=== PATIENT | male | born 1935 | race Caucasian/White ===

== ENCOUNTER 2019-06-07 06:01 | Day surgery (SDC) | payer MEDICARE, SELFPAY ==
[2019-06-06 07:40] VITALS: BMI 32.2
[2019-06-07 06:44] VITALS: BP 113/59; PULSE 83; RESP 18; TEMP 36.1; O2SAT 100
--- NOTE | 2019-06-07 06:50 | ANES.PREANE2 ---
Pre-Anesthetic Assessment Pre-Anesthetic Assessment: Height/Weight: Height 1.7 m Weight 93.44 kg Temp Pulse Resp BP Pulse Ox 97 F L 83 18 113/59 100 06/07/19 06:44 06/07/19 06:44 06/07/19 06:44 06/07/19 06:44 06/07/19 06:44 Preop Diagnosis: Diarrhea Proposed Procedure: Operation Date: 06/07/19 07:15 Proposed Procedures p EGD/Colon 30925 48222 R19.7(Not Applicable) - Santos Hurley MD s Colonoscopy(Not Applicable) - Santos Hurley MD Was Beta Yuly taken within 24 hours: Yes Last intake: Intake Last Liquid Date 06/06/19 Last Liquid Time 20:00 Last Solid Date 06/05/19 Last Solid Time 20:00 Last Intake: 20:00 Social: Social History: No alcohol and No tobacco Exam: Pre-Anes Outpt Exam: alert, oriented x 3, clear to auscultation bilaterally and regular rate & rhythm Airway: Submandibular: WNL Cervical ROM: WNL MP: 2 Pulmonary: Pulmonary: None reported CV/HEM: CV/HEM: Afib and HTN Comments: pacemaker 2013 : : None reported Hepatic: Hepatic: None reported GI: GI: GERD Metabolic: Metabolic: DM Musc/skel: Musc/skel: Scoliosis Neuropsych: Neuropsych: None reported Anesthetic Plan: ASA status: III Anesthesia: Anesthesia Evaluation and MAC Risk of > 500 ml blood loss (7ml/kg in children): No PFSH Anesthesia PFSH: Social History Smoking and tobacco status: former smoker Quit status (tobacco): has quit using tobacco Year quit tobacco: 1975 Second hand smoke exposure: No Alcohol intake: never Adopted: No Caregiver/support person: Yes Lives independently: Yes Household members: spouse Housing: House Marital status: Highest education level completed: High School Graduate service: No Current occupational status: retired Current occupational exposures/hazards: No Pets and animals: No History of recent travel: No Sexually active: No Current gender identity: Male Kiara/Yarsani: None Special kiara needs: No Agree to transfusion: No Financial difficulty paying for basics: Decline to Answer Data Anesthesia Cardiac Studies: No Data to Display
[2019-06-07 06:57] LABS: Glucose Point of Care 113 mg/dL (70-110)
[2019-06-07] MEDS: sodium chloride 0.9% 1,000 ML 30 ML (06:57)
--- NOTE | 2019-06-07 07:10 | PM.HPUD ---
H&P update H&P Update: DATE OF SURGERY/PROCEDURE: 06/07/19 DATE H&P PERFORMED: 05/25/19 H&P UPDATE INFORMATION: H&P completed within last 30 days and Changes to prior documentation as noted here (Patient complains only of diarrhea and there would be no indication at this point for diagnostic EGD will proceed only with colonoscopy) CHANGES TO PREVIOUS DOCUMENTATION: Diagnosis diarrhea and will proceed only with colonoscopy as there is no indication for EGD. PREOP DIAGNOSIS: Diarrhea PLANNED PROCEDURE: Operation Date: 06/07/19 07:15 Proposed Procedures p EGD/Colon 95903 11289 R19.7(Not Applicable) - Santos Hurley MD s Colonoscopy(Not Applicable) - Santos Hurley MD Full H&P Perinent History: Medical/Surgical History: Medical History (Updated 05/26/19 @ 09:48 by Santos Hurley MD) A-fib (Acute) AAA (abdominal aortic aneurysm) (Acute) Diabetes (Acute) Diarrhea (Acute) Dyslipidemia (Acute) History of cardiac pacemaker (Acute) Hypertension (Acute) Prostatic hypertrophy (Acute) Family History: Family History (Updated 05/23/19 @ 14:22 by Adelia Brown RN) Denies family history of Anesthesia complication Bleeding disorder Social History: Social History Smoking and tobacco status: former smoker Quit status (tobacco): has quit using tobacco Year quit tobacco: 1975 Second hand smoke exposure: No Alcohol intake: never Adopted: No Caregiver/support person: Yes Lives independently: Yes Household members: spouse Housing: House Marital status: Highest education level completed: High School Graduate service: No Current occupational status: retired Current occupational exposures/hazards: No Pets and animals: No History of recent travel: No Sexually active: No Current gender identity: Male Kiara/Jainism: None Special kiara needs: No Agree to transfusion: No Financial difficulty paying for basics: Decline to Answer
[2019-06-07 07:58] VITALS: BP 94/59
[2019-06-07 08:10] VITALS: BP 111/61; PULSE 60; RESP 18; O2SAT 100
[2019-06-07 08:16] VITALS: BP 81/54; PULSE 62; TEMP 36.2; O2SAT 99
[2019-06-07 08:27] VITALS: BP 131/79; PULSE 60; RESP 18; O2SAT 98
--- NOTE | 2019-06-07 08:28 | ANE.PACU2 ---
 Inpatient post-anesthesia follow up: Airway intact: Yes Vital signs: Temperature 97.2 F Pulse Rate 60 Respiratory Rate 18 Blood Pressure 131/79 Pulse Oximetry 98 Oxygen Delivery Me thod Nasal Cannula Oxygen Flow Rate Fraction of Inspir ed Oxygen 2 Hydration adequate: Yes Nausea and vomiting: No Pain level: 1 Mental status: Baseline
== END 2019-06-07 08:35 | disposition home or self-care (01) ==
PROVIDERS: Family Provider Nurse Practitioner Family; PCP Nurse Practitioner Family; Visit Provider Surgery
PROC: 0DJ08ZZ Inspection of Upper Intestinal Tract, Via Natural or Artificial Opening Endoscopic (ICD-10-PCS; CPT 43235; principal; 2019-06-07 07:15)
DX: K52.9 Noninfective gastroenteritis and colitis, unspecified (principal); K57.30 Diverticulosis of large intestine without perforation or abscess without bleeding; I48.91 Unspecified atrial fibrillation; E11.9 Type 2 diabetes mellitus without complications; E78.5 Hyperlipidemia, unspecified; Z95.0 Presence of cardiac pacemaker; Z87.891 Personal history of nicotine dependence; I10 Essential (primary) hypertension; K21.9 Gastro-esophageal reflux disease without esophagitis; Z79.84 Long term (current) use of oral hypoglycemic drugs; Z79.82 Long term (current) use of aspirin
CPT/HCPCS: 12345; 36416; 45378; 82962; J2704; J7030

== ENCOUNTER 2019-06-08 08:59 | Outpatient (CLI) | payer MEDICARE, SELFPAY ==
--- NOTE | 2019-06-08 09:10 | XR_ITS ---
WS: [id number] Chest 2 views, 06/08/2019 Clinical Data: OTHER ABNORMALITIES IN BREATHING Comparison: Portable chest, 10/12/2017. Findings: No nodules, masses or effusions are seen. The heart is normal. The pulmonary vascularity is not increased. No pneumonia or pneumothorax is seen. The permanent pacemaker remains in the same pos ition with the generator overlying the left mid chest. There is chronic interstitial change in the li ngula and left lower lobe with a small left pleural reaction. Osteoporosis, kyphosis and degenerative changes of the thoracic spine is present. There are clips in the right upper quadrant from a cholecy stectomy. Aortic arch and descending aorta show minimal calcification and tortuosity. XR/XR chest 2V* [id number] Impression: 1. Atherosclerosis of permanent pacemaker. 2. Chronic interstitial change of the lingula and left lower lobe.
== END 2019-06-08 09:00 | disposition home or self-care (01) ==
LOC: RADWPI 09:06
PROVIDERS: Family Provider Nurse Practitioner Family; PCP Nurse Practitioner Family; Visit Provider Nurse Practitioner Family
DX: R06.89 Other abnormalities of breathing (principal); Z95.0 Presence of cardiac pacemaker
CPT/HCPCS: 71046

== ENCOUNTER 2019-07-13 09:54 | Outpatient (CLI) | payer MEDICARE, SELFPAY ==
--- NOTE | 2019-07-13 10:03 | USCV_ITS ---
Andreas Rosario Age: 84 Gender: M : 1935 Exam Date: 07/13/2019 10:46 Ordering Phys: Ryan Montano MD ([email or web address] Technologist: Taylor Lam [place] [facility] [place]ication: Carotid stenosis Risk Factors: Unknown Previous Vascular Surgery: L CEA Right Brachial BP: / Left Brachial BP: / Right Left Velocity (cm/s) Spectral Plaque Velocity (cm/s) Spectral Plaque Syst/Diast Broadening Syst/Diast Broadening 103.60/12.10 Prox CCA 137.80/ 13.20 102.50/14.30 Mid CCA 119.10/ 8.80 Hetro 99.20/ 16.50 Hetro Distal CCA 100.30/ 13.20 Hetro 90.40/ 11.55 Hetro Prox ICA 107.80/ 13.10 73.50/ 15.40 Mid ICA 88.20 / 19.80 72.60/ 15.40 Distal ICA 70.60 / 15.40 113.60 ECA 147.20 0.78 ICA/CCA 1.07 Antegrade Vertebral Antegrade 50.00/ 9.90 cm/s 63.90/ 12.10 cm/s Tri Subclavian Bi 55.90 104.7 0 FINDINGS Comparison:12-29-2018. See measurements listed above. CONCLUSIONS Right ICA stenosis <50%. Moderate atheromatous plaque right carotid bulb/ICA. Left ICA stenosis <50%. Prior left CEA. No recurrent stenosis. Moderate atheromatous plaque left carotid bulb/ICA. Normal antegrade Doppler flow noted in the right vertebral artery. Increased resistance wavefrom likely due to distal stenosis. Normal antegrade Doppler flow noted in the left vertebral artery. Damian Martinez MD (Electronically Signed) Final Date: 13 July 2019 17:04 S
== END 2019-07-13 09:55 | disposition home or self-care (01) ==
LOC: US 09:56
PROVIDERS: Family Provider Nurse Practitioner Family; PCP Nurse Practitioner Family; Visit Provider Thoracic Surgery (Cardiothoracic Vascular Surgery)
DX: I65.23 Occlusion and stenosis of bilateral carotid arteries (principal)
CPT/HCPCS: 93880

== ENCOUNTER 2020-01-22 12:03 | Outpatient (CLI) | payer MEDICARE, SELFPAY ==
--- NOTE | 2020-01-22 12:45 | USCV_ITS ---
Abraham Andreas Age: 84 Gender: M : 1935 Exam Date: 01/22/2020 12:29 Ordering Phys: Ryan Montano MD (Andy) ([email or web address] [place] Technologist: Geovany Mosley Exam Location: [facility] [place] Indication: CAROTID STENOSIS Risk Factors: Previous Vascular Surgery: L CEA Right Brachial BP: / Left Brachial BP: / Right Left Velocity (cm/s) Spectral Plaque Velocity (cm/s) Spectral Plaque Syst/Diast Broadening Syst/Diast Broadening 104.60/12.90 Prox CCA 120.20/ 9.00 106.30/12.00 Mid CCA 133.30/ 14.00 102.50/14.30 Distal CCA 173.50/ 21.00 105.80/18.70 Prox ICA 131.50/ 17.10 105.80/20.90 Mid ICA 123.60/ 17.10 76.30/ 13.30 Distal ICA 106.50/ 18.40 120.20 ECA 221.30 1.00 ICA/CCA 0.93 Vertebral Antegrade 26.50/ 9.40 cm/s 89.40/ 14.50 cm/s Bi Subclavian Tri 89.40 92.40 FINDINGS RT VERTEBRAL HAS ABNORMAL WAVEFORM CONCLUSIONS Right ICA stenosis <50%. Mild atheromatous plaque right carotid bulb/ICA. Left ICA stenosis 50-69%. Mild atheromatous plaque left carotid bulb/ICA. Left CEA. Biphasic flow right vertebral artery liley due to stenosis Normal antegrade Doppler flow noted in the left vertebral artery. Damian Martinez MD (Electronically Signed) Final Date: 22 January 2020 14:07 S
== END 2020-01-22 12:04 | disposition home or self-care (01) ==
LOC: US 12:05
PROVIDERS: PCP Nurse Practitioner Family; Visit Provider Thoracic Surgery (Cardiothoracic Vascular Surgery)
DX: I65.23 Occlusion and stenosis of bilateral carotid arteries (principal)
CPT/HCPCS: 93880

== ENCOUNTER 2020-04-04 14:29 | Outpatient (CLI) | payer MEDICARE, SELFPAY ==
--- NOTE | 2020-04-04 15:13 | XR_ITS ---
WS: [id number] Chest 2 views, 04/04/2020 Clinical Data: COUGH Comparison: PA and lateral chest, 06/08/2019. Findings: No nodules, masses or effusions are seen. The heart is normal. The pulmonary vascularity is not increased. No pneumonia or pneumothorax is seen. The permanent pacemaker remains in same positio n. The diaphragms are flattened. The left costophrenic angle shows minimal scarring. There is a left cardiophrenic fat pad or cyst. The aortic arch and descending aorta show calcification and tortuosity . The thoracic spine shows kyphosis, osteoporosis and osteoarthritis. There are clips in the upper ab domen from a cholecystectomy. XR/XR chest 2V* [id number] Impression: No change from previous chest x-ray.
== END 2020-04-04 14:30 | disposition home or self-care (01) ==
LOC: RADWPI 14:36
PROVIDERS: PCP Nurse Practitioner Family; Visit Provider Nurse Practitioner Family
DX: R05 Cough (principal)
CPT/HCPCS: 71046

== ENCOUNTER 2020-05-30 09:58 | Outpatient (CLI) | payer MEDICARE, SELFPAY ==
[2020-05-30 12:48] LABS: Basophils % 0.4 %; Eosinophils # 0.6 10^3/uL (0.0-0.8); Eosinophils % 5.8 %; Hematocrit 41.2 % (42.0-52.0); Hemoglobin 12.9 g/dL (11.7-16.6); Lymphocytes # 1.5 10^3/uL (0.8-4.8); Lymphocytes % 16.1 %; Mean Corpuscular HGB Conc 31.3 g/dL (30.0-36.0); Mean Corpuscular Hemoglobin 31.9 pg (28.0-34.0); Mean Corpuscular Volume 101.7 fL (80-94); Mean Platelet Volume 10.3 fL (7.4-10.4); Monocytes # 0.8 10^3/uL (0.2-0.9); Monocytes % 8.8 %; Neutrophils # 6.51 10^3/uL (1.8-7.7); Neutrophils % 68.7 %; Nucleated Red Blood Cells % 0 %; Platelet Count 289 10^3/cmm (130-400); Red Blood Count 4.05 10^6/uL (4.1-5.3); Red Cell Distribution Width 13.6 % (12.1-15.1); White Blood Count 9.5 10^3/uL (4.0-10.0)
[2020-05-30 13:53] LABS: Erythrocyte Sedimentation Rate 69 mm/hr (0-10)
[2020-05-30 14:51] LABS: Alanine Aminotransferase 36 U/L (0-41); Albumin Level 3.4 g/dL (3.5-5.2); Alkaline Phosphatase 145 IU/L (40-130); Anion Gap 13.4 (5-19); Aspartate Amino Transferase 43 U/L (0-40); Blood Urea Nitrogen 14 mg/dL (8-23); Carbon Dioxide 26 mmol/L (22-29); Chloride 104 mmol/L (98-107); Globulin 5.4 g/dL (1.3-4.6); Glucose 128 mg/dL (65-115); Lactate Dehydrogenase 223 U/L (135-225); Osmolality Calculated 290 mOsm/kg (285-295); Potassium 4.4 mmol/L (3.5-5.1); Sodium 139 mmol/L (136-145); Total Bilirubin 0.4 mg/dL (0.15-1.2); Total Protein 8.8 g/dL (6.6-8.7)
[2020-05-30 15:07] LABS: Immunoglobulin IGA 744 mg/dL (70-400); Immunoglobulin IGG 2387 mg/dL (700-1600); Immunoglobulin IGM 30 mg/dL (40-230)
[2020-05-31 13:29] LABS: Beta-2-Microglobulin 3.02 mg/L (< OR = 2.51)
--- NOTE | 2020-06-02 09:15 | ONC CON_ITS ---
Dr. Louie New Patient Note Patient: Andreas Rosario Unit #: [id number]: 1935 Dicatated By: Ayush Louie M.D.Date of Visit: May 30, 2020 Onc MED New Patient/Consult Referring Physician: Kellie Esqueda N.P. Chief Complaint: Elevated serum globulin. 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 He has hypertension and hyperlipidemia. He also has type 2 diabetes, though he has not been requiring medication for it. He also has a history of atrial fibrillation, and he underwent placement of permanent pacemaker in 2012. On his follow-up visit with Kellie Esqueda in February 2020 it was noted on his comprehensive metabolic profile that he had an elevated total protein at 9.0 g/dL and elevation of the calculated serum globulin at 6.2 g/dL. His CBC at that time showed borderline low hemoglobin at 12.7 g with white blood cell count 9700 and platelet count 268,000. Renal function was normal with BUN 16 and creatinine 0.97 mg/dL and the calcium was normal at 8.8 mg/dL. He had further evaluation with protein electrophoresis on 04/04/2020. That study showed elevation of the gammaglobulins at 2.21 g/dL with decreased albumin at 2.86 g/dL. The immunoelectrophoresis reported no monoclonal proteins. The serum free light chain assay showed elevated free kappa light chain at 90.71 mg/L, elevated free lambda light chain at 63.30 mg/L and kappa/lambda ratio in normal range at 1.43. He says that during the past year he has felt worn out and sluggish. He has limited activity, but some of that he just attributes to being lazy. His ECOG score is 2. His appetite has been good, but his weight recently has been down a little. He has not had fever. He has very occasional night sweating. He is legally blind in his left eye. He has not had sore throat or difficulty swallowing. Since January he has had a little bit of nonproductive cough. He says it is getting better. He has shortness of breath with activity. He does not complain of chest pain. He has no GI complaints. Bladder function has been pretty good with tamsulosin. He has no significant joint or bone pain. He does not complain of headache. He sometimes has difficulty with balance. He has numbness in his right foot. He has no other focal neurologic symptoms. Past Medical History: His medical history includes atrial fibrillation, benign prostatic hypertrophy, hyperlipidemia, hypertension, nephrolithiasis, peripheral neuropathy, polymyalgia rheumatica, type II diabetes, and unilateral blindness. Past Surgical History: His surgical/procedural history includes carotid endarterectomy, cholecystectomy, colonoscopy, left ankle repair, and pacemaker placement. Medications: Aspirin 1 (81 mg) Tablet, chewable Oral daily, Betapace 1 (120 mg) Tablet Oral every am, Betapace 1 (80 mg) Tablet Oral at bedtime, Co Q10 1 (200 mg) Capsule Oral daily, Crestor 1 (20 mg) Tablet Oral daily, Flomax 1 (0.4 mg) Capsule Oral daily, Valsartan 1 (320 mg) Tablet Oral daily Allergies: Levaquin and Penicillins. Social History: Mr. Rosario is . He has history of smoking 2 to 3 packs of cigarettes daily, but he quit in 1975. He does not drink alcohol. Family History: Father of heart attack at age 66. Mother lived to age 96. A sister lived to age 95. One brother at . Review Of Symptoms: Constitutional - He has felt worn out and sluggish for the past year. He has had limited activity, but some of that he just attributes to being lazy. He has good appetite. His weight is down a little. He has not had fever. He has very occasional sweating at night. ECOG score is 2, Eyes - He is legally blind in his left eye. He has not had any recent change in his vision, ENMT - He has some hearing loss. No tinnitus. No sinus congestion/drainage. No mouth sores. No sore throat or difficulty swallowing, Hematologic/Lymphatic - No abnormal bruising or bleeding, Respiratory - He has shortness of breath with activity. He has had a nonproductive cough since January. It is getting better. No pleuritic pain or hemoptysis, Cardiovascular - No angina pain. He has a history of atrial fibrillation and he has a pacemaker, Gastrointestinal - No nausea or vomiting. No heartburn or acid reflux. No diarrhea or constipation. No blood in the stool or black stools, Genitourinary (M) - His bladder function is pretty good with the tamsulosin. No dysuria or hematuria. No urinary frequency. No urgency or incontinence, Musculoskeletal - He has no significant joint or bone pain, Integumentary - No skin rash or other skin changes, Neurologic - No headache. He sometimes has problems with balance. He has numbness in his right foot. No other focal neurologic symptoms, Psychiatric - No anxiety or depression. No insomnia. Vital Signs: Performed on May 30, 2020 11:04: 0, 31.04 (HIGH), 2.01 sq.m, 67 in, 94 % (LOW), 97 /min, 18 /min, 128/57 mm(hg), 97.4 F (LOW), and 198.2 lbs (HIGH). Physical Examination: Constitutional - He looks pretty good generally, Eyes - Sclerae nonicteric. Conjunctivae clear, ENMT - No lesions noted in the oral cavity, Neck - No mass or thyromegaly, Hematologic/Lymphatic - No cervical, clavicular, or axillary adenopathy, Respiratory - Lungs are clear with good air movement bilaterally, Cardiovascular - Heart rhythm is regular. There is no murmur, gallop, or rub noted, Abdomen - Soft and non-tender. Liver and spleen are not enlarged. There is no abdominal mass or ascites noted and there is no inguinal adenopathy, Back/Spine - No spine or CVA tenderness noted, Extremities - No edema. Dorsalis pedis pulses are palpable bilaterally, Integumentary - No rashes. No suspicious skin lesions noted, Neurologic - No focal neurologic deficits noted. Problem List: 1. Hypergammaglobulinemia. 2. Hypertension. 3. Hyperlipidemia. 4. Type 2 diabetes, currently not requiring treatment. 5. History of atrial fibrillation. He has permanent pacemaker. 6. Carotid stenosis with previous left carotid endarterectomy. 7. Benign prostatic hypertrophy. Problems Addressed with this Encounter and Plan: Hypergammaglobulinemia. In the absence of any evidence of monoclonal protein on the serum immunofixation and with normal kappa/lambda ratio on the serum free light chain assay, the cause and clinical significance of the hypergammaglobulinemia is uncertain. However, myeloma or other plasma cell dyscrasia does need to be excluded. The laboratory findings were reviewed with the patient and his and we discussed the clinical implications. He will have additional laboratory studies today to include CBC, comprehensive metabolic profile, sed rate, LDH level, beta-2 microglobulin level, serum protein electrophoresis, serum free light chain assay, and quantitative immunoglobulin levels. I also will have him bring in a 24-hour urine for protein electrophoresis. He will have further evaluation as indicated. Signed By: Ayush Louie M.D. <<Signature on File>>
== END 2020-05-30 09:59 | disposition home or self-care (01) ==
PROVIDERS: PCP Nurse Practitioner Family; Visit Provider Internal Medicine Medical Oncology
DX: D89.2 Hypergammaglobulinemia, unspecified (principal); I10 Essential (primary) hypertension; E78.5 Hyperlipidemia, unspecified; E11.9 Type 2 diabetes mellitus without complications; N40.0 Benign prostatic hyperplasia without lower urinary tract symptoms; Z95.0 Presence of cardiac pacemaker
CPT/HCPCS: 36415; 80053; 82232; 82784; 83615; 85025; 85651; 99204

== ENCOUNTER 2020-07-09 08:40 | Outpatient (CLI) | payer MEDICARE, SELFPAY ==
[2020-07-09 08:55] VITALS: BMI 28.9
--- NOTE | 2020-07-09 08:56 | ECG_ITS ---
[facility] Test Date: 2020-07-09 Pat Name: Andreas Rosario Department: Room: Gender: Male [employer] Operator: : 1935 Requested By: Jeff Rg Order Number: [id number] Ran MD: Jeff Rg M.D. Interpretive Statements NAME OF STUDY: LEXISCAN SESTAMIBI STRESS TEST INDICATION: [Chest Pain, ] Procedure: At the baseline, the blood pressure was 154/89mmHg, with a heart rate of 72 bpm. The electrocardiogram showed normal sinus rhythm, normal with normal ST and T waves. The Lexiscan was infused over a duration of 20 seconds. A total of 0.4 mg of Lexiscan was infused. The stress phase was continued for a total of 5 minutes. Heart rate at the end of stress phase was 69 bpm with a blood pressure 123/60 mmHg. The EKG at the peak infusion revealed sinus rhythm with no significant ST-T wave changes. Sestamibi was injected 20 seconds after Lexiscan infusion. Blood pressure at the end of the recovery phase was 128/65 mmHg with a heart rate of 68 bpm. Conclusion: 1. Normal EKG response to Lexiscan infusion. 2. No Lexiscan induced chest pain or cardiac arrhythmia. 3. Normal blood pressure and heart rate response. 4. Sestamibi/sestamibi perfusion scan pending; see separate report. Electronically Signed On 07-14-2020 18:05:58 CDT by Jeff Rg M.D. [id number]
--- NOTE | 2020-07-09 08:56 | NMCV_ITS ---
NM mila perf SPECT r/s* [id number] Andreas Rosario Age: 85 Gender: M : 1935 Exam Date: 07/09/2020 09:51 Ordering Phys: Jeff Rg M.D ([email or web address]) Technologist: ERIKA Doll Exam [facility] Indications: CHEST PAIN STRESS TEST Please see separate stress test report in [facility] for full findings IMAGE PROTOCOL Rest/Stress 1 Lexiscan Day Radiopharmaceutical Dose (mCi) Administration Site Administered by Rest: Tc-99m 10.8 IV ERIKA Doll Sestamibi Stress:Tc-99m 32.4 IV ERIKA Doll Sestamibi Rest: 09-Jul-2020 60 Discovery 630 Stress: 09-Jul-2020 30 Discovery 630 0.4mg Lexiscan. Supine position only as patient was unable to lay prone. SPECT RESULTS Technical Quality: Excellent Raw Data Analysis: Normal Image Corrections: No attenuation or motion correction applied Summed Stress Score: 6 Summed Rest Score: 4 Summed Difference Score: 2 PERFUSION FINDINGS There is a moderate sized perfusion defect in the apical and apical inferior wall that shows partial reversibility. 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 FUNCTIONAL RESULTS (calculated via Gated SPECT) Stress Image LV EF (%): 71 Stress EDV (mL):59 TID: 0.97 Stress ESV (mL):17 FUNCTIONAL FINDINGS: There is normal left ventricular systolic function. IMPRESSIONS 1. There is partially reversible perfusion defect in the apical and apical inferior lemos likely secondary to prior infarct with lorenzo-infarct ischemia 2. LV systolic function is normal Jeff gR MD (Electronically Signed) Final Date: 15 July 2020 14:17 S
[2020-07-09] MEDS: regadenoson 0.4 Mg/5 ml Syringe IVP (10:20)
[2020-07-09 10:34] VITALS: BP 128/65; PULSE 68
== END 2020-07-09 08:41 | disposition home or self-care (01) ==
LOC: CDL 08:43
PROVIDERS: PCP Nurse Practitioner Family; Visit Provider Internal Medicine
DX: R07.9 Chest pain, unspecified (principal)
CPT/HCPCS: 78452; 93017; A9500; J2785

== ENCOUNTER 2020-09-05 08:47 | Outpatient (CLI) | payer MEDICARE, SELFPAY ==
[2020-09-05 09:48] LABS: Basophils % 0.3 %; Eosinophils # 0.3 10^3/uL (0.0-0.8); Eosinophils % 2.3 %; Hematocrit 41.9 % (42.0-52.0); Hemoglobin 13.5 g/dL (11.7-16.6); Lymphocytes # 1.6 10^3/uL (0.8-4.8); Lymphocytes % 12.7 %; Mean Corpuscular HGB Conc 32.2 g/dL (30.0-36.0); Mean Corpuscular Hemoglobin 32.2 pg (28.0-34.0); Mean Platelet Volume 10.3 fL (7.4-10.4); Monocytes # 1.1 10^3/uL (0.2-0.9); Monocytes % 8.9 %; Neutrophils % 75.3 %; Nucleated Red Blood Cells % 0 %; Platelet Count 297 10^3/cmm (130-400); Red Blood Count 4.19 10^6/uL (4.1-5.3); Red Cell Distribution Width 13.7 % (12.1-15.1); White Blood Count 12.5 10^3/uL (4.0-10.0)
[2020-09-05 10:01] LABS: Alanine Aminotransferase 19 U/L (0-41); Albumin Level 3.2 g/dL (3.5-5.2); Alkaline Phosphatase 147 IU/L (40-130); Anion Gap 12.1 (5-19); Aspartate Amino Transferase 24 U/L (0-40); Blood Urea Nitrogen 15 mg/dL (8-23); Calcium 8.3 mg/dL (8.5-10.5); Carbon Dioxide 24 mmol/L (22-29); Chloride 101 mmol/L (98-107); Glucose 145 mg/dL (65-115); Osmolality Calculated 279 mOsm/kg (285-295); Potassium 4.1 mmol/L (3.5-5.1); Sodium 133 mmol/L (136-145); Total Bilirubin 0.4 mg/dL (0.15-1.2); Total Protein 8.2 g/dL (6.6-8.7)
[2020-09-05 10:55] LABS: Erythrocyte Sedimentation Rate 84 mm/hr (0-10)
[2020-09-05 11:11] LABS: Immunoglobulin IGA 796 mg/dL (70-400); Immunoglobulin IGG 2509 mg/dL (700-1600); Immunoglobulin IGM 32 mg/dL (40-230)
[2020-09-06 07:54] LABS: PROTEIN, TOTAL 7.8 g/dL (6.1-8.1)
[2020-09-06 15:37] LABS: ALBUMIN 2.8 g/dL (3.8-4.8); ALPHA 1 GLOBULIN 0.3 g/dL (0.2-0.3); ALPHA 2 GLOBULIN 1.2 g/dL (0.5-0.9); BETA 1 GLOBULIN 0.4 g/dL (0.4-0.6); BETA 2 GLOBULIN 0.7 g/dL (0.2-0.5); GAMMA GLOBULIN 2.4 g/dL (0.8-1.7)
[2020-09-25 09:26] LABS: Miscellaneous Test See Scanned Lab Rpt
== END 2020-09-05 08:48 | disposition home or self-care (01) ==
LOC: ONCMED 08:49
PROVIDERS: PCP Nurse Practitioner Family; Visit Provider Internal Medicine Medical Oncology
DX: D89.2 Hypergammaglobulinemia, unspecified (principal)
CPT/HCPCS: 36415; 80053; 82784; 84155; 84165; 85025; 85651; 88184; 88185

== ENCOUNTER 2020-09-12 06:04 | Outpatient (CLI) | payer MEDICARE, SELFPAY ==
--- NOTE | 2020-09-15 09:15 | ONC FU_ITS ---
Dr. Louie Patient Follow-Up Note Patient: Andreas Rosario Unit #: [id number]: 1935 Dicatated By: Ayush Louie M.D.Date of Visit:September 12, 2020 Onc Med Follow-up/Prog Note Chief Complaint: Elevated serum globulin. 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 He has hypertension and hyperlipidemia. He also has type 2 diabetes, though he has not been requiring medication for it. He also has a history of atrial fibrillation, and he underwent placement of permanent pacemaker in 2012. On his follow-up visit with Kellie Esqueda in February 2020 it was noted on his comprehensive metabolic profile that he had an elevated total protein at 9.0 g/dL and elevation of the calculated serum globulin at 6.2 g/dL. His CBC at that time showed borderline low hemoglobin at 12.7 g with white blood cell count 9700 and platelet count 268,000. Renal function was normal with BUN 16 and creatinine 0.97 mg/dL and the calcium was normal at 8.8 mg/dL. He had further evaluation with protein electrophoresis on 04/04/2020. That study showed elevation of the gammaglobulins at 2.21 g/dL with decreased albumin at 2.86 g/dL. The immunoelectrophoresis reported no monoclonal proteins. The serum free light chain assay showed elevated free kappa light chain at 90.71 mg/L, elevated free lambda light chain at 63.30 mg/L and kappa/lambda ratio in normal range at 1.43. I had seen him initially on 05/30/2020. His CBC at that time showed hemoglobin 12.9 g with white blood cell count 9500 and platelet count 289,000. His sed rate was elevated at 69 mm/hour. Comprehensive metabolic profile showed normal renal function with BUN 14 and creatinine 0.9 mg/dL. He had slightly elevated SGOT and alkaline phosphatase. His total protein was elevated at 8.8 g/dL with calculated serum globulin 5.4 g/dL. The quantitative immunoglobulins showed elevated IgG at 2387 mg/dL and elevated IgA at 744 mg/dL. The IgM was slightly low at 30 mg/dL. His 24-hour urine showed no monoclonal protein. With those findings, expectant management was recommended, as there was no evidence to suggest symptomatic myeloma. He is seen now for a follow-up visit. He complains that he is tired and that he does not have much energy. He is still able to do some light work. His ECOG score is 1. His appetite has not been as good. He does not have fever or night sweats. He has a little bit of sinus drainage and he has nonproductive cough. He has shortness of breath, and he says his breathing could be better. He does not complain of chest pain. He has no GI or complaints. He has no significant joint or bone pain, and he does not have muscle aching or soreness, though he says in the past he was treated for polymyalgia rheumatica. He does not complain of headache or dizziness. 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 Medications: Aspirin 1 (81 mg) Tablet, chewable Oral daily, Betapace 1 (120 mg) Tablet Oral every am, Betapace 1 (80 mg) Tablet Oral at bedtime, Co Q10 1 (200 mg) Capsule Oral daily, Crestor 1 (20 mg) Tablet Oral daily, Flomax 1 (0.4 mg) Capsule Oral daily, Valsartan 1 (320 mg) Tablet Oral daily Allergies: Levaquin and Penicillins. Vital Signs: Performed on September 12, 2020 13:03 Height - 67.00 in Weight - 195 lbs (LOW) BSA - 2.00 sq.m BMI - 30.54 (HIGH) Temperature - 98.1 F (LOW) Pulse - 89 /min Respiration - 18 /min BP - 168/87 mm(hg) (HIGH) O2 Sat - 98 % Pain - 0 Fatigue - 6 Physical Examination: Constitutional - He looks pretty good generally, Eyes - Sclerae nonicteric. Conjunctivae clear, ENMT - No lesions noted in the oral cavity, Hematologic/Lymphatic - No cervical, clavicular, or axillary adenopathy, Respiratory - Lungs are clear with good air movement bilaterally, Cardiovascular - Heart rhythm is regular. There is no murmur, gallop, or rub noted, Abdomen - Soft. Liver and spleen are not enlarged. There is no abdominal mass or ascites noted and there is no inguinal adenopathy, Extremities - No edema, Neurologic - No focal neurologic deficits noted. Lab/Imaging: CBC shows hemoglobin 13.5 g, white blood cell count 12,500, and platelet count 297,000. Sed rate is significantly elevated at 84 mm/hour. Comprehensive metabolic profile shows BUN 15 and creatinine 1.1 mg/dL with alkaline phosphatase slightly elevated 147/130 IUs/L. The bilirubin and other liver enzymes are normal. Albumin is low at 2.8 g/dL with calculated serum globulin elevated at 5.0 g/dL. 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 The quantitative immunoglobulin levels show similar findings with IgG 2509 mg/dL, IgA 796 mg/dL, and IgM 32 mg/dL. Problem List: 1. 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 He was previously given steroid therapy for polymyalgia rheumatica, which may be the underlying cause. 2. Hypertension. 3. Hyperlipidemia. 4. Type 2 diabetes, currently not requiring treatment. 5. History of atrial fibrillation. He has permanent pacemaker. 6. Carotid stenosis with previous left carotid endarterectomy. 7. Benign prostatic hypertrophy. Problems Addressed with this Encounter and Plan: Patient with polyclonal hypergammaglobulinemia. He has significantly elevated sed rate, consistent with an underlying inflammatory disorder. In the past he had been on steroid therapy for polymyalgia rheumatica, which may be the source for this. However, he currently he does not have any overt PMR symptoms, and other potential causes for underlying inflammatory disease are not excluded. To that end, he does complain of increasing shortness of breath, and I think it would be advisable to have him see a medical oncologist. He can otherwise be followed expectantly, as there appears to be no evidence for myeloma or other malignancy. I will tentatively plan a followup visit in 3 months. Signed By: Ayush Louie M.D. <<Signature on File>>
== END 2020-09-12 06:05 | disposition home or self-care (01) ==
LOC: ONCMED 06:06
PROVIDERS: PCP Nurse Practitioner Family; Visit Provider Internal Medicine Medical Oncology
DX: D89.0 Polyclonal hypergammaglobulinemia (principal); M35.3 Polymyalgia rheumatica; I10 Essential (primary) hypertension; E78.5 Hyperlipidemia, unspecified; E11.9 Type 2 diabetes mellitus without complications; I48.92 Unspecified atrial flutter; Z95.0 Presence of cardiac pacemaker; I65.22 Occlusion and stenosis of left carotid artery; N40.0 Benign prostatic hyperplasia without lower urinary tract symptoms; Z79.899 Other long term (current) drug therapy
CPT/HCPCS: 99214

== ENCOUNTER 2020-09-23 12:45 | Outpatient (CLI) | payer MEDICARE, SELFPAY ==
--- NOTE | 2020-09-23 12:50 | XR_ITS ---
WS: [id number] Exam: XR chest 2V* [id number] Date/Time of Exam: 09/23/2020 1:21 PM Reason For Exam: PERSISTENT DRY COUGH Comparison 10/12/2017. The lungs are fully expanded. There are chronic interstitial changes noted bilaterally. Scattered angel cified granulomas noted. Cardiomediastinal structures appear normal. No pleural effusion. A permanent cardiac pacer superimposes the left chest. Increased thoracic kyphosis noted with bony changes that may indicate ankylosing spondylitis. XR/XR chest 2V* [id number] IMPRESSION: 1. No acute cardiopulmonary finding. Chronic interstitial changes and healed gr anulomatous disease. 2. Changes in thoracic spine that may indicate ankylosing spondylitis.
== END 2020-09-23 12:46 | disposition home or self-care (01) ==
LOC: RAD 12:47
PROVIDERS: PCP Nurse Practitioner Family; Visit Provider Nurse Practitioner Family
DX: R05 Cough (principal)
CPT/HCPCS: 71046

== ENCOUNTER 2020-10-08 10:11 | Outpatient (CLI) | payer MEDICARE, SELFPAY ==
[2020-10-08 10:42] LABS: Basophils % 0.4 %; Eosinophils # 0.4 10^3/uL (0.0-0.8); Eosinophils % 3.7 %; Hematocrit 40.3 % (42.0-52.0); Lymphocytes # 1.7 10^3/uL (0.8-4.8); Lymphocytes % 15.1 %; Mean Corpuscular HGB Conc 32.3 g/dL (30.0-36.0); Mean Corpuscular Hemoglobin 31.9 pg (28.0-34.0); Mean Platelet Volume 9.9 fL (7.4-10.4); Monocytes # 1.1 10^3/uL (0.2-0.9); Monocytes % 9.6 %; Neutrophils # 7.95 10^3/uL (1.8-7.7); Neutrophils % 70.8 %; Nucleated Red Blood Cells % 0 %; Platelet Count 325 10^3/cmm (130-400); Red Blood Count 4.07 10^6/uL (4.1-5.3); Red Cell Distribution Width 13.6 % (12.1-15.1); White Blood Count 11.2 10^3/uL (4.0-10.0)
[2020-10-09 18:33] LABS: Alternaria Alternata (M6) Ige <0.10 kU/L; Alternaria Class 0; Bermuda Class 0/1; Bermuda Grass (G2) Ige 0.11 kU/L; Cat Dander (E1) Ige <0.10 kU/L; Cat Dander Class 0; Common Ragweed (Short) (W1) Ig <0.10 kU/L; D. Farinae Class 2; Dermatophagoides Class 2; Dermatophagoides Farinae (D2) 0.98 kU/L; Dog Dander (E5) Ige <0.10 kU/L; Dog Dander Class 0; Elm (T8) Ige 0.39 kU/L; Elm Class 1; English Plantain (W9) Ige 0.13 kU/L; English Plantain Class 0/1; House Dust (Greer) (H1) Ige <0.10 kU/L; House Dust (Hollister- Stier) <0.10 kU/L; House Dust Class 0; Immunoglobulin E 656 kU/L (<OR=114); Immunoglobulin E 673 kU/L (<OR=114); Johnson Grass (G10) Ige 0.13 kU/L; Johnson Grass Cl 0/1; June Grass Class 0/1; June Grass(Kentucky Blue) (G8) 0.15 kU/L; Lamb'S Quarters (Goose Foot) 0.34 kU/L; Lamb'S Quarters Class 0/1; Maple (Box Elder) (T1) Ige 0.15 kU/L; Maple Class 0/1; Meadow Fescue (G4) Ige <0.10 kU/L; Meadow Fescue Class 0; Mucor Racemosus Class 0; Oak (T7) Ige 0.11 kU/L; Oak Class 0/1; Orchard Grass (Cocksfoot) (G3) 0.12 kU/L; Penicillium Class 0; Penicillium Notatum (M1) Ige <0.10 kU/L; Perennial Rye Grass (G5) Ige <0.10 kU/L; Perennial Rye Grass Class 0; Ragweeed Class 0; Rough Marsh Elder (W16) Ige 0.25 kU/L; Rough Marsh Elder Class 0/1; Sweet Vernal Class 0/1; Sweet Vernal Grass (G1) Ige 0.14 kU/L; Timothy Grass (G6) Ige 0.12 kU/L; Timothy Grass Class 0/1
[2020-10-11 22:53] LABS: Aspergillus Fumigatus, Igg Ab, 38.5 mg/L (<=102)
== END 2020-10-08 10:12 | disposition home or self-care (01) ==
PROVIDERS: PCP Nurse Practitioner Family; Visit Provider Internal Medicine Pulmonary Disease
DX: J30.89 Other allergic rhinitis (principal)
CPT/HCPCS: 36415; 82785; 85025; 86003

== ENCOUNTER → 2020-10-14 13:59 | Outpatient (BNVA) | payer MEDICARE, SELFPAY | PROVIDERS: PCP Nurse Practitioner Family; Visit Provider Internal Medicine Rheumatology | DX: J84.9 Interstitial pulmonary disease, unspecified (principal); M62.81 Muscle weakness (generalized); Z79.899 Other long term (current) drug therapy; Z11.59 Encounter for screening for other viral diseases; Z11.1 Encounter for screening for respiratory tuberculosis; R76.8 Other specified abnormal immunological findings in serum; M45.9 Ankylosing spondylitis of unspecified sites in spine; Z87.891 Personal history of nicotine dependence | CPT/HCPCS: 99204 ==

== ENCOUNTER 2020-10-14 16:08 | Outpatient (CLI) | payer MEDICARE, SELFPAY ==
--- NOTE | 2020-10-14 16:47 | XRR_ITS ---
PROCEDURE INFORMATION: Exam: XR Pelvis Exam date and time: 10/14/2020 4:47 PM Age: 85 years old Clinical indication: Pelvic pain; Additional info: Z79.899 - other correction (current) drug therapy TECHNIQUE: Imaging protocol: XR pelvis. Views: 1 or 2 view. COMPARISON: CT abdomen pelvis w con* [id number] 05/12/2016 7:05 PM FINDINGS: Bones/joints: No fractures. Unremarkable joint alignments. Diffuse osseous demineralization. No focal bone erosion or lytic lesion. Mild osteoarthritis changes of hip joints. Soft tissues: Unremarkable. Vasculature: Scattered atherosclerosis. XR/XR pelvis 1-2V* [id number] IMPRESSION: No acute findings.
--- NOTE | 2020-10-14 16:47 | XRR_ITS ---
PROCEDURE INFORMATION: Exam: XR Lumbosacral Spine Exam date and time: 10/14/2020 4:47 PM Age: 85 years old Clinical indication: Low back pain; Additional info: Z79.899 - other snf (current) drug therapy TECHNIQUE: Imaging protocol: XR of the lumbosacral spine. Views: 2 or 3 views. COMPARISON: CT abdomen pelvis w con* [id number] 05/12/2016 7:05 PM FINDINGS: Bones/joints: Diffuse osseous demineralization. Mild rightward convex lumbar spine curvature. Lateral bridging osteophytic spurring diffusely. Diffuse spondyloarthropathy changes. No acute compression fracture identified. Soft tissues: Unremarkable. Intraperitoneal space: Right upper quadrant surgical clips. Vasculature: Large volume diffuse atherosclerosis of abdominal aorta with mildly ectatic mid abdominal aortic segment. XR/XR lumbar spine 2-3V* [id number] IMPRESSION: 1. No acute findings. 2. Diffuse spondyloarthropathy changes.
[2020-10-14 18:11] LABS: C Reactive Protein 3.6 mg/L (0.0-4.9); Creatine Phosphokinase 83 U/L (39-308)
[2020-10-14 18:57] LABS: Erythrocyte Sedimentation Rate 98 mm/hr (0-10)
[2020-10-14 21:12] LABS: Hepatitis B Core AB, Total Non-Reactive (Nonreactive); Hepatitis B Surface Antigen Non-Reactive (Nonreactive); Hepatitis C Virus Antibody Non-Reactive (Nonreactive)
[2020-10-16 13:33] LABS: CENTROMERE B ANTIBODY <1.0 NEG AI (<1.0 NEG); Cyclic Citrullinated Peptide <16 UNITS; JO-1 ANTIBODY <1.0 NEG AI (<1.0 NEG); RNP ANTIBODY <1.0 NEG AI (<1.0 NEG); SCL-70 ANTIBODY <1.0 NEG AI (<1.0 NEG); SJOGREN'S ANTIBODY (SS-A) <1.0 NEG AI (<1.0 NEG); SM ANTIBODY <1.0 NEG AI (<1.0 NEG); SS-B <1.0 NEG AI (<1.0 NEG)
[2020-10-16 14:42] LABS: Aldolase 3.9 U/L (< OR = 8.1); COMPLEMENT, TOTAL (CH50) >60 U/mL (31-60)
[2020-10-16 15:48] LABS: COMPLEMENT COMPONENT C3C 164 mg/dL; COMPLEMENT COMPONENT C4C 30 mg/dL; THYROID PEROXIDASE ANTIBODIES 1 IU/mL (<9)
[2020-10-17 11:17] LABS: ANA PATTERN Cytoplasmic; ANA SCREEN, IFA POSITIVE (NEGATIVE); ANA TITER 1:40 titer
[2020-10-17 15:17] LABS: Quantiferon Mitogen 8.04 IU/mL; Quantiferon Nil 0.01 IU/mL; Quantiferon Plus TB1 0.01 IU/mL; Quantiferon Plus TB2 0.01 IU/mL; Quantiferon TB Gold NEGATIVE (NEGATIVE)
[2020-10-18 15:18] LABS: HLA-B27 NEGATIVE (NEGATIVE)
[2020-10-21 00:58] LABS: DNA AB (DS) CRITHIDIA,IFA NEGATIVE (NEGATIVE)
== END 2020-10-14 16:09 | disposition home or self-care (01) ==
LOC: LAB 16:12 → RAD 16:23
PROVIDERS: PCP Nurse Practitioner Family; Visit Provider Internal Medicine Rheumatology
DX: M45.9 Ankylosing spondylitis of unspecified sites in spine (principal); Z79.899 Other long term (current) drug therapy; M60.9 Myositis, unspecified; M62.81 Muscle weakness (generalized); R53.83 Other fatigue; R76.8 Other specified abnormal immunological findings in serum; Z11.59 Encounter for screening for other viral diseases; Z11.1 Encounter for screening for respiratory tuberculosis
CPT/HCPCS: 36415; 72100; 72170; 82085; 82550; 85651; 86140; 86160; 86162; 86235; 86255; 86376; 86431; 86480; 86704; 86803; 86812; 87340

== ENCOUNTER → 2020-10-31 11:30 | Outpatient (BNVA) | payer MEDICARE, SELFPAY | PROVIDERS: PCP Nurse Practitioner Family; Visit Provider Internal Medicine Pulmonary Disease | DX: R06.00 Dyspnea, unspecified (principal) | CPT/HCPCS: 87635 ==

== ENCOUNTER 2020-11-05 08:54 | Outpatient (CLI) | payer MEDICARE, SELFPAY ==
--- NOTE | 2020-11-05 11:08 | PFTS_ITS ---
Date of Study:11/05/20 Date of Dictation: 11/08/2020 MECHANICS: Post bronchodilator Forced vital capacity (FVC) is reduced. Post bronchodilator Forced expiratory volume in one second (FEV1) is moderately reduced 65 % FEV1/FVC is reduced. There is no significant response to bronchodilators. FLOW VOLUME LOOP: Sloping of end expiratory limb suggestive of small air way obstruction LUNG VOLUMES: not measured DIFFUSING CAPACITY FOR CARBON MONOXIDE: moderately reduced 60 % . INTERPRETATION: The pulmonary function tests consistent with moderate obstructive ventilatory defect with no significant bronchodilator response. There is moderate gas transfer defect corrected when adjusted to ventilation. Lung volumes not measured. Overall suggestive of moderate COPD likley emphysema. Clinical correlation recommended. MTDD
== END 2020-11-05 08:55 | disposition home or self-care (01) ==
LOC: RT 08:59
PROVIDERS: PCP Nurse Practitioner Family; Visit Provider Internal Medicine Pulmonary Disease
DX: R06.00 Dyspnea, unspecified (principal)
CPT/HCPCS: 94060; 94618; 94729; J7611

== ENCOUNTER 2020-11-05 09:10 | Outpatient (CLI) | payer MEDICARE, SELFPAY ==
--- NOTE | 2020-11-05 10:30 | CT_ITS ---
WS: [id number] CT CHEST CT-HIGH RESOLUTION, NONCONTRAST. HISTORY: Interstitial lung disease. Technique: High-resolution chest CT is performed in inspiration, expiration, supine and prone positio thomas. All CT scans at [facility] use at least one of these dose optimization techniques: automa juaquin exposure control; mA and/or kV adjustment per patient size (includes targeted exams where dose is matched to clinical indication); or iterative reconstruction. DLP: 278.56 mGy.cm COMPARISON: Chest radiograph 04/04/2020 Findings: Hyperinflated lungs from chronic emphysema and hyperinflation. 5 mm nodule LEFT apex. Addit ional areas of atelectasis with bronchial wall thickening and very mild early changes of atelectasis in the central LEFT upper lobe. There are a few small well-circumscribed cystic areas in the peripher y of the RIGHT upper lobe. With expiration there is a decrease in lung volume. No areas of air trappi ng or mosaic attenuation. There is no evidence for honeycombing. Mild atherosclerosis aorta. Normal s ize pulmonary artery. Dual lead LEFT subclavian pacer. CT/CT chest wo con [id number] Impression: 1. No evidence for honeycombing or interstitial pulmonary fibrosis. 2. Emphysema with bronchial wall thickening. 3. Bronchial wall thickening and nodularity most significant in the LEFT upper lobe. There is an additional 5 mm nodule at the LEFT apex. Recommend follow-up diagnostic chest CT with IV contrast.
== END 2020-11-05 09:11 | disposition home or self-care (01) ==
LOC: RAD 09:10
PROVIDERS: PCP Nurse Practitioner Family; Visit Provider Internal Medicine Pulmonary Disease
DX: R06.00 Dyspnea, unspecified (principal); J43.9 Emphysema, unspecified
CPT/HCPCS: 71250; 94060; 94618; 94729; J7611

== ENCOUNTER → 2020-11-19 14:44 | Outpatient (BNVA) | payer MEDICARE, SELFPAY | PROVIDERS: PCP Nurse Practitioner Family; Visit Provider Internal Medicine Rheumatology | DX: M62.81 Muscle weakness (generalized) (principal); J84.9 Interstitial pulmonary disease, unspecified; Z79.899 Other long term (current) drug therapy; R06.00 Dyspnea, unspecified; R70.0 Elevated erythrocyte sedimentation rate; Z87.891 Personal history of nicotine dependence; M35.3 Polymyalgia rheumatica; M60.9 Myositis, unspecified; R53.83 Other fatigue; M45.9 Ankylosing spondylitis of unspecified sites in spine | CPT/HCPCS: 36415; 84154; 99214 ==

== ENCOUNTER 2020-11-19 16:36 | Outpatient (CLI) | payer MEDICARE, SELFPAY ==
[2020-11-21 16:42] LABS: PSA Free 0.6 ng/mL; PSA Free Percentage 43 % (calc) (>25); PSA Total 1.4 ng/mL (< OR = 4.0)
== END 2020-11-19 16:37 | disposition home or self-care (01) ==
PROVIDERS: PCP Nurse Practitioner Family; Visit Provider Internal Medicine Rheumatology
DX: J84.9 Interstitial pulmonary disease, unspecified (principal); M35.3 Polymyalgia rheumatica; Z79.899 Other long term (current) drug therapy; M60.9 Myositis, unspecified; M62.81 Muscle weakness (generalized); R53.83 Other fatigue; M45.9 Ankylosing spondylitis of unspecified sites in spine
CPT/HCPCS: 36415; 82397; 84154; 84182; 86235

== ENCOUNTER → 2021-02-11 07:51 | Outpatient (BNVA) | payer MEDICARE, SELFPAY | PROVIDERS: PCP Nurse Practitioner Family; Referring Provider Internal Medicine Rheumatology; Visit Provider Specialist | DX: G62.89 Other specified polyneuropathies (principal); M62.81 Muscle weakness (generalized); Z87.891 Personal history of nicotine dependence | CPT/HCPCS: 95909 ==

== ENCOUNTER 2021-02-17 08:29 | Outpatient (CLI) | payer MEDICARE, SELFPAY ==
--- NOTE | 2021-02-17 09:00 | CT_ITS ---
WS: [id number] CT CHEST WITH INTRAVENOUS CONTRAST HISTORY: Lung Nodule TECHNIQUE: Contiguous 5 mm axial imaging performed on the thorax. Coronal and sagittal reformats are submitted. All CT scans at [facility] use at least one of these dose optimization techniques: automated exposure control; mA and/or kV adjustment per patient size (includes targeted exams where dose is matched to clinical indication); or iterative reconstruction. CONTRAST: Omnipaque 300; 95 mL IV. DLP: 889.42 mGy.cm COMPARISON: 11/05/2020 Lungs and central airway: Hyperexpanded lungs from emphysema. Several small nodules with bronchial th ickening noted at the LEFT apex. The largest nodule is 5 mm. Very similar in appearance to the prior examination. There is an additional irregular consolidation with bronchial wall thickening and tree-i n-bud airspace disease towards the lingula and mild atelectasis and chronic pleural thickening at the LEFT lung base. Additional bronchiectasis in the LEFT lower lobe. There is additional bronchiectasis in the RIGHT middle lobe. Pleura: Normal. No pleural effusion. Heart and pericardium: Mildly enlarged heart. Dual lead cardiac pacer. No effusion. Heavy calcificati on in the [place] coronary arteries. Mediastinum and john: No mediastinum or hilar adenopathy. Vessels: Normal size aortic and pulmonary artery. No coronary artery calcifications. Chest wall and lower neck: No soft tissue masses. Upper abdomen: Prior cholecystectomy. Moderate size hiatal hernia. Splenic granulomata. No adrenal ma ss. LEFT renal cyst measures 3.4 cm. Osseous structures: Thoracolumbar scoliosis with anterior bridging along the anterior longitudinal li gament changes suspicious for ankylosing spondylitis. CT/CT chest w con* [id number] IMPRESSION: 1. Continued but stable LEFT upper lobe, lingular and LEFT lower lobe nodules, bronchial thickening and bronchiectasis as described above. No significant dutch nge since 11/05/2020. 2. Additional mild bronchiectasis in the RIGHT middle lobe. 3. Close continued follow-up is recommended. Recommend follow-up chest CT in 3 months. Some of the changes may be chronic but others may be due to endobronch ial pneumonia within the LEFT lung. 4. Mild cardiomegaly and partially calcified aorta and coronary arteries. 5. Prior cholecystectomy.
[2021-02-17 09:16] LABS: Blood Urea Nitrogen 13 mg/dL (8-23)
[2021-02-17] MEDS: iohexol 300 mg/mL 100 mL Btl IV (09:24)
== END 2021-02-17 08:30 | disposition home or self-care (01) ==
PROVIDERS: PCP Nurse Practitioner Family; Visit Provider Internal Medicine Pulmonary Disease
DX: Z01.812 Encounter for preprocedural laboratory examination (principal); R91.1 Solitary pulmonary nodule; Z90.49 Acquired absence of other specified parts of digestive tract; I51.7 Cardiomegaly; J47.9 Bronchiectasis, uncomplicated
CPT/HCPCS: 71260; 82565; 84520; Q9967

== ENCOUNTER → 2021-03-18 10:38 | Outpatient (BNVA) | payer MEDICARE, SELFPAY | PROVIDERS: PCP Nurse Practitioner Family; Visit Provider Internal Medicine Rheumatology | DX: G62.9 Polyneuropathy, unspecified (principal); M62.58 Muscle wasting and atrophy, not elsewhere classified, other site; J84.9 Interstitial pulmonary disease, unspecified; J44.9 Chronic obstructive pulmonary disease, unspecified; I25.10 Atherosclerotic heart disease of native coronary artery without angina pectoris; Z79.02 Long term (current) use of antithrombotics/antiplatelets; Z87.891 Personal history of nicotine dependence | CPT/HCPCS: 99214 ==

== ENCOUNTER 2021-04-03 08:24 | Outpatient (RCR) | payer MEDICARE, SELFPAY | END 2021-05-02 23:59 | disposition home or self-care (01) | LOC: PULRHB 08:24 | PROVIDERS: PCP Nurse Practitioner Family; Visit Provider Internal Medicine Pulmonary Disease | DX: J84.9 Interstitial pulmonary disease, unspecified (principal) | CPT/HCPCS: 94618; G0237; G0238; G0239 ==

== ENCOUNTER → 2021-04-18 09:01 | Outpatient (BNVA) | payer MEDICARE, SELFPAY | PROVIDERS: PCP Nurse Practitioner Family; Visit Provider Internal Medicine Pulmonary Disease | DX: Z20.822 Contact with and (suspected) exposure to COVID-19 (principal) | CPT/HCPCS: 87635 ==

== ENCOUNTER 2021-04-22 05:44 | Day surgery (SDC) | payer MEDICARE, SELFPAY ==
[2021-04-18 15:05] VITALS: BMI 28.1
[2021-04-22] VITALS (12 sets, daily range): BP systolic 79–151; BP diastolic 49–71; PULSE 60–83; RESP 18–25; TEMP 36.1–36.2; O2SAT 93–98
--- NOTE | 2021-04-22 | SCC_ITS ---
Procedure: Flexible bronchoscopy with airway inspection, airway clearance of secretions and obtaining bronchoalveolar lavage sample and transbronchial biopsies from left lingula with control of bleeding 19.9 seconds of fluoroscopic guidance, for a cumulative dose of 2.73 mGy, was provided to Dr. Masters by the radiology department. C-arm images of the chest were saved for the patient's permanent record. MTDD
--- NOTE | 2021-04-22 06:12 | W.PM.OPSUD ---
Surgery/Procedure H&P Update DATE OF PROCEDURE: April 22, 2021 86-year-old male Mr. Andreas Rosario with PMH emphysema, polymyalgia rheumatica, hypogammaglobulinemia, hypertension, hyperlipidemia, type 2 diabetes, history of atrial fibrillation on permanent pacemaker, carotid stenosis with previous left carotid endarterectomy, BPH comes for Bronchoscopy and transbronchial biospy of left lingular tree in bud opacities and PET positive lesion. HRCT on 11/05/2020 showed bronchial wall thickening and nodularity most significant in left upper lobe with additional 5 mm nodule at left apex. 3-month follow-up CT in January 2021 showed a stable left upper lobe lingular and left lower lobe nodules bronchial thickening and bronchiectasis and follow-up PET CT scan on 06/13/2020 showed dominant left upper lobe nodule measuring 2.2 x 1.2 cm with SUV 5 suspicious for malignancy. There are multiple other left lung apex nodules FDG positive but in a pattern more suggestive of alveolar infiltrate than malignancy. Patient is scheduled for bronchoscopy and transbronchial biopsy of lingular infiltrate Today patient seen in preop area reported he still has some dyspnea and is currently attending pulmonary rehabilitation Physical examination: General: alert, NAD HEENT: conj clear, EOMI, PERRL, mmm, Neck: supple, no meningismus Heme: no cervical LAP Pulmonary: CTAB, no wheezing, rhonchi, crackles Cardiovascular: rrr, nl s1s2, no mrg Abdomen: soft, nt, nd, no r/g, bs+ Extremities: pulses +, no edema, no c/c : no CVA tenderness Skin: intact, no rash MSK: no back or neck pain Neurologic: grossly intact Pertinent labs and imaging reviewed in [facility]: PET CT 06/13/2020: 1.FDG positive dominant left upper lobe pulmonary nodule suspicious for malignancy with 2.2 x 1.2 cm with an SUV 5 2.other subcentimeter nodules in left upper lobe and right lower lobe are more suggestive inflammatory infiltrates CT chest 02/17/2021: 1. Continued but stable LEFT upper lobe, lingular and LEFT lower lobe nodules, bronchial thickening and bronchiectasis as described above. No significant change since 11/05/2020. 2. Additional mild bronchiectasis in the RIGHT middle lobe. 3. Close continued follow-up is recommended. Recommend follow-up chest CT in 3 months. Some of the changes may be chronic but others may be due to endobronchial pneumonia within the LEFT lung. 4. Mild cardiomegaly and partially calcified aorta and coronary arteries. 5. Prior cholecystectomy. HRCT 11/05/2020: 1. No evidence for honeycombing or interstitial pulmonary fibrosis. 2. Emphysema with bronchial wall thickening. 3. Bronchial wall thickening and nodularity most significant in the LEFT upper lobe. There is an additional 5 mm nodule at the LEFT apex. Recommend follow-up diagnostic chest CT with IV contrast. PFTs 11/05/2020: Spirometry consistent with moderate obstruction with postbronchodilator FEV1 1.63 L and 65% of predicted and FVC 2.63 L and 78% predicted. There is no significant bronchodilator. Lung volumes are not measured. There is mild gas transfer defect DLCO 60% which corrected to 91% when adjusted for ventilation. 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 LV systolic function is normal Sestamibi stress test 07/09/2020: 1. Normal EKG response to Lexiscan infusion. 2. No Lexiscan induced chest pain or cardiac arrhythmia. 3. Normal blood pressure and heart rate response. Assessment and plan: #Left upper lobe, lingular and left lower lobe nodules, bronchial thickening and bronchiectasis on CT chest #FDG positive dominant left upper lobe pulmonary nodule suspicious for malignancy with 2.2 x 1.2 cm with an SUV 5 -Today schedule for bronchoscopy and transbronchial biopsies and bronchoalveolar lavage and control of bleeding -Everything explained in detail to the patient and his including the complications of bleeding, pneumothorax and recommended him to come to ER if he has any unusual chest pains or overt hemoptysis. Patient and his verbalized understanding and agreed with the plan. Patient to follow-up in clinic in 7 to 10 days DATE H&P PERFORMED: 05/25/19 PLANNED PROCEDURE: Operation Date: 04/22/21 07:10 Proposed Procedures p Bronchoscopy 48933 R91.8(Not Applicable) - Arley Masters MD Related Problem List Diagnoses (1) Left upper lobe pulmonary nodule:
--- NOTE | 2021-04-22 06:54 | P.ANESASSM_ITS ---
Pre-Anesthetic Assessment Pre-Anesthetic Assessment: Height/Weight: Height 1.7 m Weight 81.647 kg Temp Pulse Resp BP Pulse Ox 97.1 F L 83 20 H 151/71 93 04/22/21 06:15 04/22/21 06:15 04/22/21 06:15 04/22/21 06:15 04/22/21 06:15 Preop Diagnosis: Diarrhea Proposed Procedure: Operation Date: 04/22/21 07:10 Proposed Procedures p Bronchoscopy 35761 R91.8(Not Applicable) Marlon Masters MD Was Beta Yuly taken within 24 hours: Yes Was Clonidine taken within 24 hours: N/A Last intake: Intake Last Liquid Date 04/21/21 Last Liquid Time 18:00 Last Solid Date 04/21/21 Last Solid Time 18:00 Social: Social History: No tobacco Packs per day: COPD Former smoker Exam: Pre-Anes Outpt Exam: alert Airway: Submandibular: WNL Cervical ROM: WNL MP: 1 History/ROS: No significant history except as noted Pulmonary: Pulmonary: COPD CV/HEM: CV/HEM: Afib and PVD Comments: Pacemaker AAA PVD s/p CEA : : None reported GI: GI: GERD Metabolic: Metabolic: DM Musc/skel: Musc/skel: OA/DJD Neuropsych: Neuropsych: None reported Anesthetic Plan: ASA status: 3 Anesthesia: Anesthesia Evaluation and General Risk of > 500 ml blood loss (7ml/kg in children): No PFSH Anesthesia PFSH: Medical History (Updated 03/18/21 @ 11:27 by James Duong MD) A-fib AAA (abdominal aortic aneurysm) Diabetes Diarrhea Patient does have extensive diverticulosis of the colon and he will not require further screening colonoscopies unless otherwise specified Diverticulosis Dyslipidemia Elevated erythrocyte sedimentation rate History of cardiac pacemaker Hypertension Lower extremity weakness Prostatic hypertrophy Proximal muscle weakness Surgical History History of arthroplasty of left ankle History of CEA (carotid endarterectomy) History of colonoscopy (~06/2019) History of laparoscopic cholecystectomy Family History Other CAD (coronary artery disease) Diarrhea Family history of premature coronary artery disease Denies family history of Rheumatoid arthritis Diabetes Lupus Anesthesia complication Bleeding disorder Lung disease Cancer Hypertension Stroke Social History Quit status (tobacco): has quit using tobacco Year quit tobacco: 1975 [id number] x27yrs Second hand smoke exposure: No Smoking risk assessment/counseling performed?: Yes Alcohol intake: never Adopted: No Caregiver/support person: Yes Lives independently: Yes Household members: spouse Housing: House Marital status: Highest education level completed: High School Graduate service: No Current occupational status: retired Current occupational exposures/hazards: No Pets and animals: No History of recent travel: No Sexually active: No Current gender identity: Male Kiara/Congregation: None Special kiara needs: No Agree to transfusion: No Financial difficulty paying for basics: Decline to Answer Data Anesthesia Cardiac Studies: No Data to Display
[2021-04-22] MEDS: sodium chloride 0.9% 1,000 ML 30 ML IV (06:55)
--- NOTE | 2021-04-22 07:24 | SC_ITS ---
WS: [id number] INTRAOPERATIVE TECHNIQUE: 6 Spot fluoroscopic images for intraoperative purposes. FLUOROSCOPY TIME: 19.9 seconds CLINICAL INFORMATION: abnormal lung findings COMPARISON: None. FINDINGS: Fluoroscopy used for intraoperative bronchoscopy in the lingula. No visualized pneumothorax on the in traoperative images or postoperative portable chest. SC/C-arm FL for Bronchoscopy IMPRESSION: Images obtained for intraoperative purposes.
[2021-04-22] MEDS: lidocaine 1% INJ 20 mL XX (07:30)
--- NOTE | 2021-04-22 07:43 | PM.OP ---
Operative Report Date of procedure: April 22, 2021 Procedure: Flexible bronchoscopy with airway inspection, airway clearance of secretions and obtaining bronchoalveolar lavage sample and transbronchial biopsies from left lingula with control of bleeding Pre-Operative Diagnosis: Pneumonia Post-Operative Diagnosis: Same Indication: CT evidence of infiltrates in the left upper lobe/left lingula and PET +2.2 x 1.2 cm left upper lobe nodule Anesthesia: General anesthesia Pre-procedure Evaluation: Patient was evaluated clinically and ancillary testing reviewed. The risk of having active MTB infection is very low in my clinical judgement. ASA: 3 Malampati score: unable to evaluate due to presence of endotracheal tube; patient endobronchial bleeding and possible post bronchoscopy pneumothorax Consent: Consents were obtained from patient and placed in the chart Procedure Details: Time out was performed by the procedure team and nursing staff. Vent support maintained on Fio2 100. The bronchoscope was introduced through the ETT. A bronchoscopic airway exam was performed to evaluate the visible tracheobronchial tree to the segmental level. Summary of Significant Findings: -Bronchoscope passed through ET tube, 6 ml 1% lidocaine instilled into the trachea, both right and left main bronchus. Distal trachea and main yumi visualized which were sharp and normal. Then the scope was passed through the right bronchial tree was assessed to include the right mainstem bronchus, RBI, and RUL/RML/RLL bronchi to the segmental and subsegmental levels. No active bleeding noted. Mucosa appeared normal. Mild purulent secretions noted through right lower lobe Then the scope was left bronchial tree was assessed to include the left mainstem bronchus, TANNER, Lingula, and LLL bronchi to the segmental and subsegmental level. No active bleeding noted. Mucosa appeared bumpy on the left upper lobe and lingula. Purulent secretions noted which were suctioned right away. Transbronchial biopsies and BAL obtained from left lingula superior segment the bronchoscope was then removed and the procedure terminated. Estimated Blood Loss: 5 to 10 mL Specimens: 1. Transbronchial biopsies taken from left lingula superior segment and sent for histopathology 2. Bronchoalveolar lavage was taken from left lingula superior segment and sent for microbiology cultures, AFB cultures and fungal cultures and cytology Complications:None; patient tolerated the procedure well. We will obtain a postprocedure chest x-ray to rule out pneumothorax Disposition: Patient hemodynamically stable and is being observed in postop. Arley Masters MD Pulmonary critical Care Medicine [facility] Associated Problem List Diagnoses (1) Left upper lobe pulmonary nodule: (2) Left upper lobe pulmonary infiltrate:
--- NOTE | 2021-04-22 07:50 | XR_ITS ---
WS: [id number] Exam: XR chest 1V portable [id number] Date/Time of Exam: 04/22/2021 7:52 AM Reason For Exam: POST BRONCHOSCOPY Comparison 09/23/2020. There are infiltrates in the mid and lower lung zones bilaterally. I. Heart size is normal. The lungs are fully inflated. No pleural effusions. The mediastinum and osseous thorax are unremarkable. A car diac pacer superimposes the left chest. Increased pulmonary vascularity. XR/XR chest 1V portable [id number] IMPRESSION: 1. Interstitial and airspace infiltrates in the mid and lower lung zones bilate rally. Findings most suggestive of pneumonia however some degree of superimpose d CHF could have this appearance.
[2021-04-22] MEDS: lidocaine 4% PF 5 mL INJ INHALATION (08:50)
--- NOTE | 2021-04-22 08:54 | PC.NURSE ---
DATAR ORDERED LIDO 4 % NEB, 2 ML LIDO AND 2 ML NS. BEEN IN TOUCH WITH STEPHANIE PHARMACIST. RT TO ADMIN MED.
== END 2021-04-22 09:23 | disposition home or self-care (01) ==
LOC: GILAB 05:45 → OR 07:52
PROVIDERS: PCP Nurse Practitioner Family; Visit Provider Internal Medicine Pulmonary Disease
PROC: 0BJ08ZZ Inspection of Tracheobronchial Tree, Via Natural or Artificial Opening Endoscopic (ICD-10-PCS; CPT 31622; principal; 2021-04-22 07:00)
DX: J18.9 Pneumonia, unspecified organism (principal); J43.9 Emphysema, unspecified; Z87.891 Personal history of nicotine dependence; I48.91 Unspecified atrial fibrillation; Z95.0 Presence of cardiac pacemaker; E11.9 Type 2 diabetes mellitus without complications; E78.5 Hyperlipidemia, unspecified; I10 Essential (primary) hypertension
CPT/HCPCS: 31624; 31625; 71045; 76000; 87015; 87070; 87077; 87102; 87116; 87186; 87205; 87206; 87801; 88112; 88305; 94640; J0330; J1100; J2704; J7030

== ENCOUNTER 2021-05-03 06:00 | Outpatient (RCR) | payer MEDICARE, SELFPAY | END 2021-06-02 23:59 | disposition home or self-care (01) | LOC: PULRHB 06:00 | PROVIDERS: PCP Nurse Practitioner Family; Visit Provider Internal Medicine Pulmonary Disease | DX: J84.9 Interstitial pulmonary disease, unspecified (principal) | CPT/HCPCS: G0237; G0238; G0239; G0424 ==

== ENCOUNTER 2021-06-03 06:00 | Outpatient (RCR) | payer MEDICARE, SELFPAY | END 2021-06-30 23:59 | disposition home or self-care (01) | LOC: PULRHB 06:00 | PROVIDERS: PCP Nurse Practitioner Family; Visit Provider Internal Medicine Pulmonary Disease | DX: J84.9 Interstitial pulmonary disease, unspecified (principal) | CPT/HCPCS: G0237; G0238; G0239 ==

== ENCOUNTER 2021-06-09 14:12 | Outpatient (CLI) | payer MEDICARE, SELFPAY ==
--- NOTE | 2021-06-09 14:19 | CT_ITS ---
WS: [id number] CT CHEST WITHOUT INTRAVENOUS CONTRAST HISTORY: follow up pulmonary MAC, nodular disease TECHNIQUE: Contiguous 5 mm axial imaging performed on the thorax. Coronal and sagittal reformats are submitted. All CT scans at [facility] use at least one of these dose optimization techniques: automated exposure control; mA and/or kV adjustment per patient size (includes targeted exams where dose is matched to clinical indication); or iterative reconstruction. CONTRAST: None DLP: 812.39 mGy.cm COMPARISON: 02/17/2021 Lungs and central airway: Lungs are hyperexpanded. Bronchiectasis and bronchial wall thickening with nodularity in the LEFT upper lung. Largest nodule measures 7 mm and is similar to the prior study. Ad ditional peripheral interstitial thickening and nodularity in the RIGHT upper lobe. There is continue d tree-in-bud airspace disease in the LEFT upper lobe but significantly improved. There is a new are a of consolidation and groundglass attenuation in the posterior LEFT lower lobe measuring 3.3 x 2.4 x 4.3 cm with adjacent pleural thickening. Mild tree-in-bud airspace disease RIGHT middle lobe is unch anged. There is also mild bronchiectasis in the RIGHT middle lobe. Pleura: Mild pleural thickening on the LEFT is similar to the prior study. Heart and pericardium: Heart is slightly enlarged. Dual lead pacer wires are noted in the RIGHT heart . Mediastinum and john: No mediastinum or hilar adenopathy. Vessels: Mild atherosclerosis aorta with no aneurysm. Pulmonary artery size is equal to the aorta. Ex tensive coronary artery calcifications. Chest wall and lower neck: LEFT subclavian pacer. Upper abdomen: Prior cholecystectomy. Mild perinephric stranding around the upper poles of each kidne y. Extensive diverticulosis in the visualized transverse colon. Osseous structures: Moderate increase in thoracic kyphosis. Calcification along the anterior longitud inal ligament. 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 CT/CT chest wo con [id number] IMPRESSION: 1. Improved or stable tree-in-bud nodular airspace disease as described above. 2. New LEFT lower lobe groundglass attenuation and consolidation with adjacent pleural thickening. Suspect this may be an area of pneumonia, less likely deve loping neoplasm. Consider 3 month follow-up chest CT. 3. Emphysema and chronic interstitial lung disease with a few areas of bronchi ectasis. 4. Dual lead LEFT subclavian pacer. 5. No adenopathy. 6. Prior cholecystectomy.
--- NOTE | 2021-06-09 14:20 | USCV_ITS ---
Abraham Andreas Age: 86 Gender: M : 1935 Exam Date: 06/09/2021 14:39 Ordering Phys: Ryan Montano MD (Andy) ([email or web address] [place]) Technologist: CHIDI Exam Location: [facility] [place] Indication: OCCLUSION AND STENOSIS OF BILATERAL CAROTID ARTERIES Risk Factors: Previous Vascular Surgery: Right Brachial BP: / Left Brachial BP: / Right Left Velocity (cm/s) Spectral Plaque Velocity (cm/s) Spectral Plaque Syst/Diast Broadening Syst/Diast Broadening 77.90/ 7.10 Prox CCA 116.40/ 6.60 84.00/ 10.10 Mid CCA 127.60/ 9.10 72.90/ 8.10 Distal CCA 126.40/ 8.90 66.00/ 9.40 Prox ICA 118.40/ 11.80 80.50/ 11.00 Mid ICA 57.10 / 10.90 72.50/ 13.40 Distal ICA 82.50 / 14.10 91.10 ECA 147.60 0.96 ICA/CCA 0.93 Antegrade Vertebral Antegrade 64.50/ 7.20 cm/s 63.80/ 10.30 cm/s Bi Subclavian Tri 103.5 140.1 0 0 FINDINGS Comparison:. 01/22/20. Diffuse bilateral scattered calcified plaque and intimal thickening throughout the common carotid arteries and extending through the bifurcation. Less stenosis and elevated velocities today. Antegrade vertebral arteries. CONCLUSIONS Bilateral ICA stenosis less than 50%. Improved velocity as compared to the prior exam. Moderate plaque at the bifurations. Dr. Spring Singh DO (Electronically Signed) Final Date: 09 June 2021 16:32 S
== END 2021-06-09 14:13 | disposition home or self-care (01) ==
LOC: RAD 14:17
PROVIDERS: PCP Nurse Practitioner Family; Visit Provider Thoracic Surgery (Cardiothoracic Vascular Surgery)
DX: I65.23 Occlusion and stenosis of bilateral carotid arteries (principal); A31.0 Pulmonary mycobacterial infection; J43.9 Emphysema, unspecified; J84.9 Interstitial pulmonary disease, unspecified; J47.9 Bronchiectasis, uncomplicated; Z95.0 Presence of cardiac pacemaker; Z90.49 Acquired absence of other specified parts of digestive tract
CPT/HCPCS: 71250; 93880

== ENCOUNTER 2021-06-11 10:47 | Emergency (ER) | payer MEDICARE, SELFPAY ==
[2021-06-11 11:03] VITALS: BP 107/61; PULSE 72; RESP 18; TEMP 36.3; O2SAT 96; BMI 28.5
[2021-06-11 11:12] VITALS: BP 122/69; PULSE 63; RESP 18; O2SAT 96
--- NOTE | 2021-06-11 11:31 | W.ED.EPISTAX ---
HPI - Epistaxis General: Chief complaint: Epistaxis Stated complaint: Keeps having Nose Bleeds Time Seen by Provider: 06/11/21 11:13 History of Present Illness: Patient is an 86-year-old male who comes to the ED with a nosebleed. Patient has had multiple nosebleeds over the past week. Denies any injury or trauma to cause nosebleeds. He went and saw ENT Dr. Cleary on June 09 and he cauterized to stop nosebleed. Patient says yesterday he had 2 nosebleeds and today he had a nosebleed in the morning that resolved by the time he got here to the ED. Denies any other symptoms. He has an appointment with Dr. Cleary on June 16 for follow-up. Associated symptoms: Deny fever(s), headache(s) or vomiting Review of Systems Const: Denies: fever(s), chills or fatigue Eyes: Denies: change in vision or eye discomfort ENMT: Reports: epistaxis; Denies: throat pain, odynophagia, nasal discharge or nasal congestion Card: Denies: chest pain, palpitations, edema, swelling of feet/ankles, dyspnea on exertion or orthopnea Resp: Denies: dyspnea, productive cough or non-productive cough GI: Denies: abdominal pain, nausea, vomiting, diarrhea, constipation or hematochezia : Denies: flank pain, difficulty urinating, dysuria or hematuria Musc: Denies: neck pain, back pain or extremity swelling Skin/Breast: Denies: rash or new lesions Neuro: Denies: headache(s), numbness in extremities or weakness in extremities PFSH ED PFSH: Medical History A-fib AAA (abdominal aortic aneurysm) Diabetes Diarrhea Patient does have extensive diverticulosis of the colon and he will not require further screening colonoscopies unless otherwise specified Diverticulosis Dyslipidemia Elevated erythrocyte sedimentation rate History of cardiac pacemaker Hypertension Lower extremity weakness Prostatic hypertrophy Proximal muscle weakness Surgical History History of arthroplasty of left ankle History of CEA (carotid endarterectomy) History of colonoscopy (~06/2019) History of laparoscopic cholecystectomy Family History Other CAD (coronary artery disease) Diarrhea Family history of premature coronary artery disease Denies family history of Rheumatoid arthritis Diabetes Lupus Anesthesia complication Bleeding disorder Lung disease Cancer Hypertension Stroke Social History Quit status (tobacco): has quit using tobacco Year quit tobacco: 1975 [id number] x27yrs Second hand smoke exposure: No Smoking risk assessment/counseling performed?: Yes Alcohol intake: never Adopted: No Caregiver/support person: Yes Lives independently: Yes Household members: spouse Housing: House Marital status: Highest education level completed: High School Graduate service: No Current occupational status: retired Current occupational exposures/hazards: No Pets and animals: No History of recent travel: No Sexually active: No Current gender identity: Male Kiara/Mandaen: None Special kiara needs: No Agree to transfusion: No Financial difficulty paying for basics: Decline to Answer Physical Exam Const: COMMON NORMALS: no acute distress, patient oriented x3, healthy appearing and alert HENMT: COMMON NORMALS: normocephalic HEAD & SCALP: normocephalic NOSE: Normal septum present and Epistaxis present (No active bleeding seen.) bilaterally dried blood present and source not visualized; no active bleeding MOUTH: Normal oral and palatal mucosa present THROAT: posterior oropharynx normal and uvula midline Neck/C-Spine: COMMON NORMALS: supple GENERAL: Yes normal visual inspection Resp: COMMON NORMALS: normal respiratory effort, No retractions, No use of accessory muscles and clear to auscultation bilaterally AUSCULTATION: clear to auscultation bilaterally Cardio: COMMON NORMALS: regular rate, regular rhythm, S1 normal heart sound present, S2 normal heart sound present, No gallops present (Cardio), No clicks present (Cardio), No murmurs present (Cardio) and Peripheral pulses 2+ throughout RATE: regular rate RHYTHM: regular rhythm HEART SOUNDS: S1 normal heart sound present and S2 normal heart sound present PERIPHERAL PULSES: Peripheral pulses 2+ throughout GI: COMMON NORMALS: Normal to inspection, nondistended, normoactive bowel sounds present, Soft to palpation, non-tender and no masses PALPATION: Yes Soft to palpation : COMMON NORMALS: Yes no CVA tenderness BLADDER/KIDNEY EXAM: Yes no CVA tenderness Back/Pelvis: COMMON NORMALS: no CVA tenderness Extremity: COMMON NORMALS: normal to inspection Neuro: COMMON NORMALS: patient oriented x3 SENSORIUM/ORIENTATION: Yes alert GAIT: Yes Normal gait present Skin: GENERAL SKIN EXAM: dry skin Course Vital Signs: Vital signs: Vital Signs Temperature 97.3 F L 06/11/21 11:03 Pulse Rate 63 06/11/21 11:12 Respiratory Rate 18 06/11/21 11:12 Blood Pressure 122/69 06/11/21 11:12 Pulse Oximetry 96 06/11/21 11:12 MDM - Epistaxis Medical Decision Making Patient is an 86-year-old male comes to the ED with nosebleed. Patient has not having any active bleeding here in the ED. He has no other complaints. He saw Dr. Cleary on June 09 for nosebleed and had bleed cauterized. He has follow-up appointment with Dr. Cleary next week on June 16. Exam shows no active bleeding at this time. Some dried blood present. Patient diagnosed with nosebleed and is stable for discharge home. I sent him home with a nasal clamp and instructed him on how to handle a nosebleed at home if he gets a reoccurring bleed. Return to ED precautions given. Patient understood and agreed with plan. Discharge Plan Discharge Patient Disposition: Home Clinical Impression: Epistaxis Condition: Stable Prescriptions: New Afrin (oxymetazoline) 0.05 % spray,non-aerosol 2 spray intranasal BID PRN (Reason: nasal congestion) 3 Days Qty: 22 0RF No Action cranberry extract 250 mg capsule 25,000 mg PO QDAY 0RF elderberry fruit 200 mg capsule 200 mg PO QDAY 0RF magnesium 250 mg tablet 500 mg PO QDAY 0RF psyllium husk [Metamucil] 0.52 gram capsule 2.04 g PO QDAY 0RF amlodipine 5 mg tablet 5 mg PO QDAY 0RF cholecalciferol (vitamin D3) 1,000 unit capsule 1,000 unit PO QDAY 0RF tamsulosin [Flomax] 0.4 mg capsule 0.4 mg PO QDAY 0RF aspirin 81 mg tablet,delayed release (DR/EC) 81 mg PO QDAY 0RF coenzyme Q16-[id number] E 100-100 mg-unit capsule 2 cap PO DAILY 0RF Adult 50 Plus Probiotic 4 billion cell capsule 4,000 mmu cells PO DAILY 0RF Rx Instructions: administer with a meal melatonin 10 mg capsule 10 mg PO DAILY PRN (Reason: Sleep) 0RF sotalol 120 mg tablet 120 mg PO DAILY Qty: 90 3RF sotalol [Sotalol AF] 80 mg tablet 80 mg PO .qpm Qty: 90 3RF albuterol sulfate 90 mcg/actuation HFA aerosol inhaler 2 puff inhalation Q6H PRN (Reason: shortness of breath or wheezing) Qty: 3 3RF doxycycline hyclate 100 mg tablet 100 mg PO BID Qty: 10 0RF budesonide 0.5 mg/2 mL suspension for nebulization 0.5 mg inhalation BID Qty: 360 1RF budesonide-formoterol [Symbicort] 160-4.5 mcg/actuation HFA aerosol inhaler 2 puff inhalation BID Qty: 10.2 3RF Rx Instructions: 340B pricing, ordering on behalf of Dr Masters Vitamin B-12 1 cap PO DAILY 0RF cyanocobalamin (vitamin B-12) [Vitamin B-12] 500 mcg Tablet 500 mcg PO DAILY 0RF lovastatin 20 mg Tablet 20 mg PO QPM 0RF ascorbic acid (vitamin C) [Vitamin C] 1,000 mg Tablet 500 mg PO DAILY 0RF zinc 50 mg Tablet 50 mg PO DAILY 0RF cinnamon bark [Cinnamon] 500 mg Capsule 500 mg PO DAILY 0RF lutein 40 mg Capsule 40 mg PO DAILY 0RF turmeric 400 mg Capsule 400 mg PO DAILY 0RF Discharge Orders: Discharge ED (Routine); Ordered 06/11/21 Ordered By: Isai Degroot Referrals: Kellie Esqueda, ELECTRONIC FIELD SERVICE ENGINEER [Primary Care Provider] - Discharge Diet: Regular Discharge Activity: Resume usual activity Patient Instructions: Nosebleed (ED) Activity Restrictions/Additional Instructions: Follow-up with Dr. Cleary at your next scheduled appointment. If you have a reoccurring nosebleed use nasal clamp for 15 minutes then use Afrin nasal spray and reclamp for another 15 minutes if bleeding continues. If after doing this you are unable to control nosebleed come to the ED for further evaluation. the ER or your medical provider if condition worsens. Please read and understand discharge instructions. Thank you for choosing [facility] for your healthcare needs today. Please realize this is an emergency room and that we are providing you with a medical screening exam and this may not be complete and all inclusive of all the testing and or work up that you may need to determine your ailment or severity of your illness. It is very important that you follow up as instructed or that you return to the Emergency Department should you have concerns or if your condition changes or worsens in any way. Coding Level of Care Code ED Sales Department Manager for Salena Silva Exam Comprehensive
== END 2021-06-11 11:54 | disposition home or self-care (01) ==
PROVIDERS: Emergency Provider Physician Assistant; PCP Nurse Practitioner Family
DX: R04.0 Epistaxis (principal); Z79.82 Long term (current) use of aspirin; E11.9 Type 2 diabetes mellitus without complications; E78.5 Hyperlipidemia, unspecified; Z95.0 Presence of cardiac pacemaker; I10 Essential (primary) hypertension; Z87.891 Personal history of nicotine dependence
CPT/HCPCS: 99282

== ENCOUNTER → 2021-06-17 14:29 | Outpatient (BNVA) | payer MEDICARE, SELFPAY | PROVIDERS: PCP Nurse Practitioner Family; Referring Provider Internal Medicine Rheumatology; Visit Provider Specialist | DX: E11.42 Type 2 diabetes mellitus with diabetic polyneuropathy (principal); D89.0 Polyclonal hypergammaglobulinemia; Z87.891 Personal history of nicotine dependence | CPT/HCPCS: 99214; 99215 ==

== ENCOUNTER 2021-07-01 06:00 | Outpatient (RCR) | payer MEDICARE, SELFPAY | END 2021-07-31 23:59 | disposition home or self-care (01) | LOC: PULRHB 06:00 | PROVIDERS: PCP Nurse Practitioner Family; Visit Provider Internal Medicine Pulmonary Disease | DX: J84.9 Interstitial pulmonary disease, unspecified (principal) | CPT/HCPCS: G0237; G0238; G0239 ==

== ENCOUNTER → 2021-07-09 11:35 | Outpatient (BNVA) | payer MEDICARE, SELFPAY | PROVIDERS: PCP Nurse Practitioner Family; Visit Provider Internal Medicine Pulmonary Disease | DX: J44.9 Chronic obstructive pulmonary disease, unspecified (principal); J45.40 Moderate persistent asthma, uncomplicated; R05.8 Other specified cough; Z87.891 Personal history of nicotine dependence; I25.118 Atherosclerotic heart disease of native coronary artery with other forms of angina pectoris; I48.20 Chronic atrial fibrillation, unspecified; Z95.0 Presence of cardiac pacemaker; J84.9 Interstitial pulmonary disease, unspecified; M35.3 Polymyalgia rheumatica; A31.0 Pulmonary mycobacterial infection; R91.1 Solitary pulmonary nodule | CPT/HCPCS: 99214 ==

== ENCOUNTER 2021-07-18 06:08 | Outpatient (CLI) | payer MEDICARE, SELFPAY ==
--- NOTE | 2021-07-18 06:15 | USCV_ITS ---
Andreas Rosario Age: 86 Gender: M : 1935 Exam Date: 07/18/2021 06:15 Ordering Phys: Ryan Montano MD (Andy) ([email or web address]) Technologist: [place] [facility] [place]: aaa HISTORY: Diameter (cm) AP x Transverse x Length Velocity (cm/s) Waveform Prox Aorta: 1.61 x 1.61 x 90.10 Biphasic Mid Aorta: 1.73 x 2.02 x 97.90 Biphasic Distal Aorta: 2.52 x 2.57 x 100.20 Biphasic Right Iliac Prox: 1.24 x 1.57 x 164.20 Biphasic Left Iliac Prox: 1.26 x 1.56 x 113.00 Biphasic Stent Prox Landing x x Aneurysmal Sac Max x x Lt Lat Sac Dim Rt Lat Sac Dim Stent Dist Landing x x Right Iliac Stent x x Left Iliac Stent x x Right Renal Art Left Renal Art FINDINGS: Small fusiform aneurysm of the distal abdominal aorta Mild diffuse plaques in the abdominal aorta Minimally ectatic proximal common iliac artery CONCLUSIONS Small aneurysm of the distal abdominal aorta measuring 2.52 x 2.57 cm Slightly ectatic proximal common iliac arteries bilaterally Mild diffuse plaques in the abdominal aorta No similar previous studies are available for comparison Dr Fatimah Goldsmith MD [facility] (Electronically Signed) Final Date: 19 July 2021 11:10 S
== END 2021-07-18 06:09 | disposition home or self-care (01) ==
LOC: RAD 06:08
PROVIDERS: PCP Nurse Practitioner Family; Visit Provider Thoracic Surgery (Cardiothoracic Vascular Surgery)
DX: I71.4 Abdominal aortic aneurysm, without rupture (principal); I70.0 Atherosclerosis of aorta
CPT/HCPCS: 93978

== ENCOUNTER → 2021-08-15 09:30 | Outpatient (BNVA) | payer MEDICARE, SELFPAY | PROVIDERS: PCP Nurse Practitioner Family; Visit Provider Internal Medicine | DX: Z45.010 Encounter for checking and testing of cardiac pacemaker pulse generator [battery] (principal) | CPT/HCPCS: 93280 ==

== ENCOUNTER 2021-09-01 08:47 | Outpatient (CLI) | payer MEDICARE, SELFPAY ==
--- NOTE | 2021-09-01 09:00 | CT_ITS ---
WS: [id number] CT CHEST TECHNIQUE: Noncontrast CT of the chest with coronal and sagittal reformatted images. CLINICAL INFORMATION: reassess MAC infection; pulm nodule COMPARISON: CT chest June 09, 2021 DLP: 768.[address] scans at [facility] use at least one of these dose optimization techniques: automated e xposure control; mA and/or kV adjustment per patient size (includes targeted exams where dose is matc hed to clinical indication); or iterative reconstruction. FINDINGS: Previously described pleural thickening with a small amount pleural fluid in the LEFT lower lobe is s imilar to previous. Hazy groundglass infiltrate has resolved with more focal compressive atelectasis or pleural thickening today measuring 1.9 x 2.0 CM. Small amount of pleural calcification dorsally. Stable bronchiectasis in the RIGHT middle lobe. Tree-in-bud infiltrates have improved with several ne w areas of mucus plugging in the LEFT hilum and LEFT upper lobe. Additional new nodular opacities in the RIGHT lower lobe measuring up to 1.0 cm may be infectious or inflammatory. Stable chronic emphyse matous changes with interstitial thickening. Dual-lead subclavian pacer. No mediastinal or hilar lymp hadenopathy. Mild thoracic kyphosis. Diffuse ankylosis of the thoracic spine. This is unchanged. Adrenal glands ar e normal. Splenic granulomas. Small esophageal hiatal hernia. CT/CT chest wo con [id number] IMPRESSION: 1. Previously described infiltrate in the LEFT lower lobe has improved with st able pleural thickening and trace pleural fluid. 2. Progressed area of focal pleural thickening or compressive atelectasis aline uring 2.0 x 1.9 Cm in the LEFT lower lobe posterior medially. Recommend 3 month interval follow-up. 3. Nodularity in the LEFT hilum and LEFT upper lobe has progressed some of whi ch appears to be due to mucus plugging. Stable nodules in the LEFT lung apex. 4. New nodules in the RIGHT lower lobe laterally measuring up to 9 mm. Recomme nd 3 month follow-up. 5. Chronic emphysematous changes with interstitial thickening. 6. Bronchiectasis worse in the RIGHT middle lobe appears stable. 7. Small esophageal hiatal hernia. 8. Ankylosis thoracic spine.
== END 2021-09-01 08:48 | disposition home or self-care (01) ==
PROVIDERS: PCP Nurse Practitioner Family; Visit Provider Internal Medicine Pulmonary Disease
DX: R91.1 Solitary pulmonary nodule (principal); A31.0 Pulmonary mycobacterial infection
CPT/HCPCS: 71250

== ENCOUNTER → 2021-09-02 12:42 | Outpatient (BNVA) | payer MEDICARE, SELFPAY | PROVIDERS: PCP Nurse Practitioner Family; Visit Provider Internal Medicine | DX: I48.20 Chronic atrial fibrillation, unspecified (principal); I10 Essential (primary) hypertension; E78.5 Hyperlipidemia, unspecified; R06.00 Dyspnea, unspecified; Z95.0 Presence of cardiac pacemaker; Z87.891 Personal history of nicotine dependence | CPT/HCPCS: 99214 ==

== ENCOUNTER 2021-09-16 10:14 | Outpatient (CLI) | payer MEDICARE, SELFPAY | END 2021-09-16 10:15 | disposition home or self-care (01) | LOC: LAB 10:16 | PROVIDERS: PCP Nurse Practitioner Family; Visit Provider Student in an Organized Health Care Education/Training Program | DX: R09.3 Abnormal sputum (principal) | CPT/HCPCS: 87015; 87116; 87206; 87801 ==

== ENCOUNTER → 2021-09-24 10:42 | Outpatient (BNVA) | payer MEDICARE, SELFPAY | PROVIDERS: PCP Nurse Practitioner Family; Visit Provider Internal Medicine Pulmonary Disease | DX: J44.9 Chronic obstructive pulmonary disease, unspecified (principal); J45.40 Moderate persistent asthma, uncomplicated; R06.02 Shortness of breath; R05.8 Other specified cough; Z87.891 Personal history of nicotine dependence; I25.118 Atherosclerotic heart disease of native coronary artery with other forms of angina pectoris; I48.20 Chronic atrial fibrillation, unspecified; Z95.0 Presence of cardiac pacemaker; J84.9 Interstitial pulmonary disease, unspecified; M35.3 Polymyalgia rheumatica; A31.0 Pulmonary mycobacterial infection; I10 Essential (primary) hypertension; E78.5 Hyperlipidemia, unspecified | CPT/HCPCS: 99214 ==

== ENCOUNTER 2021-10-30 22:25 | Emergency (ER) | payer MEDICARE, SELFPAY ==
[2021-10-30 22:29] VITALS: BP 146/106; PULSE 76; RESP 16; TEMP 37.1; O2SAT 94; BMI 27.3
--- NOTE | 2021-10-30 22:41 | ED_ITS ---
HPI - Dizziness General: Chief Complaint: Dizziness Stated Complaint: FALL Time Seen by Provider: 10/30/21 22:41 History of Present Illness: HPI Narrative: 86-year-old male patient comes in today for complaints of an episode of dizziness today. Patient does have previous episodes of dizziness and weakness to his legs. Patient denies any nausea or vomiting, headache, chest pain, or worsening shortness of breath. Patient appears nontoxic. Patient states that he was trying to get up out of his chair and was able to get up after the third try but then felt lightheaded and dizzy. Patient reports then he was walking to the bathroom and stumbled and fell to the floor. This occurred about 8:00 this evening. EMS was called due to patient difficulty getting up off the floor. Patient has no visible injuries. NIH stroke scale is 0. Associated symptoms: Denies chest pain Review of Systems General: Reports: 10 or more systems reviewed and unremarkable except in HPI and below Card: Denies: chest pain Resp: Denies: dyspnea Musc: Denies: neck pain or back pain Skin/Breast: Denies: rash PFSH ED PFSH: Medical History A-fib AAA (abdominal aortic aneurysm) Carotid artery disease Diabetes Diarrhea Patient does have extensive diverticulosis of the colon and he will not require further screening colonoscopies unless otherwise specified Diverticulosis Dyslipidemia Elevated erythrocyte sedimentation rate History of cardiac pacemaker Hypertension Lower extremity weakness Prostatic hypertrophy Proximal muscle weakness Surgical History History of arthroplasty of left ankle History of CEA (carotid endarterectomy) History of colonoscopy (~06/2019) History of laparoscopic cholecystectomy Family History Other CAD (coronary artery disease) Diarrhea Family history of premature coronary artery disease Denies family history of Rheumatoid arthritis Diabetes Lupus Anesthesia complication Bleeding disorder Lung disease Cancer Hypertension Stroke Social History Smoking and tobacco status: former smoker Quit status (tobacco): has quit using tobacco Year quit tobacco: 1975 [id number] x27yrs Second hand smoke exposure: No Smoking risk assessment/counseling performed?: Yes Alcohol intake: never Adopted: No Caregiver/support person: Yes Lives independently: Yes Household members: spouse Housing: House Marital status: Highest education level completed: High School Graduate service: No Current occupational status: retired Current occupational exposures/hazards: No Pets and animals: No History of recent travel: No Sexually active: No Current gender identity: Male Kiara/Congregational: None Special kiara needs: No Agree to transfusion: No Financial difficulty paying for basics: Decline to Answer Physical Exam Const: COMMON NORMALS: alert HENMT: COMMON NORMALS: atraumatic HEAD & SCALP: atraumatic Neck/C-Spine: COMMON NORMALS: full ROM and no meningeal signs Chest: COMMONS NORMALS: normal palpation of entire chest wall Resp: COMMON NORMALS: normal respiratory effort and clear to auscultation bilaterally AUSCULTATION: clear to auscultation bilaterally Cardio: COMMON NORMALS: regular rate and regular rhythm RATE: regular rate RHYTHM: regular rhythm Back/Pelvis: COMMON NORMALS: thoracic and lumbar spine normal to inspection Extremity: COMMON NORMALS: normal to inspection Neuro: SENSORIUM/ORIENTATION: Yes alert MENINGEAL SIGNS: Yes no meningeal signs Skin: COMMON NORMALS: turgor normal GENERAL SKIN EXAM: turgor normal Course Vital Signs: Vital signs: Vital Signs Temperature 98.8 F 10/30/21 22:29 Pulse Rate 60 10/31/21 00:21 Respiratory Rate 14 10/31/21 00:21 Blood Pressure 114/52 10/31/21 00:21 Pulse Oximetry 95 10/31/21 00:21 [facility] - Dizziness Medical Decision Making 86-year-old male patient comes in today for complaints of fall around 8:00 this evening. Patient had some difficulty getting up off the floor and EMS was called and then he was brought into the ER for further evaluation. On exam pat ient is alert and oriented. Patient appears in no acute distress. Patient moves all extremities well. Patient can recall the events without difficulty. Spouse said he seemed kind of confused after the fall initially but has since recovered. Vital signs are normal except for some mild elevation of blood pressure. Patient has a history of coronary artery disease, peripheral neuropathy, COPD, atrial fibs, pacemaker. Differential diagnosis includes TIA, peripheral neuropathy, unsteady gait. Lab Data : 10/30/21 22:40 10/30/21 22:[address] 10/30/21 22:42 IMPRESSION: No acute intracranial findings. Laboratory Results WBC 7.4 10^3/uL (4.0-10.0) 10/30/21 22:40 RBC 3.64 10^6/uL (4.1-5.3) L 10/30/21 22:40 Hgb 12.0 g/dL (11.7-16.6) 10/30/21 22:40 Hct 34.4 % (42.0-52.0) L 10/30/21 22:40 MCV 94.5 fl (80-94) H 10/30/21 22:40 MCH 33.0 pg (28.0-34.0) 10/30/21 22:40 MCHC 34.9 g/dL (30.0-36.0) 10/30/21 22:40 RDW 13.5 % (12.1-15.1) 10/30/21 22:40 Plt Count 109 10^3/cmm (130-400) L 10/30/21 22:40 MPV 13.3 fL (7.4-10.4) H 10/30/21 22:40 Neut % (Auto) 78.2 % 10/30/21 22:40 Lymph % (Auto) 8.9 % 10/30/21 22:40 Campbell % (Auto) 10.8 % 10/30/21 22:40 Eos % (Auto) 1.5 % 10/30/21 22:40 Baso % (Auto) 0.3 % 10/30/21 22:40 Neut # (Auto) 5.77 10^3/uL (1.8-7.7) 10/30/21 22:40 Lymph # (Auto) 0.7 10^3/uL (0.8-4.8) L 10/30/21 22:40 Campbell # (Auto) 0.8 10^3/uL (0.2-0.9) 10/30/21 22:40 Eos # (Auto) 0.1 10^3/uL (0.0-0.8) 10/30/21 22:40 Baso # (Auto) 0.0 10^3/uL (0.0-0.1) 10/30/21 22:40 Nucleated RBC % (auto) 0 % 06/30/22 22:40 Nucleated RBCs # 0.0 /100WBC 10/30/21 22:40 Sodium 132 mmol/L (136-145) L 10/30/21 22:40 Potassium 4.7 mmol/L (3.5-5.1) 10/30/21 22:40 Chloride 101 mmol/L (98-107) 10/30/21 22:40 Carbon Dioxide 22 mmol/L (22-29) 10/30/21 22:40 Anion Gap 13.7 (5-19) 10/30/21 22:40 BUN 19 mg/dL (8-23) 10/30/21 22:40 Creatinine 1.1 mg/dL (0.7-1.2) 10/30/21 22:40 GFR Calculation Not Reportable 10/30/21 22:40 Glucose 91 mg/dL (65-115) 10/30/21 22:40 Calculated Osmolality 276 mOsm/kg (285-295) L 10/30/21 22:40 Calcium 8.2 mg/dL (8.5-10.5) L 10/30/21 22:40 Total Bilirubin 0.2 mg/dL (0.15-1.2) 10/30/21 22:40 AST 43 U/L (0-40) H 10/30/21 22:40 ALT 25 U/L (0-41) 10/30/21 22:40 Alkaline Phosphatase 138 IU/L (40-130) H 10/30/21 22:40 Total Protein 8.0 g/dL (6.6-8.7) 10/30/21 22:40 Albumin 2.9 g/dL (3.5-5.2) L 10/30/21 22:40 Globulin 5.1 g/dL (1.3-4.6) H 10/30/21 22:40 EKG Data EKG 1: EKG interpretation date: 10/30/21 EKG interpretation time: 23:11 Interpretation: EKG shows a paced sinus rhythm with a regular rate at [address] elevation or ectopy is noted. No changes were noted from prior exam. Discharge Plan Discharge Patient Disposition: Home Clinical Impression: Dizziness Carotid artery disease Qualifiers: Carotid artery disease type: unspecified Laterality: unspecified laterality Qualified Code(s): I77.9 - Disorder of arteries and arterioles, unspecified Condition: Stable Prescriptions: No Action cranberry extract 250 mg capsule 25,000 mg PO QDAY 0RF elderberry fruit 200 mg capsule 200 mg PO QDAY 0RF magnesium 250 mg tablet 500 mg PO QDAY 0RF psyllium husk [Metamucil] 0.52 gram capsule 2.04 g PO QDAY 0RF cholecalciferol (vitamin D3) 1,000 unit capsule 1,000 unit PO QDAY 0RF aspirin 81 mg tablet,delayed release (DR/EC) 81 mg PO QDAY 0RF coenzyme [id number] 100-100 mg-unit capsule 2 cap PO DAILY 0RF tamsulosin [Flomax] 0.4 mg capsule 0.4 mg PO BID 0RF Adult 50 Plus Probiotic 4 billion cell capsule 4,000 mmu cells PO DAILY 0RF Rx Instructions: administer with a meal melatonin 10 mg capsule 10 mg PO DAILY PRN (Reason: Sleep) 0RF sertraline 50 mg tablet 50 mg PO DAILY 0RF montelukast 10 mg tablet 10 mg PO DAILY 0RF budesonide 0.5 mg/2 mL suspension for nebulization 0.5 mg inhalation BID Qty: 360 1RF budesonide-formoterol [Symbicort] 160-4.5 mcg/actuation HFA aerosol inhaler 2 puff inhalation BID Qty: 10.2 3RF Rx Instructions: 340B pricing, ordering on behalf of Dr Masters sotalol 120 mg tablet 120 mg PO DAILY Qty: 90 3RF sotalol [Sotalol AF] 80 mg tablet 80 mg PO .qpm Qty: 90 3RF albuterol sulfate 2.5 mg /3 mL (0.083 %) solution for nebulization 2.5 mg inhalation Q6H PRN (Reason: shortness of breath or wheezing) Qty: 180 5RF albuterol sulfate 90 mcg/actuation HFA aerosol inhaler 2 puff inhalation Q6H PRN (Reason: shortness of breath or wheezing) Qty: 3 3RF Vitamin B-12 1 cap PO DAILY 0RF cyanocobalamin (vitamin B-12) [Vitamin B-12] 500 mcg Tablet 500 mcg PO DAILY 0RF lovastatin 20 mg Tablet 20 mg PO QPM 0RF zinc 50 mg Tablet 50 mg PO DAILY 0RF lutein 40 mg Capsule 40 mg PO DAILY 0RF ascorbic acid (vitamin C) [Vitamin C] 1,000 mg tablet 500 mg PO DAILY 0RF Discharge Orders: Discharge ED (Routine); Ordered 10/31/21 Ordered By: Ryan Lima Referrals: Kellie Esqueda NP [Primary Care Provider] - Discharge Diet: Usual diet Discharge Activity: Increase activity as tolerated Patient Instructions: Dizziness (ED) Activity Restrictions/Additional Instructions: Change positions slowly. I would recommend using a walker to assist her self with ambulation and getting in and out of chairs. You may also have to consider other types of chairs such as lift chairs to assist with your standing. Activity as tolerated. Follow-up with primary care for further instruction. Return to ER for worsening symptoms. Coding Level of Care Code ED Manufacturing Team Member for Marlyng Fwd Exam Comprehensive
--- NOTE | 2021-10-30 22:42 | CTR_ITS ---
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 Radiation optimization: All CT scans at this facility use at least one of these dose optimization techniques: automated exposure control; mA and/or kV adjustment per patient size (includes targeted exams where dose is matched to clinical indication); or iterative reconstruction. COMPARISON: CT head wo con* [id number] 10/12/2017 12:14 PM RADIATION DOSE METRICS: Total DLP (mGy-cm): 854.32 FINDINGS: Brain: Severe calcified intracranial atherosclerotic vessel disease. Mild cerebral atrophy and ischemic leukoencephalopathy. Cerebral ventricles: No ventriculomegaly. Paranasal sinuses: Visualized sinuses are unremarkable. No fluid levels. Mastoid air cells: Visualized mastoid air cells are well aerated. Bones/joints: Unremarkable. No acute fracture. Soft tissues: Unremarkable. CT/CT head wo con* [id number] IMPRESSION: No acute intracranial findings.
--- NOTE | 2021-10-30 22:42 | ECG_ITS ---
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 Measurements Intervals [place] Rate: 60 P: 108 MA: 194 QRS: 25 QRSD: 87 T: 44 QT: 432 QTc: 435 Interpretive Statements ELECTRONIC ATRIAL PACEMAKER ABNORMAL RHYTHM ECG Compared to ECG 10/12/2017 12:43:36 No significant changes Electronically Signed On 11-01-2021 12:13:46 CDT by Wilver Damon M.D. [id number]
[2021-10-30 22:49] LABS: Basophils % 0.3 %; Eosinophils # 0.1 10^3/uL (0.0-0.8); Eosinophils % 1.5 %; Hematocrit 34.4 % (42.0-52.0); Lymphocytes # 0.7 10^3/uL (0.8-4.8); Lymphocytes % 8.9 %; Mean Corpuscular HGB Conc 34.9 g/dL (30.0-36.0); Mean Corpuscular Volume 94.5 fl (80-94); Monocytes # 0.8 10^3/uL (0.2-0.9); Monocytes % 10.8 %; Neutrophils # 5.77 10^3/uL (1.8-7.7); Neutrophils % 78.2 %; Nucleated Red Blood Cells % 0 %; Platelet Count 109 10^3/cmm (130-400); Red Blood Count 3.64 10^6/uL (4.1-5.3); Red Cell Distribution Width 13.5 % (12.1-15.1); White Blood Count 7.4 10^3/uL (4.0-10.0)
[2021-10-30 22:51] VITALS: BP 147/106; PULSE 64; RESP 24; O2SAT 98
[2021-10-30 22:53] LABS: Mean Platelet Volume 13.3 fL (7.4-10.4)
--- NOTE | 2021-10-30 22:55 | PC.NURSE ---
EKG done at 2250 and shown to ER doctor
[2021-10-30 23:02] VITALS: BP 124/47; BP 133/63; BP 143/46; PULSE 61; PULSE 70; PULSE 76
[2021-10-30 23:02] LABS: Alanine Aminotransferase 25 U/L (0-41); Albumin Level 2.9 g/dL (3.5-5.2); Alkaline Phosphatase 138 IU/L (40-130); Blood Urea Nitrogen 19 mg/dL (8-23); Calcium 8.2 mg/dL (8.5-10.5); Carbon Dioxide 22 mmol/L (22-29); Chloride 101 mmol/L (98-107); Globulin 5.1 g/dL (1.3-4.6); Glucose 91 mg/dL (65-115); Osmolality Calculated 276 mOsm/kg (285-295); Sodium 132 mmol/L (136-145); Total Bilirubin 0.2 mg/dL (0.15-1.2)
[2021-10-30 23:08] LABS: Anion Gap 13.7 (5-19); Aspartate Amino Transferase 43 U/L (0-40); Potassium 4.7 mmol/L (3.5-5.1)
[2021-10-30 23:27] VITALS: BP 113/46; PULSE 61; RESP 14; O2SAT 96
[2021-10-31 00:21] VITALS: BP 114/52; PULSE 60; RESP 14; O2SAT 95
[2021-10-31 00:56] VITALS: BP 115/40; PULSE 73; RESP 17; TEMP 37.1; O2SAT 97
[2021-10-31 00:57] VITALS: BP 115/40; PULSE 73; RESP 17; TEMP 37.1; O2SAT 97
== END 2021-10-31 00:59 | disposition home or self-care (01) ==
PROVIDERS: Emergency Provider Nurse Practitioner Family; PCP Nurse Practitioner Family
DX: R42 Dizziness and giddiness (principal); I77.9 Disorder of arteries and arterioles, unspecified; Z79.82 Long term (current) use of aspirin; E11.9 Type 2 diabetes mellitus without complications; E78.5 Hyperlipidemia, unspecified; Z95.0 Presence of cardiac pacemaker; I10 Essential (primary) hypertension; Z87.891 Personal history of nicotine dependence
CPT/HCPCS: 70450; 80053; 85025; 93005; 99284; 99291; 99292

== ENCOUNTER → 2021-11-14 08:35 | Outpatient (BNVA) | payer MEDICARE, SELFPAY | PROVIDERS: Visit Provider Internal Medicine | DX: R06.02 Shortness of breath (principal); J20.9 Acute bronchitis, unspecified; A31.0 Pulmonary mycobacterial infection; I25.118 Atherosclerotic heart disease of native coronary artery with other forms of angina pectoris; I48.20 Chronic atrial fibrillation, unspecified; J44.9 Chronic obstructive pulmonary disease, unspecified; J45.40 Moderate persistent asthma, uncomplicated; M35.3 Polymyalgia rheumatica; R05.8 Other specified cough; Z87.891 Personal history of nicotine dependence; Z95.0 Presence of cardiac pacemaker | CPT/HCPCS: 71046; 93280; 99214 ==

== ENCOUNTER 2021-11-17 10:38 | Outpatient (CLI) | payer MEDICARE, SELFPAY | END 2021-11-17 10:39 | disposition home or self-care (01) | LOC: LAB 10:41 | PROVIDERS: Visit Provider Internal Medicine Pulmonary Disease | DX: J20.9 Acute bronchitis, unspecified (principal); J42 Unspecified chronic bronchitis; J45.50 Severe persistent asthma, uncomplicated | CPT/HCPCS: 87070; 87077; 87186 ==

== ENCOUNTER → 2021-11-26 09:07 | Outpatient (BNVA) | payer MEDICARE, SELFPAY | PROVIDERS: Visit Provider Family Medicine Adult Medicine | DX: I10 Essential (primary) hypertension (principal); M62.81 Muscle weakness (generalized); E11.9 Type 2 diabetes mellitus without complications; G62.9 Polyneuropathy, unspecified; J84.9 Interstitial pulmonary disease, unspecified; E78.5 Hyperlipidemia, unspecified; M25.672 Stiffness of left ankle, not elsewhere classified; I48.20 Chronic atrial fibrillation, unspecified; M35.3 Polymyalgia rheumatica | CPT/HCPCS: 80053; 83036; 84443; 85025 ==

== ENCOUNTER 2021-12-01 08:46 | Outpatient (CLI) | payer MEDICARE, SELFPAY ==
--- NOTE | 2021-12-01 09:00 | CT_ITS ---
WS: [id number] CT CHEST TECHNIQUE: Noncontrast CT of the chest with coronal and sagittal reformatted images. CLINICAL INFORMATION: lung nodule COMPARISON: CT September 01, 2021 DLP: 733.[address] scans at [facility] use at least one of these dose optimization techniques: automated e xposure control; mA and/or kV adjustment per patient size (includes targeted exams where dose is matc hed to clinical indication); or iterative reconstruction. FINDINGS: Previously described focal pleural thickening or compressive atelectasis in the LEFT lower lobe posterior medially has improved. Tiny LEFT pleural effusion with pleural thickening appears stab le to slightly improved. The masslike opacity in the LEFT upper lobe with slight spiculation likely mucus plugging measuring 2 .1 x 1.6 cm. This was not present previously. Scattered tree-in-bud infiltrates bilaterally are simil ar in appearance to previous. Progressed nodular opacities in the RIGHT upper lobe anteriorly and RIG HT lower lobe laterally progressed from previous. Chronic interstitial thickening within both lungs. No other remarkable changes compared to previous. Chronic emphysematous changes. Stable bronchiectasis in the RIGHT middle lobe. Subclavian pacer. No m ediastinal or hilar lymphadenopathy. Mild thoracic kyphosis. Diffuse ankylosis of the thoracic spine. This is unchanged. Adrenal glands ar e normal. Splenic granulomas. Small esophageal hiatal hernia. Aortic calcification. Normal caliber thoracic aorta. Coronary calcification. Calcified LEFT hilar lym ph nodes. No axillary lymphadenopathy. Prior cholecystectomy. Splenic granulomas. CT/CT chest wo con [id number] IMPRESSION: 1. Previously described focal area of pleural thickening LEFT lower lobe media lly has improved. Residual small LEFT pleural effusion/pleural thickening stabl e to slightly improved. 2. New masslike opacity LEFT upper lobe anteriorly measuring 2.0 x 1.6 cm with slight spiculation suspicious for mucus plugging. Recommend 3 month follow-up of this area. This is new from previous. 3. Scattered tree-in-bud infiltrates with progressed nodular opacities in the RIGHT upper lobe anteriorly and RIGHT lower lobe laterally likely infectious or inflammatory. 4. No mediastinal or hilar lymphadenopathy. 5. Vascular calcification including coronary. 6. No other significant changes compared to previous.
== END 2021-12-01 08:47 | disposition home or self-care (01) ==
PROVIDERS: Visit Provider Internal Medicine Pulmonary Disease
DX: R91.1 Solitary pulmonary nodule (principal); J90 Pleural effusion, not elsewhere classified
CPT/HCPCS: 71250

== ENCOUNTER → 2021-12-08 09:43 | Outpatient (BNVA) | payer MEDICARE, SELFPAY | PROVIDERS: PCP Family Medicine Adult Medicine; Visit Provider Internal Medicine Pulmonary Disease | DX: J44.9 Chronic obstructive pulmonary disease, unspecified (principal); R06.02 Shortness of breath; J45.40 Moderate persistent asthma, uncomplicated; R05.8 Other specified cough; Z87.891 Personal history of nicotine dependence; I25.118 Atherosclerotic heart disease of native coronary artery with other forms of angina pectoris; Z95.0 Presence of cardiac pacemaker; M35.3 Polymyalgia rheumatica; A31.0 Pulmonary mycobacterial infection | CPT/HCPCS: 99214 ==

== ENCOUNTER 2021-12-11 07:48 | Outpatient (CLI) | payer MEDICARE, SELFPAY ==
--- NOTE | 2021-12-11 14:15 | PFTS_ITS ---
Date of Study:12/11/21 Date of Dictation: 12/15/2021 MECHANICS: Postbronchodilator forced vital capacity (FVC) is reduced. Postbronchodilator forced expiratory volume in one second (FEV1) is moderately reduced. FEV1/FVC is reduced. There is no significant response to bronchodilator.. FLOW VOLUME LOOP: Sloping of end expiratory limb suggestive of airflow obstruction. LUNG VOLUMES: Not measured DIFFUSING CAPACITY FOR CARBON MONOXIDE: Moderately reduced. INTERPRETATION: The postbronchodilator spirometry showed moderate airflow obstruction.? There is no significant postbronchodilator response.? Lung volumes not measured.? There is moderate gas transfer defect.? Clinical correlation recommended. MTDD
--- NOTE | 2021-12-11 15:11 | PFTS_ITS ---
Date of Study:12/11/21 Date of Dictation: 12/15/2021 MECHANICS: Postbronchodilator forced vital capacity (FVC) is reduced. Postbronchodilator forced expiratory volume in one second (FEV1) is moderately reduced. FEV1/FVC is reduced. There is no postbronchodilator study. FLOW VOLUME LOOP: Sloping of end expiratory limb suggestive of airflow obstruction. LUNG VOLUMES: Not measured DIFFUSING CAPACITY FOR CARBON MONOXIDE: Moderately reduced. INTERPRETATION: The postbronchodilator spirometry showed moderate airflow obstruction.? There is no significant postbronchodilator response.? Lung volumes not measured.? There is moderate gas transfer defect.? Clinical correlation recommended. MTDD
== END 2021-12-11 07:49 | disposition home or self-care (01) ==
LOC: RT 07:49
PROVIDERS: PCP Family Medicine Adult Medicine; Visit Provider Internal Medicine Pulmonary Disease
DX: A31.0 Pulmonary mycobacterial infection (principal); J20.9 Acute bronchitis, unspecified; J42 Unspecified chronic bronchitis
CPT/HCPCS: 94060; 94618; 94729; J7611

== ENCOUNTER → 2021-12-24 14:22 | Outpatient (BNVA) | payer MEDICARE, SELFPAY | PROVIDERS: PCP Family Medicine Adult Medicine; Referring Provider Family Medicine Adult Medicine; Visit Provider Specialist | DX: M21.372 Foot drop, left foot (principal); R29.898 Other symptoms and signs involving the musculoskeletal system; G62.9 Polyneuropathy, unspecified; M25.672 Stiffness of left ankle, not elsewhere classified | CPT/HCPCS: 73610; 99203 ==

== ENCOUNTER → 2021-12-25 10:08 | Outpatient (BNVA) | payer MEDICARE, SELFPAY | PROVIDERS: PCP Family Medicine Adult Medicine; Visit Provider Internal Medicine Pulmonary Disease | DX: R06.02 Shortness of breath (principal); J44.9 Chronic obstructive pulmonary disease, unspecified; J45.40 Moderate persistent asthma, uncomplicated; R05.8 Other specified cough; Z87.891 Personal history of nicotine dependence; I25.118 Atherosclerotic heart disease of native coronary artery with other forms of angina pectoris; Z95.0 Presence of cardiac pacemaker; M35.3 Polymyalgia rheumatica; A31.0 Pulmonary mycobacterial infection; J98.4 Other disorders of lung | CPT/HCPCS: 36415; 99214 ==

== ENCOUNTER → 2022-01-19 14:26 | Outpatient (BNVA) | payer MEDICARE, SELFPAY | PROVIDERS: PCP Family Medicine Adult Medicine; Visit Provider Podiatrist Foot & Ankle Surgery | DX: M21.372 Foot drop, left foot (principal); Z91.81 History of falling | CPT/HCPCS: 99204 ==

== ENCOUNTER → 2022-03-06 08:55 | Outpatient (BNVA) | payer MEDICARE, SELFPAY | PROVIDERS: PCP Family Medicine Adult Medicine; Visit Provider Internal Medicine | DX: Z45.010 Encounter for checking and testing of cardiac pacemaker pulse generator [battery] (principal) | CPT/HCPCS: 93280 ==

== ENCOUNTER → 2022-04-03 07:44 | Outpatient (BNVA) | payer MEDICARE, SELFPAY | PROVIDERS: PCP Family Medicine Adult Medicine; Visit Provider Otolaryngology | DX: R49.0 Dysphonia (principal); R05.3 Chronic cough; J44.9 Chronic obstructive pulmonary disease, unspecified | CPT/HCPCS: 31575; 99213; 99214 ==

== ENCOUNTER 2022-04-03 14:01 | Outpatient (CLI) | payer MEDICARE, SELFPAY ==
--- NOTE | 2022-04-03 14:30 | CT_ITS ---
WS: [id number] CT CHEST WITHOUT INTRAVENOUS CONTRAST HISTORY: 3 month f/u cavitary lesion of lung TECHNIQUE: Contiguous 5 mm axial imaging performed on the thorax. Coronal and sagittal reformats are submitted. All CT scans at [facility] use at least one of these dose optimization techniques: automated exposure control; mA and/or kV adjustment per patient size (includes targeted exams where dose is matched to clinical indication); or iterative reconstruction. CONTRAST: None DLP: 774.44 mGy.cm COMPARISON: 12/01/2021, 09/01/2021, PET/CT 12/20/2021 Lungs and central airway: Hyperexpanded lungs with chronic emphysema and interstitial thickening and numerous bilateral pulmonary opacifications. Cavitary PET/CT positive mass in the LEFT upper lobe khadijah sures 17 x 18 mm. Slight decreased in size. The solid component has significantly decreased in size a nd the central cavitation is more prominent. There is a small nodule that extends to the pleura. This nodule measures 7.7 mm. PET/CT positive RIGHT lower lobe cavitary lesion measuring approximately 7.5 mm. There is less cavita tion. The additional PET/CT positive nodule in the superior segment posteriorly in the RIGHT lower lobe has resolved or decreased in size. There are additional bilateral, predominantly lower lobe irregular opacifications which are new. The largest area of consolidation at the LEFT lung base abuts the pleura measures 19 x 16 mm. This may be an area of pleural thickening or new metastatic nodule. Additional tree-in-bud airspace disease in t he upper lobes. Pleura: Mild pleural thickening in the LEFT thorax. Similar to the prior study. Heart and pericardium: Mild cardiomegaly. Mediastinum and john: No mediastinal or hilar increase in lymph node size or number is appreciated on this unenhanced exam. Hilar regions are difficult to evaluate without contrast but there is no incre ased soft tissue. Vessels: Normal size aortic and pulmonary artery. No coronary artery calcifications. Chest wall and lower neck: No soft tissue masses. Upper abdomen: Negative. Osseous structures: No destructive process. CT/CT chest wo con [id number] IMPRESSION: 1. PET/CT positive LEFT upper lobe cavitary lesion has slightly decreased in s ize now measuring 17 x 18 mm. There is a small solid nodule component measuring 7.7 mm extending towards the pleura. 2. PET/CT positive RIGHT lower lobe cavitary lesion decreased in size now aline uring 7.5 mm. Cavitation has resolved. This is now a residual solid nodule. 3. PET/CT positive nodule superior segment RIGHT lower lobe has resolved or de creased in size. There is adjacent interstitial thickening which may be part of that resolving nodule or a new area of opacification. 4. New bilateral lower lobe irregular opacifications. The largest consolidatio n at the LEFT lung base abutting the pleura measures 19 x 16 mm. These may be n ew inflammatory opacifications or metastatic lesions. 5. Additional more subtle peripheral opacifications in the upper lobes. Probab ly postinflammatory. 6. No mediastinal or hilar adenopathy.
== END 2022-04-03 14:02 | disposition home or self-care (01) ==
LOC: RAD 14:03
PROVIDERS: PCP Family Medicine Adult Medicine; Visit Provider Internal Medicine Pulmonary Disease
DX: A31.0 Pulmonary mycobacterial infection (principal); R06.02 Shortness of breath; J45.40 Moderate persistent asthma, uncomplicated; J98.4 Other disorders of lung; J44.9 Chronic obstructive pulmonary disease, unspecified; Z87.891 Personal history of nicotine dependence; I25.118 Atherosclerotic heart disease of native coronary artery with other forms of angina pectoris; Z95.0 Presence of cardiac pacemaker; M35.3 Polymyalgia rheumatica; H54.40 Blindness, one eye, unspecified eye
CPT/HCPCS: 71250; 99214

== ENCOUNTER 2022-04-09 13:25 | Emergency (ER) | payer MEDICARE, SELFPAY ==
[2022-04-09 14:47] VITALS: BP 174/72; PULSE 76; RESP 16; TEMP 37.3; O2SAT 92; BMI 27.1
[2022-04-09 15:12] LABS: Basophils % 0.2 %; Eosinophils # 0.2 10^3/uL (0.0-0.8); Eosinophils % 1.2 %; Hematocrit 42.9 % (42.0-52.0); Hemoglobin 13.8 g/dL (11.7-16.6); Lymphocytes # 0.5 10^3/uL (0.8-4.8); Lymphocytes % 2.7 %; Mean Corpuscular HGB Conc 32.2 g/dL (30.0-36.0); Mean Corpuscular Hemoglobin 32.2 pg (28.0-34.0); Mean Corpuscular Volume 100.2 fl (80-94); Mean Platelet Volume 10.4 fL (7.4-10.4); Monocytes # 0.3 10^3/uL (0.2-0.9); Monocytes % 1.3 %; Neutrophils # 18.29 10^3/uL (1.8-7.7); Neutrophils % 93.8 %; Nucleated Red Blood Cells % 0 %; Platelet Count 252 10^3/cmm (130-400); Red Blood Count 4.28 10^6/uL (4.1-5.3); Red Cell Distribution Width 14.3 % (12.1-15.1); White Blood Count 19.5 10^3/uL (4.0-10.0)
[2022-04-09 15:37] LABS: Alanine Aminotransferase 32 U/L (0-41); Albumin Level 2.4 g/dL (3.5-5.2); Alkaline Phosphatase 141 U/L (40-130); Anion Gap 13.5 (5-19); Aspartate Amino Transferase 36 U/L (0-40); Blood Urea Nitrogen 18 mg/dL (8-23); Calcium 8.3 mg/dL (8.5-10.5); Carbon Dioxide 22 mmol/L (22-29); Chloride 101 mmol/L (98-107); Globulin 5.2 g/dL (1.3-4.6); Glucose 93 mg/dL (65-115); Lipase 27 U/L (13-60); Osmolality Calculated 276 mOsm/kg (285-295); Potassium 4.5 mmol/L (3.5-5.1); Sodium 132 mmol/L (136-145); Total Bilirubin 0.4 mg/dL (0.15-1.2); Total Protein 7.6 g/dL (6.6-8.7)
[2022-04-09 16:23] VITALS: BP 120/66; PULSE 76; RESP 18; O2SAT 91
[2022-04-09] MEDS: ondansetron 4 MG Tablet PO (18:29)
--- NOTE | 2022-04-09 18:32 | ED_ITS ---
HPI - Nausea/Vomiting/Diarrhea General: Chief complaint: Nausea/Vomiting/Diarrhea Stated complaint: n/v Time Seen by Provider: 04/09/22 17:55 Source: patient and family Mode of arrival: ambulatory Limitations: no limitations History of Present Illness: This patient made his way to the emergency department today because there was concerned about possible diverticulitis. He states he is had cough for the past week or more which actually is improved after initiation of antibiotics and steroids and cough suppressants however today he developed chills and vomiting that is similar to symptoms he has had in the past when he was diagnosed with diverticulitis. He states he had a bowel movement today which was normal and no blood or melanotic stool. He states he is been vomiting mostly mucus without any significant food, blood, bile etc. PFSH ED PFSH: Medical History A-fib AAA (abdominal aortic aneurysm) Carotid artery disease Chronic bronchitis with acute exacerbation Depression Diabetes Diarrhea Patient does have extensive diverticulosis of the colon and he will not require further screening colonoscopies unless otherwise specified Diverticulosis Dyslipidemia History of cardiac pacemaker Hypertension Lower extremity weakness Prostatic hypertrophy Pulmonary Mycobacterium avium complex (MAC) infection Recurrent epistaxis Stiffness of left ankle joint Streptococcus pneumoniae vaccination indicated Surgical History History of arthroplasty of left ankle History of CEA (carotid endarterectomy) History of colonoscopy (~06/2019) History of laparoscopic cholecystectomy Family History Other CAD (coronary artery disease) Diarrhea Family history of premature coronary artery disease Denies family history of Rheumatoid arthritis Diabetes Lupus Anesthesia complication Bleeding disorder Lung disease Cancer Hypertension Stroke Social History Smoking and tobacco status: former smoker Quit status (tobacco): has quit using tobacco Year quit tobacco: 1975 [id number] x27yrs Second hand smoke exposure: No Smoking risk assessment/counseling performed?: Yes Alcohol intake: never Desire information about alcohol rehabilitation?: No Counseling given: No Desire information about substance/drug rehabilitation?: No Counseling given: No Adopted: No Caregiver/support person: Yes Lives independently: Yes Household members: spouse Housing: House Marital status: Highest education level completed: High School Graduate service: No Current occupational status: retired Current occupational exposures/hazards: No Pets and animals: No History of recent travel: No Sexually active: No Current gender identity: Male Kiara/Protestant: None Special kiara needs: No Agree to transfusion: No Financial difficulty paying for basics: Decline to Answer Physical Exam Narrative: EXAM NARRATIVE: Makes good eyeThe patient is alert. Answers questions in a goal-directed fashion. Const: COMMON NORMALS: no acute distress, patient oriented x3 and alert GENERAL APPEARANCE: cooperative and comfortable NUTRITIONAL APPEARANCE: overweight ORIENTATION/CONSCIOUSNESS: Yes awake HENMT: COMMON NORMALS: normocephalic, Normal nasal mucous membranes and turbinates present, moist oral mucous membranes and oropharynx normal HEAD & SCALP: normocephalic FACE & SINUS: normal facial exam NOSE: Normal nasal mucous membranes and turbinates present Eye: COMMON NORMALS: Equal, round and reactive pupils present, EOMs intact bilaterally and conjunctivae normal CONJUNCTIVA: Yes conjunctivae normal PUPIL: Yes Equal, round and reactive pupils present Neck/C-Spine: COMMON NORMALS: full ROM, no lymphadenopathy, Thyroid normal and No carotid bruits THYROID: Thyroid normal Chest: COMMONS NORMALS: normal inspection of the chest and normal palpation of entire chest wall Resp: COMMON NORMALS: normal respiratory effort, No retractions, No use of accessory muscles and clear to auscultation bilaterally AUSCULTATION: clear to auscultation bilaterally Cardio: COMMON NORMALS: regular rate, regular rhythm, No murmurs present (Cardio) and Peripheral pulses 2+ throughout RATE: regular rate RHYTHM: regular rhythm PERIPHERAL PULSES: Peripheral pulses 2+ throughout GI: COMMON NORMALS: No hepatosplenomegaly present and no masses PALPATION: Yes No hepatosplenomegaly present OTHER: Palpation of his abdomen does not reveal any evidence of tenderness with the exception of his left lower quadrant. He does have some voluntary guarding to palpation as well. No peritoneal irritation, rebound. No skin rashes, ecchymosis etc. No pulsatile masses. No hernias. : COMMON NORMALS: Yes no CVA tenderness BLADDER/KIDNEY EXAM: Yes no CVA tenderness Back/Pelvis: COMMON NORMALS: no CVA tenderness, thoracic and lumbar spine normal to inspection, no thoracic nor lumbar tenderness and thoraco-lumbar ROM normal Extremity: COMMON NORMALS: capillary refill normal, no joint enlargement, no calf tenderness and no pedal edema NARRATIVE EXTREMITY EXAM: He has an AFO on his left lower extremity. Neuro: COMMON NORMALS: patient oriented x3, moves all extremities, no focal motor deficits and no sensory deficits noted SENSORIUM/ORIENTATION: Yes alert CRANIAL NERVES: Yes CN normal except as noted SPEECH: speech normal Course Reevaluation(s): Reevaluation #1: Due to the high emergency department volume and the patient did not make his way back to an examination area for some time. He was given the benefit of ODT Zofran while in the waiting area and states that his symptoms are markedly improved after that medication. Time: 18:34 Reevaluation #2: Patient related his symptoms feel exactly like that that he gets with bouts of diverticulitis. Certainly that is reasonable possibility but I explained both he and his spouse it is not clear to me that that may be the case. I have no documented evidence here that he has had active diverticulosis etc. He does have left lower quadrant tenderness with some voluntary guarding but no rebound. I suggested that we may want to get some imaging to help delineate his current pathology. He agreed to that evaluation. Time: 18:51 Reevaluation #3: Patient remained stable and comfortable. No new findings on repeat examination. CT scan is reassuring and that it does not reveal any evidence of surgical pathology at this time. No evidence of abscess, perforation etc. Does have some inflammatory changes around his colon consistent with likely mild diverticulitis. No evidence of other acute pathology at this time. We will switch the patient to Augmentin to cover colonic fidencio for the next 7 days. He apparently has been taking doxycycline for his bronchitis but that is significantly improved. Augmentin will cover both potential microorganism contributions. Patient is again stable and desires to be discharged from the emergency department. Discussed return precautions. He relates that the initial emesis that he had earlier today might of been because he ate Post[place] with mayonnaise has been setting out in several days old and he thinks it may have contributed to some food poisoning symptoms. Time: 20:35 Vital Signs: Vital signs: Vital Signs Temperature 99.2 F 04/09/22 18:39 Pulse Rate 76 04/09/22 18:39 Respiratory Rate 18 04/09/22 18:39 Blood Pressure 120/66 04/09/22 18:39 Pulse Oximetry 91 12/08/22 18:39 Oxygen Delivery Me thod 12/08/22 18:39 MDM - Nausea/Vomiting/Diarrhea Medical Decision Making Patient presented to our emergency department with primarily concerns about vom iting and also some left lower quadrant pain. He had been treated for bronchitis recently and was still taking doxycycline. He states his symptoms were similar to that which he had had with diverticulitis save for the vomiting. He related it those may have been related to his potential bad food exposure today. His work-up did reveal leukocytosis but no evidence that would suggest sepsis etc. at this time. Leukocytosis was nonspecific and certainly could be elevated due to his emesis, his recent infection, potential diverticulitis. Imaging did show inflammatory changes supportive of mild simple diverticulitis without abscess or other concerning stigmata of more serious disease. He pref erred to be treated at home and I think that is a very reasonable choice. He is otherwise stable and healthy and has good home support. We will switch him to Augmentin 875 twice daily for 6 7 days as well as Levsin to use as needed. He states he is not sure if he ever had any allergy to penicillin. He states he had some raised area in his buttocks after receiving IM penicillin when he was a young man. Medical Records I reviewed the patient's medical records. Lab Data I reviewed the patient's lab results. 04/09/22 15:00 04/09/22 15:00 Radiology Impressions Abdomen/Pelvis CT 04/09/22 18:53 IMPRESSION: 1. Minimal edema about the mid sigmoid colon in the area of several diverticula may reflect a mild diverticulitis. 2. Coronary artery atherosclerotic calcifications. 3. Pacemaker. 4. Emphysematous changes. 5. Patchy bibasilar airspace infiltrates. 6. Small hiatal hernia. 7. Cholecystectomy. 8. Left kidney cyst, negative for follow up. 9. Perinephric edema bilaterally reflective of renal insufficiency. 10. Diverticulosis without diverticulitis. 11. Fusiform infrarenal abdominal aortic aneurysm measuring 3 cm without rupture, similar to prior exam. 12. 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 COMMENTS: Consistent with the [employer] [place] [employer]'s Incidental Findings Committee white paper (J Am Saleem Radiol 2018): Any incidental renal lesion less than 1 cm or classified as too small to characterize, or any incidental cystic renal lesion characterized as simple-appearing, is likely benign. No follow-up imaging is recommended for these lesions per consensus recommendations based on imaging criteria. Laboratory Results WBC 19.5 10^3/uL (4.0-10.0) H 04/09/22 15:00 RBC 4.28 10^6/uL (4.1-5.3) 04/09/22 15:00 Hgb 13.8 g/dL (11.7-16.6) 04/09/22 15:00 Hct 42.9 % (42.0-52.0) 04/09/22 15:00 MCV 100.2 fl (80-94) H 04/09/22 15:00 MCH 32.2 pg (28.0-34.0) 04/09/22 15:00 MCHC 32.2 g/dL (30.0-36.0) 04/09/22 15:00 RDW 14.3 % (12.1-15.1) 04/09/22 15:00 Plt Count 252 10^3/cmm (130-400) 04/09/22 15:00 MPV 10.4 fL (7.4-10.4) 04/09/22 15:00 Neut % (Auto) 93.8 % 04/09/22 15:00 Lymph % (Auto) 2.7 % 04/09/22 15:00 [place] % (Auto) 1.3 % 04/09/22 15:00 Eos % (Auto) 1.2 % 04/09/22 15:00 Baso % (Auto) 0.2 % 04/09/22 15:00 Neut # (Auto) 18.29 10^3/uL (1.8-7.7) H 04/09/22 15:00 Lymph # (Auto) 0.5 10^3/uL (0.8-4.8) L 04/09/22 15:00 [place] # (Auto) 0.3 10^3/uL (0.2-0.9) 04/09/22 15:00 Eos # (Auto) 0.2 10^3/uL (0.0-0.8) 04/09/22 15:00 Baso # (Auto) 0.0 10^3/uL (0.0-0.1) 04/09/22 15:00 Nucleated RBC % (auto) 0 % 04/09/22 15:00 Nucleated RBCs # 0.0 /100WBC 04/09/22 15:00 Sodium 132 mmol/L (136-145) L 04/09/22 15:00 Potassium 4.5 mmol/L (3.5-5.1) 04/09/22 15:00 Chloride 101 mmol/L (98-107) 04/09/22 15:00 Carbon Dioxide 22 mmol/L (22-29) 04/09/22 15:00 Anion Gap 13.5 (5-19) 04/09/22 15:00 BUN 18 mg/dL (8-23) 04/09/22 15:00 Creatinine 0.9 mg/dL (0.7-1.2) 04/09/22 15:00 GFR Calculation Not Reportable 04/09/22 15:00 Glucose 93 mg/dL (65-115) 04/09/22 15:00 Calculated Osmolality 276 mOsm/kg (285-295) L 04/09/22 15:00 Calcium 8.3 mg/dL (8.5-10.5) L 04/09/22 15:00 Total Bilirubin 0.4 mg/dL (0.15-1.2) 04/09/22 15:00 AST 36 U/L (0-40) 04/09/22 15:00 ALT 32 U/L (0-41) 04/09/22 15:00 Alkaline Phosphatase 141 U/L (40-130) H 04/09/22 15:00 Total Protein 7.6 g/dL (6.6-8.7) 04/09/22 15:00 Albumin 2.4 g/dL (3.5-5.2) L 04/09/22 15:00 Globulin 5.2 g/dL (1.3-4.6) H 04/09/22 15:00 Lipase 27 U/L (13-60) 04/09/22 15:00 Discharge Plan Discharge Patient Disposition: Home Clinical Impression: Diverticulitis Condition: Stable Prescriptions: New amoxicillin-pot clavulanate 875-125 mg tablet 1 tab PO BID Qty: 14 0RF Levsin/SL 0.125 mg tablet, sublingual 0.125 mg PO TID PRN (Reason: spasm) Qty: 14 0RF No Action cranberry extract 250 mg capsule 25,000 mg PO QDAY elderberry fruit 200 mg capsule 200 mg PO QDAY magnesium 250 mg tablet 500 mg PO QDAY psyllium husk [Metamucil] 0.52 gram capsule 2.04 g PO QDAY cholecalciferol (vitamin D3) 1,000 unit capsule 1,000 unit PO QDAY aspirin 81 mg tablet,delayed release (DR/EC) 81 mg PO QDAY coenzyme [id number] 100-100 mg-unit capsule 2 cap PO DAILY tamsulosin [Flomax] 0.4 mg capsule 0.4 mg PO DAILY melatonin 10 mg capsule 10 mg PO DAILY PRN (Reason: Sleep) Adult 50 Plus Probiotic 4 billion cell capsule 4,000 mmu cells PO TID Rx Instructions: administer with a meal doxycycline hyclate 100 mg capsule 100 mg PO BID Qty: 30 1RF benzonatate 200 mg capsule 200 mg PO TID PRN (Reason: cough) Qty: 90 3RF prednisone 20 mg tablet 40 mg PO DAILY Qty: 10 0RF pyridoxine (vitamin B6) PO rosuvastatin 20 mg tablet 20 mg PO DAILY sotalol 120 mg tablet 120 mg PO DAILY Qty: 90 3RF sotalol [Sotalol AF] 80 mg tablet 80 mg PO .qpm Qty: 90 3RF albuterol sulfate 2.5 mg /3 mL (0.083 %) solution for nebulization 2.5 mg inhalation Q6H PRN (Reason: shortness of breath or wheezing) Qty: 180 5RF albuterol sulfate 90 mcg/actuation HFA aerosol inhaler 2 puff inhalation Q6H PRN (Reason: shortness of breath or wheezing) Qty: 3 3RF (DME) Alex AFO See Rx Instructions .Route .MEDSUPPLY Qty: 1 0RF Rx Instructions: As directed by [facility] budesonide-formoterol [Symbicort] 160-4.5 mcg/actuation HFA aerosol inhaler 2 puff inhalation BID Qty: 10.2 3RF Rx Instructions: 340B pricing, ordering on behalf of Dr Masters montelukast 10 mg tablet 10 mg PO DAILY Qty: 30 5RF Vitamin B-12 1 cap PO DAILY cyanocobalamin (vitamin B-12) [Vitamin B-12] 500 mcg Tablet 500 mcg PO DAILY zinc 50 mg Tablet 50 mg PO DAILY lutein 40 mg Capsule 40 mg PO DAILY ascorbic acid (vitamin C) [Vitamin C] 1,000 mg tablet 500 mg PO DAILY Discharge Orders: Discharge ED (Routine); Ordered 04/09/22 Ordered By: Elvin Pina Referrals: Kade Proctor MD [Primary Care Provider] - Discharge Diet: Usual diet Discharge Activity: Increase activity as tolerated Patient Instructions: Opioid Safety, Pain Management Activity Restrictions/Additional Instructions: Stop taking the current antibiotic, doxycycline. Begin the new antibiotic and take twice daily for 1 week. Continue your other prescribed medications. We have also provided another medicine to help with any abdominal spasms or pains. Should you not continue to improve over the next 3 to 5 days, worsen any time, unable to eat or drink or have any other concerning symptoms return to this or the nearest emergency department. Avoid foods with seeds, nuts such as popcorn etc. Coding Level of Care Code ED Plant Operations Coordinator for [facility]ena Fwd Exam Comprehensive
[2022-04-09 18:39] VITALS: BP 120/66; PULSE 76; RESP 18; TEMP 37.3; O2SAT 91
--- NOTE | 2022-04-09 18:53 | CTR_ITS ---
PROCEDURE INFORMATION: Exam: CT Abdomen And Pelvis Without Contrast Exam date and time: 04/09/2022 7:57 PM Age: 86 years old Clinical indication: Nausea and vomiting; Abdominal pain; Localized; Left lower quadrant (llq); Prior surgery; Surgery type: Gb; Patient HX: Llq pain with n/v. History of aaa. TECHNIQUE: Imaging protocol: Computed tomography of the abdomen and pelvis without contrast. Radiation optimization: All CT scans at this facility use at least one of these dose optimization techniques: automated exposure control; mA and/or kV adjustment per patient size (includes targeted exams where dose is matched to clinical indication); or iterative reconstruction. COMPARISON: CT angio abdomen [id number] 01/13/2018 9:38 AM RADIATION DOSE METRICS: Total DLP (mGy-cm): 809.58 FINDINGS: Tubes, catheters and devices: Pacemaker. Lungs: Emphysematous changes. Patchy bibasilar airspace infiltrates. Coronary arteries: Coronary artery atherosclerotic calcifications. Diaphragm: Small hiatal hernia. Liver: Normal. No mass. Gallbladder and bile ducts: Cholecystectomy. Pancreas: Normal. No ductal dilation. Spleen: Normal. No splenomegaly. Adrenal glands: Normal. No mass. Kidneys and ureters: Left kidney cyst, negative for follow up. Perinephric edema bilaterally reflective of renal insufficiency. Stomach and bowel: Minimal edema about the mid sigmoid colon in the area of several diverticula may reflect a mild diverticulitis. Diverticulosis without diverticulitis. Appendix: No evidence of appendicitis. Intraperitoneal space: Unremarkable. No free air. No significant fluid collection. Vasculature: Fusiform infrarenal abdominal aortic aneurysm measuring 3 cm without rupture. 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 Lymph nodes: Unremarkable. No enlarged lymph nodes. Urinary bladder: Unremarkable as visualized. Reproductive: Unremarkable as visualized. Bones/joints: Unremarkable. No acute fracture. Soft tissues: Unremarkable. CT/CT abdomen pelvis wo con [id number] IMPRESSION: 1. Minimal edema about the mid sigmoid colon in the area of several diverticula may reflect a mild diverticulitis. 2. Coronary artery atherosclerotic calcifications. 3. Pacemaker. 4. Emphysematous changes. 5. Patchy bibasilar airspace infiltrates. 6. Small hiatal hernia. 7. Cholecystectomy. 8. Left kidney cyst, negative for follow up. 9. Perinephric edema bilaterally reflective of renal insufficiency. 10. Diverticulosis without diverticulitis. 11. Fusiform infrarenal abdominal aortic aneurysm measuring 3 cm without rupture, similar to prior exam. 12. 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 COMMENTS: Consistent with the [place] [employer]'s Incidental Findings Committee white paper (J Am Saleem Radiol 2018): Any incidental renal lesion less than 1 cm or classified as too small to characterize, or any incidental cystic renal lesion characterized as simple-appearing, is likely benign. No follow-up imaging is recommended for these lesions per consensus recommendations based on imaging criteria.
== END 2022-04-09 20:54 | disposition home or self-care (01) ==
PROVIDERS: Physician Assistant; Emergency Provider Emergency Medicine; PCP Family Medicine Adult Medicine
DX: K57.92 Diverticulitis of intestine, part unspecified, without perforation or abscess without bleeding (principal); Z79.82 Long term (current) use of aspirin; Z87.891 Personal history of nicotine dependence; E11.9 Type 2 diabetes mellitus without complications; E78.5 Hyperlipidemia, unspecified; I10 Essential (primary) hypertension; Z95.0 Presence of cardiac pacemaker
CPT/HCPCS: 36415; 74176; 80053; 83690; 85025; 99284; Q0162

== ENCOUNTER 2022-06-05 10:48 | Outpatient (CLI) | payer MEDICARE, SELFPAY ==
--- NOTE | 2022-06-05 11:15 | USCV_ITS ---
Abraham Andreas Age: 87 Gender: M : 1935 Exam Date: 06/05/2022 11:19 Ordering Phys: Ryan Montano MD (Andy) ([email or web address] [place] Technologist: MEGAN [place] [facility] [place]: S/P LEFT CEA 2019 Risk Factors: Previous Vascular Surgery: Right Brachial BP: / Left Brachial BP: / Right Left Velocity (cm/s) Spectral Plaque Velocity (cm/s) Spectral Plaque Syst/Diast Broadening Syst/Diast Broadening 102.50/11.00 Prox CCA 104.20/ 9.00 97.00/ 11.00 Mid CCA 139.30/ 14.50 95.90/ 8.80 Distal CCA 128.80/ 9.20 76.90/ 7.80 Prox ICA 190.10/ 16.60 67.30/ 9.30 Mid ICA 96.20 / 13.20 99.20/ 15.40 Distal ICA 71.20 / 9.40 114.70 ECA 139.80 0.97 ICA/CCA 1.36 Antegrade Vertebral Antegrade 20.40/ 11.20 cm/s 66.90/ 8.60 cm/s Tri Subclavian Tri 98.20 140.2 0 FINDINGS Comparison:. 06/09/21. Diffuse bilateral scattered calcified plaque and intimal thickening throughout the common carotid arteries and extending through the bifurcation. Mild elevation of left ICA velocity.Mild progression since the prior exam. Anegrade vertebral arteries. CONCLUSIONS Bilateral ICA stenosis less than 50%. Slightly greater stenosis left ICA. Dr. Spring Singh DO (Electronically Signed) Final Date: 05 June 2022 11:47 S
== END 2022-06-05 10:49 | disposition home or self-care (01) ==
PROVIDERS: PCP Family Medicine Adult Medicine; Visit Provider Thoracic Surgery (Cardiothoracic Vascular Surgery)
DX: I65.23 Occlusion and stenosis of bilateral carotid arteries (principal)
CPT/HCPCS: 93880

== ENCOUNTER → 2022-06-09 14:45 | Outpatient (BNVA) | payer MEDICARE, SELFPAY | PROVIDERS: PCP Family Medicine Adult Medicine; Visit Provider Internal Medicine | DX: J44.9 Chronic obstructive pulmonary disease, unspecified (principal); I77.9 Disorder of arteries and arterioles, unspecified; R29.898 Other symptoms and signs involving the musculoskeletal system; I25.118 Atherosclerotic heart disease of native coronary artery with other forms of angina pectoris; Z87.891 Personal history of nicotine dependence; I10 Essential (primary) hypertension; Z95.0 Presence of cardiac pacemaker; E78.5 Hyperlipidemia, unspecified | CPT/HCPCS: 99214 ==

== ENCOUNTER → 2022-06-10 09:12 | Outpatient (BNVA) | payer MEDICARE, SELFPAY | PROVIDERS: PCP Family Medicine Adult Medicine; Visit Provider Internal Medicine Pulmonary Disease | DX: R06.02 Shortness of breath (principal); R91.8 Other nonspecific abnormal finding of lung field; A31.0 Pulmonary mycobacterial infection; J98.4 Other disorders of lung; J44.9 Chronic obstructive pulmonary disease, unspecified; J45.40 Moderate persistent asthma, uncomplicated; Z87.891 Personal history of nicotine dependence; I25.118 Atherosclerotic heart disease of native coronary artery with other forms of angina pectoris; Z95.0 Presence of cardiac pacemaker; M35.3 Polymyalgia rheumatica; J82.83 Eosinophilic asthma | CPT/HCPCS: 99204 ==

== ENCOUNTER → 2022-06-11 07:56 | Outpatient (BNVA) | payer MEDICARE, SELFPAY | PROVIDERS: PCP Family Medicine Adult Medicine; Visit Provider Family Medicine Adult Medicine | DX: E11.9 Type 2 diabetes mellitus without complications (principal); I25.118 Atherosclerotic heart disease of native coronary artery with other forms of angina pectoris; E78.5 Hyperlipidemia, unspecified | CPT/HCPCS: 80061; 83036 ==

== ENCOUNTER → 2022-07-09 09:54 | Outpatient (BNVA) | payer MEDICARE, SELFPAY | PROVIDERS: PCP Family Medicine Adult Medicine; Visit Provider Thoracic Surgery (Cardiothoracic Vascular Surgery) | DX: I65.23 Occlusion and stenosis of bilateral carotid arteries (principal); Z87.891 Personal history of nicotine dependence; Z79.82 Long term (current) use of aspirin | CPT/HCPCS: 99213 ==

== ENCOUNTER → 2022-07-20 13:00 | Outpatient (BNVA) | payer MEDICARE, SELFPAY | PROVIDERS: PCP Family Medicine Adult Medicine; Visit Provider Podiatrist Foot & Ankle Surgery | DX: M21.372 Foot drop, left foot (principal) | CPT/HCPCS: 99213 ==

== ENCOUNTER 2022-08-31 07:32 | Observation (INO) | payer MEDICARE, SELFPAY ==
[2022-08-31] VITALS (22 sets, daily range): BP systolic 97–144; BP diastolic 50–98; PULSE 64–84; RESP 12–25; TEMP 36.3–36.9; O2SAT 90–99; BMI 27.3
--- NOTE | 2022-08-31 07:33 | W.ED.GENADLT ---
HPI - General Adult General: Chief complaint: Arrhythmia/Palpitations Stated complaint: pacemaker stopped working, heart issues Time Seen by Provider: 08/31/22 07:33 Source: patient Mode of arrival: ambulatory History of Present Illness: 87 yo male present to the ER with complaints of his pacer not working correctly. He recently had a pacemaker interrogation on 08/21/2022 report in the chart said it was normal. On the reported to the estimated battery life remaining was 7 months. This morning patient had a couple of episodes of rapid heart rate. He did take his regular sotalol. He usually takes 80 mg at night and 120 in the morning. The episodes of rapid heart rate this morning occurred before he took his a.m. sotalol and have not recurred since. He is not having any chest pain or shortness of breath. Onset (ago): hour(s) Relieving factors: none Exacerbating factors: none Associated symptoms: Deny chest pain, confusion, cough, diaphoresis, decreased appetite, dyspnea, fevers/chills, headache(s), malaise, nausea, rash, palpitations, seizures, short of breath, syncope, vomiting or weakness Treatments prior to arrival: none Review of Systems Const: Denies: malaise or diaphoresis ENMT: Denies: throat pain, ear or mastoid pain, nasal discharge or nasal congestion Card: Denies: chest pain, palpitations or syncope Resp: Denies: dyspnea GI: Denies: abdominal pain, nausea or vomiting : Denies: flank pain, dysuria, urinary frequency or urinary urgency Skin/Breast: Denies: rash Neuro: Denies: headache(s) or confusion PFSH ED PFSH: Medical History A-fib AAA (abdominal aortic aneurysm) BPH loc w urin obs/LUTS Carotid artery disease Chronic bronchitis with acute exacerbation Depression Diabetes Diarrhea Patient does have extensive diverticulosis of the colon and he will not require further screening colonoscopies unless otherwise specified Diverticulosis Dyslipidemia History of cardiac pacemaker Hypertension Prostatic hypertrophy Pulmonary Mycobacterium avium complex (MAC) infection Recurrent epistaxis Stiffness of left ankle joint Streptococcus pneumoniae vaccination indicated Surgical History History of arthroplasty of left ankle History of CEA (carotid endarterectomy) History of colonoscopy (~06/2019) History of laparoscopic cholecystectomy Family History Other CAD (coronary artery disease) Diarrhea Family history of premature coronary artery disease Denies family history of Rheumatoid arthritis Diabetes Lupus Anesthesia complication Bleeding disorder Lung disease Cancer Hypertension Stroke Social History Smoking and tobacco status: former smoker Quit status (tobacco): has quit using tobacco Year quit tobacco: 1975 1ppw-2ppd x27yrs Second hand smoke exposure: No Smoking risk assessment/counseling performed?: Yes Alcohol intake: never Desire information about alcohol rehabilitation?: No Counseling given: No Substance/Drug Use: never Desire information about substance/drug rehabilitation?: No Counseling given: No Adopted: No Caregiver/support person: Yes Lives independently: Yes Household members: spouse Housing: House Marital status: Highest education level completed: High School Graduate service: No Current occupational status: retired Current occupational exposures/hazards: No Pets and animals: No Sexually active: No Do you think of yourself as: Straight/Heterosexual Current gender identity: Male Kiara/Yarsani: None Special kiara needs: No Agree to transfusion: No Financial difficulty paying for basics: Decline to Answer Physical Exam Const: GENERAL APPEARANCE: cooperative and comfortable ORIENTATION/CONSCIOUSNESS: Yes awake, Yes oriented to person, Yes oriented to place and Yes oriented to time HENMT: COMMON NORMALS: normocephalic, atraumatic and hearing grossly normal bilaterally HEAD & SCALP: normocephalic and atraumatic Resp: COMMON NORMALS: normal respiratory effort, No retractions, No use of accessory muscles and clear to auscultation bilaterally AUSCULTATION: clear to auscultation bilaterally Cardio: COMMON NORMALS: regular rate, regular rhythm and No murmurs present (Cardio) RATE: regular rate RHYTHM: regular rhythm GI: COMMON NORMALS: Soft to palpation and No hepatosplenomegaly present AUSCULTATION: Yes normoactive bowel sounds PALPATION: Yes Soft to palpation, No Tenderness to palpation present (GI), No Guarding due to palpation present (GI) and Yes No hepatosplenomegaly present Extremity: COMMON NORMALS: normal to inspection, capillary refill normal, no clubbing, cyanosis or edema, no calf tenderness and no pedal edema Neuro: SENSORIUM/ORIENTATION: Yes oriented to person, Yes oriented to place and Yes oriented to time Skin: COMMON NORMALS: no rashes or lesions noted GENERAL SKIN EXAM: no rashes or lesions noted Course Vital Signs: Vital signs: Vital Signs Temperature 97.3 F L 08/31/22 07:38 Pulse Rate 65 08/31/22 08:30 Respiratory Rate 16 08/31/22 08:18 Blood Pressure 130/67 08/31/22 08:30 Pulse Oximetry 98 08/31/22 08:19 Oxygen Delivery Me thod Room Air 08/31/22 08:18 MDM - General Adult Medical Decision Making On arrival patient is in a fully paced rhythm. No chest pain no shortness of breath Patient fully paced on arrival here. Review of his records shows that on July 09 patient had an interrogator check. We are trying to find the report from 421. Today's pacemaker report shows it is fixed switch to tube battery conserve mode because of low battery it is ventricular pacing only not recording events discussed with Dr. Montano and with Dr. Park will place patient on observation Dr. schumacher he anticipates replacing pacer in the morning. Note that his kidney function has slightly worsened from his baseline. Medical Records I reviewed the patient's medical records. Lab Data I reviewed the patient's lab results. 08/31/22 07:52 08/31/22 07:52 Radiology Impressions Chest X-Ray 08/31/22 07:35 IMPRESSION: No acute cardiopulmonary abnormality as above. Laboratory Results WBC 10.9 10^3/uL (4.0-10.0) H 08/31/22 07:52 RBC 4.44 10^6/uL (4.1-5.3) 08/31/22 07:52 Hgb 14.6 g/dL (11.7-16.6) 08/31/22 07:52 Hct 45.0 % (42.0-52.0) 08/31/22 07:52 MCV 101.4 fl (80-94) H 08/31/22 07:52 MCH 32.9 pg (28.0-34.0) 08/31/22 07:52 MCHC 32.4 g/dL (30.0-36.0) 08/31/22 07:52 RDW 13.2 % (12.1-15.1) 08/31/22 07:52 Plt Count 292 10^3/cmm (130-400) 08/31/22 07:52 MPV 9.7 fL (7.4-10.4) 08/31/22 07:52 Neut % (Auto) 72.5 % 08/31/22 07:52 Lymph % (Auto) 17.2 % 08/31/22 07:52 Ballard % (Auto) 7.1 % 08/31/22 07:52 Eos % (Auto) 2.4 % 08/31/22 07:52 Baso % (Auto) 0.4 % 08/31/22 07:52 Neut # (Auto) 7.92 10^3/uL (1.8-7.7) H 08/31/22 07:52 Lymph # (Auto) 1.9 10^3/uL (0.8-4.8) 08/31/22 07:52 Ballard # (Auto) 0.8 10^3/uL (0.2-0.9) 08/31/22 07:52 Eos # (Auto) 0.3 10^3/uL (0.0-0.8) 08/31/22 07:52 Baso # (Auto) 0.0 10^3/uL (0.0-0.1) 08/31/22 07:52 Nucleated RBC % (auto) 0 % 08/31/22 07:52 Nucleated RBCs # 0.0 /100WBC 08/31/22 07:52 Sodium 135 mmol/L (136-145) L 08/31/22 07:52 Potassium 4.5 mmol/L (3.5-5.1) 08/31/22 07:52 Chloride 101 mmol/L (98-107) 08/31/22 07:52 Carbon Dioxide 24 mmol/L (22-29) 08/31/22 07:52 Anion Gap 14.5 (5-19) 08/31/22 07:52 BUN 28 mg/dL (8-23) H 08/31/22 07:52 Creatinine 1.3 mg/dL (0.7-1.2) H 08/31/22 07:52 GFR Calculation Not Reportable 08/31/22 07:52 Glucose 120 mg/dL (65-115) H 05/01/23 07:52 Calculated Osmolality 287 mOsm/kg (285-295) 08/31/22 07:52 Calcium 8.9 mg/dL (8.5-10.5) 08/31/22 07:52 Total Bilirubin 0.3 mg/dL (0.15-1.2) 08/31/22 07:52 AST 26 U/L (0-40) 08/31/22 07:52 ALT 17 U/L (0-41) 08/31/22 07:52 Alkaline Phosphatase 152 U/L (40-130) H 08/31/22 07:52 Total Protein 8.9 g/dL (6.6-8.7) H 08/31/22 07:52 Albumin 3.0 g/dL (3.5-5.2) L 08/31/22 07:52 Globulin 5.9 g/dL (1.3-4.6) H 08/31/22 07:52 Discharge Plan Discharge Patient Disposition: Placed in Observation Clinical Impression: Pacemaker at end of battery life, Atrial fibrillation with rapid ventricular response, Acute kidney injury, Hyponatremia Condition: Stable Prescriptions: No Action cranberry extract 250 mg capsule 25,000 mg PO QDAY elderberry fruit 200 mg capsule 200 mg PO QDAY magnesium 250 mg tablet 500 mg PO QDAY cholecalciferol (vitamin D3) 1,000 unit capsule 1,000 unit PO QDAY aspirin 81 mg tablet,delayed release (DR/EC) 81 mg PO QDAY coenzyme [id number] E 100-100 mg-unit capsule 2 cap PO DAILY melatonin 10 mg capsule 10 mg PO QPM Adult 50 Plus Probiotic 4 billion cell capsule 4,000 mmu cells PO TID Rx Instructions: administer with a meal selenium 200 mcg tablet 200 mcg PO DAILY (DME) Diabetic Shoes with 3 pairs of inserts See Rx Instructions .Route .MEDSUPPLY Qty: 1 0RF Rx Instructions: As directed by HOME- Accommodative should that will allow room for the patients AFO diphenhydramine HCl [Benadryl] 25 mg capsule 25 mg PO BID albuterol sulfate 2.5 mg /3 mL (0.083 %) solution for nebulization 2.5 mg inhalation Q6H PRN (Reason: shortness of breath or wheezing) Qty: 180 5RF albuterol sulfate 90 mcg/actuation HFA aerosol inhaler 2 puff inhalation Q6H PRN (Reason: shortness of breath or wheezing) Qty: 3 3RF benzonatate 200 mg capsule 200 mg PO TID PRN (Reason: cough) Qty: 90 3RF montelukast 10 mg tablet 10 mg PO DAILY Qty: 90 3RF sotalol 120 mg tablet 120 mg PO QAM Qty: 90 3RF budesonide-formoterol [Symbicort] 160-4.5 mcg/actuation HFA aerosol inhaler 2 puff inhalation BID Qty: 10.2 3RF Rx Instructions: 340B pricing, ordering on behalf of Dr Masters cyanocobalamin (vitamin B-12) [Vitamin B-12] 500 mcg Tablet 500 mcg PO DAILY lutein 40 mg Capsule 40 mg PO DAILY ascorbic acid (vitamin C) [Vitamin C] 1,000 mg tablet 500 mg PO DAILY zinc acetate 50 mg (zinc) Capsule 50 mg PO DAILY vitamin N58-nlvmi acid 2,500-400 mcg Tablet,Disintegrating 1 tab PO DAILY Sotalol AF 80 mg tablet 80 mg PO QPM Flomax 0.4 mg capsule 0.4 mg PO QPM rosuvastatin 20 mg tablet 20 mg PO QPM vitamin A 2,400 mcg Capsule 2,400 mcg PO DAILY Referrals: Kade Proctor MD [Primary Care Provider] - Coding Level of Care Code ED Split And Drum Room Supervisor for Salena Silva
--- NOTE | 2022-08-31 07:35 | ECG_ITS ---
[facility] Test Date: 2022-08-31 Pat Name: Andreas Rosario Department: Room: Gender: Male Contact Center Consultant: : 1935 Requested By: Jayden Her Order Number: [id number] Ran MD: Fatimah Goldsmith M.D. Measurements Intervals [place] Rate: 65 P: 0 MA: 0 QRS: -58 QRSD: 170 T: 87 QT: 477 QTc: 497 Interpretive Statements ELECTRONIC VENTRICULAR PACEMAKER ABNORMAL RHYTHM ECG Compared to ECG 10/30/2021 22:52:52 Atrial-paced complex(es) or rhythm no longer present Electronically Signed On 09-01-2022 7:02:51 CDT by Fatimah Goldsmith M.D. [id number]
--- NOTE | 2022-08-31 07:35 | XR_ITS ---
WS: [id number] XR chest 1V portable [id number] REASON FOR EXAM: pacemaker malfunction FINDINGS: Chest appears unchanged compared to 11/14/2021. Left cardiac pacer leads are intact and unchanged in position compared to 11/14/2021. Moderate tortuosity of the thoracic aorta normal with normal heart size. Coarse reticular interstitial lung opacities with irregular lucencies compatible with moderately cordell re interstitial lung disease, obstructive lung disease, bronchiectasis. Clearing of the more focal op acity in the right lower midlung field, otherwise stable. No new findings. XR/XR chest 1V portable [id number] IMPRESSION: No acute cardiopulmonary abnormality as above.
[2022-08-31 08:22] LABS: Basophils % 0.4 %; Eosinophils # 0.3 10^3/uL (0.0-0.8); Eosinophils % 2.4 %; Hemoglobin 14.6 g/dL (11.7-16.6); Lymphocytes # 1.9 10^3/uL (0.8-4.8); Lymphocytes % 17.2 %; Mean Corpuscular HGB Conc 32.4 g/dL (30.0-36.0); Mean Corpuscular Hemoglobin 32.9 pg (28.0-34.0); Mean Corpuscular Volume 101.4 fl (80-94); Mean Platelet Volume 9.7 fL (7.4-10.4); Monocytes # 0.8 10^3/uL (0.2-0.9); Monocytes % 7.1 %; Neutrophils # 7.92 10^3/uL (1.8-7.7); Neutrophils % 72.5 %; Nucleated Red Blood Cells % 0 %; Platelet Count 292 10^3/cmm (130-400); Red Blood Count 4.44 10^6/uL (4.1-5.3); Red Cell Distribution Width 13.2 % (12.1-15.1); White Blood Count 10.9 10^3/uL (4.0-10.0)
[2022-08-31 08:46] LABS: Alanine Aminotransferase 17 U/L (0-41); Alkaline Phosphatase 152 U/L (40-130); Anion Gap 14.5 (5-19); Aspartate Amino Transferase 26 U/L (0-40); Blood Urea Nitrogen 28 mg/dL (8-23); Calcium 8.9 mg/dL (8.5-10.5); Carbon Dioxide 24 mmol/L (22-29); Chloride 101 mmol/L (98-107); Globulin 5.9 g/dL (1.3-4.6); Glucose 120 mg/dL (65-115); Osmolality Calculated 287 mOsm/kg (285-295); Potassium 4.5 mmol/L (3.5-5.1); Sodium 135 mmol/L (136-145); Total Bilirubin 0.3 mg/dL (0.15-1.2); Total Protein 8.9 g/dL (6.6-8.7)
--- NOTE | 2022-08-31 10:05 | P.HP_ITS ---
Providers/Chief Complaint Admitting Physician: Hai Park MD Primary Care Provider: Kade Proctor MD Chief Complaint: pacemaker stopped working, heart issues History of Present Illness Andreas Rosario is a 87 year old male who presents to the emergency department with concerns that his pacemaker may not be working correctly. He reports he usually does not have any palpitations, but has been noticing some lately. He reports around 420 he had a few seconds of palpitations, and this repeated 3 times at 705 to 715. He did not record his heart rate during this time. He was recently notified that his pacemaker battery needs changed. The ER has interrogated it and reports it is on conservation mode, ventricularly paced, and in need of battery replacement therefore not recording the most recent episodes. He denies any chest discomfort. He is not short of breath. He states he has a chronic cough, which is unchanged. He has had diminished energy lately. He is taking his sotalol as prescribed. He denies being on any anticoagulant. Review of Systems General: Reports: 10 or more systems reviewed and unremarkable except in HPI and below Const: Reports: malaise; Denies: fever(s) or chills Card: Reports: palpitations; Denies: chest pain Resp: Reports: non-productive cough Neuro: Denies: weakness in extremities Medications/Allergies Home Medications Medication Instructions Recorded Confirmed Last Taken Type aspirin 81 mg tablet,delayed 81 mg PO QDAY 05/23/19 08/31/22 08/30/22 History release cholecalciferol (vitamin D3) 25 1,000 unit PO QDAY 05/23/19 08/31/22 08/30/22 History mcg (1,000 unit) capsule coenzyme R90-hhfsvcx E 100 mg-100 2 cap PO DAILY 05/23/19 08/31/22 08/30/22 History unit capsule cranberry extract 250 mg capsule 25,000 mg PO QDAY 05/25/19 08/31/22 08/30/22 History elderberry fruit 200 mg capsule 200 mg PO QDAY 05/25/19 08/31/22 08/30/22 H istory magnesium 250 mg tablet 500 mg PO QDAY 05/25/19 08/31/22 08/30/22 History melatonin 10 mg capsule 10 mg PO QPM 10/14/20 08/31/22 08/30/22 History cyanocobalamin (vitamin B-12) 500 500 mcg PO DAILY 04/18/21 08/31/22 08/30/22 History mcg tablet (Vitamin B-12) lutein 40 mg capsule 40 mg PO DAILY 04/18/21 08/31/22 08/30/22 History ascorbic acid (vitamin C) 1,000 mg 500 mg PO DAILY 07/07/21 08/31/22 08/30/22 History tablet (Vitamin C) lactobacillus combination no.9 4 4,000 mmu cells PO TID 02/23/22 08/31/22 08/30/22 History billion cell capsule (Adult 50 Plus Probiotic) selenium 200 mcg tablet 200 mcg PO DAILY 06/09/22 08/31/22 08/30/22 History albuterol sulfate 2.5 mg/3 mL 2.5 mg (3 mL) inhalation Q6H PRN 06/11/22 08/31/22 08/30/22 Rx (0.083 %) solution for nebulization shortness of breath or wheezing #180 mL albuterol sulfate 90 mcg/actuation 2 puff inhalation Q6H PRN 06/11/22 08/31/22 08/30/22 Rx aerosol inhaler shortness of breath or wheezing #3 ea benzonatate 200 mg capsule 200 mg PO TID PRN cough #90 caps 06/11/22 08/31/22 Unknown Rx montelukast 10 mg tablet 10 mg PO DAILY copd #90 tabs 06/11/22 08/31/22 08/30/22 Rx sotalol 120 mg tablet 120 mg PO QAM blood pressure & 06/11/22 08/31/22 08/31/22 Rx heart #90 tabs diphenhydramine HCl 25 mg capsule 25 mg PO BID 07/09/22 08/31/22 08/30/22 History (Benadryl) Diabetic Shoes with 3 pairs of #1 ea 07/20/22 08/31/22 Unknown Rx inserts budesonide-formoterol HFA 160 2 puff inhalation BID #10.2 grams 08/04/22 08/31/22 08/31/22 Rx mcg-4.5 mcg/actuation aerosol inhaler (Symbicort) rosuvastatin 20 mg tablet 20 mg PO QPM cholesterol 08/31/22 08/31/22 08/30/22 History sotalol 80 mg tablet (Sotalol AF) 80 mg PO QPM blood pressure & heart 08/31/22 08/31/22 08/30/22 History tamsulosin 0.4 mg capsule (Flomax) 0.4 mg PO QPM prostate 08/31/22 08/31/22 08/30/22 History vitamin A 2,400 mcg capsule 2,400 mcg PO DAILY 08/31/22 08/31/22 08/30/22 History vitamin B12 2,500 mcg-folic acid 1 tab PO DAILY 08/31/22 08/31/22 08/30/22 History 400 mcg disintegrating tablet zinc acetate 50 mg (zinc) capsule 50 mg PO DAILY 08/31/22 08/31/22 08/30/22 History Allergies Allergy/AdvReac Type Severity Reaction Status Date / Time Penicillins Allergy Unknown Unknown Verified 08/31/22 07:54 levofloxacin [From Levaquin] Allergy Unknown Verified 08/31/22 07:54 PFSH Acute PFSH: Medical History A-fib AAA (abdominal aortic aneurysm) BPH loc w urin obs/LUTS Carotid artery disease Chronic bronchitis with acute exacerbation Depression Diabetes Diarrhea Patient does have extensive diverticulosis of the colon and he will not require further screening colonoscopies unless otherwise specified Diverticulosis Dyslipidemia History of cardiac pacemaker Hypertension Prostatic hypertrophy Pulmonary Mycobacterium avium complex (MAC) infection Recurrent epistaxis Stiffness of left ankle joint Streptococcus pneumoniae vaccination indicated Surgical History History of arthroplasty of left ankle History of CEA (carotid endarterectomy) History of colonoscopy (~06/2019) History of laparoscopic cholecystectomy Family History Other CAD (coronary artery disease) Diarrhea Family history of premature coronary artery disease Denies family history of Rheumatoid arthritis Diabetes Lupus Anesthesia complication Bleeding disorder Lung disease Cancer Hypertension Stroke Social History Smoking and tobacco status: former smoker Quit status (tobacco): has quit using tobacco Year quit tobacco: 1976 1ppw-2ppd x27yrs Second hand smoke exposure: No Smoking risk assessment/counseling performed?: Yes Alcohol intake: never Desire information about alcohol rehabilitation?: No Counseling given: No Substance/Drug Use: never Desire information about substance/drug rehabilitation?: No Counseling given: No Adopted: No Caregiver/support person: Yes Lives independently: Yes Household members: spouse Housing: House Marital status: Highest education level completed: High School Graduate service: No Current occupational status: retired Current occupational exposures/hazards: No Pets and animals: No Sexually active: No Do you think of yourself as: Straight/Heterosexual Current gender identity: Male Kiara/Congregational: None Special kiara needs: No Agree to transfusion: No Financial difficulty paying for basics: Decline to Answer Vitals/I&O/Wt Last Vital Signs Temp 97.3 F L 08/31/22 07:38 Pulse 65 08/31/22 08:30 Resp 16 08/31/22 08:18 BP 130/67 08/31/22 08:30 Pulse Ox 98 08/31/22 08:19 O2 Del Method Room Air 08/31/22 08:18 Weight last 48 hrs Weight 79.379 kg Physical Exam Narrative: General exam is a white male, conversant, in no distress. Telemetry indicates a paced ventricular rhythm HEENT: Pupils equally round. Oropharynx clear. Neck is supple, no lymphadenopathy thyromegaly Cardiovascular regular, 2/6 systolic murmur Lungs clear but with diminished breath sounds bilaterally Abdomen is soft with positive bowel sounds. No obvious organomegaly exam is deferred Extremities no cyanosis clubbing or edema, cap refill brisk. Brace is noted left foot for left foot drop Skin no rash Neuro: Left foot drop Data 08/31/22 07:52 08/31/22 07:52 Other Labs: Chest x-ray reviewed by me demonstrates bilateral interstitial lung disease, a pacemaker, and no acute changes Liver function tests are within normal limits with exception of alk phos of 152 Last A1c was 6.1 in June Albumin 3.0 EKG demonstrates an electronic ventricular pacer A&P Assessment and plan (1) Palpitations: Patient reports palpitations. Telemetry will be ordered TSH and magnesium will be checked No other electrolyte abnormalities were noted Unfortunately pacemaker has gone into conserving mode and did not record any episodes. Check echocardiogram. It appears that his last echocardiogram was in 2018, demonstrating preserved EF, mild tricuspid regurgitation, elevated pulmonary artery pressure of 38 (2) Pacemaker at end of battery life: Pacemaker is at the end of its battery life Consult vascular surgery for battery change (3) Acute kidney injury: Patient with slight increase in creatinine. Encourage fluids today. I do not think this warrants a significant amount of IV fluids as this would put him at risk for fluid overload Repeat BMP tomorrow Plan Other medical problems as outlined in past medical history Full code SCDs for DVT prophylaxis. Surgery would like any DVT prophylaxis anticoagulation held pending surgery per emergency department physician. Attestations Medical Necessity Statement*: Will need less than 2 midnight stay for evaluation and treatment of palpitations Diagnoses Palpitations R00.2 Pacemaker at end of battery life Z45.010 Acute kidney injury N17.9 Time Spent (min) 50
[2022-08-31 10:45] LABS: Thyroid Stimulating Hormone 2.48 uIU/mL (0.27-4.20)
[2022-08-31] MEDS: albuterol 2.5 mg/3 mL Neb INHALATION (11:26)
[2022-08-31] MEDS: mupirocin oint 22 gm 1 APPLIC NOSTRIL-B (11:32)
[2022-08-31] MEDS: aspirin 81 mg EC Tablet PO (11:32)
--- NOTE | 2022-08-31 13:08 | PM.CONSULT ---
Providers/Reason For Consult Consulting Physician/Specialty*: Dr. Montano/cardiothoracic surgery Reason for Consult*: Pacemaker end of service Requesting Physician: Dr. Park Attending Physician: Hai Park MD Primary Care Provider: Kade Proctor MD History of Present Illness History of Present Illness Andreas Rosario is an 87 year old male who presented to the emergency room earlier today with concerns that his pacemaker was malfunctioning. He stated he had a sensation of some palpitations earlier this morning then again in early midmorning for about a 15-minute period. Upon presentation to the emergency department he was noted to have stable vital signs. Interrogation reveals a pacemaker is now at end of service and has automatically switched to VVI pacing and discontinued all recording. Therefore, the period of palpitations was after the time of the pacemaker programming switch, therefore was not recorded. Upon further interrogation it appears this occurred initially on August 29. He does have a history of atrial fibrillation, though EKG record Emergency Department revealed a ventricular paced rhythm at 65 bpm. We have performed a left carotid endarterectomy several years ago. Most recent duplex was June 05 of this year and revealed ICA/CCA ratio 0.97 on the right and 1.36 on the left, both consistent with less than 50% stenosis. Review of Systems Const: Reports: fatigue; Denies: fever(s) or chills Eyes: Denies: change in vision ENMT: Denies: throat pain Card: Reports: palpitations and irregular heart rhythm; Denies: chest pain or swelling of feet/ankles Resp: Reports: non-productive cough; Denies: dyspnea GI: Denies: abdominal pain, nausea or vomiting Musc: Denies: neck pain, back pain or extremity pain Neuro: Denies: headache(s), numbness in extremities or weakness in extremities Psych: Denies: anxiety or depression Reji/Lymph: Denies: easy bruising or easy bleeding Medications/Allergies Home Medications Medication Instructions Recorded Confirmed Last Taken Type aspirin 81 mg tablet,delayed 81 mg PO QDAY 05/23/19 08/31/22 08/30/22 History release cholecalciferol (vitamin D3) 25 1,000 unit PO QDAY 05/23/19 08/31/22 08/30/22 History mcg (1,000 unit) capsule coenzyme [id number] E 100 mg-100 2 cap PO DAILY 05/23/19 08/31/22 08/30/22 History unit capsule cranberry extract 250 mg capsule 25,000 mg PO QDAY 05/25/19 08/31/22 08/30/22 History elderberry fruit 200 mg capsule 200 mg PO QDAY 05/25/19 08/31/22 08/30/22 History magnesium 250 mg tablet 500 mg PO QDAY 05/25/19 08/31/22 08/30/22 History melatonin 10 mg capsule 10 mg PO QPM 10/14/20 08/31/22 08/30/22 History cyanocobalamin (vitamin B-12) 500 500 mcg PO DAILY 04/18/21 08/31/22 08/30/22 History mcg tablet (Vitamin B-12) lutein 40 mg capsule 40 mg PO DAILY 04/18/21 08/31/22 08/30/22 History ascorbic acid (vitamin C) 1,000 mg 500 mg PO DAILY 07/07/21 08/31/22 08/30/22 History tablet (Vitamin C) lactobacillus combination no.9 4 4,000 mmu cells PO TID 02/23/22 08/31/22 08/30/22 History billion cell capsule (Adult 50 Plus Probiotic) selenium 200 mcg tablet 200 mcg PO DAILY 06/09/22 08/31/22 08/30/22 History albuterol sulfate 2.5 mg/3 mL 2.5 mg (3 mL) inhalation Q6H PRN 06/11/22 08/31/22 08/30/22 Rx (0.083 %) solution for nebulization shortness of breath or wheezing #180 mL albuterol sulfate 90 mcg/actuation 2 puff inhalation Q6H PRN 06/11/22 08/31/22 08/30/22 Rx aerosol inhaler shortness of breath or wheezing #3 ea benzonatate 200 mg capsule 200 mg PO TID PRN cough #90 caps 06/11/22 08/31/22 Unknown Rx montelukast 10 mg tablet 10 mg PO DAILY copd #90 tabs 06/11/22 08/31/22 08/30/22 Rx sotalol 120 mg tablet 120 mg PO QAM blood pressure & 06/11/22 08/31/22 08/31/22 Rx heart #90 tabs diphenhydramine HCl 25 mg capsule 25 mg PO BID 07/09/22 08/31/22 08/30/22 History (Benadryl) Diabetic Shoes with 3 pairs of #1 ea 07/20/22 08/31/22 Unknown Rx inserts budesonide-formoterol HFA 160 2 puff inhalation BID #10.2 grams 08/04/22 08/31/22 08/31/22 Rx mcg-4.5 mcg/actuation aerosol inhaler (Symbicort) rosuvastatin 20 mg tablet 20 mg PO QPM cholesterol 08/31/22 08/31/22 08/30/22 History sotalol 80 mg tablet (Sotalol AF) 80 mg PO QPM blood pressure & heart 08/31/22 08/31/22 08/30/22 History tamsulosin 0.4 mg capsule (Flomax) 0.4 mg PO QPM prostate 08/31/22 08/31/22 08/30/22 History vitamin A 2,400 mcg capsule 2,400 mcg PO DAILY 08/31/22 08/31/22 08/30/22 History vitamin B12 2,500 mcg-folic acid 1 tab PO DAILY 08/31/22 08/31/22 08/30/22 History 400 mcg disintegrating tablet zinc acetate 50 mg (zinc) capsule 50 mg PO DAILY 08/31/22 08/31/22 08/30/22 History Allergies Allergy/AdvReac Type Severity Reaction Status Date / Time Penicillins Allergy Unknown Unknown Verified 08/31/22 07:54 levofloxacin [From Levaquin] Allergy Unknown Verified 08/31/22 07:54 Current Medications Generic Name Dose Route Start Last Admin Trade Name Freq PRN Reason Stop Dose Admin Albuterol Sulfate 2.5 mg 08/31/22 12:00 08/31/22 11:26 Albuterol 2.5 Mg/3 Ml Neb INHALATION 2.5 mg QID.RESPIRATORY NETTE Administration Aspirin 81 mg 08/31/22 11:00 08/31/22 11:32 Aspirin 81 Mg Ec Tablet PO 81 mg DAILY NETTE Administration PFSH Acute PFSH: Medical History A-fib AAA (abdominal aortic aneurysm) BPH loc w urin obs/LUTS Carotid artery disease Chronic bronchitis with acute exacerbation Depression Diabetes Diarrhea Patient does have extensive diverticulosis of the colon and he will not require further screening colonoscopies unless otherwise specified Diverticulosis Dyslipidemia History of cardiac pacemaker Hypertension Prostatic hypertrophy Pulmonary Mycobacterium avium complex (MAC) infection Recurrent epistaxis Stiffness of left ankle joint Streptococcus pneumoniae vaccination indicated Surgical History History of arthroplasty of left ankle History of CEA (carotid endarterectomy) History of colonoscopy (~06/2019) History of laparoscopic cholecystectomy Family History Other CAD (coronary artery disease) Diarrhea Family history of premature coronary artery disease Denies family history of Rheumatoid arthritis Diabetes Lupus Anesthesia complication Bleeding disorder Lung disease Cancer Hypertension Stroke Social History Smoking and tobacco status: former smoker Quit status (tobacco): has quit using tobacco Year quit tobacco: 1975 [id number]-[id number] x27yrs Second hand smoke exposure: No Smoking risk assessment/counseling performed?: Yes Alcohol intake: never Desire information about alcohol rehabilitation?: No Counseling given: No Substance/Drug Use: never Desire information about substance/drug rehabilitation?: No Counseling given: No Adopted: No Caregiver/support person: Yes Lives independently: Yes Household members: spouse Housing: House Marital status: Highest education level completed: High School Graduate service: No Current occupational status: retired Current occupational exposures/hazards: No Pets and animals: No Sexually active: No Do you think of yourself as: Straight/Heterosexual Current gender identity: Male Kiara/Zoroastrianism: None Special kiara needs: No Agree to transfusion: No Financial difficulty paying for basics: Decline to Answer Vitals/I&O/Wt Last Vital Signs Temp 98.0 F 08/31/22 12:57 Pulse 84 08/31/22 12:57 Resp 22 H 08/31/22 12:57 BP 123/62 08/31/22 12:57 Pulse Ox 95 08/31/22 12:57 O2 Del Method Room Air 08/31/22 12:57 Weight last 48 hrs Weight 175 lb Physical Exam Const: COMMON NORMALS: no acute distress, average body habitus, patient oriented x3, healthy appearing and alert HENMT: COMMON NORMALS: normocephalic, atraumatic, hearing grossly normal bilaterally and external ears normal HEAD & SCALP: normocephalic and atraumatic EXTERNAL EAR: Yes external ears normal Eye: COMMON NORMALS: Equal, round and reactive pupils present and EOMs intact bilaterally PUPIL: Yes Equal, round and reactive pupils present Neck/C-Spine: COMMON NORMALS: full ROM, no lymphadenopathy, no JVD and No carotid bruits OTHER: Well-healed left neck incision from prior carotid endarterectomy Chest: COMMONS NORMALS: normal inspection of the chest and normal palpation of entire chest wall Resp: COMMON NORMALS: normal respiratory effort, No retractions, No use of accessory muscles and clear to auscultation bilaterally AUSCULTATION: clear to auscultation bilaterally Cardio: COMMON NORMALS: no JVD, regular rate, S1 normal heart sound present and No murmurs present (Cardio) RATE: regular rate HEART SOUNDS: S1 normal heart sound present GI: COMMON NORMALS: Normal to inspection, nondistended, normoactive bowel sounds present INSPECTION: Yes central obesity Extremity: COMMON NORMALS: no clubbing, cyanosis or edema Neuro: COMMON NORMALS: patient oriented x3, moves all extremities, no focal motor deficits and no sensory deficits noted SENSORIUM/ORIENTATION: Yes alert Data 08/31/22 07:52 08/31/22 07:52 CXR: My impression: Dual-lead pacemaker in position. There is interstitial lung disease, particularly more prominent in the bases bilaterally. No sam infiltrates or effusions. A&P Assessment and plan (1) Pacemaker at end of battery life: Current dual-lead pacemaker end of service with spontaneous switching to VVI mode. We have recommended pacemaker generator exchange. Rationale for this was carefully and frankly discussed. General protocol was also reviewed. Risk related to infection, bleeding, damage to the lead requiring revision or replacement, infection resulting in need for pacemaker or lead explantation, continued need for long-term surveillance, and pain postoperatively were carefully discussed. He wishes to proceed. Consult Attestations Medical Necessity Statement: Dual-lead pacemaker end of service Coding Level of Care Code Acute Code for Chg Fwd Diagnoses Pacemaker at end of battery life Z45.010
[2022-08-31 16:32] LABS: Add Urine Microscopic? NO; Charge for UA Resulting for Rev
[2022-08-31 16:47] LABS: Bilirubin Urine Neg (Negative); Blood Urine Neg (Negative); Glucose Urine UA Norm (Normal); Ketones Urine Negative (Negative); Leukocyte Esterase Urine Negative (Negative); Nitrate Urine Negative (Negative); Protein Urine Neg (Negative); Urine Appearance Clear (CLEAR); Urine Color Yellow (Yellow); Urobilinogen Urine Norm (Negative); pH Urine 5 (5-7)
[2022-08-31] MEDS: chlorhexidine gluconate 4% Btl 118 mL 1 APPLIC TOPICAL (17:51)
[2022-08-31] MEDS: tamsulosin 0.4 mg Capsule PO (17:51)
[2022-08-31] MEDS: sotalol 80 mg Tablet PO (17:51)
[2022-08-31] MEDS: budesonide 0.5 mg/2 mL Neb INHALATION (19:03)
[2022-08-31] MEDS: atorvastatin 40 mg Tablet 80 MG PO (19:40)
[2022-08-31] MEDS: diphenhydrAMINE 25 mg Capsule PO (19:42)
[2022-09-01] VITALS (11 sets, daily range): BP systolic 97–170; BP diastolic 58–78; PULSE 65–92; RESP 12–20; TEMP 36.3–36.6; O2SAT 93–99
[2022-09-01 04:05] LABS: Basophils % 0.3 %; Eosinophils # 0.3 10^3/uL (0.0-0.8); Eosinophils % 2.6 %; Hematocrit 37.7 % (42.0-52.0); Hemoglobin 12.1 g/dL (11.7-16.6); Lymphocytes # 2.2 10^3/uL (0.8-4.8); Lymphocytes % 18.7 %; Mean Corpuscular HGB Conc 32.1 g/dL (30.0-36.0); Mean Corpuscular Hemoglobin 32.4 pg (28.0-34.0); Mean Corpuscular Volume 101.1 fl (80-94); Mean Platelet Volume 10.3 fL (7.4-10.4); Monocytes # 1.2 10^3/uL (0.2-0.9); Monocytes % 10.1 %; Neutrophils # 7.97 10^3/uL (1.8-7.7); Nucleated Red Blood Cells % 0 %; Platelet Count 260 10^3/cmm (130-400); Red Blood Count 3.73 10^6/uL (4.1-5.3); Red Cell Distribution Width 13.2 % (12.1-15.1); White Blood Count 11.7 10^3/uL (4.0-10.0)
[2022-09-01 04:26] LABS: Alanine Aminotransferase 12 U/L (0-41); Albumin Level 2.5 g/dL (3.5-5.2); Alkaline Phosphatase 129 U/L (40-130); Anion Gap 15.6 (5-19); Aspartate Amino Transferase 21 U/L (0-40); Blood Urea Nitrogen 24 mg/dL (8-23); Calcium 8.3 mg/dL (8.5-10.5); Carbon Dioxide 21 mmol/L (22-29); Chloride 105 mmol/L (98-107); Globulin 4.8 g/dL (1.3-4.6); Glucose 105 mg/dL (65-115); Osmolality Calculated 288 mOsm/kg (285-295); Potassium 4.6 mmol/L (3.5-5.1); Sodium 137 mmol/L (136-145); Total Bilirubin 0.4 mg/dL (0.15-1.2); Total Protein 7.3 g/dL (6.6-8.7)
[2022-09-01] MEDS: budesonide 0.5 mg/2 mL Neb INHALATION (08:11)
[2022-09-01] MEDS: albuterol 2.5 mg/3 mL Neb INHALATION (08:11)
--- NOTE | 2022-09-01 08:34 | P.PN_ITS ---
Subjective Subjective: Mr. Rosario rested reasonably well last night. He has no complaints. He is eager for pacemaker generator exchange and wishes to be discharged to home later today, as he states he will sleep better at home. His clinical research monitor reveals what appears to be a sinus rhythm this morning. Vitals/I&O/Wt Last Vital Signs Temp 97.9 F 09/01/22 07:11 Pulse 65 09/01/22 08:13 Resp 16 09/01/22 08:13 BP 121/63 09/01/22 07:11 Pulse Ox 96 09/01/22 08:13 O2 Del Method Room Air 09/01/22 08:13 08/31/22 09/01/22 09/01/22 22:59 06:59 14:59 Intake Total 340 / 540 Output Total 1250 / 1250 350 / 1600 Balance -910 / -710 -350 / -1060 Weight last 48 hrs Weight 175 lb Physical Exam Chest: COMMONS NORMALS: normal inspection of the chest and normal palpation of entire chest wall Resp: COMMON NORMALS: normal respiratory effort and clear to auscultation bilaterally AUSCULTATION: clear to auscultation bilaterally Cardio: COMMON NORMALS: regular rate and No murmurs present (Cardio) RATE: regular rate Extremity: COMMON NORMALS: no clubbing, cyanosis or edema Data 09/01/22 03:18 09/01/22 03:18 A&P Assessment and plan (1) Pacemaker at end of battery life: We will plan for intraoperative interrogation and pacemaker generator exchange this morning. Attestations 2 Medical Necessity Statement*: Pacemaker generator end of service Coding Level of Care Code Acute Code for Chg Fwd Diagnoses Pacemaker at end of battery life Z45.010
[2022-09-01] MEDS: sodium chloride 0.9% 1,000 ML 30 ML IV (09:09)
--- NOTE | 2022-09-01 09:16 | P.ANESASSM_ITS ---
Pre-Anesthetic Assessment Height/Weight: Height 1.7 m Weight 79.379 kg Temp Pulse Resp BP Pulse Ox O2 Del Method 97.6 F 65 16 170/63 99 Room Air 09/01/22 08:36 09/01/22 08:36 09/01/22 08:36 09/01/22 08:36 09/01/22 08:36 09/01/22 08:36 Operation Date: 09/01/22 09:30 Proposed Procedures p Pacemaker generator Exchange(Not Applicable) - Ryan Montano MD Familial anesthetic complications: None Was Beta Yuly taken within 24 hours: N/A Was Clonidine taken within 24 hours: N/A Last intake: Intake Last Liquid Date 08/31/22 Last Liquid Time 23:59 Last Solid Date 08/31/22 Last Solid Time 20:00 Social No alcohol and No tobacco former smoker Airway Mallampati: Class III Dentition: other (multiple missing) Pulmonary Asthma and Chronic Obstructive Pulmonary Disease MAC CV/HEM Atrial Fibrillation and Coronary Artery Disease Musc/skel polymyalgia rheumatica Anesthetic Plan ASA status: 3 Anesthesia: MAC Risk of > 500 ml blood loss (7ml/kg in children): No Medications/Allergies Home Medications Medication Instructions Recorded Confirmed Last Taken Type aspirin 81 mg tablet,delayed 81 mg PO QDAY 05/23/19 08/31/22 08/30/22 History release cholecalciferol (vitamin D3) 25 1,000 unit PO QDAY 05/23/19 08/31/22 08/30/22 History mcg (1,000 unit) capsule coenzyme [id number] E 100 mg-100 2 cap PO DAILY 05/23/19 08/31/22 08/30/22 History unit capsule cranberry extract 250 mg capsule 25,000 mg PO QDAY 05/25/19 08/31/22 08/30/22 Hi story elderberry fruit 200 mg capsule 200 mg PO QDAY 05/25/19 08/31/22 08/30/22 History magnesium 250 mg tablet 500 mg PO QDAY 05/25/19 08/31/22 08/30/22 History melatonin 10 mg capsule 10 mg PO QPM 10/14/20 08/31/22 08/30/22 History cyanocobalamin (vitamin B-12) 500 500 mcg PO DAILY 04/18/21 08/31/22 08/30/22 History mcg tablet (Vitamin B-12) lutein 40 mg capsule 40 mg PO DAILY 04/18/21 08/31/22 08/30/22 History ascorbic acid (vitamin C) 1,000 mg 500 mg PO DAILY 07/07/21 08/31/22 08/30/22 History tablet (Vitamin C) lactobacillus combination no.9 4 4,000 mmu cells PO TID 02/23/22 08/31/22 08/30/22 History billion cell capsule (Adult 50 Plus Probiotic) selenium 200 mcg tablet 200 mcg PO DAILY 06/09/22 08/31/22 08/30/22 History albuterol sulfate 2.5 mg/3 mL 2.5 mg (3 mL) inhalation Q6H PRN 06/11/22 08/31/22 08/30/22 Rx (0.083 %) solution for nebulization shortness of breath or wheezing #180 mL albuterol sulfate 90 mcg/actuation 2 puff inhalation Q6H PRN 06/11/22 08/31/22 08/30/22 Rx aerosol inhaler shortness of breath or wheezing #3 ea benzonatate 200 mg capsule 200 mg PO TID PRN cough #90 caps 06/11/22 08/31/22 Unknown Rx montelukast 10 mg tablet 10 mg PO DAILY copd #90 tabs 06/11/22 08/31/22 08/30/22 Rx sotalol 120 mg tablet 120 mg PO QAM blood pressure & 06/11/22 08/31/22 08/31/22 Rx heart #90 tabs diphenhydramine HCl 25 mg capsule 25 mg PO BID 07/09/22 08/31/22 08/30/22 History (Benadryl) Diabetic Shoes with 3 pairs of #1 ea 07/20/22 08/31/22 Unknown Rx inserts budesonide-formoterol HFA 160 2 puff inhalation BID #10.2 grams 08/04/22 08/31/22 08/31/22 Rx mcg-4.5 mcg/actuation aerosol inhaler (Symbicort) rosuvastatin 20 mg tablet 20 mg PO QPM cholesterol 08/31/22 08/31/22 08/30/22 History sotalol 80 mg tablet (Sotalol AF) 80 mg PO QPM blood pressure & heart 08/31/22 08/31/22 08/30/22 History tamsulosin 0.4 mg capsule (Flomax) 0.4 mg PO QPM prostate 08/31/22 08/31/22 08/30/22 History vitamin A 2,400 mcg capsule 2,400 mcg PO DAILY 08/31/22 08/31/22 08/30/22 History vitamin B12 2,500 mcg-folic acid 1 tab PO DAILY 08/31/22 08/31/22 08/30/22 History 400 mcg disintegrating tablet zinc acetate 50 mg (zinc) capsule 50 mg PO DAILY 08/31/22 08/31/22 08/30/22 History Allergies Allergy/AdvReac Type Severity Reaction Status Date / Time Penicillins Allergy Unknown Unknown Verified 08/31/22 07:54 levofloxacin [From Levaquin] Allergy Unknown Verified 08/31/22 07:54 Current Medications Generic Name Dose Route Start Last Admin Trade Name Freq PRN Reason Stop Dose Admin Albuterol Sulfate 2.5 mg 08/31/22 12:00 09/01/22 08:11 Albuterol 2.5 Mg/3 Ml Neb INHALATION 2.5 mg QID.RESPIRATORY NETTE Administration Aspirin 81 mg 08/31/22 11:00 08/31/22 11:32 Aspirin 81 Mg Ec Tablet PO 81 mg DAILY NETTE Administration Atorvastatin Calcium 80 mg 08/31/22 21:00 08/31/22 19:40 Atorvastatin 40 Mg Tablet PO 80 mg BEDTIME NETTE Administration Budesonide 0.5 mg 08/31/22 20:00 09/01/22 08:11 Budesonide 0.5 Mg/2 Ml Neb INHALATION 0.5 mg BID.RESPIRATORY NETTE Administration Chlorhexidine Gluconate 1 applic 08/31/22 18:00 08/31/22 17:51 Chlorhexidine Gluconate 4% Btl 118 Ml TOPICAL 1 applic BID NETTE Administration Diphenhydramine HCl 25 mg 08/31/22 21:00 08/31/22 19:42 Diphenhydramine 25 Mg Capsule PO 25 mg BID@0900,2100 NETTE Administration Sodium Chloride 1,000 mls @ 30 mls/hr 09/01/22 09:00 09/01/22 09:09 Sodium Chloride 0.9% IV 09/02/22 08:59 30 mls/hr .Q24H NETTE Administration Non-Formulary Medication 10 mg 08/31/22 18:00 08/31/22 17:52 Melatonin PO Not Given QPM NETTE Sotalol HCl 120 mg 09/01/22 06:00 09/01/22 06:07 Sotalol 80 Mg Tablet PO Not Given QAM NETTE Sotalol HCl 80 mg 08/31/22 18:00 08/31/22 17:51 Sotalol 80 Mg Tablet PO 80 mg QPM NETTE Administration Tamsulosin HCl 0.4 mg 08/31/22 18:00 08/31/22 17:51 Tamsulosin 0.4 Mg Capsule PO 0.4 mg QPM NETTE Administration [facility] Anesthesia Medical History A-fib AAA (abdominal aortic aneurysm) BPH loc w urin obs/LUTS Carotid artery disease Chronic bronchitis with acute exacerbation Depression Diabetes Diarrhea Patient does have extensive diverticulosis of the colon and he will not require further screening colonoscopies unless otherwise specified Diverticulosis Dyslipidemia History of cardiac pacemaker Hypertension Prostatic hypertrophy Pulmonary Mycobacterium avium complex (MAC) infection Recurrent epistaxis Stiffness of left ankle joint Streptococcus pneumoniae vaccination indicated Surgical History History of arthroplasty of left ankle History of CEA (carotid endarterectomy) History of colonoscopy (~06/2019) History of laparoscopic cholecystectomy Family History Other CAD (coronary artery disease) Diarrhea Family history of premature coronary artery disease Denies family history of Rheumatoid arthritis Diabetes Lupus Anesthesia complication Bleeding disorder Lung disease Cancer Hypertension Stroke Social History Smoking and tobacco status: former smoker Quit status (tobacco): has quit using tobacco Year quit tobacco: 1975 1ppw-2ppd x27yrs Second hand smoke exposure: No Smoking risk assessment/counseling performed?: Yes Alcohol intake: never Desire information about alcohol rehabilitation?: No Counseling given: No Substance/Drug Use: never Desire information about substance/drug rehabilitation?: No Counseling given: No Adopted: No Caregiver/support person: Yes Lives independently: Yes Household members: spouse Housing: House Marital status: Highest education level completed: High School Graduate service: No Current occupational status: retired Current occupational exposures/hazards: No Pets and animals: No Sexually active: No Do you think of yourself as: Straight/Heterosexual Current gender identity: Male Kiara/Alevism: None Special kiara needs: No Agree to transfusion: No Financial difficulty paying for basics: Decline to Answer Data Anesthesia 09/01/22 03:18 09/01/22 03:18 Short CBC 08/31/22 09/01/22 Range/Units 07:52 03:18 WBC 10.9 H 11.7 H (4.0-10.0) 10^3/uL Hgb 14.6 12.1 (11.7-16.6) g/dL Hct 45.0 37.7 L (42.0-52.0) % MCV 101.4 H 101.1 H (80-94) fl Plt Count 292 260 (130-400) 10^3/cmm Neut % (Auto) 72.5 68.0 % Neut # (Auto) 7.92 H 7.97 H (1.8-7.7) 10^3/uL BMP 08/31/22 09/01/22 07:52 03:18 Sodium 135 L 137 Potassium 4.5 4.6 Chloride 101 105 Carbon Dioxide 24 21 L BUN 28 H 24 H Creatinine 1.3 H 0.9 Glucose 120 H 105 Calcium 8.9 8.3 L Liver Function 08/31/22 09/01/22 Range/Units 07:52 03:18 Total Bilirubin 0.3 0.4 (0.15-1.2) mg/dL AST 26 21 (0-40) U/L ALT 17 12 (0-41) U/L Alkaline Phosphatase 152 H 129 (40-130) U/L Albumin 3.0 L 2.5 L (3.5-5.2) g/dL Urine 08/31/22 Range/Units 15:50 Urine Color Yellow (Yellow) Urine Appearance Clear (CLEAR) Urine pH 5 (5-7) Ur Specific [place] 1.020 (1.005-1.030) Urine Protein Neg (Negative) Urine Glucose (UA) Norm (Normal) Urine Ketones Negative (Negative) Urine Nitrate Negative (Negative) Urine Bilirubin Neg (Negative) Ur Leukocyte Esterase Negative (Negative) Cardiac Studies: Sestamibi Stress Test (Cardiology) 07/09
--- NOTE | 2022-09-01 10:04 | P.PN_ITS ---
Subjective Subjective: Andreas reports that he is feeling okay. He was awaiting surgery when I saw him this morning. No palpitations overnight. Medications: Reviewed: Yes Vitals/I&O/Wt Last Vital Signs Temp 97.6 F 09/01/22 08:36 Pulse 65 09/01/22 08:36 Resp 16 09/01/22 08:36 BP 170/63 09/01/22 08:36 Pulse Ox 99 09/01/22 08:36 O2 Del Method Room Air 09/01/22 08:36 08/31/22 09/01/22 09/01/22 22:59 06:59 14:59 Intake Total 340 / 540 0 / 0 Output Total 1250 / 1250 350 / 1600 Balance -910 / -710 -350 / -1060 0 / 0 Weight last 48 hrs Weight 79.379 kg Physical Exam Narrative: General exam no distress. Telemetry demonstrated no arrhythmias. Paced ventricular rhythm. Neck is supple Cardiovascular regular rate and rhythm Lungs clear Abdomen is soft Extremities no sinus clubbing or edema Data 09/01/22 03:18 09/01/22 03:18 A&P Assessment and plan (1) Palpitations: Patient reports palpitations. Telemetry shows no arrhythmia currently TSH and magnesium were checked and normal No other electrolyte abnormalities were noted Unfortunately pacemaker has gone into conserving mode and did not record any episodes. (2) Pacemaker at end of battery life: Pacemaker is at the end of its battery life Exchange of generator happening today (3) Acute kidney injury: Patient with slight increase in creatinine. Normal today Plan Other medical problems as outlined in past medical history Full code SCDs for DVT prophylaxis. Surgery would like any DVT prophylaxis anticoagulation held pending surgery per emergency department physician. Attestations Medical Necessity Statement*: Awaiting generator replacement, likely discharge following this. Coding Level of Care Code 95146 Moderate MDM includes number and complexity of problems actively addressed during encounter and amount and/or complexity of data reviewed/ordered as doc umented Diagnoses Palpitations R00.2 Pacemaker at end of battery life Z45.010 Acute kidney injury N17.9 Time Spent (min) 21
--- NOTE | 2022-09-01 10:08 | PC.CHAP ---
Pastoral Care Encounter/Spiritual Assessment Type of Contact [] Declined saas architect visit [] Patient/Family/Request visit [] Outpatient visit [] Follow-up visit [] Physician referral [] Code/Alert [] Routine visit [] Staff referral [] Actively dying [] Patient sleeping [] Family support [] [x] Out of room [] Palliative care [] [] Receiving care in room [] Pre-surgical visit [] Trauma [] Long length of stay [] ICU visit [] Other: Relational/Emotional Strength [] Patient feels connected with others/family/visitors/staff [] Distress [] Loneliness/isolation [] Abandonment Spirituality of Patient [] Person of Kiara [] Attends Protestant of their Kiara [] Believes in Prayer [] Reads Bible or Samaritan materials [] There are Spiritual issues to be addressed Dopster Interventions [] Prayer [] Active listening [] Non-anxious presence [] Spiritual/emotional support [] Crisis/trauma care [] Spiritual counseling [] Bereavement support [] Provided bereavement packet [] Provided Bible/devotional materials [] Provided toy/stuffed animal, coloring book to patient or family member [] Provided Communion [] Anointing/Vaughan [] Salvation [] Completed spiritual assessment [] Other: Impact on Illness or Injury [] Angry [] Fearful [] Anxious [] Often cries [] Exhaustion [] Unable to work [] Unable to attend druze [] Unable to walk/stand [] Unable to read [] Unable to drive [] Unable to eat/drink [] Unable to sleep [] Unable to be with family [] Patient intubated [] Other: Summary Time spent with patient
[2022-09-01] MEDS: vancomycin 1,250 MG/250 ML PIGGYBACK 200 MG IV (10:12)
[2022-09-01] MEDS: lidocaine 1% INJ 10 mL (per mL) XX (10:46)
[2022-09-01] MEDS: vancomycin 1,000 MG SDV 1000 MG XX (10:47)
--- NOTE | 2022-09-01 11:17 | PM.OP ---
Operative Report Date of procedure: September 01, 2022 Pre-op diagnosis: Pacemaker end of service Post-op diagnosis: same Procedure done: Pacemaker generator exchange. Implants: [employer] pacemaker generator Specimens removed/disposition: Old generator delivered to [employer] field representatives director Pathology: none sent Anesthesia: MAC and Local Estimated blood loss (mL): 10 Complications: None Condition: stable Disposition: PACU Brief History: Mr. Rosario is a 87-year-old gentleman who presented to the emergency department complaining of palpitations as well as fatigue. He was noted by pacemaker generator interrogation to be at end of service with the device now automatically switched to VVI. I was consulted for pacemaker generator exchange. This was carefully discussed with Mr. Rosario. A proper consents have been reviewed and signed. He wished to proceed. Procedure: Mr. Rosario was appropriately positioned and sterilely prepped and draped. IV consicious sedation was given with anesthesia monitoring. 1% lidocaine was infiltrated through the prior insertion incision site. # 15 scalpel blade was used to incise the skin down to subcutaneous layer. Subsequently, using sharp and blunt dissection the pseudocapsule to the old generator was reached and opened with a scalpel blade. This area was then enhanced utilizing Metzenbaum scissors with care taken not to injure the pacing leads. Once the pocket was adequate opened, hemostats were utilized to deliver the old generator. Set screws were released and the leads were removed and inserted properly into the new generator with set screws then secured. The old generator was removed from the field. The incision was irrigated with antibiotic solution. Hemostasis was confirmed. The new generator was placed back into the old subcutaneous pocket. The wound was then closed in 2 layers of 3-0 Vicryl suture. Skin was closed in a subcuticular manner with 4-0 undyed Vicryl suture. A 2 layer pressure dressing was then applied. The entire system was interrogated and appropriate parameters obtained. Patient tolerated procedure well and was taken to the recovery room in stable condition. New [employer] generator model:[id number] Serial # [id number] Right atrial lead amplitude 1.6 mV right atrial impedance 475 ohms right atrial threshold 1.0 Right ventricular lead amplitude greater than 20 mV right ventricular lead impedance 494 ohms right ventricular threshold 1.0 Pacing mode: AAIR-DDDR Low rate 60 upper rate 120
--- NOTE | 2022-09-01 11:26 | P.DS_ITS ---
Discharge Providers Date of Admission: 08/31/22 10:35 Date of Discharge: September 01, 2022 Attending Provider at Admission: Hai Park MD Attending Provider at Discharge: Hai Park MD Consults: Dr. Montano/cardiothoracic surgery Primary Care Provider: Kade Proctor MD Diagnoses at Discharge Discharge Diagnosis (1) Palpitations: Status: Acute (2) Pacemaker at end of battery life: Details from hospital stay: Mr. Rosario was admitted on August 31 through the emergency department after presenting with complaints of palpitations and fatigue. Pacemaker interrogation of a dual-lead system revealed that he was at end of service with automatic switching to VVI and discontinuation of recording. Dr. Montano was consulted for pacemaker generator exchange. After careful preop evaluation and counseling, on September 01 he underwent [employer] generator exchange. Pacing leads are functioning appropriately and did not require revision. Postoperatively, he convalesced in the postoperative care unit and then returned to the [facility] where he continues to do well. He is discharged to home today in stable condition. He will follow-up in the [facility] pacemaker clinic in 1 week. Discharge instructions have been carefully reviewed. Status: Acute (3) Acute kidney injury: Status: Acute Reason for Visit Reason for Visit: pacemaker stopped working, heart issues Physical Exam Const: COMMON NORMALS: patient oriented x3 Chest: COMMONS NORMALS: normal inspection of the chest and normal palpation of entire chest wall OTHER: Surgical dressings are clean, dry, and intact Resp: COMMON NORMALS: normal respiratory effort and clear to auscultation bilaterally AUSCULTATION: clear to auscultation bilaterally Cardio: COMMON NORMALS: regular rate, S1 normal heart sound present, No gallops present (Cardio), No murmurs present (Cardio) and No rub (Cardio) RATE: regular rate HEART SOUNDS: S1 normal heart sound present Extremity: COMMON NORMALS: no clubbing, cyanosis or edema Neuro: COMMON NORMALS: patient oriented x3, moves all extremities, no focal motor deficits and no sensory deficits noted Discharge Data Studies Completed and Pending Completed Studies During Hospitalization Category Date Time Status XR chest 1V portable [id number] Stat Exams 08/31/22 07:35 Completed Radiology Impressions Chest X-Ray 08/31/22 07:35 IMPRESSION: No acute cardiopulmonary abnormality as above. Laboratory Results WBC 11.7 10^3/uL (4.0-10.0) H 09/01/22 03:18 RBC 3.73 10^6/uL (4.1-5.3) L 09/01/22 03:18 Hgb 12.1 g/dL (11.7-16.6) 09/01/22 03:18 Hct 37.7 % (42.0-52.0) L 09/01/22 03:18 MCV 101.1 fl (80-94) H 09/01/22 03:18 MCH 32.4 pg (28.0-34.0) 09/01/22 03:18 MCHC 32.1 g/dL (30.0-36.0) 09/01/22 03:18 RDW 13.2 % (12.1-15.1) 09/01/22 03:18 Plt Count 260 10^3/cmm (130-400) 09/01/22 03:18 MPV 10.3 fL (7.4-10.4) 09/01/22 03:18 Neut % (Auto) 68.0 % 09/01/22 03:18 Lymph % (Auto) 18.7 % 09/01/22 03:18 [place] % (Auto) 10.1 % 09/01/22 03:18 Eos % (Auto) 2.6 % 09/01/22 03:18 Baso % (Auto) 0.3 % 09/01/22 03:18 Neut # (Auto) 7.97 10^3/uL (1.8-7.7) H 09/01/22 03:18 Lymph # (Auto) 2.2 10^3/uL (0.8-4.8) 09/01/22 03:18 [place] # (Auto) 1.2 10^3/uL (0.2-0.9) H 09/01/22 03:18 Eos # (Auto) 0.3 10^3/uL (0.0-0.8) 09/01/22 03:18 Baso # (Auto) 0.0 10^3/uL (0.0-0.1) 09/01/22 03:18 Nucleated RBC % (auto) 0 % 09/01/22 03:18 Nucleated RBCs # 0.0 /100WBC 09/01/22 03:18 Sodium 137 mmol/L (136-145) 09/01/22 03:18 Potassium 4.6 mmol/L (3.5-5.1) 09/01/22 03:18 Chloride 105 mmol/L (98-107) 09/01/22 03:18 Carbon Dioxide 21 mmol/L (22-29) L 09/01/22 03:18 Anion Gap 15.6 (5-19) 09/01/22 03:18 BUN 24 mg/dL (8-23) H 09/01/22 03:18 Creatinine 0.9 mg/dL (0.7-1.2) 09/01/22 03:18 GFR Calculation Not Reportable 09/01/22 03:18 Glucose 105 mg/dL (65-115) 09/01/22 03:18 Calculated Osmolality 288 mOsm/kg (285-295) 09/01/22 03:18 Calcium 8.3 mg/dL (8.5-10.5) L 09/01/22 03:18 Magnesium 2.0 mg/dL (1.7-2.3) 08/31/22 07:52 Total Bilirubin 0.4 mg/dL (0.15-1.2) 09/01/22 03:18 AST 21 U/L (0-40) 09/01/22 03:18 ALT 12 U/L (0-41) 09/01/22 03:18 Alkaline Phosphatase 129 U/L (40-130) 09/01/22 03:18 Total Protein 7.3 g/dL (6.6-8.7) 09/01/22 03:18 Albumin 2.5 g/dL (3.5-5.2) L 09/01/22 03:18 Globulin 4.8 g/dL (1.3-4.6) H 09/01/22 03:18 TSH 2.48 uIU/mL (0.27-4.20) 08/31/22 07:52 Urine Color Yellow (Yellow) 08/31/22 15:50 Urine Appearance Clear (CLEAR) 08/31/22 15:50 Urine pH 5 (5-7) 08/31/22 15:50 Ur Specific [place] 1.020 (1.005-1.030) 08/31/22 15:50 Urine Protein Neg (Negative) 08/31/22 15:50 Urine Glucose (UA) Norm (Normal) 08/31/22 15:50 Urine Ketones Negative (Negative) 08/31/22 15:50 Urine Blood Neg (Negative) 08/31/22 15:50 Urine Nitrate Negative (Negative) 08/31/22 15:50 Urine Bilirubin Neg (Negative) 08/31/22 15:50 Urine Urobilinogen Norm mg/dL (Negative) 08/31/22 15:50 Ur Leukocyte Esterase Negative (Negative) 08/31/22 15:50 Vitals Last Vital Signs Temp 97.6 F 09/01/22 08:36 Pulse 65 09/01/22 08:36 Resp 16 09/01/22 08:36 BP 170/63 09/01/22 08:36 Pulse Ox 99 09/01/22 08:36 O2 Del Method Room Air 09/01/22 08:36 Discharge Plan Discharge Patient Disposition: Home Condition: Stable Prescriptions: New hydrocodone-acetaminophen 5-325 mg tablet 1 tab PO Q8H PRN (Reason: pain) 4 Days Qty: 12 0RF sulfamethoxazole-trimethoprim [Bactrim DS] 800-160 mg tablet 1 tab PO BID Qty: 7 0RF Continued cranberry extract 250 mg capsule 25,000 mg PO QDAY elderberry fruit 200 mg capsule 200 mg PO QDAY magnesium 250 mg tablet 500 mg PO QDAY cholecalciferol (vitamin D3) 1,000 unit capsule 1,000 unit PO QDAY aspirin 81 mg tablet,delayed release (DR/EC) 81 mg PO QDAY coenzyme [id number] E 100-100 mg-unit capsule 2 cap PO DAILY melatonin 10 mg capsule 10 mg PO QPM Adult 50 Plus Probiotic 4 billion cell capsule 4,000 mmu cells PO TID Rx Instructions: administer with a meal selenium 200 mcg tablet 200 mcg PO DAILY (DME) Diabetic Shoes with 3 pairs of inserts See Rx Instructions .Route .MEDSUPPLY Qty: 1 0RF Rx Instructions: As directed by HOME- Accommodative should that will allow room for the patients AFO diphenhydramine HCl [Benadryl] 25 mg capsule 25 mg PO BID albuterol sulfate 2.5 mg /3 mL (0.083 %) solution for nebulization 2.5 mg inhalation Q6H PRN (Reason: shortness of breath or wheezing) Qty: 180 5RF albuterol sulfate 90 mcg/actuation HFA aerosol inhaler 2 puff inhalation Q6H PRN (Reason: shortness of breath or wheezing) Qty: 3 3RF benzonatate 200 mg capsule 200 mg PO TID PRN (Reason: cough) Qty: 90 3RF montelukast 10 mg tablet 10 mg PO DAILY Qty: 90 3RF sotalol 120 mg tablet 120 mg PO QAM Qty: 90 3RF budesonide-formoterol [Symbicort] 160-4.5 mcg/actuation HFA aerosol inhaler 2 puff inhalation BID Qty: 10.2 3RF Rx Instructions: 340B pricing, ordering on behalf of Dr Masters cyanocobalamin (vitamin B-12) [Vitamin B-12] 500 mcg Tablet 500 mcg PO DAILY lutein 40 mg Capsule 40 mg PO DAILY ascorbic acid (vitamin C) [Vitamin C] 1,000 mg tablet 500 mg PO DAILY zinc acetate 50 mg (zinc) Capsule 50 mg PO DAILY vitamin T46-[id number] acid 2,500-400 mcg Tablet,Disintegrating 1 tab PO DAILY Sotalol AF 80 mg tablet 80 mg PO QPM Flomax 0.4 mg capsule 0.4 mg PO QPM rosuvastatin 20 mg tablet 20 mg PO QPM vitamin A 2,400 mcg Capsule 2,400 mcg PO DAILY Discharge Orders: Discharge Order (Routine); Ordered 09/01/22 Ordered By: Ryan Montano Referrals: [facility] [Provider Group] - 1 week (Pacemaker Clinic) Kade Proctor MD [Primary Care Provider] - Discharge Diet: Usual diet Discharge Activity: Limit activity as instructed Patient Instructions: Opioid Safety Activity Restrictions/Additional Instructions: May remove bandage in 2 days May begin daily showers in 3 days Dry incision carefully after showers. May re-cover if desired to prevent irritation from clothing. No swimming or tub baths x 2 weeks No ointments on incision Report drainage, redness, heat, increased pain, or swelling to clinic No heavy lifting x2 weeks. Begin antibiotic with first dose this evening and then twice daily until completed Discharge Attestations Time Spent in Discharge Care*: less than 30 min Specific Discharge Activities: educating patient, educating and/or supporting family/caregiver, documenting/other paperwork and evaluating patient/reviewing data Status at Discharge: Cognitive status at discharge: cognitively intact , Behavioral status at discharge: cooperative , Functional status at discharge: independent ambulation , Overall status at discharge: patient is back to baseline Quality Metrics Clinical Quality Measures [ No reported AMI, CVA or VTE this stay] Coding Level of Care Code Acute Code for Chg Fwd Diagnoses Palpitations R00.2 Pacemaker at end of battery life Z45.010 Acute kidney injury N17.9
[2022-09-01] MEDS: sotalol 80 mg Tablet 120 MG PO (12:01)
--- NOTE | 2022-09-01 13:56 | ANE.PACU2 ---
Inpatient post-anesthesia follow up: Airway intact: Yes Vital signs: Temperature 97.3 F Pulse Rate 78 Respiratory Rate 17 Blood Pressure 150/76 Pulse Oximetry 95 Oxygen Delivery Me thod Room Air Oxygen Flow Rate Fraction of Inspir ed Oxygen Hydration adequate: Yes Nausea and vomiting: No Pain level: 1 Mental status: Baseline
--- NOTE | 2022-09-01 14:03 | PC.NURSE ---
Nurse assisted patient to the main entrance and wheeled him out to his car. IV was removed and intact. Patient tolerated well. All education on post pacer battery change and when to remove dressing and shower. Patient verbalized understanding.
== END 2022-09-01 14:03 | disposition home or self-care (01) ==
LOC: ER 09:45 → CSU 10:51
PROVIDERS: Thoracic Surgery (Cardiothoracic Vascular Surgery); Admitting Provider Internal Medicine; Emergency Provider Family Medicine; PCP Family Medicine Adult Medicine; Visit Provider Internal Medicine
PROC: 0JPT0PZ Removal of Cardiac Rhythm Related Device from Trunk Subcutaneous Tissue and Fascia, Open Approach (ICD-10-PCS; principal; 2022-09-01 09:10)
DX: Z45.010 Encounter for checking and testing of cardiac pacemaker pulse generator [battery] (principal); I48.91 Unspecified atrial fibrillation; N17.9 Acute kidney failure, unspecified; E87.1 Hypo-osmolality and hyponatremia; R00.2 Palpitations; E11.9 Type 2 diabetes mellitus without complications; I10 Essential (primary) hypertension; E78.5 Hyperlipidemia, unspecified; Z79.82 Long term (current) use of aspirin; Z79.899 Other long term (current) drug therapy; Z87.891 Personal history of nicotine dependence; Z82.49 Family history of ischemic heart disease and other diseases of the circulatory system
CPT/HCPCS: 33228; 36415; 71045; 80053; 81003; 83735; 84443; 85025; 93005; 94640; 99285; C1786; G0378; J2704; J3010; J3370; J7030; J7613; J7626

== ENCOUNTER → 2022-09-10 08:46 | Outpatient (BNVA) | payer MEDICARE, SELFPAY | PROVIDERS: PCP Family Medicine Adult Medicine; Visit Provider Family Medicine Adult Medicine | DX: I25.118 Atherosclerotic heart disease of native coronary artery with other forms of angina pectoris (principal); I77.9 Disorder of arteries and arterioles, unspecified | CPT/HCPCS: 80048; 80061 ==

== ENCOUNTER → 2022-09-11 10:21 | Outpatient (BNVA) | payer MEDICARE, SELFPAY | PROVIDERS: PCP Family Medicine Adult Medicine; Visit Provider Nurse Practitioner Family | DX: Z95.0 Presence of cardiac pacemaker (principal); I48.20 Chronic atrial fibrillation, unspecified; I25.118 Atherosclerotic heart disease of native coronary artery with other forms of angina pectoris; Z87.891 Personal history of nicotine dependence; I10 Essential (primary) hypertension | CPT/HCPCS: 99214 ==

== ENCOUNTER 2022-10-05 09:07 | Outpatient (CLI) | payer MEDICARE, SELFPAY ==
--- NOTE | 2022-10-05 09:30 | CT_ITS ---
WS: [id number] CT CHEST TECHNIQUE: Noncontrast CT of the chest with coronal and sagittal reformatted images. CLINICAL INFORMATION: 6 month f/u PET positive lesion COMPARISON: PET/CT December 20, [address] April 03, 2022 DLP: 360.[address] scans at [facility] use at least one of these dose optimization techniques: automated e xposure control; mA and/or kV adjustment per patient size (includes targeted exams where dose is matc hed to clinical indication); or iterative reconstruction. FINDINGS: LEFT upper lobe cavitary lesion is unchanged measuring 1.7 x 1.3 cm. Adjacent satellite component abu tting the pleura is unchanged. LEFT lower lobe lesion measuring 1.9 x 1.6 cm is unchanged. Small LEFT pleural effusion. 8mm nodule R IGHT lower lobe laterally is unchanged. Stable adjacent hazy infiltrate. Normal caliber thoracic aorta. No mediastinal or hilar lymphadenopathy. Coronary calcification. Tiny esophageal hiatal hernia. Cholecystectomy clips. Splenic granulomas. Adrenal glands are normal. Fatty atrophy of the pancreas. Moderate thoracic kyphosis with ankylosis. Cardiac pacer. CT/CT chest wo con [id number] IMPRESSION: 1. No significant changes in the anterior LEFT upper lobe cavitary nodule aline uring 1.7 x 1.3 cm compared to previous. Associated stable satellite nodule khadijah suring 7 mm abutting the pleura is unchanged. 2. Stable LEFT lower lobe nodule measuring 1.6 x 1.9 CM. 3. Stable nodule RIGHT lower lobe measuring 8 mm with astable adjacent hazy in filtrate. 4. Tiny LEFT pleural effusion with a few small nodular opacities/infiltrates m ay be infectious or inflammatory but indeterminate.. 5. A few small new nodular opacities in LEFT upper lobe anteriorly and mediall y with cystic bronchiectasis measuring 6 to 7 mm. 6. Advanced chronic emphysematous changes with scattered areas of fibrosis and cystic bronchiectasis.
== END 2022-10-05 09:08 | disposition home or self-care (01) ==
PROVIDERS: PCP Family Medicine Adult Medicine; Visit Provider Internal Medicine Pulmonary Disease
DX: R91.8 Other nonspecific abnormal finding of lung field (principal); J47.9 Bronchiectasis, uncomplicated; J43.9 Emphysema, unspecified
CPT/HCPCS: 71250; 80061; 83036

== ENCOUNTER → 2022-12-03 08:29 | Outpatient (BNVA) | payer MEDICARE, SELFPAY | PROVIDERS: PCP Family Medicine Adult Medicine; Visit Provider Family Medicine Adult Medicine | DX: R77.0 Abnormality of albumin (principal); I10 Essential (primary) hypertension; E11.9 Type 2 diabetes mellitus without complications; J98.4 Other disorders of lung; J45.909 Unspecified asthma, uncomplicated | CPT/HCPCS: 80053; 83036; 85025 ==

== ENCOUNTER → 2022-12-07 09:22 | Outpatient (BNVA) | payer MEDICARE, SELFPAY | PROVIDERS: PCP Family Medicine Adult Medicine; Visit Provider Internal Medicine Pulmonary Disease | DX: J98.4 Other disorders of lung (principal); A31.0 Pulmonary mycobacterial infection; J44.9 Chronic obstructive pulmonary disease, unspecified; J45.40 Moderate persistent asthma, uncomplicated; Z87.891 Personal history of nicotine dependence; I25.118 Atherosclerotic heart disease of native coronary artery with other forms of angina pectoris; Z95.0 Presence of cardiac pacemaker; M35.3 Polymyalgia rheumatica; R05.3 Chronic cough; J82.83 Eosinophilic asthma | CPT/HCPCS: 99214 ==

== ENCOUNTER 2022-12-08 07:43 | Outpatient (CLI) | payer MEDICARE, SELFPAY ==
--- NOTE | 2022-12-08 08:00 | USCV_ITS ---
Abraham Andreas Age: 87 Gender: M : 1935 Exam Date: 12/08/2022 08:09 Ordering Phys: Ryan Montano MD ([email or web address] [place] Technologist: Katherine Evans [place] [facility] [place] RECHECK ON LTCEA Risk Factors: PRIOR LT ENDARECTOMY Previous Vascular Surgery: L CEA Right Brachial BP: / Left Brachial BP: / Right Left Velocity (cm/s) Spectral Plaque Velocity (cm/s) Spectral Plaque Syst/Diast Broadening Syst/Diast Broadening 72.20/ 11.30 Prox CCA 106.80/ 17.10 34.70/ 10.00 Mid CCA 83.10 / 11.20 59.40/ 6.50 Hetro Distal CCA 68.20 / 9.90 Hetro 58.80/ 14.10 Hetro Prox ICA 98.20 / 12.40 Hetro 47.00/ 11.80 Hetro Mid ICA 51.30 / 11.50 36.10/ 7.90 Distal ICA 51.10 / 13.50 58.20 Hetro ECA 124.00 Hetro 1.69 ICA/CCA 1.18 Bi- Vertebral Antegrade directiona l 22.20/ 7.60 cm/s 54.90/ 9.60 cm/s Bi Subclavian Bi 60.40 91.60 FINDINGS comp 06/05/22 CONCLUSIONS Right ICA stenosis <50%. Mild to moderate atheromatous plaque right carotid bulb/ICA. Left ICA stenosis <50%. Mild to moderate atheromatous plaque left carotid bulb/ICA. Prior left CEA with no recurrent stenosis. Normal antegrade Doppler flow noted in the right vertebral artery. Normal antegrade Doppler flow noted in the left vertebral artery. Damian Martinez MD (Electronically Signed) Final Date: 08 December 2022 09:57 S
== END 2022-12-08 07:44 | disposition home or self-care (01) ==
PROVIDERS: PCP Family Medicine Adult Medicine; Visit Provider Thoracic Surgery (Cardiothoracic Vascular Surgery)
DX: I65.23 Occlusion and stenosis of bilateral carotid arteries (principal)
CPT/HCPCS: 93880

== ENCOUNTER 2022-12-12 16:47 | Emergency (ER) | payer MEDICARE, SELFPAY ==
[2022-12-12 16:52] VITALS: BMI 27.3
[2022-12-12 16:54] VITALS: BP 196/83; PULSE 78; RESP 16; TEMP 36.6; O2SAT 95
--- NOTE | 2022-12-12 17:01 | XRR_ITS ---
PROCEDURE INFORMATION: Exam: XR Chest Exam date and time: 12/12/2022 5:25 PM Age: 87 years old Clinical indication: Other: Hematesis; Additional info: Hemetemesis TECHNIQUE: Imaging protocol: Radiologic exam of the chest. Views: 2 views. COMPARISON: CT chest wo con [id number] 10/05/2022 9:27 AM FINDINGS: Tubes, catheters and devices: There is a dual-lead cardiac pacer via left subclavian approach. Findings are stable. Lungs: Stable interstitial fibrotic changes in the periphery of the lungs. No focal consolidation. No pulmonary edema. Pleural spaces: No pleural effusion. No pneumothorax. Heart/Mediastinum: Stable mild enlargement of the cardiac silhouette. Mediastinal contours are unremarkable. Vasculature: Stable vascular calcifications in the aorta. Bones/joints: Bones are diffusely osteopenic. Multilevel degenerative changes of varying severity in the visualized spine. Mild kyphosis of the thoracic spine. 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 Osseous findings are stable. XR/XR chest 2V* [id number] IMPRESSION: 1. No acute cardiopulmonary process. 2. Incidental/nonacute findings are listed in the report.
[2022-12-12 17:22] LABS: Basophils % 0.3 %; Eosinophils # 0.4 10^3/uL (0.0-0.8); Eosinophils % 2.4 %; Hematocrit 40.4 % (42.0-52.0); Hemoglobin 13.1 g/dL (11.7-16.6); Lymphocytes # 1.7 10^3/uL (0.8-4.8); Lymphocytes % 11.5 %; Mean Corpuscular HGB Conc 32.4 g/dL (30.0-36.0); Mean Corpuscular Hemoglobin 32.5 pg (28.0-34.0); Mean Corpuscular Volume 100.2 fl (80-94); Mean Platelet Volume 10.5 fL (7.4-10.4); Monocytes # 1.3 10^3/uL (0.2-0.9); Monocytes % 8.9 %; Neutrophils # 11.25 10^3/uL (1.8-7.7); Neutrophils % 76.4 %; Nucleated Red Blood Cells % 0 %; Platelet Count 311 10^3/cmm (130-400); Red Blood Count 4.03 10^6/uL (4.1-5.3); Red Cell Distribution Width 13.7 % (12.1-15.1); White Blood Count 14.7 10^3/uL (4.0-10.0)
--- NOTE | 2022-12-12 17:44 | CTR_ITS ---
PROCEDURE INFORMATION: Exam: CTA Chest With Contrast Exam date and time: 12/12/2022 6:17 PM Age: 87 years old Clinical indication: Other: Hemoptysis; Additional info: [place] hemoptysis TECHNIQUE: Imaging protocol: Computed tomographic angiography of the chest with contrast. Exam focused on the arteries. 3D rendering (Not supervised by radiologist): MIP and/or 3D reconstructed images were created by the technologist. Radiation optimization: All CT scans at this facility use at least one of these dose optimization techniques: automated exposure control; mA and/or kV adjustment per patient size (includes targeted exams where dose is matched to clinical indication); or iterative reconstruction. Contrast material: OMNI 350; Contrast volume: 68 ml; Contrast route: INTRAVENOUS (IV); REPORTING DATA: Count of CT and Cardiac NM exams in prior 12 months: This patient has received 4 known CTs and 0 known cardiac nuclear medicine studies in the 12 months prior to the current study. COMPARISON: 1. CT chest wo con [id number] 10/05/2022 9:27 AM 2. CR (CHEST, ) 12/12/2022 5:25 PM RADIATION DOSE METRICS: Total DLP (mGy-cm): 446.81 FINDINGS: Tubes, catheters and devices: There is a dual-lead cardiac pacer via left subclavian approach. Findings are stable. Pulmonary arteries: No filling defects in the pulmonary arteries to suggest pulmonary embolism. Aorta: Stable mild atherosclerotic changes in the visualized arteries. No evidence for aortic aneurysm. Evaluation for aortic dissection is limited due to the phase of contrast-enhancement. Lungs: Redemonstration of bilateral cylindrical bronchiectasis, more extensive in the left lung. There is interval development of bronchial wall thickening and mucous plugging in the left upper lobe, left lingula and left lower lobe. There is also patchy airspace disease in the left lung and in the right middle and lower lobes. Increasing interstitial fibrotic changes in the periphery of both lungs with worsening areas of honeycombing, particularly in the lower lobes. Stable left upper lobe cavitary lesion measuring 2.2 x 1.4 cm (series 6, image 112). A pleural based nodule with irregular margins adjacent to the cavitary lesion has increased in size. This now has an average measurement of 1.4 cm, previously 1.0 cm (series 6, image 107). Pleural spaces: Stable pleural thickening bilaterally, particularly in the posterior left hemithorax. No pleural effusion. No pneumothorax. Heart: Stable mild enlargement of the heart. Coronary arteries: Stable extensive atherosclerotic calcification in the coronary arteries. Esophagus: The esophagus is unremarkable. Mediastinal space: No mediastinal hematoma. No pneumomediastinum. Lymph nodes: Multiple calcified mediastinal lymph nodes. Increasing mild ill-defined soft tissue density in the left upper lobe with development of mild narrowing of the distal left lower lobe bronchus and proximal left lower lobe segmental bronchi. Diaphragm: Small hiatal hernia. Liver: The visualized liver is unremarkable. Gallbladder and bile ducts: Patient has had a previous cholecystectomy. No dilatation of the visualized bile ducts. Pancreas: The visualized pancreas is unremarkable. No pancreatic ductal dilatation. Spleen: Multiple calcified granulomas in the spleen. Adrenal glands: The right and left adrenal glands are unremarkable. Kidneys and ureters: The visualized right and left kidneys are unremarkable. Bones/joints: Degenerative changes in the spine and shoulders. Bones are diffusely osteopenic. 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 Mild kyphosis in the thoracic spine. Soft tissues: No acute abnormality in the extrathoracic soft tissues. CT/CT angio chest PE protcl [id number] IMPRESSION: 1. Redemonstration of bilateral cylindrical bronchiectasis, more extensive in the left lung. There is interval development of bronchial wall thickening and mucous plugging in the left upper lobe, left lingula and left lower lobe. There is also patchy airspace disease in the left lung and in the right middle and lower lobes. Findings are suspicious for bronchopneumonia. Recommend followup chest imaging to insure resolution of these findings. 2. Stable left upper lobe cavitary lesion. However, a pleural based nodule with irregular margins adjacent to the cavitary lesion has increased in size. Findings are concerning for a primary pulmonary lesion. 3. Interval development of soft tissue density in the left hilar region with narrowing of the distal left lower lobe bronchus and proximal left lower lobe segmental bronchi. 4. Increasing interstitial fibrotic changes in the periphery of both lungs with worsening areas of honeycombing, particularly in the lower lobes. Pattern suggest worsening usual interstitial pneumonia. 5. No evidence for pulmonary embolism. 6. Small hiatal hernia. 7. Incidental/nonacute findings are listed in the report. COMMENTS: Urgent results were discussed with Byron Begum on 12/12/2022 at 7:08 PM CDT.
--- NOTE | 2022-12-12 17:52 | W.ED.GENADLT ---
HPI - General Adult General: Chief complaint: General Medical Stated complaint: coughing blood Time Seen by Provider: 12/12/22 17:35 History of Present Illness: With complaints of coughing up blood. Patient states he started coughing up blood earlier today and is coughing up globs. Patient says usually has nosebleeds but he is not having a nosebleed at all now and does not feel blood running down the back of his throat so he thinks he is coughing it up. He has a chronic cough he does see Dr. Ramirez and he has lesion in his lungs they are following. Review of Systems General: Reports: 10 or more systems reviewed and unremarkable except in HPI and below PFSH ED PFSH: Medical History A-fib AAA (abdominal aortic aneurysm) BPH loc w urin obs/LUTS Carotid artery disease Chronic bronchitis with acute exacerbation Chronic cough Depression Diabetes Diverticulosis Dyslipidemia History of cardiac pacemaker Hypertension Low serum albumin Prostatic hypertrophy Pulmonary Mycobacterium avium complex (MAC) infection Surgical History History of arthroplasty of left ankle History of CEA (carotid endarterectomy) History of colonoscopy (~06/2019) History of laparoscopic cholecystectomy Family History Other CAD (coronary artery disease) Diarrhea Family history of premature coronary artery disease Denies family history of Rheumatoid arthritis Diabetes Lupus Anesthesia complication Bleeding disorder Lung disease Cancer Hypertension Stroke Social History Smoking and tobacco status: former smoker Quit status (tobacco): has quit using tobacco Year quit tobacco: 1975 [id number] x27yrs Second hand smoke exposure: No Smoking risk assessment/counseling performed?: Yes Alcohol intake: never Desire information about alcohol rehabilitation?: No Counseling given: No Substance/Drug Use: never Desire information about substance/drug rehabilitation?: No Counseling given: No Adopted: No Caregiver/support person: Yes Lives independently: Yes Household members: spouse Housing: House Marital status: Highest education level completed: High School Graduate service: No Current occupational status: retired Current occupational exposures/hazards: No Pets and animals: No Sexually active: No Do you think of yourself as: Straight/Heterosexual Current gender identity: Male Kiara/Gnosticism: None Special kiara needs: No Agree to transfusion: No Financial difficulty paying for basics: Decline to Answer Physical Exam Const: COMMON NORMALS: no acute distress, average body habitus, patient oriented x3, no limitations, healthy appearing, alert and well nourished HENMT: COMMON NORMALS: normocephalic, atraumatic, hearing grossly normal bilaterally, external ears normal, Normal external nose present and moist oral mucous membranes HEAD & SCALP: normocephalic and atraumatic NOSE: Normal external nose present EXTERNAL EAR: Yes external ears normal Neck/C-Spine: COMMON NORMALS: full ROM, no lymphadenopathy, supple, no meningeal signs, no JVD and Thyroid normal THYROID: Thyroid normal Chest: COMMONS NORMALS: normal inspection of the chest and normal palpation of entire chest wall Resp: COMMON NORMALS: normal respiratory effort, No retractions, No use of accessory muscles and clear to auscultation bilaterally AUSCULTATION: clear to auscultation bilaterally Cardio: COMMON NORMALS: no JVD, regular rate, regular rhythm, S1 normal heart sound present, S2 normal heart sound present, No gallops present (Cardio), No clicks present (Cardio), No murmurs present (Cardio) and No rub (Cardio) RATE: regular rate RHYTHM: regular rhythm HEART SOUNDS: S1 normal heart sound present and S2 normal heart sound present GI: COMMON NORMALS: Normal to inspection, nondistended, normoactive bowel sounds present, Soft to palpation, non-tender, No hepatosplenomegaly present and no masses PALPATION: Yes Soft to palpation and Yes No hepatosplenomegaly present : COMMON NORMALS: Yes no CVA tenderness BLADDER/KIDNEY EXAM: Yes no CVA tenderness Back/Pelvis: COMMON NORMALS: no CVA tenderness Neuro: COMMON NORMALS: patient oriented x3 SENSORIUM/ORIENTATION: Yes alert MENINGEAL SIGNS: Yes no meningeal signs Course Vital Signs: Vital signs: Vital Signs Temperature 97.9 F 12/12/22 16:54 Pulse Rate 69 12/12/22 19:12 Respiratory Rate 16 12/12/22 19:12 Blood Pressure 164/82 12/12/22 19:12 Pulse Oximetry 95 12/12/22 19:12 Oxygen Delivery Me thod Room Air 12/12/22 18:15 MDM - General Adult Medical Decision Making Patient presents to the ER with complaints of coughing up blood. Patient is followed by Dr. Ramirez. During his stay in the ER the patient was coughing and coughed himself into atrial flutter rhythm at 150 bpm, patient was given 10 mg Cardizem IV and this converted his rhythm back to normal sinus rhythm at 88 bpm, awaiting lab work and chest x-ray and CT a patient's coughing up blood diminished to the point that he just fell he had to clear his throat a lot. Multiple physical exams did not reveal any blood draining down the back of his throat and or patient did not feel like any blood was drained on the back of his throat. CTA did show patient does have spots suspicious for bronchopneumonia and he has a left upper lobe lesion that appears to be slightly enlarged. Patient did not want to stay in the hospital nor to be transferred. Dr. Ramirez is not on-call. Patient understood that if he went home and started coughing up blood he would have to come back again immediately and then would have no choice but to admit him and/or transfer him. Patient voiced understanding of this and will go home on antibiotics. Differential Diagnosis Hemoptysis, bronchitis, pneumonia Medical Records I reviewed the patient's medical records. Lab Data I reviewed the patient's lab results. 12/12/22 17:15 12/12/22 17:48 Radiology Impressions Chest X-Ray 12/12/22 17:01 IMPRESSION: 1. No acute cardiopulmonary process. 2. Incidental/nonacute findings are listed in the report. Chest CTA 12/12/22 17:44 IMPRESSION: 1. Redemonstration of bilateral cylindrical bronchiectasis, more extensive in the left lung. There is interval development of bronchial wall thickening and mucous plugging in the left upper lobe, left lingula and left lower lobe. There is also patchy airspace disease in the left lung and in the right middle and lower lobes. Findings are suspicious for bronchopneumonia. Recommend followup chest imaging to insure resolution of these findings. 2. Stable left upper lobe cavitary lesion. However, a pleural based nodule with irregular margins adjacent to the cavitary lesion has increased in size. Findings are concerning for a primary pulmonary lesion. 3. Interval development of soft tissue density in the left hilar region with narrowing of the distal left lower lobe bronchus and proximal left lower lobe segmental bronchi. 4. Increasing interstitial fibrotic changes in the periphery of both lungs with worsening areas of honeycombing, particularly in the lower lobes. Pattern suggest worsening usual interstitial pneumonia. 5. No evidence for pulmonary embolism. 6. Small hiatal hernia. 7. Incidental/nonacute findings are listed in the report. COMMENTS: Urgent results were discussed with Byron Begum on 12/12/2022 at 7:08 PM CDT. Laboratory Results WBC 14.7 10^3/uL (4.0-10.0) H 12/12/22 17:15 RBC 4.03 10^6/uL (4.1-5.3) L 12/12/22 17:15 Hgb 13.1 g/dL (11.7-16.6) 12/12/22 17:15 Hct 40.4 % (42.0-52.0) L 12/12/22 17:15 MCV 100.2 fl (80-94) H 12/12/22 17:15 MCH 32.5 pg (28.0-34.0) 12/12/22 17:15 MCHC 32.4 g/dL (30.0-36.0) 12/12/22 17:15 RDW 13.7 % (12.1-15.1) 12/12/22 17:15 Plt Count 311 10^3/cmm (130-400) 12/12/22 17:15 MPV 10.5 fL (7.4-10.4) H 12/12/22 17:15 Neut % (Auto) 76.4 % 12/12/22 17:15 Lymph % (Auto) 11.5 % 12/12/22 17:15 Beadle % (Auto) 8.9 % 12/12/22 17:15 Eos % (Auto) 2.4 % 12/12/22 17:15 Baso % (Auto) 0.3 % 12/12/22 17:15 Neut # (Auto) 11.25 10^3/uL (1.8-7.7) H 12/12/22 17:15 Lymph # (Auto) 1.7 10^3/uL (0.8-4.8) 12/12/22 17:15 Beadle # (Auto) 1.3 10^3/uL (0.2-0.9) H 12/12/22 17:15 Eos # (Auto) 0.4 10^3/uL (0.0-0.8) 12/12/22 17:15 Baso # (Auto) 0.0 10^3/uL (0.0-0.1) 12/12/22 17:15 Nucleated RBC % (auto) 0 % 12/12/22 17:15 Nucleated RBCs # 0.0 /100WBC 12/12/22 17:15 PT 15.50 SECONDS (12.1-14.9) H 12/12/22 17:48 INR 1.19 (0.8-1.2) 12/12/22 17:48 Sodium 135 mmol/L (136-145) L 12/12/22 17:48 Potassium 4.2 mmol/L (3.5-5.1) 12/12/22 17:48 Chloride 102 mmol/L (98-107) 12/12/22 17:48 Carbon Dioxide 26 mmol/L (22-29) 12/12/22 17:48 Anion Gap 11.2 (5-19) 12/12/22 17:48 BUN 12 mg/dL (8-23) 12/12/22 17:48 Creatinine 0.8 mg/dL (0.7-1.2) 12/12/22 17:48 GFR Calculation Not Reportable 12/12/22 17:48 Glucose 126 mg/dL (65-115) H 12/12/22 17:48 Calculated Osmolality 281 mOsm/kg (285-295) L 12/12/22 17:48 Calcium 8.4 mg/dL (8.5-10.5) L 12/12/22 17:48 Magnesium 1.8 mg/dL (1.7-2.3) 12/12/22 17:48 Total Bilirubin 0.2 mg/dL (0.15-1.2) 12/12/22 17:48 AST 32 U/L (0-40) 12/12/22 17:48 ALT 21 U/L (0-41) 12/12/22 17:48 Alkaline Phosphatase 136 U/L (40-130) H 12/12/22 17:48 Total Protein 8.4 g/dL (6.6-8.7) 12/12/22 17:48 Albumin 2.7 g/dL (3.5-5.2) L 12/12/22 17:48 Globulin 5.7 g/dL (1.3-4.6) H 12/12/22 17:48 EKG Data EKG 1: I personally reviewed and interpreted this EKG as follows: EKG interpretation date: 12/12/22 EKG interpretation time: 18:03 Prior EKG tracings: not available for review Computer generated interpretation: Chest X-Ray 12/12/22 17:01 IMPRESSION: 1. No acute cardiopulmonary process. 2. Incidental/nonacute findings are listed in the report. Chest CTA 12/12/22 17:44 IMPRESSION: 1. Redemonstration of bilateral cylindrical bronchiectasis, more extensive in the left lung. There is interval development of bronchial wall thickening and mucous plugging in the left upper lobe, left lingula and left lower lobe. There is also patchy airspace disease in the left lung and in the right middle and lower lobes. Findings are suspicious for bronchopneumonia. Recommend followup chest imaging to insure resolution of these findings. 2. Stable left upper lobe cavitary lesion. However, a pleural based nodule with irregular margins adjacent to the cavitary lesion has increased in size. Findings are concerning for a primary pulmonary lesion. 3. Interval development of soft tissue density in the left hilar region with narrowing of the distal left lower lobe bronchus and proximal left lower lobe segmental bronchi. 4. Increasing interstitial fibrotic changes in the periphery of both lungs with worsening areas of honeycombing, particularly in the lower lobes. Pattern suggest worsening usual interstitial pneumonia. 5. No evidence for pulmonary embolism. 6. Small hiatal hernia. 7. Incidental/nonacute findings are listed in the report. COMMENTS: Urgent results were discussed with Byron Begum on 12/12/2022 at 7:08 PM CDT. EKG showed atrial flutter tachycardia with rapid ventricular response, ventricular rate 150 beats a minute, QRS duration 106, QTc 372, moderate ST depression Discharge Plan Discharge Patient Disposition: Home Clinical Impression: Cough with hemoptysis Pneumonia Qualifiers: Pneumonia type: due to unspecified organism Laterality: left Lung location: lower lobe of lung Qualified Code(s): J18.9 - Pneumonia, unspecified organism Condition: Stable Prescriptions: New Bactrim DS 800-160 mg tablet 1 tab PO BID 7 Days Qty: 14 0RF No Action magnesium 250 mg tablet 500 mg PO QDAY cholecalciferol (vitamin D3) 1,000 unit capsule 1,000 unit PO QDAY aspirin 81 mg tablet,delayed release (DR/EC) 81 mg PO QDAY coenzyme [id number] 100-100 mg-unit capsule 2 cap PO DAILY melatonin 10 mg capsule 10 mg PO QPM (DME) Diabetic Shoes with 3 pairs of inserts See Rx Instructions .Route .MEDSUPPLY Qty: 1 0RF Rx Instructions: As directed by HOME- Accommodative should that will allow room for the patients AFO diphenhydramine HCl [Benadryl] 25 mg capsule 25 mg PO BID budesonide-formoterol [Symbicort] 160-4.5 mcg/actuation HFA aerosol inhaler 2 puff inhalation BID Qty: 10.2 6RF Rx Instructions: 340B pricing, ordering on behalf of Dr Masters albuterol sulfate 2.5 mg /3 mL (0.083 %) solution for nebulization 2.5 mg inhalation Q6H PRN (Reason: shortness of breath or wheezing) Qty: 180 5RF albuterol sulfate 90 mcg/actuation HFA aerosol inhaler 2 puff inhalation Q6H PRN (Reason: shortness of breath or wheezing) Qty: 3 3RF montelukast 10 mg tablet 10 mg PO DAILY Qty: 90 3RF sotalol 120 mg tablet 120 mg PO QAM Qty: 90 3RF niacin 100 mg tablet 100 mg PO DAILY Qty: 90 1RF Zyrtec 10 mg capsule 10 mg PO DAILY Qty: 30 3RF cyanocobalamin (vitamin B-12) [Vitamin B-12] 500 mcg Tablet 500 mcg PO DAILY zinc acetate 50 mg (zinc) Capsule 50 mg PO DAILY vitamin [id number] acid 2,500-400 mcg Tablet,Disintegrating 1 tab PO DAILY Sotalol AF 80 mg tablet 80 mg PO QPM Flomax 0.4 mg capsule 0.4 mg PO QPM rosuvastatin 20 mg tablet 20 mg PO QPM vitamin A 2,400 mcg Capsule 2,400 mcg PO DAILY Discharge Orders: Discharge ED (Routine); Ordered 12/12/22 Ordered By: Byron Caldera Referrals: Kade Proctor MD [Primary Care Provider] - 1 week Patient Instructions: Hemoptysis, Pneumonia (ED) Activity Restrictions/Additional Instructions: Please take all your antibiotics as directed. Please follow-up with your family practice doctor and/or Dr. Ramirez within the next 7 to 10 days or sooner as needed. Please return to the ER if your hemoptysis returns or worsens. Coding Level of Care Code ED Chart Computer for Salena Silva
[2022-12-12 17:54] VITALS: BP 91/69; PULSE 150; RESP 23; O2SAT 97
[2022-12-12] MEDS: sodium chloride 0.9% 1,000 ML 999 ML IV (17:59)
--- NOTE | 2022-12-12 18:03 | ECG_ITS ---
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 Measurements Intervals [place] Rate: 150 P: 0 FL: 0 QRS: 28 QRSD: 106 T: 58 QT: 287 QTc: 453 Interpretive Statements ATRIAL FLUTTER versus SVT MODERATE ST DEPRESSION [0.05+ mV ST DEPRESSION] CRITICAL TEST RESULT Compared to ECG 08/31/2022 08:31:40 ST (T wave) deviation now present Ventricular-paced complex(es) or rhythm no longer present Electronically Signed On 12-13-2022 11:28:51 CDT by Wilver Damon M.D. [email or web address]
[2022-12-12] MEDS: dilTIAZem 5 mg/mL SDV 5 mL 10 MG IVP (18:08)
[2022-12-12 18:09] LABS: INR 1.19 (0.8-1.2)
[2022-12-12 18:13] LABS: Alanine Aminotransferase 21 U/L (0-41); Albumin Level 2.7 g/dL (3.5-5.2); Alkaline Phosphatase 136 U/L (40-130); Anion Gap 11.2 (5-19); Aspartate Amino Transferase 32 U/L (0-40); Blood Urea Nitrogen 12 mg/dL (8-23); Calcium 8.4 mg/dL (8.5-10.5); Carbon Dioxide 26 mmol/L (22-29); Chloride 102 mmol/L (98-107); Globulin 5.7 g/dL (1.3-4.6); Glucose 126 mg/dL (65-115); Magnesium 1.8 mg/dL (1.7-2.3); Osmolality Calculated 281 mOsm/kg (285-295); Potassium 4.2 mmol/L (3.5-5.1); Sodium 135 mmol/L (136-145); Total Bilirubin 0.2 mg/dL (0.15-1.2); Total Protein 8.4 g/dL (6.6-8.7)
[2022-12-12 18:15] VITALS: BP 144/60; PULSE 68; RESP 22; O2SAT 99
[2022-12-12] MEDS: iohexol 350 mg/mL 500 mL Btl (per mL) IV (18:18)
[2022-12-12 19:12] VITALS: BP 164/82; PULSE 69; RESP 16; O2SAT 95
[2022-12-12] MEDS: sulfamethoxazole-trimeth DS 160-800 mg Tablet 1 TAB PO (20:06)
[2022-12-12 20:20] VITALS: BP 164/82; PULSE 69; RESP 16; TEMP 36.6; O2SAT 95
== END 2022-12-12 20:21 | disposition home or self-care (01) ==
PROVIDERS: Emergency Medicine; Emergency Provider Emergency Medicine; PCP Family Medicine Adult Medicine
DX: R04.2 Hemoptysis (principal); J18.9 Pneumonia, unspecified organism; Z79.82 Long term (current) use of aspirin; Z87.891 Personal history of nicotine dependence; E11.9 Type 2 diabetes mellitus without complications; E78.5 Hyperlipidemia, unspecified; Z95.0 Presence of cardiac pacemaker; I10 Essential (primary) hypertension
CPT/HCPCS: 36415; 71046; 71275; 80053; 83735; 85025; 85610; 93005; 96374; 99285; J3490; J7030; Q9967

== ENCOUNTER 2022-12-14 07:54 | Emergency (ER) | payer MEDICARE, SELFPAY ==
--- NOTE | 2022-12-14 08:02 | XR_ITS ---
WS: [id number] PORTABLE CHEST HISTORY: dyspnea/cough COMPARISON: 12/12/2022 Dual-lead left subclavian pacer. Chronic emphysematous changes are noted throughout the lungs. Very slight elevation of the right alonso diaphragm. Scattered opacifications in the mid to lower lung lowry with mild progression. Portion of the left lung is being obscured by the cardiac pacer. Small left pleural effusion versus pleural thi ckening. Cardiac size: Mildly enlarged cardiac silhouette. Mediastinum/Aorta: Mild atherosclerosis aorta. Osteopenia. IMPRESSION: 1. Chronic emphysematous changes with scattered opacifications at the lung bases. 2. Suspect mild pneumonitis or fluid overload. 3. Small left pleural effusion versus pleural thickening.
[2022-12-14 08:06] VITALS: BP 186/80; PULSE 80; RESP 18; TEMP 36.6; O2SAT 93; BMI 27.3
--- NOTE | 2022-12-14 08:24 | ED_ITS ---
HPI - SOB/Dyspnea General: Chief Complaint: Shortness of Breath/Dyspnea Stated Complaint: spitting up blood, here yesterday Time Seen by Provider: 12/14/22 08:02 Source: patient Mode of arrival: ambulatory History of Present Illness: HPI Narrative: 87-year-old male presents emergency room with hemoptysis. He was here 2 days ago with self-limiting episode of hemoptysis it is worsened in volume today. Family blood-tinged mucus is at the bedside he had approximately 100 250 mL in an emesis bag and is continually caulking coughing up heavily blood-tinged mucus there is no sam blood. He is on aspirin but no other antiplatelet therapy therapy or anticoagulants. He has been evaluated for this previously as a left pulmonary cavitary lesion as well as bronchiectasis. Previous bronchoscopy and PET scans do not show any malignancy it has been biopsied as well and is also been cultured there is no sign of tuberculosis. Due to his age and comorbid conditions pulmonology and infectious disease in consultation have elected not to aggressively treat. Has a history of COPD and has a pacemaker in place as well. MD elicited complaint: shortness of breath Pertinent past history: COPD Onset (ago): day(s) Timing: constant Severity: mild Exacerbating factors: exertion and coughing Relieving factors: nothing Known history of: COPD Associated symptoms: Reports hemoptysis; Deny abdominal pain, chest congestion, chest pain, cough, diaphoresis, dizziness, extremity pain, fever(s), lightheadedness, myalgias, nausea, orthopnea, palpitations, paresthesias, polydipsia, polyuria, rash, sense of impending doom, syncope or vomiting Treatment prior to arrival: none Review of Systems Const: Denies: fever(s), chills or diaphoresis ENMT: Denies: throat pain, ear or mastoid pain, nasal discharge, nasal congestion or epistaxis Card: Denies: chest pain, palpitations, lightheadedness, syncope or orthopnea Resp: Reports: dyspnea, productive cough, wheezing and hemoptysis; Denies: chest congestion GI: Denies: abdominal pain, nausea or vomiting : Denies: flank pain, dysuria, urinary frequency or urinary urgency Musc: Denies: neck pain, back pain or extremity pain Skin/Breast: Denies: rash or pruritus Neuro: Denies: dizziness Endo: Denies: polyuria or polydipsia PFS ED PFSH: Medical History A-fib AAA (abdominal aortic aneurysm) BPH loc w urin obs/LUTS Carotid artery disease Chronic bronchitis with acute exacerbation Chronic cough Depression Diabetes Diverticulosis Dyslipidemia History of cardiac pacemaker Hypertension Low serum albumin Prostatic hypertrophy Pulmonary Mycobacterium avium complex (MAC) infection Surgical History History of arthroplasty of left ankle History of CEA (carotid endarterectomy) History of colonoscopy (~06/2019) History of laparoscopic cholecystectomy Family History Other CAD (coronary artery disease) Diarrhea Family history of premature coronary artery disease Denies family history of Rheumatoid arthritis Diabetes Lupus Anesthesia complication Bleeding disorder Lung disease Cancer Hypertension Stroke Social History Smoking and tobacco status: former smoker Quit status (tobacco): has quit using tobacco Year quit tobacco: 1975 [id number]-[id number] x27yrs Second hand smoke exposure: No Smoking risk assessment/counseling performed?: Yes Alcohol intake: never Desire information about alcohol rehabilitation?: No Counseling given: No Substance/Drug Use: never Desire information about substance/drug rehabilitation?: No Counseling given: No Adopted: No Caregiver/support person: Yes Lives independently: Yes Household members: spouse Housing: House Marital status: Highest education level completed: High School Graduate service: No Current occupational status: retired Current occupational exposures/hazards: No Pets and animals: No Sexually active: No Do you think of yourself as: Straight/Heterosexual Current gender identity: Male Kiara/Religious: None Special kiara needs: No Agree to transfusion: No Financial difficulty paying for basics: Decline to Answer Physical Exam Const: GENERAL APPEARANCE: cooperative and comfortable ORIENTATION/CONSCIOUSNESS: Yes awake, Yes oriented to person, Yes oriented to place and Yes oriented to time HENMT: COMMON NORMALS: normocephalic, atraumatic and hearing grossly normal bilaterally HEAD & SCALP: normocephalic and atraumatic Resp: COMMON NORMALS: normal respiratory effort, No retractions and No use of accessory muscles AUSCULTATION: rhonchi and wheezes Cardio: COMMON NORMALS: regular rate, regular rhythm and No murmurs present (Cardio) RATE: regular rate RHYTHM: regular rhythm GI: COMMON NORMALS: Soft to palpation and No hepatosplenomegaly present AUSCULTATION: Yes normoactive bowel sounds PALPATION: Yes Soft to palpation, No Tenderness to palpation present (GI), No Guarding due to palpation present (GI) and Yes No hepatosplenomegaly present Extremity: COMMON NORMALS: normal to inspection, capillary refill normal, no clubbing, cyanosis or edema, no calf tenderness and no pedal edema Neuro: SENSORIUM/ORIENTATION: Yes oriented to person, Yes oriented to place and Yes oriented to time Skin: COMMON NORMALS: no rashes or lesions noted GENERAL SKIN EXAM: no rashes or lesions noted Course Vital Signs: Vital signs: Vital Signs Temperature 97.8 F 12/14/22 08:06 Pulse Rate 67 12/14/22 10:57 Respiratory Rate 18 12/14/22 08:06 Blood Pressure 150/83 12/14/22 10:57 Pulse Oximetry 95 12/14/22 10:57 Oxygen Delivery Me thod Room Air 12/14/22 09:24 MDM - SOB/Dyspnea Medical Decision Making Hemoptysis stopped after administration of the TXA. Discussed Dr. Ramirez he recommends discharge and early follow-up in his office. He has previously seen this patient in bronchoscopy feels a best intervention if we are not able to get stop what to be interventional radiology for embolectomy. Since it has been stopped does not need to pursue this today. He advised patient this may not recur it may recur within 24 hours. Discussed this all with the patient discussed that we do not have interventional radiology services here so will need to be transferred if that were a recurrence. Patient expressed understanding of this as he had told us that the last visit he really prefer not to be transferred. Continue his previously prescribed medications. Medical Records I reviewed the patient's medical records. Lab Data I reviewed the patient's lab results. 12/14/22 08:39 12/14/22 08:39 Labs/Radiology: Laboratory Results WBC 15.3 10^3/uL (4.0-10.0) H 12/14/22 08:39 RBC 3.84 10^6/uL (4.1-5.3) L 12/14/22 08:39 Hgb 12.8 g/dL (11.7-16.6) 12/14/22 08:39 Hct 38.7 % (42.0-52.0) L 12/14/22 08:39 MCV 100.8 fl (80-94) H 12/14/22 08:39 MCH 33.3 pg (28.0-34.0) 12/14/22 08:39 MCHC 33.1 g/dL (30.0-36.0) 12/14/22 08:39 RDW 13.7 % (12.1-15.1) 12/14/22 08:39 Plt Count 287 10^3/cmm (130-400) 12/14/22 08:39 MPV 9.3 fL (7.4-10.4) 12/14/22 08:39 Neut % (Auto) 78.8 % 12/14/22 08:39 Lymph % (Auto) 9.4 % 12/14/22 08:39 [place] % (Auto) 8.9 % 12/14/22 08:39 Eos % (Auto) 2.1 % 12/14/22 08:39 Baso % (Auto) 0.3 % 12/14/22 08:39 Neut # (Auto) 12.05 10^3/uL (1.8-7.7) H 12/14/22 08:39 Lymph # (Auto) 1.4 10^3/uL (0.8-4.8) 12/14/22 08:39 [place] # (Auto) 1.4 10^3/uL (0.2-0.9) H 12/14/22 08:39 Eos # (Auto) 0.3 10^3/uL (0.0-0.8) 12/14/22 08:39 Baso # (Auto) 0.0 10^3/uL (0.0-0.1) 12/14/22 08:39 Nucleated RBC % (auto) 0 % 12/14/22 08:39 Nucleated RBCs # 0.0 /100WBC 12/14/22 08:39 PT 16.00 SECONDS (12.1-14.9) H 12/14/22 08:39 INR 1.24 (0.8-1.2) H 12/14/22 08:39 APTT 30.3 SECONDS (23.9-36.7) 12/14/22 08:39 Sodium 134 mmol/L (136-145) L 12/14/22 08:39 Potassium 4.5 mmol/L (3.5-5.1) 12/14/22 08:39 Chloride 102 mmol/L (98-107) 12/14/22 08:39 Carbon Dioxide 23 mmol/L (22-29) 12/14/22 08:39 Anion Gap 13.5 (5-19) 12/14/22 08:39 BUN 11 mg/dL (8-23) 12/14/22 08:39 Creatinine 0.9 mg/dL (0.7-1.2) 12/14/22 08:39 GFR Calculation Not Reportable 12/14/22 08:39 Glucose 112 mg/dL (65-115) 12/14/22 08:39 Calculated Osmolality 278 mOsm/kg (285-295) L 12/14/22 08:39 Calcium 8.5 mg/dL (8.5-10.5) 12/14/22 08:39 Total Bilirubin 0.4 mg/dL (0.15-1.2) 12/14/22 08:40 Direct Bilirubin 0.20 mg/dL (0.00-0.30) 12/14/22 08:40 AST 26 U/L (0-40) 12/14/22 08:40 ALT 17 U/L (0-41) 12/14/22 08:40 Alkaline Phosphatase 134 U/L (40-130) H 12/14/22 08:40 Total Protein 8.2 g/dL (6.6-8.7) 12/14/22 08:40 Albumin 2.8 g/dL (3.5-5.2) L 12/14/22 08:40 Globulin 5.4 g/dL (1.3-4.6) H 12/14/22 08:40 Discharge Plan Discharge Patient Disposition: Home Clinical Impression: Cough with hemoptysis, COPD (chronic obstructive pulmonary disease), Chronic bronchitis with acute exacerbation Condition: Stable Prescriptions: No Action cholecalciferol (vitamin D3) 1,000 unit capsule 1,000 unit PO QAM aspirin 81 mg tablet,delayed release (DR/EC) 81 mg PO BEDTIME melatonin 10 mg capsule 10 mg PO BEDTIME (DME) Diabetic Shoes with 3 pairs of inserts See Rx Instructions .Route .MEDSUPPLY Qty: 1 0RF Rx Instructions: As directed by HOME- Accommodative should that will allow room for the patients AFO budesonide-formoterol [Symbicort] 160-4.5 mcg/actuation HFA aerosol inhaler 2 puff inhalation BID Qty: 10.2 6RF Rx Instructions: 340B pricing, ordering on behalf of Dr Masters albuterol sulfate 2.5 mg /3 mL (0.083 %) solution for nebulization 2.5 mg inhalation Q6H PRN (Reason: shortness of breath or wheezing) Qty: 180 5RF albuterol sulfate 90 mcg/actuation HFA aerosol inhaler 2 puff inhalation Q6H PRN (Reason: shortness of breath or wheezing) Qty: 3 3RF sotalol 120 mg tablet 120 mg PO QAM Qty: 90 3RF cyanocobalamin (vitamin B-12) [Vitamin B-12] 500 mcg Tablet 500 mcg PO QAM sulfamethoxazole-trimethoprim [Bactrim DS] 800-160 mg tablet 1 tab PO BID 7 Days Qty: 14 0RF cetirizine 10 mg tablet 10 mg PO QAM benzonatate 200 mg capsule 200 mg PO TID PRN (Reason: Cough) sotalol 80 mg tablet 80 mg PO QPM Vitamin C 500 mg Tablet 500 mg PO QAM magnesium 250 mg Tablet 500 mg PO QAM CoQ-10 100 mg Capsule 100 mg PO QAM Metamucil 3.4 gram/5.4 gram Powder 2 tsp PO QAM Probiotic Blend 2 billion cell-50 mg Capsule 1 cap PO TID niacin 100 mg tablet 100 mg PO QAM montelukast 10 mg tablet 10 mg PO QAM zinc acetate 50 mg (zinc) Capsule 50 mg PO QAM tamsulosin [Flomax] 0.4 mg capsule 0.4 mg PO BEDTIME rosuvastatin 20 mg tablet 20 mg PO BEDTIME Discharge Orders: Discharge ED (Routine); Ordered 12/14/22 Ordered By: Jayden Mtz Referrals: Kade Proctor MD [Primary Care Provider] - Discharge Diet: Usual diet Discharge Activity: Limit activity as instructed Patient Instructions: Opioid Safety, Pain Management Activity Restrictions/Additional Instructions: Avoid exertional activity avoid heat and humidity as well. Continue to take to antibiotics and nebulizers inhaled medications previously prescribed. Call Dr. Ramirez's office immediately after your discharge from the emergency room. I have discussed your case with him today and he is anticipating following up with you in the office in the next 1 to 2 days. If you have recurrence or worsening of the coughing up of blood return to the emergency room Coding Level of Care Code ED Well Service Floor Worker for Salena Silva
[2022-12-14 08:44] LABS: Basophils % 0.3 %; Eosinophils # 0.3 10^3/uL (0.0-0.8); Eosinophils % 2.1 %; Hematocrit 38.7 % (42.0-52.0); Hemoglobin 12.8 g/dL (11.7-16.6); Lymphocytes # 1.4 10^3/uL (0.8-4.8); Lymphocytes % 9.4 %; Mean Corpuscular HGB Conc 33.1 g/dL (30.0-36.0); Mean Corpuscular Hemoglobin 33.3 pg (28.0-34.0); Mean Corpuscular Volume 100.8 fl (80-94); Mean Platelet Volume 9.3 fL (7.4-10.4); Monocytes # 1.4 10^3/uL (0.2-0.9); Monocytes % 8.9 %; Neutrophils # 12.05 10^3/uL (1.8-7.7); Neutrophils % 78.8 %; Nucleated Red Blood Cells % 0 %; Platelet Count 287 10^3/cmm (130-400); Red Blood Count 3.84 10^6/uL (4.1-5.3); Red Cell Distribution Width 13.7 % (12.1-15.1); White Blood Count 15.3 10^3/uL (4.0-10.0)
[2022-12-14 08:56] LABS: INR 1.24 (0.8-1.2)
[2022-12-14 08:57] LABS: Partial Thromboplastin Time 30.3 SECONDS (23.9-36.7)
[2022-12-14 09:05] LABS: Anion Gap 13.5 (5-19); Blood Urea Nitrogen 11 mg/dL (8-23); Calcium 8.5 mg/dL (8.5-10.5); Carbon Dioxide 23 mmol/L (22-29); Chloride 102 mmol/L (98-107); Glucose 112 mg/dL (65-115); Osmolality Calculated 278 mOsm/kg (285-295); Potassium 4.5 mmol/L (3.5-5.1); Sodium 134 mmol/L (136-145)
--- NOTE | 2022-12-14 09:18 | PC.PHAR ---
pt and pts verified pts medications-pt and pts states the pt takes sotalol 120mg qam filled 11/30/22 90d/s and sotalol 80mg qpm ext shows last filled 06/11/22 90d/s-pts states the pt just started taking niacin 100mg qam about 2 weeks ago-notes are made in the pharmacy comments
[2022-12-14 09:24] VITALS: BP 186/80; PULSE 70; O2SAT 96
[2022-12-14 09:30] LABS: Alanine Aminotransferase 17 U/L (0-41); Albumin Level 2.8 g/dL (3.5-5.2); Alkaline Phosphatase 134 U/L (40-130); Aspartate Amino Transferase 26 U/L (0-40); Globulin 5.4 g/dL (1.3-4.6); Total Bilirubin 0.4 mg/dL (0.15-1.2); Total Protein 8.2 g/dL (6.6-8.7)
[2022-12-14 10:57] VITALS: BP 150/83; PULSE 67; O2SAT 95
== END 2022-12-14 10:58 | disposition home or self-care (01) ==
PROVIDERS: Emergency Provider Family Medicine; PCP Family Medicine Adult Medicine
DX: R04.2 Hemoptysis (principal); J44.1 Chronic obstructive pulmonary disease with (acute) exacerbation; Z79.82 Long term (current) use of aspirin; Z87.891 Personal history of nicotine dependence; E11.9 Type 2 diabetes mellitus without complications; E78.5 Hyperlipidemia, unspecified; Z95.0 Presence of cardiac pacemaker; I10 Essential (primary) hypertension
CPT/HCPCS: 36415; 71045; 80048; 80076; 85025; 85610; 85730; 96365; 99284

== ENCOUNTER 2022-12-14 21:38 | Emergency (ER) | payer MEDICARE, SELFPAY ==
[2022-12-14 21:49] VITALS: BP 180/88; PULSE 88; RESP 14; TEMP 36.7; O2SAT 93; BMI 27.3
--- NOTE | 2022-12-14 23:12 | XRR_ITS ---
PROCEDURE INFORMATION: Exam: XR Chest Exam date and time: 12/14/2022 11:17 PM Age: 87 years old Clinical indication: Prior surgery; Surgery date: 6+ months; Surgery type: Pacer; Patient HX: C/O hemoptysis; Additional info: Cough up blood TECHNIQUE: Imaging protocol: Radiologic exam of the chest. Views: 1 view. COMPARISON: 1. CR XR chest 1V portable 12/14/2022 8:[address] angio chest PE protcl 12/12/2022 6:17 PM FINDINGS: Lungs: Lungs are unchanged. Stable chronic lung changes, with superimposed patchy airspace disease in the left mid lung. Previously noted left upper lobe cavitary lesion grossly unchanged, though better visualized on CT. No new infiltrate or pulmonary edema. Pleural spaces: Unremarkable. No pleural effusion. No pneumothorax. Heart/Mediastinum: Cardiomediastinal silhouette is stable. Left-sided pacemaker unchanged. Bones/joints: No acute osseous abnormality. XR/XR chest 1V portable [id number] IMPRESSION: 1. No significant interval change. 2. Stable chronic lung changes, with superimposed patchy airspace disease in the left mid lung. 3. Previously noted left upper lobe cavitary lesion grossly unchanged, though better visualized on CT. 4. No new infiltrate or pulmonary edema.
--- NOTE | 2022-12-14 23:25 | ED_ITS ---
HPI - General Adult General: Chief complaint: General Medical Stated complaint: coughing up blood Time Seen by Provider: 12/14/22 23:11 History of Present Illness: 87-year-old male patient comes in today for complaints of cough with blood in the sputum. Patient noted a large amount when he coughed this evening prior to going to bed. Patient has been hitting earlier today and was given a dose of TXA and thought he might need another dose. Patient reported only that 1 episode. Patient appears nontoxic. Patient appears no acute distress. Patient has known lung cancer and has a lesion that he believes is leaking some. Patient is presently being treated for pneumonia 2. Review of Systems General: Reports: 10 or more systems reviewed and unremarkable except in HPI and below Resp: Reports: hemoptysis PFSH ED PFSH: Medical History A-fib AAA (abdominal aortic aneurysm) BPH loc w urin obs/LUTS Carotid artery disease Chronic bronchitis with acute exacerbation Chronic cough Depression Diabetes Diverticulosis Dyslipidemia History of cardiac pacemaker Hypertension Low serum albumin Prostatic hypertrophy Pulmonary Mycobacterium avium complex (MAC) infection Surgical History History of arthroplasty of left ankle History of CEA (carotid endarterectomy) History of colonoscopy (~06/2019) History of laparoscopic cholecystectomy Family History Other CAD (coronary artery disease) Diarrhea Family history of premature coronary artery disease Denies family history of Rheumatoid arthritis Diabetes Lupus Anesthesia complication Bleeding disorder Lung disease Cancer Hypertension Stroke Social History Smoking and tobacco status: former smoker Quit status (tobacco): has quit using tobacco Year quit tobacco: 1975 1ppw-2ppd x27yrs Second hand smoke exposure: No Smoking risk assessment/counseling performed?: Yes Alcohol intake: never Desire information about alcohol rehabilitation?: No Counseling given: No Substance/Drug Use: never Desire information about substance/drug rehabilitation?: No Counseling given: No Adopted: No Caregiver/support person: Yes Lives independently: Yes Household members: spouse Housing: House Marital status: Highest education level completed: High School Graduate service: No Current occupational status: retired Current occupational exposures/hazards: No Pets and animals: No Sexually active: No Do you think of yourself as: Straight/Heterosexual Current gender identity: Male Kiara/Moravian: None Special kiara needs: No Agree to transfusion: No Financial difficulty paying for basics: Decline to Answer Physical Exam Const: COMMON NORMALS: alert Neck/C-Spine: COMMON NORMALS: full ROM Resp: COMMON NORMALS: normal respiratory effort AUSCULTATION: diminished lung sounds Cardio: COMMON NORMALS: regular rate and regular rhythm RATE: regular rate RHYTHM: regular rhythm Extremity: COMMON NORMALS: no pedal edema Neuro: SENSORIUM/ORIENTATION: Yes alert Skin: COMMON NORMALS: turgor normal GENERAL SKIN EXAM: turgor normal Course Vital Signs: Vital signs: Vital Signs Temperature 98.0 F 12/14/22 21:49 Pulse Rate 63 12/14/22 23:41 Respiratory Rate 16 12/14/22 23:41 Blood Pressure 169/67 12/14/22 23:41 Pulse Oximetry 93 12/14/22 23:41 Oxygen Delivery Me thod Room Air 12/14/22 23:41 MDM - General Adult Medical Decision Making 87-year-old male patient comes in today with cough with productive sputum. On exam patient has decreased breath sounds in the lung lowry. No edema is noted. Vital signs are normal except for some elevated blood pressure. Differential diagnosis includes pleural effusion, hemoptysis, lung cancer, pneumonia, anemia. Chest x-ray was unremarkable. Patient was given another dose of TXA. Patient will follow-up with joint finisher in the morning at scheduled appointment. Recommend return to the ER for worsening symptoms such as severe chest pain or shortness of breath. Lab Data 12/14/22 23:39 Radiology Impressions Chest X-Ray 12/14/22 23:12 IMPRESSION: 1. No significant interval change. 2. Stable chronic lung changes, with superimposed patchy airspace disease in the left mid lung. 3. Previously noted left upper lobe cavitary lesion grossly unchanged, though better visualized on CT. 4. No new infiltrate or pulmonary edema. Laboratory Results WBC Cancelled 12/14/22 23:39 Corrected WBC Cancelled 12/14/22 23:39 RBC Cancelled 12/14/22 23:39 Hgb Cancelled 12/14/22 23:39 Hct Cancelled 12/14/22 23:39 MCV Cancelled 12/14/22 23:39 MCH Cancelled 12/14/22 23:39 MCHC Cancelled 12/14/22 23:39 RDW Cancelled 12/14/22 23:39 Plt Count Cancelled 12/14/22 23:39 MPV Cancelled 12/14/22 23:39 Gran % Cancelled 12/14/22 23:39 Neut % (Auto) Cancelled 12/14/22 23:39 Lymph % (Auto) Cancelled 12/14/22 23:39 [place] % (Auto) Cancelled 12/14/22 23:39 Eos % (Auto) Cancelled 12/14/22 23:39 Baso % (Auto) Cancelled 12/14/22 23:39 Neut # (Auto) Cancelled 12/14/22 23:39 Lymph # (Auto) Cancelled 12/14/22 23:39 [place] # (Auto) Cancelled 12/14/22 23:39 Eos # (Auto) Cancelled 12/14/22 23:39 Baso # (Auto) Cancelled 12/14/22 23:39 Absolute Gran (auto) Cancelled 12/14/22 23:39 Nucleated RBC % (auto) Cancelled 12/14/22 23:39 Nucleated RBCs # Cancelled 12/14/22 23:39 Discharge Plan Discharge Patient Disposition: Home Clinical Impression: Cough with hemoptysis, Pulmonary cavitary lesion Condition: Stable Prescriptions: No Action cholecalciferol (vitamin D3) 1,000 unit capsule 1,000 unit PO QAM aspirin 81 mg tablet,delayed release (DR/EC) 81 mg PO BEDTIME melatonin 10 mg capsule 10 mg PO BEDTIME (DME) Diabetic Shoes with 3 pairs of inserts See Rx Instructions .Route .MEDSUPPLY Qty: 1 0RF Rx Instructions: As directed by HOME- Accommodative should that will allow room for the p atients AFO budesonide-formoterol [Symbicort] 160-4.5 mcg/actuation HFA aerosol inhaler 2 puff inhalation BID Qty: 10.2 6RF Rx Instructions: 340B pricing, ordering on behalf of Dr Masters albuterol sulfate 2.5 mg /3 mL (0.083 %) solution for nebulization 2.5 mg inhalation Q6H PRN (Reason: shortness of breath or wheezing) Qty: 180 5RF albuterol sulfate 90 mcg/actuation HFA aerosol inhaler 2 puff inhalation Q6H PRN (Reason: shortness of breath or wheezing) Qty: 3 3RF sotalol 120 mg tablet 120 mg PO QAM Qty: 90 3RF cyanocobalamin (vitamin B-12) [Vitamin B-12] 500 mcg Tablet 500 mcg PO QAM sulfamethoxazole-trimethoprim [Bactrim DS] 800-160 mg tablet 1 tab PO BID 7 Days Qty: 14 0RF cetirizine 10 mg tablet 10 mg PO QAM benzonatate 200 mg capsule 200 mg PO TID PRN (Reason: Cough) sotalol 80 mg tablet 80 mg PO QPM Vitamin C 500 mg Tablet 500 mg PO QAM magnesium 250 mg Tablet 500 mg PO QAM CoQ-10 100 mg Capsule 100 mg PO QAM Metamucil 3.4 gram/5.4 gram Powder 2 tsp PO QAM Probiotic Blend 2 billion cell-50 mg Capsule 1 cap PO TID niacin 100 mg tablet 100 mg PO QAM montelukast 10 mg tablet 10 mg PO QAM zinc acetate 50 mg (zinc) Capsule 50 mg PO QAM tamsulosin [Flomax] 0.4 mg capsule 0.4 mg PO BEDTIME rosuvastatin 20 mg tablet 20 mg PO BEDTIME Discharge Orders: Discharge ED (Routine); Ordered 12/15/22 Ordered By: Ryan Lima Referrals: Kade Proctor MD [Primary Care Provider] - Discharge Diet: Usual diet Discharge Activity: Increase activity as tolerated Patient Instructions: Coughing Up Blood (Hemoptysis) (ED) Activity Restrictions/Additional Instructions: Keep appointment with Dr. Ramirez at schedule in the morning. Drink plenty of water and fluids. Continue routine care. Return to ER for worsening symptoms such as increased shortness of breath, severe chest pain, or new concerns. Coding Level of Care Code ED Sales Operations Coordinator for Salena Silva
[2022-12-14 23:41] VITALS: BP 169/67; PULSE 63; RESP 16; O2SAT 93
[2022-12-15 00:18] LABS: Basophils % 0.3 %; Eosinophils # 0.4 10^3/uL (0.0-0.8); Eosinophils % 2.8 %; Hematocrit 38.4 % (42.0-52.0); Hemoglobin 12.3 g/dL (11.7-16.6); Lymphocytes # 1.9 10^3/uL (0.8-4.8); Lymphocytes % 12.2 %; Mean Corpuscular Hemoglobin 32.9 pg (28.0-34.0); Mean Corpuscular Volume 102.7 fl (80-94); Mean Platelet Volume 9.7 fL (7.4-10.4); Monocytes # 1.5 10^3/uL (0.2-0.9); Monocytes % 9.9 %; Neutrophils # 11.53 10^3/uL (1.8-7.7); Neutrophils % 74.2 %; Nucleated Red Blood Cells % 0 %; Platelet Count 277 10^3/cmm (130-400); Red Blood Count 3.74 10^6/uL (4.1-5.3); Red Cell Distribution Width 13.5 % (12.1-15.1); White Blood Count 15.5 10^3/uL (4.0-10.0)
[2022-12-15 00:33] VITALS: BP 143/78; PULSE 75; RESP 18; O2SAT 92
== END 2022-12-15 00:35 | disposition home or self-care (01) ==
PROVIDERS: Emergency Provider Nurse Practitioner Family; PCP Family Medicine Adult Medicine
DX: R04.2 Hemoptysis (principal); J98.4 Other disorders of lung; Z79.82 Long term (current) use of aspirin; Z87.891 Personal history of nicotine dependence; E11.9 Type 2 diabetes mellitus without complications; E78.5 Hyperlipidemia, unspecified; Z95.0 Presence of cardiac pacemaker; I10 Essential (primary) hypertension; A31.0 Pulmonary mycobacterial infection; J44.9 Chronic obstructive pulmonary disease, unspecified; J45.40 Moderate persistent asthma, uncomplicated; I25.118 Atherosclerotic heart disease of native coronary artery with other forms of angina pectoris; M35.3 Polymyalgia rheumatica; R05.3 Chronic cough
CPT/HCPCS: 36415; 71045; 85025; 96365; 99214; 99284

== ENCOUNTER → 2022-12-15 12:24 | Outpatient (BNVA) | payer MEDICARE, SELFPAY | PROVIDERS: PCP Family Medicine Adult Medicine; Visit Provider Internal Medicine Pulmonary Disease | DX: R04.2 Hemoptysis; A31.0 Pulmonary mycobacterial infection; J98.4 Other disorders of lung; J44.9 Chronic obstructive pulmonary disease, unspecified; J45.40 Moderate persistent asthma, uncomplicated; Z87.891 Personal history of nicotine dependence; I25.118 Atherosclerotic heart disease of native coronary artery with other forms of angina pectoris; Z95.0 Presence of cardiac pacemaker; M35.3 Polymyalgia rheumatica; R05.3 Chronic cough | CPT/HCPCS: 99214 ==

== ENCOUNTER → 2022-12-17 15:00 | Outpatient (BNVA) | payer MEDICARE, SELFPAY | PROVIDERS: PCP Family Medicine Adult Medicine; Visit Provider Student in an Organized Health Care Education/Training Program | DX: R04.2 Hemoptysis (principal); J18.9 Pneumonia, unspecified organism; J98.4 Other disorders of lung | CPT/HCPCS: 99214 ==

== ENCOUNTER 2022-12-18 08:58 | Outpatient (CLI) | payer MEDICARE, SELFPAY ==
[2022-12-18 11:37] LABS: Adenovirus Not Detected (NOT DETECT); Chlamydia Pneumoniae Not Detected (NOT DETECT); Coronavirus 229E,HKU1,NL63,OC4 Not Detected (NOT DETECT); Human Metapneumovirus Not Detected (NOT DETECT); Human Rhinovirus/Enterovirus Detected (NOT DETECT); Influenza A Not Detected (NOT DETECT); Influenza A H1 Not Detected (NOT DETECT); Influenza A H1-2009 Not Detected (NOT DETECT); Influenza A H3 Not Detected (NOT DETECT); Influenza B Not Detected (NOT DETECT); Mycoplasma Pneumoniae Not Detected (NOT DETECT); Parainfluenza Virus Type 1 Not Detected (NOT DETECT); Parainfluenza Virus Type 2 Not Detected (NOT DETECT); Parainfluenza Virus Type 3 Not Detected (NOT DETECT); Parainfluenza Virus Type 4 Not Detected (NOT DETECT); Respiratory Syncytial Virus A Not Detected (NOT DETECT); Respiratory Syncytial Virus B Not Detected (NOT DETECT); SARS-COV-2 Not Detected (NOT DETECT)
== END 2022-12-18 08:59 | disposition home or self-care (01) ==
PROVIDERS: PCP Family Medicine Adult Medicine; Visit Provider Student in an Organized Health Care Education/Training Program
DX: J18.9 Pneumonia, unspecified organism (principal); R04.2 Hemoptysis
CPT/HCPCS: 87015; 87070; 87077; 87116; 87186; 87205; 87206; 87486; 87581; 87633; 87801

== ENCOUNTER → 2022-12-31 09:25 | Outpatient (BNVA) | payer MEDICARE, SELFPAY | PROVIDERS: PCP Family Medicine Adult Medicine; Visit Provider Thoracic Surgery (Cardiothoracic Vascular Surgery) | DX: I77.9 Disorder of arteries and arterioles, unspecified (principal); Z87.891 Personal history of nicotine dependence; Z95.0 Presence of cardiac pacemaker | CPT/HCPCS: 99213 ==

== ENCOUNTER 2023-01-19 08:38 | Outpatient (CLI) | payer MEDICARE, SELFPAY ==
[2023-01-19 09:43] LABS: Basophils % 0.5 %; Eosinophils # 0.4 10^3/uL (0.0-0.8); Eosinophils % 5.2 %; Hematocrit 40.1 % (37-53); Lymphocytes # 1.5 10^3/uL (0.8-4.8); Lymphocytes % 20.2 %; Mean Corpuscular HGB Conc 31.9 g/dL (30-55); Mean Corpuscular Hemoglobin 32.8 pg (27-33); Mean Corpuscular Volume 102.8 fl (82-101); Mean Platelet Volume 9.8 fL (7.4-10.4); Monocytes # 0.7 10^3/uL (0.2-0.9); Monocytes % 9.3 %; Neutrophils # 4.83 10^3/uL (1.8-7.7); Neutrophils % 64.4 %; Nucleated Red Blood Cells % 0 %; Platelet Count 256 10^3/cmm (157-399); Red Cell Distribution Width 13.7 % (12.1-15.1); White Blood Count 7.51 10^3/uL (3.29-11.43)
[2023-01-19 09:58] LABS: Alanine Aminotransferase 20 U/L (0-41); Alkaline Phosphatase 143 U/L (40-130); Anion Gap 12.3 (5-19); Aspartate Amino Transferase 30 U/L (0-40); Blood Urea Nitrogen 16 mg/dL (8-23); Calcium 8.8 mg/dL (8.5-10.5); Carbon Dioxide 25 mmol/L (22-29); Chloride 106 mmol/L (98-107); Globulin 5.4 g/dL (1.3-4.6); Glucose 99 mg/dL (65-115); Osmolality Calculated 289 mOsm/kg (285-295); Potassium 4.3 mmol/L (3.5-5.1); Sodium 139 mmol/L (136-145); Total Bilirubin 0.3 mg/dL (0.15-1.2); Total Protein 8.4 g/dL (6.6-8.7)
== END 2023-01-19 08:39 | disposition home or self-care (01) ==
PROVIDERS: PCP Family Medicine Adult Medicine; Visit Provider Student in an Organized Health Care Education/Training Program
DX: A31.0 Pulmonary mycobacterial infection (principal); Z79.899 Other long term (current) drug therapy
CPT/HCPCS: 36415; 80053; 85025

== ENCOUNTER → 2023-02-05 08:25 | Outpatient (BNVA) | payer MEDICARE, SELFPAY | PROVIDERS: PCP Family Medicine Adult Medicine; Visit Provider Internal Medicine Pulmonary Disease | DX: A31.0 Pulmonary mycobacterial infection (principal); J44.9 Chronic obstructive pulmonary disease, unspecified; J45.40 Moderate persistent asthma, uncomplicated; Z87.891 Personal history of nicotine dependence; I25.118 Atherosclerotic heart disease of native coronary artery with other forms of angina pectoris; Z95.0 Presence of cardiac pacemaker; M35.3 Polymyalgia rheumatica; R05.3 Chronic cough; J82.83 Eosinophilic asthma; R91.8 Other nonspecific abnormal finding of lung field | CPT/HCPCS: 99214 ==

== ENCOUNTER 2023-02-25 08:58 | Outpatient (CLI) | payer MEDICARE, SELFPAY ==
[2023-02-25 09:23] LABS: Basophils % 0.1 %; Eosinophils # 0.3 10^3/uL (0.0-0.8); Eosinophils % 4.3 %; Hematocrit 40.6 % (37-53); Lymphocytes # 1.5 10^3/uL (0.8-4.8); Lymphocytes % 19.4 %; Mean Corpuscular HGB Conc 32.8 g/dL (30-55); Mean Corpuscular Hemoglobin 33.3 pg (27-33); Mean Corpuscular Volume 101.8 fl (82-101); Mean Platelet Volume 9.9 fL (7.4-10.4); Monocytes # 0.6 10^3/uL (0.2-0.9); Monocytes % 7.6 %; Neutrophils % 68.3 %; Nucleated Red Blood Cells % 0 %; Platelet Count 199 10^3/cmm (157-399); Red Blood Count 3.99 10^6/uL (3.85-5.65); Red Cell Distribution Width 13.4 % (12.1-15.1); White Blood Count 7.47 10^3/uL (3.29-11.43)
[2023-02-25 09:47] LABS: Alanine Aminotransferase 15 U/L (0-41); Albumin Level 3.3 g/dL (3.5-5.2); Alkaline Phosphatase 148 U/L (40-130); Aspartate Amino Transferase 25 U/L (0-40); Chloride 105 mmol/L (98-107); Potassium 4.2 mmol/L (3.5-5.1); Sodium 136 mmol/L (136-145)
[2023-02-25 10:08] LABS: Anion Gap 12.2 (5-19); Blood Urea Nitrogen 14 mg/dL (8-23); Calcium 8.7 mg/dL (8.5-10.5); Carbon Dioxide 23 mmol/L (22-29); Globulin 4.7 g/dL (1.3-4.6); Glucose 158 mg/dL (65-115); Osmolality Calculated 286 mOsm/kg (285-295); Total Bilirubin 0.5 mg/dL (0.15-1.2)
== END 2023-02-25 08:59 | disposition home or self-care (01) ==
LOC: LAB 09:01
PROVIDERS: PCP Family Medicine Adult Medicine; Visit Provider Student in an Organized Health Care Education/Training Program
DX: A31.0 Pulmonary mycobacterial infection (principal)
CPT/HCPCS: 36415; 80053; 85025

== ENCOUNTER → 2023-03-05 11:26 | Outpatient (BNVA) | payer MEDICARE, SELFPAY | PROVIDERS: PCP Family Medicine Adult Medicine; Visit Provider Family Medicine Adult Medicine | DX: E11.9 Type 2 diabetes mellitus without complications (principal); N40.1 Benign prostatic hyperplasia with lower urinary tract symptoms; I10 Essential (primary) hypertension | CPT/HCPCS: 80053; 83036; 85025; G0103 ==

== ENCOUNTER → 2023-03-09 12:32 | Outpatient (BNVA) | payer MEDICARE, SELFPAY | PROVIDERS: PCP Family Medicine Adult Medicine; Visit Provider Internal Medicine | DX: J44.9 Chronic obstructive pulmonary disease, unspecified (principal); I77.9 Disorder of arteries and arterioles, unspecified; R29.898 Other symptoms and signs involving the musculoskeletal system; I25.118 Atherosclerotic heart disease of native coronary artery with other forms of angina pectoris; Z87.891 Personal history of nicotine dependence; I10 Essential (primary) hypertension; Z95.0 Presence of cardiac pacemaker; E78.5 Hyperlipidemia, unspecified | CPT/HCPCS: 99214 ==

== ENCOUNTER → 2023-03-11 14:42 | Outpatient (BNVA) | payer MEDICARE, SELFPAY | PROVIDERS: PCP Family Medicine Adult Medicine; Visit Provider Student in an Organized Health Care Education/Training Program | DX: A31.0 Pulmonary mycobacterial infection (principal); J18.9 Pneumonia, unspecified organism; R04.2 Hemoptysis; J98.4 Other disorders of lung | CPT/HCPCS: 99215 ==

== ENCOUNTER 2023-03-12 09:23 | Outpatient (CLI) | payer MEDICARE, SELFPAY | END 2023-03-12 09:24 | disposition home or self-care (01) | PROVIDERS: PCP Family Medicine Adult Medicine; Visit Provider Student in an Organized Health Care Education/Training Program | DX: A31.0 Pulmonary mycobacterial infection (principal) | CPT/HCPCS: 87015; 87116; 87206; 87801 ==

== ENCOUNTER 2023-04-07 11:40 | Outpatient (CLI) | payer MEDICARE, SELFPAY ==
--- NOTE | 2023-04-07 12:00 | CT_ITS ---
WS: [id number] CT chest wo con [id number] HISTORY: Lung nodule f/u TECHNIQUE: Axial imaging performed through the thorax. Coronal and sagittal reformats are submitted. All CT scans at [facility] use at least one of these dose optimization techniques: automated exposure control; mA and/or kV adjustment per patient size (includes targeted exams where dose is mat ched to clinical indication); or iterative reconstruction. CONTRAST: None DLP: 478.19 mGy.cm COMPARISON: CT 12/12/2022, 06/09/2021 Lungs and central airway: Marked pulmonary hyperexpansion. Overall improved aeration throughout both lungs. Cavitary lesion previously described in the LEFT upper lobe is still present but decreased in size. Mass measures 1.4 x 0.8 cm. There is a juxtapleural nodule measuring 1.0 cm which has also decr eased in size. Bilateral peripheral interstitial thickening and a few scattered opacifications all ap pear slightly improved. Reidentified is cylindrical bronchiectasis LEFT upper and lower lobes and RIG HT upper lobe. Subsegmental atelectasis at the LEFT lung base. Improved aeration of the bronchi in th e LEFT lower lobe. Early changes of honeycombing at the anterior RIGHT lung base. Pleura: No pleural effusions. Mild pleural thickening. Heart and pericardium: Mild cardiomegaly. Dual-lead LEFT subclavian pacer. Mediastinum and john: No adenopathy. Vessels: Mild atherosclerosis aorta. Normal sized pulmonary artery. Chest wall and lower neck: No soft tissue masses. Upper abdomen: Prior cholecystectomy. Small hiatal hernia. Splenic granulomata. No adrenal mass. Inco mpletely visualized 3.1 cm cyst upper pole LEFT kidney. In the transverse colon moderate diverticular burden. Osseous structures: Moderate increase in thoracic kyphosis. 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 IMPRESSION: 1. Overall improvement in aeration of both lungs since 12/12/2022. 2. Cavitary lesion in the LEFT upper lobe with juxtapleural nodule have improved. Residual cavity now measures 1.4 x 0.8 cm. The juxtapleural nodule is 1.0 cm. 3. Interstitial disease with honeycombing at the RIGHT lung base. 4. Subsegmental atelectasis at the LEFT lung base. 5. Bronchiectasis is unchanged. Resolved mucous retention and secretions in the LEFT lower lobe bronc hial tree.
== END 2023-04-07 11:41 | disposition home or self-care (01) ==
LOC: RAD 11:40
PROVIDERS: PCP Family Medicine Adult Medicine; Visit Provider Internal Medicine Pulmonary Disease
DX: J98.4 Other disorders of lung (principal); R91.1 Solitary pulmonary nodule; J98.11 Atelectasis; J47.9 Bronchiectasis, uncomplicated
CPT/HCPCS: 71250; 99214

== ENCOUNTER → 2023-04-07 13:50 | Outpatient (BNVA) | payer MEDICARE, SELFPAY | PROVIDERS: PCP Family Medicine Adult Medicine; Visit Provider Internal Medicine | DX: Z45.010 Encounter for checking and testing of cardiac pacemaker pulse generator [battery] (principal) | CPT/HCPCS: 93296 ==

== ENCOUNTER → 2023-06-01 12:43 | Outpatient (BNVA) | payer MEDICARE, SELFPAY | PROVIDERS: PCP Family Medicine Adult Medicine; Visit Provider Student in an Organized Health Care Education/Training Program | DX: Z79.899 Other long term (current) drug therapy (principal); J18.9 Pneumonia, unspecified organism; R04.2 Hemoptysis; J98.4 Other disorders of lung | CPT/HCPCS: 99215 ==

== ENCOUNTER → 2023-06-02 07:35 | Outpatient (BNVA) | payer MEDICARE, SELFPAY | PROVIDERS: PCP Family Medicine Adult Medicine; Visit Provider Podiatrist Foot & Ankle Surgery | DX: M21.372 Foot drop, left foot (principal); E11.9 Type 2 diabetes mellitus without complications; G62.89 Other specified polyneuropathies; M21.41 Flat foot [pes planus] (acquired), right foot; M21.42 Flat foot [pes planus] (acquired), left foot; E11.42 Type 2 diabetes mellitus with diabetic polyneuropathy | CPT/HCPCS: 99213 ==

== ENCOUNTER → 2023-06-03 08:28 | Outpatient (BNVA) | payer MEDICARE, SELFPAY | PROVIDERS: PCP Family Medicine Adult Medicine; Visit Provider Family Medicine Adult Medicine | DX: I25.118 Atherosclerotic heart disease of native coronary artery with other forms of angina pectoris (principal); Z79.899 Other long term (current) drug therapy | CPT/HCPCS: 80053; 80061; 85025 ==

== ENCOUNTER → 2023-06-10 10:29 | Outpatient (BNVA) | payer MEDICARE, SELFPAY | PROVIDERS: PCP Family Medicine Adult Medicine; Visit Provider Internal Medicine Pulmonary Disease | DX: A31.0 Pulmonary mycobacterial infection (principal); J98.4 Other disorders of lung; J44.9 Chronic obstructive pulmonary disease, unspecified; J45.40 Moderate persistent asthma, uncomplicated; Z87.891 Personal history of nicotine dependence; I25.118 Atherosclerotic heart disease of native coronary artery with other forms of angina pectoris; Z95.0 Presence of cardiac pacemaker; M35.3 Polymyalgia rheumatica; R05.3 Chronic cough | CPT/HCPCS: 99214 ==

== ENCOUNTER 2023-08-06 12:12 | Emergency (ER) | payer MEDICARE, SELFPAY ==
[2023-08-06 12:20] VITALS: BP 142/78; PULSE 74; RESP 17; TEMP 36.7; O2SAT 98; BMI 26.6
--- NOTE | 2023-08-06 13:46 | ED_ITS ---
HPI - Abdominal Pain 2 General: Chief Complaint: Abdominal Pain Stated Complaint: shaking Time Seen by Provider: 08/06/23 13:39 History of Present Illness: 88-year-old man with a history of COPD, hypertension, hyperlipidemia, and BPH who presents to the emergency room with rigors and feeling cold. He says usually when this happens he has diverticulitis. He is having no abdominal pain at this time. also says usually when he has diverticulitis his bowels will break loose . He has had some cough and congestion. He has had some nausea and small amount of vomiting he says. Subjective fevers. No dysuria. No shortness of breath. Review of Systems 2 Narrative: Constitutional symptoms: Negative except as documented in HPI. Skin symptoms: Negative except as documented in HPI. Eye symptoms: Negative except as documented in HPI. ENMT symptoms: Negative except as documented in HPI. Respiratory symptoms: Negative except as documented in HPI. Cardiovascular symptoms: Negative except as documented in HPI. Gastrointestinal symptoms: Negative except as documented in HPI. Genitourinary symptoms: Negative except as documented in HPI. Musculoskeletal symptoms: Negative except as documented in HPI. Neurologic symptoms: Negative except as documented in HPI. Psychiatric symptoms: Negative except as documented in HPI. Endocrine symptoms: Negative except as documented in HPI. PFSH ED 2 PFSH: Medical History Strain of lumbar paraspinal muscle Low serum albumin BPH loc w urin obs/LUTS Chronic cough Depression Chronic bronchitis with acute exacerbation Carotid artery disease Pulmonary Mycobacterium avium complex (MAC) infection Diverticulosis AAA (abdominal aortic aneurysm) A-fib History of cardiac pacemaker Dyslipidemia Hypertension Prostatic hypertrophy Diabetes Surgical History History of colonoscopy (~06/2019) History of laparoscopic cholecystectomy History of arthroplasty of left ankle History of CEA (carotid endarterectomy) Family History Other CAD (coronary artery disease) Diarrhea Family history of premature coronary artery disease Denies family history of Rheumatoid arthritis Diabetes Lupus Anesthesia complication Bleeding disorder Lung disease Cancer Hypertension Stroke Social History Smoking and tobacco/nicotine status: former use of tobacco/nicotine Quit status (tobacco/nicotine): has quit using Year quit tobacco: 1976 1ppw- 2ppd x27yrs Second hand smoke exposure: No Alcohol intake: never Substance/Drug Use: never Adopted: No Caregiver/support person: Yes Lives independently: Yes Household members: spouse Housing: House Marital status: Highest education level completed: High School Graduate service: No Current occupational status: retired Current occupational exposures/hazards: No Pets and animals: No Sexually active: No Do you think of yourself as: Straight/Heterosexual Current gender identity: Male Kiara/Temple: None Special kiara needs: No Agree to transfusion: No Physical Exam 2 Narrative: EXAM NARRATIVE: General: Alert, no acute distress. Skin: Warm, dry. Head: Normocephalic, atraumatic. Neck: Supple, trachea midline. Eye: Extraocular movements are intact. Ears, nose, mouth and throat: tacky oral mucosa Cardiovascular: Regular, Normal peripheral perfusion. Respiratory: Lungs are clear to auscultation, respirations are non-labored, breath sounds are equal, Symmetrical chest wall expansion. Gastrointestinal: Soft, Nontender, Non distended, Normal bowel sounds. Musculoskeletal: Normal ROM, no deformity. Neurological: Alert and oriented, No focal neurological deficit observed. Psychiatric: Cooperative, appropriate mood & affect. Course 2 Vital Signs: Vital signs: Vital Signs Temperature 98.0 F 08/06/23 12:20 Pulse Rate 61 08/06/23 17:30 Respiratory Rate 17 08/06/23 12:20 Blood Pressure 115/39 08/06/23 17:30 Pulse Oximetry 95 08/06/23 17:30 Oxygen Delivery Me thod Room Air 08/06/23 17:30 MDM - Abdominal Pain Medical Decision Making Medical decision making: Differential diagnosis including but not limited to and based on the above HPI, review of systems and physical exam: Patient says he had the shakes which sounds like he was having rigors and possibly was working on a fever. I have concern for infection. This is reasonable. Basic lab work were ordered. Patient had a white count of 16,000 so I ordered a CT of his abdomen. Orders placed to evaluate differential diagnosis based on the above differential, HPI and physical exam Lab Review: Laboratory results were reviewed and interpreted by myself the emergency room physician. Patient has a white count of 16,000. Hemoglobin is 12. BUN and creatinine are 24 and 1.1. Glucose is 131 lactic is 1.5. Flu and COVID are negative. Urinalysis shows 1+ bacteria, leukocyte Estrace and a couple of white cells. Given his symptoms and that he might be somewhat immune compromised with his age and diabetes I am going to treat him for urinary tract infection CT of the abdomen pelvis with contrast: No signs of diverticulitis. He does have diverticulosis. No other acute findings were seen. I reviewed interpreted these films personally. I also reviewed the radiologist read. Reexamination: Patient remained stable. No increased work of breathing. No altered mental status. No focal motor deficits. Lab Data 08/06/23 13:58 08/06/23 13:58 Labs/Radiology: Radiology Impressions Abdomen/Pelvis CT 08/06/23 14:58 IMPRESSION: No acute abdominal findings. Laboratory Results WBC 16.01 10^3/uL (3.29-11.43) H 08/06/23 13:58 RBC 3.79 10^6/uL (3.85-5.65) L 08/06/23 13:58 Hgb 12.60 g/dL (11.27-16.99) 08/06/23 13:58 Hct 39.0 % (37-53) 08/06/23 13:58 MCV 102.9 fl (82-101) H 08/06/23 13:58 MCH 33.2 pg (27-33) H 08/06/23 13:58 MCHC 32.3 g/dL (30-55) 08/06/23 13:58 RDW 12.9 % (12.1-15.1) 08/06/23 13:58 Plt Count 183 10^3/cmm (157-399) 08/06/23 13:58 MPV 10.2 fL (7.4-10.4) 08/06/23 13:58 Neut % (Auto) 93.0 % 08/06/23 13:58 Lymph % (Auto) 2.4 % 08/06/23 13:58 [place] % (Auto) 3.8 % 08/06/23 13:58 Eos % (Auto) 0.2 % 08/06/23 13:58 Baso % (Auto) 0.2 % 08/06/23 13:58 Neut # (Auto) 14.88 10^3/uL (1.8-7.7) H 08/06/23 13:58 Lymph # (Auto) 0.4 10^3/uL (0.8-4.8) L 08/06/23 13:58 [place] # (Auto) 0.6 10^3/uL (0.2-0.9) 08/06/23 13:58 Eos # (Auto) 0.0 10^3/uL (0.0-0.8) 08/06/23 13:58 Baso # (Auto) 0.0 10^3/uL (0.0-0.1) 08/06/23 13:58 Nucleated RBC % (auto) 0 % 08/06/23 13:58 Nucleated RBCs # 0.0 /100WBC 08/06/23 13:58 Sodium 137 mmol/L (136-145) 08/06/23 13:58 Potassium 4.6 mmol/L (3.5-5.1) 08/06/23 13:58 Chloride 105 mmol/L (98-107) 08/06/23 13:58 Carbon Dioxide 22 mmol/L (22-29) 08/06/23 13:58 Anion Gap 14.6 (5-19) 08/06/23 13:58 BUN 24 mg/dL (8-23) H 08/06/23 13:58 Creatinine 1.1 mg/dL (0.7-1.2) 08/06/23 13:58 GFR Calculation Not Reportable 08/06/23 13:58 Glucose 131 mg/dL (65-115) H 08/06/23 13:58 Calculated Osmolality 290 mOsm/kg (285-295) 08/06/23 13:58 Lactic Acid 1.5 mmol/L (0.5-2.2) 08/06/23 13:58 Calcium 8.7 mg/dL (8.5-10.5) 08/06/23 13:58 Total Bilirubin 0.8 mg/dL (0.15-1.2) 08/06/23 13:58 AST 38 U/L (0-40) 08/06/23 13:58 ALT 26 U/L (0-41) 08/06/23 13:58 Alkaline Phosphatase 182 U/L (40-130) H 08/06/23 13:58 C-Reactive Protein 50.8 mg/L (0.0-4.9) H 08/06/23 13:58 Total Protein 7.3 g/dL (6.6-8.7) 08/06/23 13:58 Albumin 3.3 g/dL (3.5-5.2) L 08/06/23 13:58 Globulin 4.0 g/dL (1.3-4.6) 08/06/23 13:58 Urine Color [place] (Yellow) A 08/06/23 16:48 Urine Appearance Clear (CLEAR) 08/06/23 16:48 Urine pH 5 (5-7) 08/06/23 16:48 Ur Specific [place] 1.015 (1.005-1.030) 08/06/23 16:48 Urine Protein 1+ (Negative) H 08/06/23 16:48 Urine Glucose (UA) Norm (Normal) 08/06/23 16:48 Urine Ketones Negative (Negative) 08/06/23 16:48 Urine Blood Neg (Negative) 08/06/23 16:48 Urine Nitrate Negative (Negative) 08/06/23 16:48 Urine Bilirubin Neg (Negative) 08/06/23 16:48 Urine Urobilinogen Norm mg/dL (Negative) 08/06/23 16:48 Ur Leukocyte Esterase Trace (Negative) H 08/06/23 16:48 Urine RBC Rare /hpf (0-2) 08/06/23 16:48 Urine WBC Rare /hpf (0-5) 08/06/23 16:48 Ur Squamous Epith Cells Rare /hpf (0-5) 08/06/23 16:48 Amorphous Sediment Not Reportable 08/06/23 16:48 Urine Bacteria 1+ /hpf (NONE) H 08/06/23 16:48 Influenza Type A Ag Negative (Negative) 08/06/23 14:15 Influenza Type B Ag Negative (Negative) 08/06/23 14:15 SARS-CoV-2 Ag (Rapid) negative (Negative) 08/06/23 14:15 All radiology interpretation(s) finalized by discharge Other Data Assessment and plan: Urinary tract infection -IV Rocephin for urinary tract infection here in the emergency room. - Discharged home - Discussed findings and plan with patient. Answered any questions. - All laboratory values were reviewed and interpreted personally by myself, the ER physician - All imaging was reviewed and interpreted personally by myself, the ER physician. - Evaluation and treatment of this problem were appropriate in the emergency setting Discharge Plan Discharge Patient Disposition: Home Clinical Impression: Urinary tract infection Condition: Stable Prescriptions: New ondansetron 8 mg tablet,disintegrating 8 mg PO .q6 PRN (Reason: nausea and vomiting) Qty: 14 0RF cefdinir 300 mg capsule 300 mg PO BID 5 Days Qty: 10 0RF No Action cholecalciferol (vitamin D3) 1,000 unit capsule 1,000 unit PO QAM melatonin 10 mg capsule 10 mg PO BEDTIME (DME) Diabetic Shoes with 3 pairs of inserts See Rx Instructions .Route .MEDSUPPLY Qty: 1 0RF Rx Instructions: As directed by HOME- Accommodative should that will allow room for the patients AFO montelukast 10 mg tablet 10 mg PO QAM Qty: 90 3RF rifampin 300 mg capsule 600 mg PO DAILY 90 Days Qty: 180 12RF (DME) diabetic shoes with 3 sets of insoles See Rx Instructions .Route .MEDSUPPLY Qty: 1 0RF Rx Instructions: As directed by HOME albuterol sulfate 2.5 mg /3 mL (0.083 %) solution for nebulization 2.5 mg inhalation Q6H PRN (Reason: shortness of breath or wheezing) Qty: 180 5RF albuterol sulfate 90 mcg/actuation HFA aerosol inhaler 2 puff inhalation Q6H PRN (Reason: shortness of breath or wheezing) Qty: 3 3RF rosuvastatin 20 mg tablet 20 mg PO BEDTIME Qty: 90 3RF sotalol 120 mg tablet 120 mg PO QAM Qty: 90 3RF sotalol 80 mg tablet 80 mg PO QPM Qty: 90 3RF lisinopril 5 mg tablet 5 mg PO DAILY Qty: 90 3RF (DME) TENS units Device See Rx Instructions .Route Qty: 1 0RF Rx Instructions: As directed budesonide-formoterol [Symbicort] 160-4.5 mcg/actuation HFA aerosol inhaler 2 puff inhalation BID Qty: 10.2 6RF Rx Instructions: 340B pricing, ordering on behalf of Dr Masters cyanocobalamin (vitamin B-12) [Vitamin B-12] 500 mcg Tablet 500 mcg PO QAM cetirizine 10 mg tablet 10 mg PO QAM ascorbic acid (vitamin C) [Vitamin C] 500 mg Tablet 500 mg PO QAM magnesium 250 mg Tablet 500 mg PO QAM coenzyme Q10 [CoQ-10] 100 mg Capsule 100 mg PO QAM Metamucil 3.4 gram/5.4 gram Powder 2 tsp PO QAM Probiotic Blend 2 billion cell-50 mg Capsule 1 cap PO TID niacin 100 mg tablet 100 mg PO QAM zinc acetate 50 mg (zinc) Capsule 50 mg PO QAM tamsulosin [Flomax] 0.4 mg capsule 0.4 mg PO BEDTIME ethambutol 100 mg tablet 100 mg PO DAILY Rx Instructions: ALONG WITH 800MG ([id number]) TO = 900MG ethambutol 400 mg tablet 800 mg PO DAILY Rx Instructions: ALONG WITH 100MG TO =900MG azithromycin 500 mg tablet 500 mg PO DAILY Vitamin B-1 100 mg Tablet 50 mg PO DAILY Vitamin B-6 100 mg Tablet 100 mg PO DAILY Discharge Orders: Discharge ED (Routine); Ordered 08/06/23 Ordered By: Savanna Schmitt Referrals: Kade Proctor MD [Primary Care Provider] - (You have been screened and evaluated and felt safe for discharge. Health conditions do change or evolve sometimes and as such it is important that you follow up with your Primary Doctor to be re checked, 3-5 days is a general good time frame for follow up. You are always welcome to return to the ED for re assessment if your symptoms are worsening or you have new concerns) Discharge Diet: Advance as tolerated Discharge Activity: Resume usual activity Patient Instructions: Urinary Tract Infection in Older Adults (ED) Coding Level of Care Code ED Integrity Manager for Salena Silva
--- NOTE | 2023-08-06 13:47 | XR_ITS ---
WS: [id number] Examination: XR chest 1V [id number] Reason for Exam: Cough, fever Date: August 06, 2023 Comparison: December 14, 2022 Findings: The heart is prominent in size. The mediastinum is not widened. Pacer leads are again noted. The lung markings remain increased which I suspect are generally chronic in nature Overall the left basilar infiltrate is improved. Impression: Chronic changes are noted throughout the lungs with some improvement in the left basilar changes.
[2023-08-06 14:01] VITALS: BP 162/47; PULSE 67; O2SAT 95
[2023-08-06] MEDS: sodium chloride 0.9% 1,000 ML 999 ML IV (14:13)
[2023-08-06 14:16] LABS: Basophils % 0.2 %; Eosinophils % 0.2 %; Lymphocytes # 0.4 10^3/uL (0.8-4.8); Lymphocytes % 2.4 %; Mean Corpuscular HGB Conc 32.3 g/dL (30-55); Mean Corpuscular Hemoglobin 33.2 pg (27-33); Mean Corpuscular Volume 102.9 fl (82-101); Mean Platelet Volume 10.2 fL (7.4-10.4); Monocytes # 0.6 10^3/uL (0.2-0.9); Monocytes % 3.8 %; Neutrophils # 14.88 10^3/uL (1.8-7.7); Nucleated Red Blood Cells % 0 %; Platelet Count 183 10^3/cmm (157-399); Red Blood Count 3.79 10^6/uL (3.85-5.65); Red Cell Distribution Width 12.9 % (12.1-15.1); White Blood Count 16.01 10^3/uL (3.29-11.43)
[2023-08-06] MEDS: ondansetron 2 mg/ML SDV 2 mL 8 MG IVP (14:18)
--- NOTE | 2023-08-06 14:28 | PC.PHAR ---
SPOUSE STATES PT TOOK ALL HIS MORNING PRESCRIPTION MEDICATIONS BUT DID NOT TAKE ANY OF HIS VITAMINS, SUPPLEMENTS. 08/06/23
[2023-08-06 14:41] LABS: Alanine Aminotransferase 26 U/L (0-41); Albumin Level 3.3 g/dL (3.5-5.2); Alkaline Phosphatase 182 U/L (40-130); Anion Gap 14.6 (5-19); Aspartate Amino Transferase 38 U/L (0-40); Blood Urea Nitrogen 24 mg/dL (8-23); C Reactive Protein 50.8 mg/L (0.0-4.9); Calcium 8.7 mg/dL (8.5-10.5); Carbon Dioxide 22 mmol/L (22-29); Chloride 105 mmol/L (98-107); Creatinine Clr Calc Pharmacy 46.2908; Glucose 131 mg/dL (65-115); Osmolality Calculated 290 mOsm/kg (285-295); Potassium 4.6 mmol/L (3.5-5.1); Sodium 137 mmol/L (136-145); Total Bilirubin 0.8 mg/dL (0.15-1.2); Total Protein 7.3 g/dL (6.6-8.7)
[2023-08-06 14:45] LABS: SARS Covid-2 Antigen negative (Negative)
[2023-08-06 14:56] LABS: Lactic Sepsis W/Reflex 1.5 mmol/L (0.5-2.2)
[2023-08-06 14:57] LABS: Influenza A by IFA Negative (Negative); Influenza B by IFA Negative (Negative)
--- NOTE | 2023-08-06 14:58 | CTR_ITS ---
PROCEDURE INFORMATION: Exam: CT Abdomen And Pelvis With Contrast Exam date and time: 08/06/2023 3:23 PM Age: 88 years old Clinical indication: Abdominal pain TECHNIQUE: Imaging protocol: Computed tomography of the abdomen and pelvis with contrast. Radiation optimization: All CT scans at this facility use at least one of these dose optimization techniques: automated exposure control; mA and/or kV adjustment per patient size (includes targeted exams where dose is matched to clinical indication); or iterative reconstruction. Contrast material: OMNI 350; Contrast volume: 100 ml; Contrast route: INTRAVENOUS (IV); COMPARISON: CT abdomen pelvis wo con [id number] 04/09/2022 7:57 PM RADIATION DOSE METRICS: Total DLP (mGy-cm): 764.21 FINDINGS: Liver: No acute findings Gallbladder and bile ducts: Cholecystectomy. Pancreas: No ductal dilation. Spleen: No splenomegaly. Adrenal glands: No mass. Kidneys and ureters: No stones or hydronephrosis. Simple left renal cyst, no follow-up indicated. Stomach and bowel: No obstruction. Diverticulosis without evidence of acute diverticulitis. Appendix: No evidence of appendicitis. Intraperitoneal space: No free air. No significant fluid collection. Vasculature: Infrarenal abdominal aorta measures up to 3 cm, unchanged. Lymph nodes: No enlarged lymph nodes. Urinary bladder: No acute findings. Reproductive: No acute findings. Bones/joints: No acute findings. Soft tissues: No acute findings. CT/CT abdomen pelvis w con* [id number] IMPRESSION: No acute abdominal findings.
[2023-08-06] MEDS: iohexol 350 mg/mL 500 mL Btl (per mL) IV (15:25)
[2023-08-06 15:30] VITALS: BP 137/51; PULSE 65; O2SAT 91
[2023-08-06 17:00] VITALS: BP 131/43; PULSE 62; O2SAT 95
[2023-08-06 17:08] LABS: Bilirubin Urine Neg (Negative); Blood Urine Neg (Negative); Glucose Urine UA Norm (Normal); Ketones Urine Negative (Negative); Leukocyte Esterase Urine Trace (Negative); Nitrate Urine Negative (Negative); Protein Urine 1+ (Negative); Specific Gravity, Urine 1.015 (1.005-1.030); Urine Appearance Clear (CLEAR); Urine Color Orange (Yellow); Urobilinogen Urine Norm (Negative); pH Urine 5 (5-7)
[2023-08-06 17:09] LABS: Add Urine Culture? No; Bacteria Urine 1+ /hpf; RBC Urine RARE /hpf (0-2); Squamous Epithelial Cell Urine RARE /hpf (0-5); WBC Urine RARE /hpf (0-5)
[2023-08-06 17:30] VITALS: BP 115/39; PULSE 61; O2SAT 95
[2023-08-06] MEDS: cefTRIAXone 1,000 MG in sodium chloride 0.9% (plus) 50 ML 100 MG IV (17:56)
[2023-08-06 18:22] VITALS: BP 135/56; PULSE 60; O2SAT 96
== END 2023-08-06 18:35 | disposition home or self-care (01) ==
PROVIDERS: Emergency Provider Emergency Medicine; PCP Family Medicine Adult Medicine
DX: N39.0 Urinary tract infection, site not specified (principal); Z11.52 Encounter for screening for COVID-19; Z87.891 Personal history of nicotine dependence; E78.5 Hyperlipidemia, unspecified; I10 Essential (primary) hypertension; E11.9 Type 2 diabetes mellitus without complications; Z95.0 Presence of cardiac pacemaker
CPT/HCPCS: 71045; 74177; 80053; 81001; 83605; 85025; 86140; 87040; 87426; 87804; 96361; 96365; 96375; 99285; J0696; J2405; J7030; Q9967

== ENCOUNTER 2023-10-18 14:01 | Outpatient (CLI) | payer MEDICARE, SELFPAY ==
--- NOTE | 2023-10-18 14:15 | CTR_ITS ---
PROCEDURE INFORMATION: Exam: CT Chest Without Contrast; Diagnostic Exam date and time: 10/18/2023 2:21 PM Age: 88 years old Clinical indication: Condition or disease; Other: Pulmonary mac; Prior surgery; Surgery date: 6+ months; Surgery type: Pacer; Additional info: Follow up pulmonary mac, before October 18 TECHNIQUE: Imaging protocol: Diagnostic computed tomography of the chest without contrast. Radiation optimization: All CT scans at this facility use at least one of these dose optimization techniques: automated exposure control; mA and/or kV adjustment per patient size (includes targeted exams where dose is matched to clinical indication); or iterative reconstruction. COMPARISON: CT chest wo con [id number] 04/07/2023 12:19 PM RADIATION DOSE METRICS: Total DLP (mGy-cm): 429.56 FINDINGS: Tubes, catheters and devices: Unchanged left pacemaker/AICD. Lungs: Unchanged hyperexpansion of the lungs. Multifocal pulmonary abnormality consistent with MAC is slightly increased bilaterally. A few areas of bronchiectasis are not obviously changed. Pleural spaces: Mild pleural thickening and calcification is unchanged. No pleural effusion or pneumothorax. Heart: Unremarkable. No cardiomegaly. No pericardial effusion. Coronary arteries: Unchanged large amount of coronary artery calcification. Lymph nodes: Calcified lymph nodes. No significant lymphadenopathy. Vasculature: Unchanged aortic and systemic arterial calcification. Otherwise, grossly unremarkable noncontrast systemic vasculature. Diaphragm: Unchanged small hiatal hernia. Gallbladder and bile ducts: Unchanged cholecystectomy. Unremarkable visualized bile ducts. Intestine: Unchanged duodenal diverticulum. Bones/joints: Unchanged mild scoliosis and moderate kyphosis. Unchanged mild and moderate multilevel spondylosis. Unchanged partial thoracic spine ankylosis. Otherwise, unremarkable. Soft tissues: Otherwise, unremarkable visualized body wall. Unchanged epidural lipomatosis. Otherwise, unremarkable soft tissues. CT/CT chest wo con [id number] IMPRESSION: 1. Multifocal pulmonary abnormality consistent with MAC is slightly increased bilaterally. 2. Additional details as above. Unchanged.
== END 2023-10-18 14:02 | disposition home or self-care (01) ==
LOC: RAD 14:01
PROVIDERS: PCP Family Medicine Adult Medicine; Visit Provider Student in an Organized Health Care Education/Training Program
DX: A31.0 Pulmonary mycobacterial infection (principal); Z95.0 Presence of cardiac pacemaker; J47.9 Bronchiectasis, uncomplicated; I25.10 Atherosclerotic heart disease of native coronary artery without angina pectoris; I89.0 Lymphedema, not elsewhere classified; I70.0 Atherosclerosis of aorta; Z90.49 Acquired absence of other specified parts of digestive tract
CPT/HCPCS: 71250; 99213

== ENCOUNTER → 2023-10-19 14:13 | Outpatient (BNVA) | payer MEDICARE, SELFPAY | PROVIDERS: PCP Family Medicine Adult Medicine; Visit Provider Student in an Organized Health Care Education/Training Program | DX: A31.0 Pulmonary mycobacterial infection (principal) | CPT/HCPCS: 36415; 80053; 99214 ==

== ENCOUNTER → 2023-12-07 14:27 | Outpatient (BNVA) | payer MEDICARE, SELFPAY | PROVIDERS: PCP Family Medicine Adult Medicine; Visit Provider Internal Medicine | DX: J41.0 Simple chronic bronchitis (principal); I65.23 Occlusion and stenosis of bilateral carotid arteries; I77.9 Disorder of arteries and arterioles, unspecified; R29.898 Other symptoms and signs involving the musculoskeletal system; I25.118 Atherosclerotic heart disease of native coronary artery with other forms of angina pectoris; Z87.891 Personal history of nicotine dependence; I10 Essential (primary) hypertension; Z95.0 Presence of cardiac pacemaker; E78.5 Hyperlipidemia, unspecified | CPT/HCPCS: 99214 ==

== ENCOUNTER → 2023-12-14 08:35 | Outpatient (BNVA) | payer MEDICARE, SELFPAY | PROVIDERS: PCP Family Medicine Adult Medicine; Visit Provider Family Medicine Adult Medicine | DX: I10 Essential (primary) hypertension (principal); E11.9 Type 2 diabetes mellitus without complications; E78.5 Hyperlipidemia, unspecified; A31.0 Pulmonary mycobacterial infection; M35.3 Polymyalgia rheumatica; Z79.899 Other long term (current) drug therapy | CPT/HCPCS: 80053; 83036; 84443; 85025 ==

== ENCOUNTER 2024-01-05 10:28 | Outpatient (CLI) | payer MEDICARE, SELFPAY ==
--- NOTE | 2024-01-05 10:45 | USCV_ITS ---
Abraham Andreas Age: 88 Gender: M : 1935 Exam Date: 01/05/2024 10:34 Ordering Phys: Jeff Rg M.D ([email or web address]) Technologist: CT Exam Location: [facility] [place] Indication: hx of cea Risk Factors: Previous Vascular Surgery: Right Brachial BP: / Left Brachial BP: / Right Left Velocity (cm/s) Spectral Plaque Velocity (cm/s) Spectral Plaque Syst/Diast Broadening Syst/Diast Broadening 117.80/ Prox CCA 102.90/ 97.60/ Mid CCA 107.30/ 82.90/ Distal CCA 100.00/ 59.10/ Prox ICA 81.70 / 58.70/ Mid ICA 60.80 / 52.90/ Distal ICA 81.50 / 83.70 ECA 125.80 0.70 ICA/CCA 0.80 Bi- Vertebral Antegrade directiona l 18.60/ cm/s 64.40/ cm/s Bi Subclavian Bi 90.10 83.30 FINDINGS Comparison:. 12/08/22 Diffuse bilateral scattered calcified plaque and intimal thickening throughout the common carotid arteries and extending through the bifurcation. Mild elevation of velocities in the carotid arteries. Decrease flow with partial reversal right vertebral artery. CONCLUSIONS Bilateral ICA stenosis less than 50%. Diffuse carotid atherosclerosis. Partial reversal waveform right carotid artery. Recommend CTA chest with attention to the great vessels. Dr. Spring Singh DO (Electronically Signed) Final Date: 05 January 2024 13:05 S
== END 2024-01-05 10:29 | disposition home or self-care (01) ==
LOC: RAD 10:29
PROVIDERS: PCP Family Medicine Adult Medicine; Visit Provider Internal Medicine
DX: I65.23 Occlusion and stenosis of bilateral carotid arteries (principal)
CPT/HCPCS: 93880

== ENCOUNTER 2024-02-03 10:35 | Outpatient (CLI) | payer MEDICARE, SELFPAY ==
--- NOTE | 2024-02-03 10:30 | CT_ITS ---
WS: [id number] CT ANGIOGRAM CAROTID ARTERIES HISTORY: bilat carotid stenosis TECHNIQUE: CT angiogram is performed of the carotid arteries. During arterial injection imaging is ob tained from the skull base to the aortic arch in 1.25 mm imaging. Coronal and sagittal reformats are submitted, MIP imaging also reviewed. Additional multiplanar reformats of the carotid arteries are seals bmitted. NASCET criteria utilized. All CT scans at [facility] use at least one of these dose optimization techniques: automated exposure control; mA and/or kV adjustment per patient size (includ es targeted exams where dose is matched to clinical indication); or iterative reconstruction. CONTRAST: Omnipaque 350; 100 mL IV. DLP: 210.10 mGy.cm COMPARISON: 08/05/2017, carotid ultrasound 01/05/2024 Right carotid: Common carotid artery: Normally arising from the innominate. Plaque and intimal thickening in the dis beto cervical common carotid artery to the bifurcation. No significant stenosis. Internal carotid artery: Widely patent with only mild plaque at the bifurcation. External carotid artery: Patent. Left carotid: Common carotid artery: The entire origin from the arch is not included. There is mild scattered plaqu e. No stenosis. Internal carotid artery: Widely patent with no stenosis. Minimal intimal thickening and plaque. There are surgical clips in the LEFT neck of uncertain etiology. External carotid artery: Patent. Right vertebral artery: Small amount of plaque at the origin of the RIGHT vertebral artery but it suresh s appear to be patent. LEFT vertebral artery is smaller caliber than the LEFT. Left vertebral artery: Dominant. With no plaque. Subclavian arteries: Very minimal atherosclerotic disease. Upper thorax: Atherosclerotic plaque within the aortic arch. Brachiocephalic trunk is very tortuous a nd there is focal calcification. There is an area of stenosis in the brachiocephalic trunk proximal t o the origin of the RIGHT carotid artery. This area is partially obscured by contrast opacification f rom the vein. There is also breathing motion artifact. 17 x 12 spiculated nodule with pleural tagging at the LEFT apex. Additional 5 mm nodule LEFT upper lobe image 5 of series 4. Centrilobular emphysem a. Thyroid gland: Motion. Not well visualized. Osseous structures: Slight retrolisthesis C4. Skull base: Normal. CT/CT angio neck [id number] IMPRESSION: 1. No significant common carotid artery stenosis. Less than 50% stenosis at th e bifurcation. 2. Patent but small caliber RIGHT vertebral artery. 3. Tortuous brachiocephalic trunk with focal calcification. Very limited evalu ation of the brachiocephalic trunk as this is only included on the first few im ages of the thorax with breathing motion. I suspect there may be a significant stenosis as there is focal calcification. Consider additional evaluation of the aortic arch by CTA chest. If CTA chest is performed the injection should be th rough the LEFT upper extremity. 4. Chronic emphysema. Slightly spiculated nodule at the LEFT apex corresponds to an area of treated MAC.
[2024-02-03] MEDS: iohexol 350 mg/mL 500 mL Btl (per mL) IV (12:56)
== END 2024-02-03 10:36 | disposition home or self-care (01) ==
LOC: RAD 10:35
PROVIDERS: PCP Family Medicine Adult Medicine; Visit Provider Internal Medicine
DX: I65.23 Occlusion and stenosis of bilateral carotid arteries (principal); I70.0 Atherosclerosis of aorta; I82.290 Acute embolism and thrombosis of other thoracic veins; R91.8 Other nonspecific abnormal finding of lung field; J43.2 Centrilobular emphysema
CPT/HCPCS: 70498

== ENCOUNTER 2024-03-08 07:41 | Outpatient (CLI) | payer MEDICARE, SELFPAY ==
--- NOTE | 2024-03-08 08:00 | CTR_ITS ---
PROCEDURE INFORMATION: Exam: CT Chest Without Contrast; Diagnostic Exam date and time: 03/08/2024 8:09 AM Age: 88 years old Clinical indication: Shortness of breath; Additional info: Follow up pulmonary mac, f/up pulmonary mac, completing treatment mar 2024 TECHNIQUE: Imaging protocol: Diagnostic computed tomography of the chest without contrast. Radiation optimization: All CT scans at this facility use at least one of these dose optimization techniques: automated exposure control; mA and/or kV adjustment per patient size (includes targeted exams where dose is matched to clinical indication); or iterative reconstruction. COMPARISON: CT chest wo con [id number] 10/18/2023 2:21 PM RADIATION DOSE METRICS: Total DLP (mGy-cm): 428.71 FINDINGS: Thyroid: Grossly unremarkable. Lungs: Bilateral paraseptal emphysematous changes. There are peripheral reticulations and traction bronchiolectasis suggestive of fibrotic change. There is an irregular left upper lobe nodular opacity measuring approximately 15 mm, slightly more prominent than in October 2023 (image 18 of series 3 and image 23 of series 7). No focal consolidation. No pneumothorax. Pleural spaces: No pleural effusion. There is mild left-sided pleural thickening. Heart: No cardiomegaly. No pericardial effusion. Coronary arteries: There are incidental dense coronary artery calcifications with involvement of the left main. Mediastinal space: Trachea and airway are grossly patent. Left subclavian approach pacemaker. Small hiatal hernia with the GE junction above the diaphragm. Lymph nodes: No evidence of mediastinal adenopathy. Evaluation for hilar adenopathy is limited by lack of IV contrast. Vasculature: No evidence of aneurysmal dilatation of the thoracic aorta. Evaluation for acute vascular injury or thrombosis is limited by lack of IV contrast. Bones/joints: No evidence of acute fracture or aggressive osseous lesion. Soft tissues: No evidence of fluid collection or hematoma in the superficial soft tissues. Other findings: No evidence of acute abnormality in the upper abdomen. CT/CT chest wo con [id number] IMPRESSION: 1. Fibrotic changes with reticulations and traction bronchiolectasis. Consider follow-up pulmonary evaluation for interstitial lung disease. 2 Emphysematous changes. The presence of pulmonary emphysema on CT is an independent risk factor for lung cancer. In the absence of a history or active diagnosis of lung cancer, it is recommended that this patient with emphysema be evaluated for enrollment in a low dose CT lung cancer screening program. 3. Irregular left upper lobe pulmonary nodule. Follow-up PET-CT is recommended. 4. Coronary artery disease. References: Adarsh Lee, et al. Guidelines for Management of Incidental Pulmonary Nodules Detected on CT Images: From the Fleischner Society 2017. Radiology. 2017;284(1):228-243.
== END 2024-03-08 07:42 | disposition home or self-care (01) ==
LOC: RAD 07:44
PROVIDERS: PCP Family Medicine Adult Medicine; Visit Provider Student in an Organized Health Care Education/Training Program
DX: A31.0 Pulmonary mycobacterial infection (principal); J47.9 Bronchiectasis, uncomplicated; J43.9 Emphysema, unspecified; R91.1 Solitary pulmonary nodule; I25.10 Atherosclerotic heart disease of native coronary artery without angina pectoris
CPT/HCPCS: 71250

== ENCOUNTER → 2024-03-21 13:48 | Outpatient (BNVA) | payer MEDICARE, SELFPAY | PROVIDERS: PCP Family Medicine Adult Medicine; Visit Provider Student in an Organized Health Care Education/Training Program | DX: J18.9 Pneumonia, unspecified organism; R04.2 Hemoptysis; J98.4 Other disorders of lung | CPT/HCPCS: 99215 ==

== ENCOUNTER → 2024-05-15 08:58 | Outpatient (BNVA) | payer MEDICARE, SELFPAY | PROVIDERS: PCP Family Medicine; Visit Provider Family Medicine | DX: I10 Essential (primary) hypertension (principal); Z79.899 Other long term (current) drug therapy; I77.9 Disorder of arteries and arterioles, unspecified | CPT/HCPCS: 80061; 82565; 83036 ==

== ENCOUNTER 2024-07-05 18:35 | Emergency (ER) | payer MEDICARE, SELFPAY ==
[2024-07-05] VITALS (7 sets, daily range): BP systolic 118–138; BP diastolic 49–73; PULSE 71–79; RESP 18; TEMP 36.9; O2SAT 94–98; BMI 27.1
--- NOTE | 2024-07-05 18:40 | XRR_ITS ---
PROCEDURE INFORMATION: Exam: XR Chest Exam date and time: 07/05/2024 7:06 PM Age: 89 years old Clinical indication: Fever; Additional info: Fever, nausea vomiting TECHNIQUE: Imaging protocol: Radiologic exam of the chest. Views: 1 view. COMPARISON: CT chest [facility] [id number] 03/08/2024 8:09 AM FINDINGS: Lungs: Developing infiltrate suspected in the periphery of the right upper lung region extending to the minor fissure with a 1 cm nodule like component along the fissure itself. Left subclavicular pacer with transvenous leads again seen. Interstitial fibrotic like changes are noted along the periphery of the right upper to mid and left lateral basilar regions. Lesser interstitial changes with vascular splaying are seen throughout both lungs. No consolidation. Pleural spaces: Unremarkable. No pleural effusion. No pneumothorax. Heart/Mediastinum: Unremarkable. No cardiomegaly. Bones/joints: Unremarkable. XR/XR chest 1V portable [id number] IMPRESSION: 1. Developing infiltrate in the right upper lung extending to the minor fissure. 2. Due to its nodular appearance clinical follow-up and nonemergent CT suggested to exclude underlying occult neoplasm. 3. Underlying chronic interstitial changes seen throughout both lungs.
--- NOTE | 2024-07-05 18:40 | XRR_ITS ---
PROCEDURE INFORMATION: Exam: XR Abdomen Exam date and time: 07/05/2024 7:07 PM Age: 89 years old Clinical indication: Nausea and vomiting; Additional info: Nausea vomiting, probable constipation TECHNIQUE: Imaging protocol: Radiologic exam of the abdomen. Views: Frontal supine view of the abdomen. 1 View. COMPARISON: CT abdomen pelvis w con* [id number] 08/06/2023 3:23 PM FINDINGS: Gastrointestinal tract: Suspected pneumatosis along the ascending colon. Resolution/penetration is less than optimal. Prominence of air within the stomach or transverse colon likely accounts for the vague lucency over the central/epigastric region. There is a prominent amount of stool burden seen along the course of the colon. Atherosclerotic calcifications of the abdominal aorta are suspected to be present. Surgical clips are seen in the gallbladder fossa. Bones/joints: Osteoarthritic/degenerative changes are seen with dextro rotatory scoliosis of the lumbar spine. XR/XR abdomen 1V* [id number] IMPRESSION: 1. Critical finding of suspected pneumatosis involving the ascending colon warranting further clinical correlation and emergent CT study . 2. Markedly prominent stool burden. 3. The abdomen and chest critical findings were discussed with Dr. Brandon Pina at 924 p.m. EST
--- NOTE | 2024-07-05 18:45 | W.ED.NAVMDI ---
HPI - Nausea/Vomiting/Diarrhea General: Chief complaint: Nausea/Vomiting/Diarrhea Stated complaint: nausea x 2 days - fever Time Seen by Provider: 07/05/24 18:36 History of Present Illness: Patient presents to the ER by EMS with complaints of nausea vomiting x 2 days. They also mention possible fever and weakness. Patient denies any abdominal pain at this time. EMS stated he has had a productive mucousy cough but had no emesis. Related Data Home Medications ?Medication ?Instructions ?Recorded ?Confirmed cholecalciferol (vitamin D3) 25 1,000 unit PO QAM 05/23/19 06/16/24 mcg (1,000 unit) capsule melatonin 10 mg capsule 10 mg PO BEDTIME 10/14/20 06/16/24 cetirizine 10 mg tablet 10 mg PO QAM 12/14/22 06/16/24 psyllium husk 3.4 gram/5.4 gram 2 tsp PO QAM 12/14/22 06/16/24 oral powder (Metamucil) Previous Rx's ?Medication ?Instructions ?Recorded Diabetic Shoes with 3 pairs of #1 ea 07/20/22 inserts TENS units #1 ea 04/15/23 diabetic shoes with 3 sets of #1 ea 06/02/23 insoles amlodipine 10 mg tablet 10 mg PO DAILY blood pressure #90 12/14/23 tabs montelukast 10 mg tablet 10 mg PO QAM copd #90 tabs 12/14/23 albuterol sulfate 2.5 mg/3 mL 2.5 mg (3 mL) inhalation Q6H PRN 12/15/23 (0.083 %) solution for nebulization shortness of breath or wheezing #180 mL albuterol sulfate 90 mcg/actuation 2 puff inhalation Q6H PRN 12/15/23 aerosol inhaler shortness of breath or wheezing #3 ea rosuvastatin 20 mg tablet 20 mg PO BEDTIME cholesterol #90 12/15/23 tabs budesonide-formoterol HFA 160 2 puff inhalation BID #10.2 grams 03/20/24 mcg-4.5 mcg/actuation aerosol inhaler (Symbicort) ethambutol 100 mg tablet 100 mg PO DAILY 30 days #30 tabs 03/21/24 ethambutol 400 mg tablet 800 mg (2 x 400 mg) PO DAILY 30 03/21/24 days #60 tabs aspirin 81 mg chewable tablet 81 mg PO DAILY #90 tabs 05/15/24 sotalol 120 mg tablet 120 mg PO QAM blood pressure & 05/16/24 heart #90 tabs sotalol 80 mg tablet 80 mg PO QPM heart & blood 05/16/24 pressure #90 tabs tamsulosin 0.4 mg capsule (Flomax) 0.4 mg PO BEDTIME #90 caps 05/16/24 benzonatate 100 mg capsule 100 mg PO TID PRN cough #30 caps 07/05/24 ciprofloxacin HCl 500 mg tablet 500 mg PO Q12H #20 tabs 07/05/24 Allergies Allergy/AdvReac Type Severity Reaction Status Date / Time Penicillins Allergy Unknown Unknown Verified 07/05/24 18:41 adhesive tape Allergy ALGY-Bliste Verified 07/05/24 18:41 r Review of Systems General: Reports: 10 or more systems reviewed and unremarkable except in HPI and below PFSH ED PFSH: Medical History Enrolled in chronic care management Sick sinus syndrome has pacemaker Macular degeneration sees DR. Eid, gets injections Prediabetes Low serum albumin BPH loc w urin obs/LUTS Chronic cough Depression Chronic bronchitis with acute exacerbation Carotid artery disease Pulmonary Mycobacterium avium complex (MAC) infection Diverticulosis AAA (abdominal aortic aneurysm) infrarenal 3cm on CT 2021 A-fib History of cardiac pacemaker Dyslipidemia Hypertension Surgical History History of permanent cardiac pacemaker placement has had 2 History of colonoscopy (~06/2019) History of laparoscopic cholecystectomy History of arthroplasty of left ankle History of CEA (carotid endarterectomy) left Family History Father CAD (coronary artery disease) [place] age 66 Other [place] disease Family history of premature coronary artery disease Denies family history of Rheumatoid arthritis Diabetes Lupus Anesthesia complication Bleeding disorder Lung disease Cancer Hypertension Stroke Social History Smoking and tobacco/nicotine status: former use of tobacco/nicotine Quit status (tobacco/nicotine): has quit using Year quit tobacco: 1975 [id number] x27yrs Second hand smoke exposure: No Alcohol intake: never Substance/Drug Use: never Adopted: No Caregiver/support person: Yes Lives independently: Yes Household members: spouse Housing: House Marital status: Number of children: 2 Highest education level completed: High School Graduate service: No Current occupational status: retired Current occupational exposures/hazards: No 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 Pets and animals: No Sexually active: No Do you think of yourself as: Straight/Heterosexual Current gender identity: Male Kiara/Orthodox: None Special kiara needs: No Agree to transfusion: No Physical Exam Const: COMMON NORMALS: no acute distress, average body habitus, patient oriented x3, no limitations, healthy appearing, alert and well nourished HENMT: COMMON NORMALS: normocephalic, atraumatic, hearing grossly normal bilaterally, external ears normal, Normal external nose present, moist oral mucous membranes and oropharynx normal HEAD & SCALP: normocephalic and atraumatic NOSE: Normal external nose present EXTERNAL EAR: Yes external ears normal Neck/C-Spine: COMMON NORMALS: full ROM, no lymphadenopathy, supple, no meningeal signs, no JVD and Thyroid normal THYROID: Thyroid normal Chest: COMMONS NORMALS: normal inspection of the chest and normal palpation of entire chest wall Resp: COMMON NORMALS: normal respiratory effort, No retractions, No use of accessory muscles and clear to auscultation bilaterally AUSCULTATION: clear to auscultation bilaterally Cardio: COMMON NORMALS: no JVD, regular rate, regular rhythm, S1 normal heart sound present, S2 normal heart sound present, No gallops present (Cardio), No clicks present (Cardio), No murmurs present (Cardio) and No rub (Cardio) RATE: regular rate RHYTHM: regular rhythm HEART SOUNDS: S1 normal heart sound present and S2 normal heart sound present GI: COMMON NORMALS: Normal to inspection, nondistended, normoactive bowel sounds present, Soft to palpation, No hepatosplenomegaly present and no masses; negative for non-tender (Minimal tenderness left abdomen) PALPATION: Yes Soft to palpation and Yes No hepatosplenomegaly present Neuro: COMMON NORMALS: patient oriented x3 SENSORIUM/ORIENTATION: Yes alert MENINGEAL SIGNS: Yes no meningeal signs Course Vital Signs: Vital signs: Vital Signs Temperature 98.4 F 07/05/24 18:36 Pulse Rate 75 07/05/24 20:30 Respiratory Rate 18 07/05/24 18:36 Blood Pressure 118/55 07/05/24 20:30 Pulse Oximetry 98 07/05/24 20:30 Oxygen Delivery Me thod Room Air 07/05/24 18:36 MDM - Nausea/Vomiting/Diarrhea Medical Decision Making Lab work was obtained white count 9.4, BUN/creatinine 14 and 0.9, lactic acid 1.1, procalcitonin 0.06, magnesium 1.8, lipase 45, urinalysis showed 51-100 white blood cells 1+ leukocyte Estrace. Chest x-ray showed developing infiltrate in the right upper lung to the minor fissure, abdomen x-ray showed suspected pneumatosis of the ascending colon, CT of the chest and abdomen with contrast revealed significant diverticulosis moderate stool burden and bladder wall thickening, chest showed markedly prominent extent interstitial emphysematous changes and slight developing infiltrate, otherwise unremarkable. Patient will be placed on ciprofloxacin and discharged home. Medical Records I reviewed the patient's medical records. Lab Data I reviewed the patient's lab results. 07/05/24 18:53 07/05/24 20:16 Radiology Impressions Abdomen X-Ray 07/05/24 18:40 IMPRESSION: 1. Critical finding of suspected pneumatosis involving the ascending colon warranting further clinical correlation and emergent CT study . 2. Markedly prominent stool burden. 3. The abdomen and chest critical findings were discussed with Dr. Brandon Pina at 924 p.m. EST ADDENDUM: 07/05/242034 Correction: Please note that the studies/critical findings were discussed with Dr. Byron Caldera at 9:[address] p[address] EST and NOT Dr. Brandon Pina. Chest X-Ray 07/05/24 18:40 IMPRESSION: 1. Developing infiltrate in the right upper lung extending to the minor fissure. 2. Due to its nodular appearance clinical follow-up and nonemergent CT suggested to exclude underlying occult neoplasm. 3. Underlying chronic interstitial changes seen throughout both lungs. Chest/Abdomen/Pelvis CT 07/05/24 20:23 IMPRESSION: 1. Markedly prominent and extensive chronic interstitial/emphysematous changes, as described previously. 2. Slight developing infiltrate suspected along the posterolateral aspect of the right upper lobe in this patient with additional history of mycobacterium avium complex/MAC lung disease. IMPRESSION: 1. Markedly prominent diffuse diverticulosis with moderate stool burden and no evidence of emphysematous changes or diverticulitis. 2. Subtle bladder wall thickening as described suggest urological correlation to exclude occult neoplasm. 3. Marked atherosclerotic calcifications of the great vessels of the abdomen and pelvis. 4. Additional chronic changes, described above. 5. Chest and abdominopelvic CT findings discussed with Dr. Andreas Caldera at 1106 p.m. EST. Laboratory Results WBC 9.40 10^3/uL (3.29-11.43) 07/05/24 18:53 RBC 3.72 10^6/uL (3.85-5.65) L 07/05/24 18:53 Hgb 12.00 g/dL (11.27-16.99) 07/05/24 18:53 Hct 37.0 % (37-53) 07/05/24 18:53 MCV 99.5 fl (82-101) 07/05/24 18:53 MCH 32.3 pg (27-33) 07/05/24 18:53 MCHC 32.4 g/dL (30-55) 07/05/24 18:53 RDW 13.5 % (12.1-15.1) 07/05/24 18:53 Plt Count 243 10^3/cmm (157-399) 07/05/24 18:53 MPV 10.3 fL (7.4-10.4) 07/05/24 18:53 Neut % (Auto) 76.6 % 07/05/24 18:53 Lymph % (Auto) 5.3 % 07/05/24 18:53 [place] % (Auto) 15.5 % 07/05/24 18:53 Eos % (Auto) 2.0 % 07/05/24 18:53 Baso % (Auto) 0.3 % 07/05/24 18:53 Neut # (Auto) 7.19 10^3/uL (1.8-7.7) 07/05/24 18:53 Lymph # (Auto) 0.5 10^3/uL (0.8-4.8) L 07/05/24 18:53 [place] # (Auto) 1.5 10^3/uL (0.2-0.9) H 07/05/24 18:53 Eos # (Auto) 0.2 10^3/uL (0.0-0.8) 07/05/24 18:53 Baso # (Auto) 0.0 10^3/uL (0.0-0.1) 07/05/24 18:53 Nucleated RBC % (auto) 0 % 07/05/24 18:53 Nucleated RBCs # 0.0 /100WBC 07/05/24 18:53 Sodium 136 mmol/L (136-145) 07/05/24 20:16 Potassium 4.5 mmol/L (3.5-5.1) 07/05/24 20:16 Chloride 103 mmol/L (98-107) 07/05/24 20:16 Carbon Dioxide 21 mmol/L (22-29) L 07/05/24 20:16 Anion Gap 16.5 (5-19) 07/05/24 20:16 BUN 14 mg/dL (8-23) 07/05/24 20:16 Creatinine 0.9 mg/dL (0.7-1.2) 07/05/24 20:16 GFR Calculation Not Reportable 07/05/24 20:16 Glucose 112 mg/dL (65-115) 07/05/24 20:16 Calculated Osmolality 283 mOsm/kg (285-295) L 07/05/24 20:16 Lactic Acid 1.1 mmol/L (0.5-2.2) 07/05/24 20:55 Calcium 8.7 mg/dL (8.5-10.5) 07/05/24 20:16 Magnesium 1.8 mg/dL (1.7-2.3) 07/05/24 20:16 Total Bilirubin 0.3 mg/dL (0.15-1.2) 07/05/24 20:16 AST 37 U/L (0-40) 07/05/24 20:16 ALT 24 U/L (0-41) 07/05/24 20:16 Alkaline Phosphatase 205 U/L (40-130) H 07/05/24 20:16 Total Protein 8.0 g/dL (6.6-8.7) 07/05/24 20:16 Albumin 3.3 g/dL (3.5-5.2) L 07/05/24 20:16 Globulin 4.7 g/dL (1.3-4.6) H 07/05/24 20:16 Lipase 45 U/L (13-60) 07/05/24 20:16 Procalcitonin 0.06 ng/mL (0-0.5) 07/05/24 20:16 Urine Color Yellow (Yellow) 07/05/24 18:53 Urine Appearance Clear (CLEAR) 07/05/24 18:53 Urine pH 7.5 (5-7) 07/05/24 18:53 Ur Specific [place] 1.017 (1.005-1.030) 07/05/24 18:53 Urine Protein 1+ (Negative) A 07/05/24 18:53 Urine Glucose (UA) Negative (Normal) 07/05/24 18:53 Urine Ketones Negative (Negative) 07/05/24 18:53 Urine Blood Negative (Negative) 07/05/24 18:53 Urine Nitrate Negative (Negative) 07/05/24 18:53 Urine Bilirubin Negative (Negative) 07/05/24 18:53 Urine Urobilinogen 0.2 mg/dL (Negative) 07/05/24 18:53 Ur Leukocyte Esterase 1+ (Negative) A 07/05/24 18:53 Urine RBC 5-10 /hpf (0-2) H 07/05/24 18:53 Urine WBC 51-100 /hpf (0-5) H 07/05/24 18:53 Ur Squamous Epith Cells 0-4 /hpf (0-5) H 07/05/24 18:53 Ur Renal Epithelial Cell 0-4 /hpf 07/05/24 18:53 Amorphous Sediment Not Reportable 07/05/24 18:53 Urine Bacteria 1+ /hpf (NONE) H 07/05/24 18:53 Hyaline Casts 0-4 /lpf H 07/05/24 18:53 Urine Mucus 2+ /hpf 07/05/24 18:53 Ur Oval Fat Bodies 2+ /hpf 07/05/24 18:53 All radiology interpretation(s) finalized by discharge Discharge Plan Discharge Patient Disposition: Home Clinical Impression: Mycobacterium avium infection Urinary tract infection Qualifiers: Urinary tract infection type: acute cystitis Hematuria presence: with hematuria Qualified Code(s): N30.01 - Acute cystitis with hematuria Condition: Stable Prescriptions: New ciprofloxacin HCl 500 mg tablet 500 mg PO Q12H Qty: 20 0RF benzonatate 100 mg capsule 100 mg PO TID PRN (Reason: cough) Qty: 30 0RF No Action cholecalciferol (vitamin D3) 1,000 unit capsule 1,000 unit PO QAM melatonin 10 mg capsule 10 mg PO BEDTIME (DME) Diabetic Shoes with 3 pairs of inserts See Rx Instructions .Route .MEDSUPPLY Qty: 1 0RF Rx Instructions: As directed by HOME- Accommodative should that will allow room for the patients AFO ethambutol 400 mg tablet 800 mg PO DAILY 30 Days Qty: 60 5RF Rx Instructions: ALONG WITH 100MG TO =900MG ethambutol 100 mg tablet 100 mg PO DAILY 30 Days Qty: 30 5RF Rx Instructions: ALONG WITH 800MG ([id number]) TO = 900MG (DME) diabetic shoes with 3 sets of insoles See Rx Instructions .Route .MEDSUPPLY Qty: 1 0RF Rx Instructions: As directed by HOME montelukast 10 mg tablet 10 mg PO QAM Qty: 90 3RF amlodipine 10 mg tablet 10 mg PO DAILY Qty: 90 3RF albuterol sulfate 90 mcg/actuation HFA aerosol inhaler 2 puff inhalation Q6H PRN (Reason: shortness of breath or wheezing) Qty: 3 3RF albuterol sulfate 2.5 mg /3 mL (0.083 %) solution for nebulization 2.5 mg inhalation Q6H PRN (Reason: shortness of breath or wheezing) Qty: 180 5RF rosuvastatin 20 mg tablet 20 mg PO BEDTIME Qty: 90 3RF aspirin 81 mg tablet,chewable 81 mg PO DAILY Qty: 90 0RF (DME) TENS units Device See Rx Instructions .Route Qty: 1 0RF Rx Instructions: As directed budesonide-formoterol [Symbicort] 160-4.5 mcg/actuation HFA aerosol inhaler 2 puff inhalation BID Qty: 10.2 6RF Rx Instructions: 340B pricing, ordering on behalf of Dr Masters sotalol 80 mg tablet 80 mg PO QPM Qty: 90 3RF sotalol 120 mg tablet 120 mg PO QAM Qty: 90 3RF tamsulosin [Flomax] 0.4 mg capsule 0.4 mg PO BEDTIME Qty: 90 3RF cetirizine 10 mg tablet 10 mg PO QAM Metamucil 3.4 gram/5.4 gram Powder 2 tsp PO QAM Discharge Orders: Discharge ED (Routine); Ordered 07/05/24 Ordered By: Byron Caldera Referrals: Vanesa Dennis MD [Primary Care Provider] - 1 week Patient Instructions: Urinary Tract Infection in Men (DC) Activity Restrictions/Additional Instructions: Activity restrictions/additional instructions: Thank you for choosing [facility] for your healthcare needs today. Please realize that you were seen in the emergency department and that we are providing you with an emergency medical screening exam and this may not be a complete and all exclusive of all testing and/or medical workup we may need to determine your element or severity of your illness. It is very important that you follow-up as instructed with your primary care provider or specialist for the additional evaluation and to discuss your medical treatment plan. You may return to the emergency department should you have concerns or if your condition changes or worsens in any way. Print Language: Urdu Coding Level of Care Code ED [employer] Librarian for Salena Silva
[2024-07-05 19:06] LABS: Basophils % 0.3 %; Eosinophils # 0.2 10^3/uL (0.0-0.8); Lymphocytes # 0.5 10^3/uL (0.8-4.8); Lymphocytes % 5.3 %; Mean Corpuscular HGB Conc 32.4 g/dL (30-55); Mean Corpuscular Hemoglobin 32.3 pg (27-33); Mean Corpuscular Volume 99.5 fl (82-101); Mean Platelet Volume 10.3 fL (7.4-10.4); Monocytes # 1.5 10^3/uL (0.2-0.9); Monocytes % 15.5 %; Neutrophils # 7.19 10^3/uL (1.8-7.7); Neutrophils % 76.6 %; Nucleated Red Blood Cells % 0 %; Platelet Count 243 10^3/cmm (157-399); Red Blood Count 3.72 10^6/uL (3.85-5.65); Red Cell Distribution Width 13.5 % (12.1-15.1)
[2024-07-05 19:29] LABS: Bilirubin Urine Negative (Negative); Blood Urine Negative (Negative); Glucose Urine UA Negative (Normal); Ketones Urine Negative (Negative); Leukocyte Esterase Urine 1+ (Negative); Nitrate Urine Negative (Negative); Protein Urine 1+ (Negative); Specific Gravity, Urine 1.017 (1.005-1.030); Urine Appearance Clear (CLEAR); Urine Color Yellow (Yellow); Urobilinogen Urine 0.2 mg/dL (Negative); pH Urine 7.5 (5-7)
[2024-07-05 20:00] LABS: Add Urine Microscopic? YES
[2024-07-05 20:03] LABS: Renal Epithelial Cells Urine 0-4 /hpf; Squamous Epithelial Cell Urine 0-4 /hpf (0-5); WBC Urine 51-100 /hpf (0-5)
[2024-07-05 20:04] LABS: Add Urine Culture? Yes; Bacteria Urine 1+ /hpf; Hyaline Casts Urine 0-4 /lpf; Mucus Urine 2+ /hpf; Oval Fat Bodies Urine 2+ /hpf
--- NOTE | 2024-07-05 20:23 | CTR_ITS ---
PROCEDURE INFORMATION: Exam: CT Chest With Contrast; Diagnostic Exam date and time: 07/05/2024 9:15 PM Age: 89 years old Clinical indication: Nausea and vomiting; Shortness of breath; Prior surgery; Surgery date: 6+ months; Surgery type: Pacemaker / gb; Additional info: Nausea vomiting fever, abnormal chest and abdominal x-ray TECHNIQUE: Imaging protocol: Diagnostic computed tomography of the chest with contrast. Radiation optimization: All CT scans at this facility use at least one of these dose optimization techniques: automated exposure control; mA and/or kV adjustment per patient size (includes targeted exams where dose is matched to clinical indication); or iterative reconstruction. Contrast material: OMNI 350; Contrast volume: 100 ml; Contrast route: INTRAVENOUS (IV); COMPARISON: CT chest [facility] [id number] 03/08/2024 8:09 AM RADIATION DOSE METRICS: Total DLP (mGy-cm): 1169.31 FINDINGS: Lungs: Prominent bilateral chronic interstitial changes with components of bronchiectasis. Emphysematous changes are also noted particularly in the right middle lobe. The lateral aspect of the right upper lung region does demonstrates some vague increased haziness consistent with a component of infiltrate. Pleural spaces: Unchanged. Again seen is generalized pleural thickening along the left posterolateral lower chest region with a trace focus of calcification. No pneumothorax. No pleural effusion. Heart: Atherosclerotic calcifications of the coronary arteries are noted. Unchanged. No pericardial effusion. Lymph nodes: There are some scattered lymph nodes in the mediastinum but none of these demonstrate pathologic enlargement by size criteria.. No enlarged lymph nodes. Vasculature: Unremarkable. No aortic aneurysm. Bones/joints: Marked generalized kyphosis with ankylosis again noted. No acute fracture. Soft tissues: Unremarkable. PROCEDURE INFORMATION: Exam: CT Abdomen And Pelvis With Contrast Exam date and time: 07/05/2024 9:15 PM Age: 89 years old Clinical indication: Nausea and vomiting; Shortness of breath; Prior surgery; Surgery date: 6+ months; Surgery type: Pacemaker / gb; Additional info: Nausea vomiting fever, abnormal chest and abdominal x-ray TECHNIQUE: Imaging protocol: Computed tomography of the abdomen and pelvis with contrast. Radiation optimization: All CT scans at this facility use at least one of these dose optimization techniques: automated exposure control; mA and/or kV adjustment per patient size (includes targeted exams where dose is matched to clinical indication); or iterative reconstruction. Contrast material: OMNI 350; Contrast volume: 100 ml; Contrast route: INTRAVENOUS (IV); COMPARISON: CT abdomen pelvis w con* [id number] 08/06/2023 3:23 PM RADIATION DOSE METRICS: Total DLP (mGy-cm): 1169.31 FINDINGS: Liver: Normal. No mass. Gallbladder and biliary ducts: Surgical clips are seen in the gallbladder fossa. No calcified stones. No ductal dilation. Pancreas: Atrophic. No ductal dilation. Spleen: The spleen is small and demonstrates numerous calcified granulomata. Adrenal glands: Normal. No mass. Kidneys and ureters: A left mid to lower renal cyst is seen at 4.5 cm and is unchanged in comparison to the prior study from 08/06/2023. No hydronephrosis. Stomach and bowel: Mild hiatal hernia. Markedly prominent diffuse diverticular changes are seen throughout the colon. Moderate stool burden. No obstruction. No mucosal thickening. Appendix: No evidence of appendicitis. The appendix appears to be normal and is seen on image 42 of series 15. Intraperitoneal space: Unremarkable. No free air. No significant fluid collection. Vasculature: Marked atherosclerotic calcifications with mild ectasia of the lower abdominal aorta. Maximal transverse dimension is 3 cm. No abdominal aortic aneurysm. Lymph nodes: Unremarkable. No enlarged lymph nodes. Urinary bladder: Trace mural thickening of the bladder floor centered to the left of midline and posterior to the prosthetic urethra best seen on image 21 of series 15 and image 37 of series 16. Reproductive: Unremarkable as visualized. Bones/joints: Multilevel osteoarthritic/degenerative changes again seen with dextro rotatory scoliosis of the lumbar spine. No acute fracture. 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 Soft tissues: Unremarkable. CT/CT chest abdpel w/*[id number] IMPRESSION: 1. Markedly prominent and extensive chronic interstitial/emphysematous changes, as described previously. 2. Slight developing infiltrate suspected along the posterolateral aspect of the right upper lobe in this patient with additional history of mycobacterium avium complex/MAC lung disease. IMPRESSION: 1. Markedly prominent diffuse diverticulosis with moderate stool burden and no evidence of emphysematous changes or diverticulitis. 2. Subtle bladder wall thickening as described suggest urological correlation to exclude occult neoplasm. 3. Marked atherosclerotic calcifications of the great vessels of the abdomen and pelvis. 4. Additional chronic changes, described above. 5. Chest and abdominopelvic CT findings discussed with Dr. Andreas Caldera at 1106 p.m. EST.
[2024-07-05 20:52] LABS: Alanine Aminotransferase 24 U/L (0-41); Albumin Level 3.3 g/dL (3.5-5.2); Alkaline Phosphatase 205 U/L (40-130); Aspartate Amino Transferase 37 U/L (0-40); Blood Urea Nitrogen 14 mg/dL (8-23); Calcium 8.7 mg/dL (8.5-10.5); Carbon Dioxide 21 mmol/L (22-29); Chloride 103 mmol/L (98-107); Creatinine Clr Calc Pharmacy 55.9177; Globulin 4.7 g/dL (1.3-4.6); Glucose 112 mg/dL (65-115); Lipase 45 U/L (13-60); Magnesium 1.8 mg/dL (1.7-2.3); Osmolality Calculated 283 mOsm/kg (285-295); Sodium 136 mmol/L (136-145); Total Bilirubin 0.3 mg/dL (0.15-1.2)
[2024-07-05 20:58] LABS: Procalcitonin 0.06 ng/mL (0-0.5)
[2024-07-05 21:10] LABS: Anion Gap 16.5 (5-19); Potassium 4.5 mmol/L (3.5-5.1)
[2024-07-05] MEDS: iohexol 350 mg/mL 500 mL Btl (per mL) IV (21:18)
[2024-07-05 21:29] LABS: Lactic Sepsis W/Reflex 1.1 mmol/L (0.5-2.2)
[2024-07-05] MEDS: ciprofloxacin 500 mg Tablet PO (22:26)
[2024-07-05] MEDS: benzonatate 100 mg Capsule PO (22:26)
== END 2024-07-05 22:40 | disposition home or self-care (01) ==
PROVIDERS: Emergency Provider Emergency Medicine; PCP Family Medicine
DX: A31.0 Pulmonary mycobacterial infection (principal); N30.01 Acute cystitis with hematuria; Z87.891 Personal history of nicotine dependence; Z95.0 Presence of cardiac pacemaker; E78.5 Hyperlipidemia, unspecified; I10 Essential (primary) hypertension
CPT/HCPCS: 36415; 71045; 71260; 74018; 74177; 80053; 81001; 83605; 83690; 83735; 84145; 85025; 87040; 87077; 87086; 87186; 99285

== ENCOUNTER 2024-07-06 14:01 | Observation (INO) | payer MEDICARE, SELFPAY ==
[2024-07-06] VITALS (11 sets, daily range): BP systolic 116–151; BP diastolic 40–76; PULSE 63–80; RESP 16; TEMP 36.6–37.4; O2SAT 92–95; BMI 26.6
--- NOTE | 2024-07-06 14:03 | ECG_ITS ---
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 Measurements Intervals [place] Rate: 78 P: 211 ME: 247 QRS: 36 QRSD: 83 T: 24 QT: 410 QTc: 470 Interpretive Statements ELECTRONIC ATRIAL PACEMAKER Compared to ECG 12/12/2022 18:03:00 Atrial flutter no longer present ST (T wave) deviation no longer present Electronically Signed On 07-08-2024 18:04:15 PARTS SALES REPRESENTATIVE by Jeff Rg M.D. [email or web address]
--- NOTE | 2024-07-06 14:10 | XR_ITS ---
WS: [id number] XR chest 1V portable [id number] REASON FOR EXAM: weakness FINDINGS: The chest appears unchanged compared to 07/05/2024. Cardiac device over the left chest with trans left subclavian vein leads to the right atrium and right ventricular apex. The heart is mildly enlarged. Interstitial and aeration changes in both lungs compatible with chronic interstitial lung disease with honeycombing in the right lower lobe and adjacent to the minor fissure on the right. The area of abnormality along the periphery of the right lung adjacent to the minor fissure appears less dense than on the prior day's examination however this is felt to be due to a slight difference in positioning. No definite acute interval change compared to the prior examination. XR/XR chest 1V portable [id number] IMPRESSION: Stable abnormal chest as above.
[2024-07-06 14:24] LABS: Basophils % 0.4 %; Eosinophils % 0.1 %; Hematocrit 37.1 % (37-53); Lymphocytes # 0.4 10^3/uL (0.8-4.8); Lymphocytes % 5.3 %; Mean Corpuscular HGB Conc 32.9 g/dL (30-55); Mean Corpuscular Hemoglobin 32.4 pg (27-33); Mean Corpuscular Volume 98.4 fl (82-101); Mean Platelet Volume 10.2 fL (7.4-10.4); Monocytes # 1.1 10^3/uL (0.2-0.9); Monocytes % 13.2 %; Neutrophils # 6.67 10^3/uL (1.8-7.7); Neutrophils % 80.5 %; Nucleated Red Blood Cells % 0 %; Platelet Count 242 10^3/cmm (157-399); Red Blood Count 3.77 10^6/uL (3.85-5.65); Red Cell Distribution Width 13.7 % (12.1-15.1); White Blood Count 8.28 10^3/uL (3.29-11.43)
[2024-07-06 14:33] LABS: Alanine Aminotransferase 25 U/L (0-41); Albumin Level 3.4 g/dL (3.5-5.2); Alkaline Phosphatase 202 U/L (40-130); Aspartate Amino Transferase 45 U/L (0-40); Blood Urea Nitrogen 13 mg/dL (8-23); Calcium 8.6 mg/dL (8.5-10.5); Carbon Dioxide 23 mmol/L (22-29); Chloride 99 mmol/L (98-107); Creatinine Clr Calc Pharmacy 49.9406; Globulin 4.6 g/dL (1.3-4.6); Glucose 112 mg/dL (65-115); Magnesium 1.8 mg/dL (1.7-2.3); Osmolality Calculated 277 mOsm/kg (285-295); Sodium 133 mmol/L (136-145); Total Bilirubin 0.3 mg/dL (0.15-1.2)
[2024-07-06 14:38] LABS: Anion Gap 15.6 (5-19); Potassium 4.6 mmol/L (3.5-5.1)
--- NOTE | 2024-07-06 14:42 | ED_ITS ---
HPI - Male Genitourinary 2 General: Chief complaint: Urogenital-Male Stated complaint: weakness - kidney infection Time Seen by Provider: 07/06/24 14:09 Source: patient and EMS Mode of arrival: EMS Limitations: no limitations History of Present Illness: 89-year-old male states been having extr andrew weakness he is seen here couple days ago he states that since then he has not been able to take care of himself states has had multiple falls and weakness he is found in the floor by EMS with diarrhea around him. He states he lives with his who is not able to care for him either he has not had anything to drink in the last 24 hours he denies any fevers. He denies hitting his head or any headache Associated symptoms: Deny nausea or vomiting Related Data Home Medications ?Medication ?Instructions ?Recorded ?Confirmed azithromycin 500 mg tablet 500 mg PO DAILY 07/06/24 lisinopril 5 mg tablet 5 mg PO DAILY 07/06/2407/06 Previous Rx's ?Medication ?Instructions ?Recorded amlodipine 10 mg tablet 10 mg PO DAILY blood pressur e #90 12/14/23 tabs montelukast 10 mg tablet 10 mg PO QAM copd #90 tabs 0 12/14/23 albuterol sulfate 2.5 mg/3 mL 2.5 mg (3 mL) inhalation Q6H PRN 12/15/23 (0.083 %) solution for nebulization shortness of breat h or wheezing #180 mL albuterol sulfate 90 mcg/actuation 2 puff inhalation Q 6H PRN 12/15/23 aerosol inhaler shortness of breath or wheez ing #3 ea rosuvastatin 20 mg tablet 20 mg PO BEDTIME cholesterol #90 12/15/23 tabs budesonide-formoterol HFA 160 2 puff inhalation BID #1 0.2 grams 03/20/24 mcg-4.5 mcg/actuation aerosol inhaler (Symbicort) ethambutol 100 mg tablet 100 mg PO DAILY 30 days #30 tabs 03/21/24 ethambutol 400 mg tablet 800 mg (2 x 400 mg) PO DAILY 30 03/21/24 days #60 tabs aspirin 81 mg chewable tablet 81 mg PO DAILY #90 tabs 05/15/24 sotalol 120 mg tablet 120 mg PO QAM blood pressure & 01/14/25 heart #90 tabs sotalol 80 mg tablet 80 mg PO QPM heart & blood 0 05/16/24 pressure #90 tabs tamsulosin 0.4 mg capsule (Flomax) 0.4 mg PO BEDTIME # 90 caps 05/16/24 ciprofloxacin HCl 500 mg tablet 500 mg PO Q12H #20 tab s 07/05/24 Allergies Allergy/AdvReac Type Severity Reaction Status Date / Time Penicillins Allergy Unknown Unknown Verified 07/05/24 18:41 adhesive tape Allergy ALGY-Bliste Verified 07/05/24 18:41 r Review of Systems 2 Const: Reports: fatigue and malaise; Denies: fever(s), chills, body aches or change in appetite ENMT: Denies: throat pain or dental pain Card: Denies: chest pain Resp: Denies: dyspnea GI: Denies: abdominal pain, nausea, vomiting or diarrhea Musc: Denies: neck pain or back pain Skin/Breast: Denies: rash Neuro: Denies: headache(s) PFSH ED 2 PFSH: Medical History Enrolled in chronic care management Sick sinus syndrome has pacemaker Macular degeneration sees DR. Eid, gets injections Prediabetes Low serum albumin BPH loc w urin obs/LUTS Chronic cough Depression Chronic bronchitis with acute exacerbation Carotid artery disease Pulmonary Mycobacterium avium complex (MAC) infection Diverticulosis AAA (abdominal aortic aneurysm) infrarenal 3cm on CT 2021 A-fib History of cardiac pacemaker Dyslipidemia Hypertension Surgical History History of permanent cardiac pacemaker placement has had 2 History of colonoscopy (~06/2019) History of laparoscopic cholecystectomy History of arthroplasty of left ankle History of CEA (carotid endarterectomy) left Family History Father CAD (coronary artery disease) [place] age 66 Other [place] disease Family history of premature coronary artery disease Denies family history of Rheumatoid arthritis Diabetes Lupus Anesthesia complication Bleeding disorder Lung disease Cancer Hypertension Stroke Social History Smoking and tobacco/nicotine status: former use of tobacco/nicotine Quit status (tobacco/nicotine): has quit using Year quit tobacco: 1976 1ppw- 2ppd x27yrs Second hand smoke exposure: No Alcohol intake: never Substance/Drug Use: never Adopted: No Caregiver/support person: Yes Lives independently: Yes Household members: spouse Housing: House Marital status: Number of children: 2 Highest education level completed: High School Graduate service: No Current occupational status: retired Current occupational exposures/hazards: No 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 Pets and animals: No Sexually active: No Do you think of yourself as: Straight/Heterosexual Current gender identity: Male Kiara/Anabaptism: None Special kiara needs: No Agree to transfusion: No Physical Exam 2 Const: COMMON NORMALS: patient oriented x3 GENERAL APPEARANCE: ill appearing and frail appearing HENMT: COMMON NORMALS: normocephalic and atraumatic HEAD & SCALP: n ormocephalic and atraumatic Eye: COMMON NORMALS: Equal, round and reactive pupils present and EOMs intact bilaterally PUPIL: Yes Equal, round and reactive pupils present Neck/C-Spine: COMMON NORMALS: full ROM and supple Chest: COMMONS NORMALS: normal inspection of the chest and normal palpation of entire chest wall Resp: COMMON NORMALS: normal respiratory effort, No retractions, No use of accessory muscles and clear to auscultation bilaterally AUSCULTATION: clear to auscultation bilaterally Cardio: COMMON NORMALS: regular rate, regular rhythm and No murmurs present (Cardio) RATE: regular rate RHYTHM: regular rhythm GI: COMMON NORMALS: Normal to inspection, nondistended, normoactive bowel sounds present, Soft to palpation, non-tender and no masses PALPATION: Yes Soft to palpation Extremity: COMMON NORMALS: normal to inspection and full ROM Neuro: COMMON NORMALS: patient oriented x3, moves all extremities and no focal motor deficits Psych: COMMON NORMALS: mental status grossly normal, Normal thought process present and cooperative THOUGHT PROCESS: Normal thought process present Skin: COMMON NORMALS: no rashes or lesions noted and no wounds GENERAL SKIN EXAM: no rashes or lesions noted Course 2 Vital Signs: Vital signs: Vital Signs Temperature 97.9 F 07/06/24 14:08 Pulse Rate 76 07/06/24 16:30 Respiratory Rate 16 07/06/24 14:08 Blood Pressure 132/58 07/06/24 16:30 Pulse Oximetry 93 07/06/24 16:30 Oxygen Delivery Me thod Room Air 07/06/24 16:30 MDM - Male Medical Decision Making Patient presents for generalized weakness he is not able to care for himself or walk spoke to the hospitalist will admit at this time Medical Records I reviewed the patient's medical records. Lab Data I reviewed the patient's lab results. 07/06/24 13:45 07/06/24 13:45 Radiology Impressions Chest X-Ray 07/06/24 14:10 IMPRESSION: Stable abnormal chest as above. Laboratory Results WBC 8.28 10^3/uL (3.29-11.43) 07/06/24 13:45 RBC 3.77 10^6/uL (3.85-5.65) L 07/06/24 13:45 Hgb 12.20 g/dL (11.27-16.99) 07/06/24 13:45 Hct 37.1 % (37-53) 07/06/24 13:45 MCV 98.4 fl (82-101) 07/06/24 13:45 MCH 32.4 pg (27-33) 07/06/24 13:45 MCHC 32.9 g/dL (30-55) 07/06/24 13:45 RDW 13.7 % (12.1-15.1) 07/06/24 13:45 Plt Count 242 10^3/cmm (157-399) 07/06/24 13:45 MPV 10.2 fL (7.4-10.4) 07/06/24 13:45 Neut % (Auto) 80.5 % 07/06/24 13:45 Lymph % (Auto) 5.3 % 07/06/24 13:45 [place] % (Auto) 13.2 % 07/06/24 13:45 Eos % (Auto) 0.1 % 07/06/24 13:45 Baso % (Auto) 0.4 % 07/06/24 13:45 Neut # (Auto) 6.67 10^3/uL (1.8-7.7) 07/06/24 13:45 Lymph # (Auto) 0.4 10^3/uL (0.8-4.8) L 07/06/24 13:45 [place] # (Auto) 1.1 10^3/uL (0.2-0.9) H 07/06/24 13:45 Eos # (Auto) 0.0 10^3/uL (0.0-0.8) 07/06/24 13:45 Baso # (Auto) 0.0 10^3/uL (0.0-0.1) 07/06/24 13:45 Nucleated RBC % (auto) 0 % 07/06/24 13:45 Nucleated RBCs # 0.0 /100WBC 07/06/24 13:45 Sodium 133 mmol/L (136-145) L 07/06/24 13:45 Potassium 4.6 mmol/L (3.5-5.1) 07/06/24 13:45 Chloride 99 mmol/L (98-107) 07/06/24 13:45 Carbon Dioxide 23 mmol/L (22-29) 07/06/24 13:45 Anion Gap 15.6 (5-19) 07/06/24 13:45 BUN 13 mg/dL (8-23) 07/06/24 13:45 Creatinine 1.0 mg/dL (0.7-1.2) 07/06/24 13:45 GFR Calculation Not Reportable 07/06/24 13:45 Glucose 112 mg/dL (65-115) 07/06/24 13:45 Calculated Osmolality 277 mOsm/kg (285-295) L 07/06/24 13:45 Calcium 8.6 mg/dL (8.5-10.5) 07/06/24 13:45 Magnesium 1.8 mg/dL (1.7-2.3) 07/06/24 13:45 Total Bilirubin 0.3 mg/dL (0.15-1.2) 07/06/24 13:45 AST 45 U/L (0-40) H 07/06/24 13:45 ALT 25 U/L (0-41) 07/06/24 13:45 Alkaline Phosphatase 202 U/L (40-130) H 07/06/24 13:45 Total Protein 8.0 g/dL (6.6-8.7) 07/06/24 13:45 Albumin 3.4 g/dL (3.5-5.2) L 07/06/24 13:45 Globulin 4.6 g/dL (1.3-4.6) 07/06/24 13:45 TSH 1.42 uIU/mL (0.27-4.20) 07/06/24 13:45 Urine Color Yellow (Yellow) 07/06/24 14:22 Urine Appearance Clear (CLEAR) 07/06/24 14:22 Urine pH 5.5 (5-7) 07/06/24 14:22 Ur Specific [place] 1.025 (1.005-1.030) 07/06/24 14:22 Urine Protein 2+ (Negative) A 07/06/24 14:22 Urine Glucose (UA) Negative (Normal) 07/06/24 14:22 Urine Ketones Trace (Negative) 07/06/24 14:22 Urine Blood 2+ (Negative) A 07/06/24 14:22 Urine Nitrate Negative (Negative) 07/06/24 14:22 Urine Bilirubin Negative (Negative) 07/06/24 14:22 Urine Urobilinogen 0.2 mg/dL (Negative) 07/06/24 14:22 Ur Leukocyte Esterase Negative (Negative) 07/06/24 14:22 Urine RBC 5-10 /hpf (0-2) H 07/06/24 14:22 Urine WBC 0-4 /hpf (0-5) H 07/06/24 14:22 Ur Squamous Epith Cells 0-4 /hpf (0-5) H 07/06/24 14:22 Amorphous Sediment Not Reportable 07/06/24 14:22 Urine Bacteria 1+ /hpf (NONE) H 07/06/24 14:22 Hyaline Casts 10-15 /lpf H 07/06/24 14:22 All radiology interpretation(s) finalized by discharge EKG Data EKG 1: I personally reviewed and interpreted this EKG as follows: EKG Data: 07/06/24 EKG interpretation time: 14:03 Interpretation: paced hr [address] or t wave abnormalities qrs 83 qtc 444 Discharge Plan Discharge Admit Provider: Elieser Peace Condition: Stable Coding Level of Care Code ED Home Service Director for [facility]
[2024-07-06] MEDS: sodium chloride 0.9% 1,000 ML 999 ML IV (14:49)
[2024-07-06 14:50] LABS: Bilirubin Urine Negative (Negative); Blood Urine 2+ (Negative); Glucose Urine UA Negative (Normal); Ketones Urine Trace (Negative); Leukocyte Esterase Urine Negative (Negative); Nitrate Urine Negative (Negative); Protein Urine 2+ (Negative); Specific Gravity, Urine 1.025 (1.005-1.030); Urine Appearance Clear (CLEAR); Urine Color Yellow (Yellow); Urobilinogen Urine 0.2 mg/dL (Negative); pH Urine 5.5 (5-7)
[2024-07-06 15:04] LABS: Add Urine Microscopic? YES; Bacteria Urine 1+ /hpf; Squamous Epithelial Cell Urine 0-4 /hpf (0-5); UA Manual Slide Review YES; UA Slide Review UA Slide Review Perf; WBC Urine 0-4 /hpf (0-5)
[2024-07-06 15:08] LABS: Thyroid Stimulating Hormone 1.42 uIU/mL (0.27-4.20)
--- NOTE | 2024-07-06 16:49 | PM.HP ---
Providers/Chief Complaint Primary Care Provider: Vanesa Dennis MD Chief Complaint: weakness - kidney infection History of Present Illness Andreas Rosario is a 89 year old male with a past medical history of MAC, atrial fibrillation, BPH, depression, carotid artery stenosis, who presents [facility] due to weakness, fatigue. Patient was here in the emergency room last night due to weakness, fatigue, fall, diarrhea. Patient tells me that her symptoms started in the last 48 hours with fatigue, malaise, no nausea, no vomiting no abdominal pain did have diarrhea, he presented to the emergency room he was given ciprofloxacin, however when he got home he continued to have weakness fatigue decreased strength, had a fall and was unable to get off the ground. Denies any recent illness, no recent viral infection. Denies any ascending weakness, no flank pain, dysuria, hematuria no urinary continence no bowel incontinence no saddle perineal anesthesia, he tells me that his back is hurting him in the gurney but normally does not bother him, reports a chronic cough, because of his MAC, no hemoptysis reported. Denies any strokelike symptoms no facial droop, no slurring words, no focal weakness Review of Systems Const: Reports: fatigue and malaise; Denies: fever(s) or chills Card: Denies: chest pain Resp: Reports: non-productive cough; Denies: dyspnea GI: Reports: diarrhea; Denies: nausea or vomiting : Reports: urinary frequency; Denies: flank pain Musc: Denies: neck pain or back pain Medications/Allergies Home Medications ?Medication ?Instructions ?Recorded ?Confirmed ?Last Taken ?Type amlodipine 10 mg tablet 10 mg PO DAILY blood pressure #90 12/14/23 07/06/24 Unknown Rx tabs montelukast 10 mg tablet 10 mg PO QAM copd #90 tabs 12/14/23 07/06/24 Unknown Rx albuterol sulfate 2.5 mg/3 mL 2.5 mg (3 mL) inhalation Q6H PRN 12/15/23 07/06/24 Unknown Rx (0.083 %) solution for nebulization shortness of breath or wheezing #180 mL albuterol sulfate 90 mcg/actuation 2 puff inhalation Q6H PRN 12/15/23 07/06/24 Unknown Rx aerosol inhaler shortness of breath or wheezing #3 ea rosuvastatin 20 mg tablet 20 mg PO BEDTIME cholesterol #90 12/15/23 07/06/24 Unknown Rx tabs budesonide-formoterol HFA 160 2 puff inhalation BID #10.2 grams 03/20/24 07/06/24 Unknown Rx mcg-4.5 mcg/actuation aerosol inhaler (Symbicort) ethambutol 100 mg tablet 100 mg PO DAILY 30 days #30 tabs 03/21/24 07/06/24 Unknown Rx ethambutol 400 mg tablet 800 mg (2 x 400 mg) PO DAILY 30 03/21/24 07/06/24 Unknown Rx days #60 tabs aspirin 81 mg chewable tablet 81 mg PO DAILY #90 tabs 05/15/24 07/06/24 Unknown Rx sotalol 120 mg tablet 120 mg PO QAM blood pressure & 05/16/24 07/06/24 Unknown Rx heart #90 tabs sotalol 80 mg tablet 80 mg PO QPM heart & blood 05/16/24 07/06/24 Unknown Rx pressure #90 tabs tamsulosin 0.4 mg capsule (Flomax) 0.4 mg PO BEDTIME #90 caps 05/16/24 07/06/24 Unknown Rx ciprofloxacin HCl 500 mg tablet 500 mg PO Q12H #20 tabs 07/05/24 07/06/24 Unknown Rx azithromycin 500 mg tablet 500 mg PO DAILY 07/06/24 07/06/24 Unknown History lisinopril 5 mg tablet 5 mg PO DAILY 07/06/24 07/06/24 Unknown History Allergies Allergy/AdvReac Type Severity Reaction Status Date / Time Penicillins Allergy Unknown Unknown Verified 07/05/24 18:41 adhesive tape Allergy ALGY-Bliste Verified 07/05/24 18:41 r PFSH Acute PFSH: Medical History Enrolled in chronic care management Sick sinus syndrome has pacemaker Macular degeneration sees DR. Eid, gets injections Prediabetes Low serum albumin BPH loc w urin obs/LUTS Chronic cough Depression Chronic bronchitis with acute exacerbation Carotid artery disease Pulmonary Mycobacterium avium complex (MAC) infection Diverticulosis AAA (abdominal aortic aneurysm) infrarenal 3cm on CT 2021 A-fib History of cardiac pacemaker Dyslipidemia Hypertension Surgical History History of permanent cardiac pacemaker placement has had 2 History of colonoscopy (~06/2019) History of laparoscopic cholecystectomy History of arthroplasty of left ankle History of CEA (carotid endarterectomy) left Family History Father CAD (coronary artery disease) [place] age 66 Other [place] disease Family history of premature coronary artery disease Denies family history of Rheumatoid arthritis Diabetes Lupus Anesthesia complication Bleeding disorder Lung disease Cancer Hypertension Stroke Social History Smoking and tobacco/nicotine status: former use of tobacco/nicotine Quit status (tobacco/nicotine): has quit using Year quit tobacco: 1976 1ppw-2ppd x27yrs Second hand smoke exposure: No Alcohol intake: never Substance/Drug Use: never Adopted: No Caregiver/support person: Yes Lives independently: Yes Household members: spouse Housing: House Marital status: Number of children: 2 Highest education level completed: High School Graduate service: No Current occupational status: retired Current occupational exposures/hazards: No 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 Pets and animals: No Sexually active: No Do you think of yourself as: Straight/Heterosexual Current gender identity: Male Kiara/Temple: None Special kiara needs: No Agree to transfusion: No Vitals/I&O/Wt Last Vital Signs Temp 97.9 F 07/06/24 14:08 Pulse 76 07/06/24 16:30 Resp 16 07/06/24 14:08 BP 132/58 07/06/24 16:30 Pulse Ox 93 07/06/24 16:30 O2 Del Method Room Air 07/06/24 16:30 07/06/24 07/06/24 07/06/24 06:59 14:59 22:59 Intake Total 1000 / 1000 Balance 1000 / 1000 Weight last 48 hrs Weight 77.111 kg Physical Exam Const: COMMON NORMALS: no acute distress and patient oriented x3 Eye: COMMON NORMALS: Equal, round and reactive pupils present Resp: COMMON NORMALS: normal respiratory effort, No retractions, No use of accessory muscles and clear to auscultation bilaterally AUSCULTATION: clear to auscultation bilaterally Cardio: COMMON NORMALS: no JVD, regular rate, regular rhythm, S1 normal heart sound present and S2 normal heart sound present RATE: regular rate RHYTHM: regular rhythm HEART SOUNDS: S1 normal heart sound present and S2 normal heart sound present GI: COMMON NORMALS: Normal to inspection, nondistended, normoactive bowel sounds present, Soft to palpation and non-tender Extremity: COMMON NORMALS: no pedal edema Neuro: COMMON NORMALS: patient oriented x3, CN's II-XII intact bilaterally, moves all extremities and no focal motor deficits Psych: COMMON NORMALS: mental status grossly normal Data 07/06/24 13:45 07/06/24 13:45 A&P Assessment and plan (1) Urinary tract infection: Qualifiers: Hematuria presence: with hematuria Urinary tract infection type: acute cystitis Qualified Code(s): N30.01 - Acute cystitis with hematuria (2) Generalized weakness: (3) Hypertension: Qualifiers: Hypertension type: primary hypertension Qualified Code(s): I10 - Essential (primary) hypertension (4) AAA (abdominal aortic aneurysm): (5) Dyslipidemia: (6) Macular degeneration: Plan Urinary tract infection -Start Rocephin Dehydration -IV fluids Diarrhea -Stool studies History of MAC, continue home medications History of atrial fibrillation continue sotalol Generalized weakness, PT OT PDMP PDMP Reviewed: Not Reviewed Attestations Medical Necessity Statement*: Patient requires hospitalization for UTI, weakness, fatigue, dehydration, outpatient with observation Diagnoses Urinary tract infection N30.01 Hematuria presence: with hematuria Urinary tract infection type: acute cystitis Generalized weakness R53.1 Primary hypertension I10 Hypertension type: primary hypertension AAA (abdominal aortic aneurysm) I71.4 Dyslipidemia E78.5 Macular degeneration H35.30
[2024-07-06 17:37] LABS: C Reactive Protein 15.3 mg/L (0.0-4.9)
[2024-07-06 17:43] LABS: Procalcitonin 0.08 ng/mL (0-0.5)
[2024-07-06] MEDS: sodium chloride 0.9% 1,000 ML 75 ML IV (18:04)
[2024-07-06] MEDS: cefTRIAXone 1,000 mg SDV 1000 MG IVP (18:05)
[2024-07-06] MEDS: pantoprazole 40 mg SDV IVP (18:05)
[2024-07-06] MEDS: sotalol 80 mg Tablet PO (18:06)
[2024-07-06] MEDS: enoxaparin 40 mg/0.4 mL Syringe SUBCUT (18:11)
[2024-07-06 19:17] LABS: Lactic Sepsis W/Reflex 1.2 mmol/L (0.5-2.2)
[2024-07-06 19:24] LABS: Influenza A POSITIVE (Negative); Influenza B NEGATIVE (Negative); Respiratory Syncytial Virus Ce NEGATIVE (Negative); SARS-CoV-2 PCR NEGATIVE (Negative)
[2024-07-06 19:29] LABS: Chol HDL Ratio 3.18 mg/dL (1.0-5.00); Cholesterol 105 mg/dL (0-200); HDL Cholesterol 33 mg/dL (60-100); LDL Cholesterol Calculated 61 mg/dL (50-129); LDL HDL Ratio 1.85 RATIO (0.00-3.22); Thyroid Stimulating Hormone 1.07 uIU/mL (0.27-4.20); Triglycerides 56 mg/dL (0-150)
[2024-07-06 20:23] LABS: Estmated Average Glucose 128; Hemoglobin A1C 6.1 % (4.0-6.0)
[2024-07-06] MEDS: tamsulosin 0.4 mg Capsule PO (20:52)
[2024-07-06] MEDS: atorvastatin 40 mg Tablet PO (20:52)
[2024-07-07] VITALS (9 sets, daily range): BP systolic 102–161; BP diastolic 52–66; PULSE 63–102; RESP 16–19; TEMP 36.8–37.5; O2SAT 88–95; BMI 28.3
[2024-07-07] MEDS: sotalol 80 mg Tablet 120 MG PO (05:19)
[2024-07-07 06:20] LABS: Basophils % 0.1 %; Hematocrit 36.8 % (37-53); Lymphocytes # 0.7 10^3/uL (0.8-4.8); Lymphocytes % 10.1 %; Mean Corpuscular HGB Conc 32.3 g/dL (30-55); Mean Corpuscular Hemoglobin 32.3 pg (27-33); Mean Platelet Volume 9.8 fL (7.4-10.4); Monocytes # 1.3 10^3/uL (0.2-0.9); Monocytes % 18.6 %; Neutrophils # 4.82 10^3/uL (1.8-7.7); Neutrophils % 70.8 %; Nucleated Red Blood Cells % 0 %; Platelet Count 188 10^3/cmm (157-399); Red Blood Count 3.68 10^6/uL (3.85-5.65); Red Cell Distribution Width 13.4 % (12.1-15.1); White Blood Count 6.82 10^3/uL (3.29-11.43)
[2024-07-07 06:37] LABS: Alanine Aminotransferase 28 U/L (0-41); Albumin Level 2.9 g/dL (3.5-5.2); Alkaline Phosphatase 179 U/L (40-130); Aspartate Amino Transferase 51 U/L (0-40); Blood Urea Nitrogen 12 mg/dL (8-23); Calcium 7.8 mg/dL (8.5-10.5); Carbon Dioxide 21 mmol/L (22-29); Chloride 100 mmol/L (98-107); Creatinine Clr Calc Pharmacy 64.2249; Glucose 90 mg/dL (65-115); Magnesium 1.7 mg/dL (1.7-2.3); Osmolality Calculated 273 mOsm/kg (285-295); Sodium 132 mmol/L (136-145); Total Bilirubin 0.3 mg/dL (0.15-1.2); Total Protein 6.9 g/dL (6.6-8.7)
[2024-07-07] MEDS: amlodipine 10 mg Tablet PO (09:39)
[2024-07-07] MEDS: lisinopril 5 mg Tablet PO (09:39)
[2024-07-07] MEDS: benzonatate 100 mg Capsule PO (09:39)
[2024-07-07] MEDS: azithromycin 250 mg Tablet 500 MG PO (09:39)
[2024-07-07] MEDS: aspirin 81 mg Chew Tablet PO (09:39)
[2024-07-07] MEDS: sodium chloride 0.9% 1,000 ML 75 ML IV (09:40)
[2024-07-07] MEDS: oseltamivir phosphate 75 mg Capsule PO ×2 (09:46→18:32)
--- NOTE | 2024-07-07 10:18 | PC.CHAP ---
Pastoral Care Encounter/Spiritual Assessment Type of Contact [] Declined disassembler visit [] Patient/Family/Request visit [] Outpatient visit [] Follow-up visit [] Physician referral [] Code/Alert [] Routine visit [] Staff referral [] Actively dying [] Patient sleeping [] Family support [] [] Out of room [] Palliative care [] [] Receiving care in room [] Pre-surgical visit [] Trauma [] Long length of stay [] ICU visit [x] Other:Contact precautions. No visit. Relational/Emotional Strength [] Patient feels connected with others/family/visitors/staff [] Distress [] Loneliness/isolation [] Abandonment Spirituality of Patient [] Person of Kiara [] Attends Hinduism of their Kiara [] Believes in Prayer [] Reads Bible or Denominational materials [] There are Spiritual issues to be addressed Archeology Professor Interventions [] Prayer [] Active listening [] Non-anxious presence [] Spiritual/emotional support [] Crisis/trauma care [] Spiritual counseling [] Bereavement support [] Provided bereavement packet [] Provided Bible/devotional materials [] Provided toy/stuffed animal, coloring book to patient or family member [] Provided Communion [] Anointing/[place] [] Salvation [] Completed spiritual assessment [] Other: Impact on Illness or Injury [] Angry [] Fearful [] Anxious [] Often cries [] Exhaustion [] Unable to work [] Unable to attend zoroastrian [] Unable to walk/stand [] Unable to read [] Unable to drive [] Unable to eat/drink [] Unable to sleep [] Unable to be with family [] Patient intubated [] Other: Summary Time spent with patient
--- NOTE | 2024-07-07 15:00 | P.PN_ITS ---
Vitals/I&O/Wt Last Vital Signs Temp 99.0 F 07/07/24 11:36 Pulse 63 07/07/24 11:36 Resp 17 07/07/24 11:36 BP 127/62 07/07/24 11:36 Pulse Ox 88 L 07/07/24 11:36 O2 Del Method Room Air 07/07/24 11:36 07/07/24 07/07/24 07/07/24 06:59 14:59 22:59 Intake Total 1240 / 1240 Output Total 250 / 250 Balance 990 / 990 Weight last 48 hrs Weight 82.191 kg Weight 77.111 kg Weight 77.111 kg Physical Exam 2 Const: COMMON NORMALS: no acute distress and patient oriented x3 Resp: COMMON NORMALS: normal respiratory effort, No retractions, No use of accessory muscles and clear to auscultation bilaterally AUSCULTATION: clear to auscultation bilaterally Cardio: COMMON NORMALS: regular rate, regular rhythm, S1 normal heart sound present and S2 normal heart sound present RATE: regular rate RHYTHM: r egular rhythm HEART SOUNDS: S1 normal heart sound present and S2 normal heart sound present GI: COMMON NORMALS: Normal to inspection, nondistended, normoactive bowel sounds present and non-tender Extremity: COMMON NORMALS: no pedal edema Neuro: COMMON NORMALS: patient oriented x3, moves all extremities and no focal motor deficits Psych: COMMON NORMALS: mental status grossly normal Data 07/07/24 05:49 07/07/24 05:49 A&P Assessment and plan (1) Urinary tract infection: Qualifiers: Hematuria presence: with hematuria Urinary tract infection type: acute cystitis Qualified Code(s): N30.01 - Acute cystitis with hematuria (2) Generalized weakness: (3) Hypertension: Qualifiers: Hypertension type: primary hypertension Qualified Code(s): I10 - Essential (primary) hypertension (4) AAA (abdominal aortic aneurysm): (5) Dyslipidemia: (6) Macular degeneration: (7) Influenza A: Plan Urinary tract infection -Start Rocephin Influenza A, start Tamiflu Dehydration -IV fluids Diarrhea -Stool studies History of MAC, continue home medications History of atrial fibrillation continue sotalol Generalized weakness, PT OT Plan for today, PT OT, Rocephin, Tamiflu PDMP PDMP Reviewed: Not Reviewed Attestations 2 Medical Necessity Statement*: Patient requires hospitalization for UTI, influenza A Diagnoses Urinary tract infection N30.01 Hematuria presence: with hematuria Urinary tract infection type: acute cystitis Generalized weakness R53.1 Primary hypertension I10 Hypertension type: primary hypertension AAA (abdominal aortic aneurysm) I71.4 Dyslipidemia E78.5 Macular degeneration H35.30 Influenza A J10.1
--- NOTE | 2024-07-07 15:41 | PC.SOCIAL ---
IMM updated IMM dated and initialed, copy given to patient and copy placed in chart
[2024-07-07] MEDS: cefTRIAXone 1,000 mg SDV 1000 MG IVP (18:31)
[2024-07-07] MEDS: pantoprazole 40 mg SDV IVP (18:31)
[2024-07-07] MEDS: sotalol 80 mg Tablet PO (18:32)
[2024-07-07] MEDS: enoxaparin 40 mg/0.4 mL Syringe SUBCUT (18:32)
[2024-07-07] MEDS: lanolin oint 7 gm 1 APPLIC TOPICAL (18:40)
--- NOTE | 2024-07-07 18:41 | XRR_ITS ---
PROCEDURE INFORMATION: Exam: XR Chest Exam date and time: 07/07/2024 7:35 PM Age: 89 years old Clinical indication: Other: Wet lung sounds; Prior surgery; Surgery date: 6+ months; Surgery type: Pacemaker TECHNIQUE: Imaging protocol: Radiologic exam of the chest. Views: 1 view. COMPARISON: CR XR chest 1V portable [id number] 07/06/2024 2:24 PM FINDINGS: Tubes, catheters and devices: A left-sided pacemaker present. Lungs: Chronic interstitial lung changes noted. No definitive acute lung opacity. Pleural spaces: Unremarkable. No pleural effusion. No pneumothorax. Heart/Mediastinum: Unremarkable. No cardiomegaly. Vasculature: Vascular calcification involves the aorta. Bones/joints: Unremarkable. XR/XR chest 1V portable [id number] IMPRESSION: Chronic interstitial lung changes. No acute lung opacities.
[2024-07-07] MEDS: tamsulosin 0.4 mg Capsule PO (21:09)
[2024-07-07] MEDS: atorvastatin 40 mg Tablet PO (21:09)
[2024-07-08] VITALS (11 sets, daily range): BP systolic 100–111; BP diastolic 56–64; PULSE 60–98; RESP 16–18; TEMP 36.4–37.5; O2SAT 93–96; BMI 28.3
[2024-07-08 04:31] LABS: Basophils % 0.2 %; Eosinophils % 0.2 %; Lymphocytes # 0.9 10^3/uL (0.8-4.8); Mean Corpuscular HGB Conc 33.8 g/dL (30-55); Mean Corpuscular Volume 97.7 fl (82-101); Mean Platelet Volume 9.9 fL (7.4-10.4); Monocytes # 0.9 10^3/uL (0.2-0.9); Monocytes % 17.6 %; Neutrophils # 3.32 10^3/uL (1.8-7.7); Neutrophils % 64.8 %; Nucleated Red Blood Cells % 0 %; Platelet Count 173 10^3/cmm (157-399); Red Blood Count 3.48 10^6/uL (3.85-5.65); Red Cell Distribution Width 13.3 % (12.1-15.1); White Blood Count 5.12 10^3/uL (3.29-11.43)
[2024-07-08 04:57] LABS: Alanine Aminotransferase 37 U/L (0-41); Albumin Level 2.7 g/dL (3.5-5.2); Alkaline Phosphatase 155 U/L (40-130); Anion Gap 15.2 (5-19); Aspartate Amino Transferase 66 U/L (0-40); Blood Urea Nitrogen 18 mg/dL (8-23); Calcium 7.7 mg/dL (8.5-10.5); Carbon Dioxide 21 mmol/L (22-29); Chloride 99 mmol/L (98-107); Globulin 3.8 g/dL (1.3-4.6); Glucose 95 mg/dL (65-115); Magnesium 1.8 mg/dL (1.7-2.3); Osmolality Calculated 274 mOsm/kg (285-295); Phosphorus 3.5 mg/dL (2.5-4.5); Potassium 4.2 mmol/L (3.5-5.1); Sodium 131 mmol/L (136-145); Total Bilirubin 0.2 mg/dL (0.15-1.2); Total Protein 6.5 g/dL (6.6-8.7)
[2024-07-08] MEDS: sotalol 80 mg Tablet 120 MG PO (05:27)
[2024-07-08] MEDS: oseltamivir phosphate 75 mg Capsule PO (09:40)
[2024-07-08] MEDS: amlodipine 10 mg Tablet PO (09:42)
[2024-07-08] MEDS: lisinopril 5 mg Tablet PO (09:43)
[2024-07-08] MEDS: azithromycin 250 mg Tablet 500 MG PO (09:43)
[2024-07-08] MEDS: aspirin 81 mg Chew Tablet PO (09:43)
[2024-07-08] MEDS: albuterol 2.5 mg/3 mL Neb INHALATION ×2 (10:33→15:40)
--- NOTE | 2024-07-08 15:23 | P.PN_ITS ---
Subjective 2 Subjective: Patient was seen this morning, family members at bedside, does report persistent coughing, tells me that Tessalon Perles do not seem to help Vitals/I&O/Wt Last Vital Signs Temp 97.5 F L 07/08/24 12:00 Pulse 74 07/08/24 12:00 Resp 16 07/08/24 12:00 BP 108/57 07/08/24 12:00 Pulse Ox 93 07/08/24 12:00 O2 Del Method Nasal Cannula 07/08/24 12:00 O2 Flow Rate 1 07/08/24 10:00 07/08/24 07/08/24 07/08/24 06:59 14:59 22:59 Intake Total 240 / 240 Output Total 300 / 750 Balance -300 / 1020 240 / 240 Weight last 48 hrs Weight 82.157 kg Weight 82.191 kg Weight 77.111 kg Physical Exam 2 Const: COMMON NORMALS: no acute distress and patient oriented x3 Resp: COMMON NORMALS: normal respiratory effort, No retractions, No use of accessory muscles and clear to auscultation bilaterally AUSCULTATION: clear to auscultation bilaterally Cardio: COMMON NORMALS: regular rate, regular rhythm, S1 normal heart sound present and S2 normal heart sound present RATE: regular rate RHYTHM: r egular rhythm HEART SOUNDS: S1 normal heart sound present and S2 normal heart sound present GI: COMMON NORMALS: Normal to inspection, nondistended, normoactive bowel sounds present and non-tender Extremity: COMMON NORMALS: no pedal edema Neuro: COMMON NORMALS: patient oriented x3 Psych: COMMON NORMALS: mental status grossly normal Data 07/08/24 04:18 07/08/24 04:18 A&P Assessment and plan (1) Urinary tract infection: Qualifiers: Hematuria presence: with hematuria Urinary tract infection type: acute cystitis Qualified Code(s): N30.01 - Acute cystitis with hematuria (2) Generalized weakness: (3) Hypertension: Qualifiers: Hypertension type: primary hypertension Qualified Code(s): I10 - Essential (primary) hypertension (4) AAA (abdominal aortic aneurysm): (5) Dyslipidemia: (6) Macular degeneration: (7) Influenza A: Plan Urinary tract infection -Start Rocephin Influenza A, Tamiflu Dehydration -IV fluids Diarrhea -Stool studies History of MAC, continue home medications History of atrial fibrillation continue sotalol Generalized weakness, PT OT Plan for today, PT OT, Rocephin, Tamiflu PDMP PDMP Reviewed: Not Reviewed Attestations 2 Medical Necessity Statement*: Patient requires hospitalization for generalized weakness, influenza, UTI Diagnoses Urinary tract infection N30.01 Hematuria presence: with hematuria Urinary tract infection type: acute cystitis Generalized weakness R53.1 Primary hypertension I10 Hypertension type: primary hypertension AAA (abdominal aortic aneurysm) I71.4 Dyslipidemia E78.5 Macular degeneration H35.30 Influenza A J10.1
[2024-07-08] MEDS: enoxaparin 40 mg/0.4 mL Syringe SUBCUT (18:21)
[2024-07-08] MEDS: cefTRIAXone 1,000 mg SDV 1000 MG IVP (18:22)
[2024-07-08] MEDS: acetaminophen 325 mg Tablet 650 MG PO (18:22)
[2024-07-08] MEDS: pantoprazole 40 mg SDV IVP (18:22)
[2024-07-08] MEDS: oseltamivir phosphate 30 mg Capsule PO (18:23)
[2024-07-08] MEDS: benzonatate 100 mg Capsule 200 MG PO (18:23)
[2024-07-08] MEDS: sotalol 80 mg Tablet PO (18:23)
[2024-07-08] MEDS: guaiFENesin-codeine UDC 10 mL 5 ML PO (18:23)
[2024-07-08] MEDS: atorvastatin 40 mg Tablet PO (20:48)
[2024-07-08] MEDS: tamsulosin 0.4 mg Capsule PO (20:48)
[2024-07-08] MEDS: HYDROcodone-acetaminophen 5-325 mg Tablet 1 TAB PO (21:45)
[2024-07-09] VITALS (11 sets, daily range): BP systolic 89–114; BP diastolic 49–63; PULSE 59–98; RESP 14–20; TEMP 36.4–37; O2SAT 90–95
[2024-07-09 04:18] LABS: Basophils % 0.2 %; Eosinophils % 0.4 %; Hematocrit 35.9 % (37-53); Lymphocytes # 0.9 10^3/uL (0.8-4.8); Lymphocytes % 18.3 %; Mean Corpuscular HGB Conc 31.8 g/dL (30-55); Mean Corpuscular Volume 100.8 fl (82-101); Mean Platelet Volume 10.5 fL (7.4-10.4); Monocytes # 0.8 10^3/uL (0.2-0.9); Monocytes % 15.7 %; Neutrophils # 3.21 10^3/uL (1.8-7.7); Neutrophils % 65.2 %; Nucleated Red Blood Cells % 0 %; Platelet Count 154 10^3/cmm (157-399); Red Blood Count 3.56 10^6/uL (3.85-5.65); Red Cell Distribution Width 13.2 % (12.1-15.1); White Blood Count 4.92 10^3/uL (3.29-11.43)
[2024-07-09 04:42] LABS: Alanine Aminotransferase 35 U/L (0-41); Albumin Level 2.5 g/dL (3.5-5.2); Alkaline Phosphatase 138 U/L (40-130); Aspartate Amino Transferase 61 U/L (0-40); Blood Urea Nitrogen 19 mg/dL (8-23); Calcium 7.7 mg/dL (8.5-10.5); Carbon Dioxide 21 mmol/L (22-29); Chloride 102 mmol/L (98-107); Creatinine Clr Calc Pharmacy 57.0781; Globulin 3.7 g/dL (1.3-4.6); Glucose 96 mg/dL (65-115); Magnesium 1.7 mg/dL (1.7-2.3); Osmolality Calculated 278 mOsm/kg (285-295); Phosphorus 3.2 mg/dL (2.5-4.5); Sodium 133 mmol/L (136-145); Total Bilirubin 0.2 mg/dL (0.15-1.2); Total Protein 6.2 g/dL (6.6-8.7)
[2024-07-09 04:47] LABS: Anion Gap 14.3 (5-19); Potassium 4.3 mmol/L (3.5-5.1)
[2024-07-09] MEDS: sotalol 80 mg Tablet 120 MG PO (05:33)
[2024-07-09] MEDS: HYDROcodone-acetaminophen 5-325 mg Tablet 1 TAB PO ×2 (06:21→20:18)
[2024-07-09] MEDS: albuterol 2.5 mg/3 mL Neb INHALATION ×2 (08:45→13:56)
[2024-07-09] MEDS: oseltamivir phosphate 30 mg Capsule PO ×2 (09:09→17:19)
[2024-07-09] MEDS: azithromycin 250 mg Tablet 500 MG PO (09:09)
[2024-07-09] MEDS: aspirin 81 mg Chew Tablet PO (09:09)
--- NOTE | 2024-07-09 13:11 | XRR_ITS ---
PROCEDURE INFORMATION: Exam: XR Ribs Exam date and time: 07/09/2024 1:51 PM Age: 89 years old Clinical indication: Painful respiration; Prior surgery; Surgery date: 6+ months; Surgery type: Pacemaker; RT anterior rib pain due to persistent cough TECHNIQUE: Imaging protocol: Radiologic exam of the of the ribs. Views: 3 views. Bilateral ribs. COMPARISON: CR (CHEST, ) 07/07/2024 7:35 PM FINDINGS: Tubes, catheters and devices: There is a dual-lead AICD with leads positioned in the right atrium and right ventricle. Bones/joints: No rib fracture is visible. Bones are osteopenic. Lungs: Mild nonspecific reticular opacities in both lungs. Pleural spaces: There is no pleural effusion or pneumothorax. Heart/Mediastinum: Cardiomediastinal contours are unremarkable. Soft tissues: Unremarkable. XR/XR ribs 3V* [id number] IMPRESSION: 1. No visible rib fracture. Nondisplaced acute rib fractures may be radiographically occult. 2. Stable nonspecific bilateral pulmonary opacity since 07/07/2024.
--- NOTE | 2024-07-09 13:11 | XRR_ITS ---
PROCEDURE INFORMATION: Exam: XR Lumbosacral Spine Exam date and time: 07/09/2024 1:51 PM Age: 89 years old Clinical indication: Low back pain; Lower back pain TECHNIQUE: Imaging protocol: Radiologic exam of the lumbosacral spine. Views: 2 or 3 views. COMPARISON: CR XR lumbar spine 2-3V* [id number] 10/14/2020 4:56 PM FINDINGS: Bones/joints: Spinal alignment is normal. There are mild superior endplate compression deformities of L2, L1, and T12 which are stable since 10/14/2020. There is moderate diffuse lumbar disc and facet degeneration. There is osseous fusion of the L4-L5 facet joints. No acute fracture. Visible portions of the ribs are intact. The visible portion of the pelvis and sacrum is intact. Soft tissues: Visible soft tissues are unremarkable. Vasculature: There is severe aortic atherosclerotic disease. 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 XR/XR lumbar spine 2-3V* [id number] IMPRESSION: 1. No acute fracture. 2. 3.6 cm distal aortic abdominal aortic aneurysm.
--- NOTE | 2024-07-09 14:01 | P.PN_ITS ---
Subjective 2 Subjective: Patient was seen this morning, he tells me that he has right-sided rib pain with coughing Vitals/I&O/Wt Last Vital Signs Temp 98.0 F 07/09/24 12:00 Pulse 59 L 07/09/24 12:00 Resp 14 07/09/24 12:00 BP 106/61 07/09/24 12:00 Pulse Ox 93 07/09/24 12:00 O2 Del Method Nasal Cannula 07/09/24 12:00 O2 Flow Rate 1 07/09/24 08:48 07/08/24 07/09/24 07/09/24 22:59 07:59 14:59 Intake Total 120 / 360 1240 / 1240 Output Total 350 / 350 Balance 120 / 360 -350 / 1010 1240 / 1240 Weight last 48 hrs Weight 77.882 kg Weight 82.157 kg Physical Exam 2 Const: COMMON NORMALS: no acute distress and patient oriented x3 Resp: COMMON NORMALS: normal respiratory effort, No retractions, No use of accessory muscles and clear to auscultation bilaterally AUSCULTATION: clear to auscultation bilaterally Cardio: COMMON NORMALS: regular rate, regular rhythm, S1 normal heart sound present and S2 normal heart sound present RATE: regular rate RHYTHM: r egular rhythm HEART SOUNDS: S1 normal heart sound present and S2 normal heart sound present GI: COMMON NORMALS: Normal to inspection, nondistended, normoactive bowel sounds present and non-tender Extremity: COMMON NORMALS: no pedal edema Neuro: COMMON NORMALS: patient oriented x3 Psych: COMMON NORMALS: mental status grossly normal Data 07/09/24 03:40 07/09/24 03:40 A&P Assessment and plan (1) Urinary tract infection: Qualifiers: Hematuria presence: with hematuria Urinary tract infection type: acute cystitis Qualified Code(s): N30.01 - Acute cystitis with hematuria (2) Generalized weakness: (3) Hypertension: Qualifiers: Hypertension type: primary hypertension Qualified Code(s): I10 - Essential (primary) hypertension (4) AAA (abdominal aortic aneurysm): (5) Dyslipidemia: (6) Macular degeneration: (7) Influenza A: Plan Urinary tract infection -Start Rocephin Influenza A, Tamiflu Dehydration -IV fluids, completed Diarrhea -Stool studies History of MAC, continue home medications History of atrial fibrillation continue sotalol Generalized weakness, PT OT, will require [facility] placement Plan for today, PT OT, Rocephin, Tamiflu, complaints of low back pain x-ray lumbar spine, complaints of rib pain x-ray rib PDMP PDMP Reviewed: Not Reviewed Attestations 2 Medical Necessity Statement*: Patient requires hospital UTI, influenza, deconditioning Diagnoses Urinary tract infection N30.01 Hematuria presence: with hematuria Urinary tract infection type: acute cystitis Generalized weakness R53.1 Primary hypertension I10 Hypertension type: primary hypertension AAA (abdominal aortic aneurysm) I71.4 Dyslipidemia E78.5 Macular degeneration H35.30 Influenza A J10.1
[2024-07-09] MEDS: cefTRIAXone 1,000 mg SDV 1000 MG IVP (17:19)
[2024-07-09] MEDS: sotalol 80 mg Tablet PO (17:19)
[2024-07-09] MEDS: enoxaparin 40 mg/0.4 mL Syringe SUBCUT (17:19)
[2024-07-09] MEDS: pantoprazole DR 40 mg Tablet PO (17:19)
[2024-07-09] MEDS: atorvastatin 40 mg Tablet PO (20:16)
[2024-07-09] MEDS: tamsulosin 0.4 mg Capsule PO (20:16)
[2024-07-10] VITALS (7 sets, daily range): BP systolic 103–145; BP diastolic 55–73; PULSE 61–82; RESP 16–18; TEMP 36.3–36.6; O2SAT 83–94
[2024-07-10] MEDS: sotalol 80 mg Tablet 120 MG PO (05:45)
[2024-07-10] MEDS: albuterol 2.5 mg/3 mL Neb INHALATION (08:49)
[2024-07-10] MEDS: amlodipine 10 mg Tablet PO (09:42)
[2024-07-10] MEDS: lisinopril 5 mg Tablet PO (09:42)
[2024-07-10] MEDS: oseltamivir phosphate 30 mg Capsule PO (09:43)
[2024-07-10] MEDS: azithromycin 250 mg Tablet 500 MG PO (09:43)
[2024-07-10] MEDS: aspirin 81 mg Chew Tablet PO (09:43)
--- NOTE | 2024-07-10 12:24 | P.PN_ITS ---
Subjective 2 Subjective: Patient was seen this morning, he is alert awake following all commands, his cough is improving, right-sided pleurisy is improving Vitals/I&O/Wt Last Vital Signs Temp 98 F 07/10/24 11:18 Pulse 61 07/10/24 11:18 Resp 17 07/10/24 11:18 BP 103/55 07/10/24 11:18 Pulse Ox 93 07/10/24 11:18 O2 Del Method Nasal Cannula 07/10/24 11:18 O2 Flow Rate 1 07/10/24 08:52 07/09/24 07/10/24 07/10/24 22:59 06:59 14:59 Intake Total 240 / 240 Output Total 300 / 300 550 / 850 Balance -300 / 940 -550 / 390 240 / 240 Weight last 48 hrs Weight 77.655 kg Weight 77.882 kg Physical Exam 2 Const: COMMON NORMALS: no acute distress and patient oriented x3 Resp: COMMON NORMALS: normal respiratory effort, No retractions, No use of accessory muscles and clear to auscultation bilaterally AUSCULTATION: clear to auscultation bilaterally Cardio: COMMON NORMALS: regular rate, regular rhythm, S1 normal heart sound present and S2 normal heart sound present RATE: regular rate RHYTHM: r egular rhythm HEART SOUNDS: S1 normal heart sound present and S2 normal heart sound present GI: COMMON NORMALS: Normal to inspection, nondistended, normoactive bowel sounds present and non-tender Extremity: COMMON NORMALS: no pedal edema Neuro: COMMON NORMALS: patient oriented x3 Psych: COMMON NORMALS: mental status grossly normal Data 07/09/24 03:40 07/09/24 03:40 A&P Assessment and plan (1) Urinary tract infection: Qualifiers: Hematuria presence: with hematuria Urinary tract infection type: acute cystitis Qualified Code(s): N30.01 - Acute cystitis with hematuria (2) Generalized weakness: (3) Hypertension: Qualifiers: Hypertension type: primary hypertension Qualified Code(s): I10 - Essential (primary) hypertension (4) AAA (abdominal aortic aneurysm): (5) Dyslipidemia: (6) Macular degeneration: (7) Influenza A: Plan Urinary tract infection -Rocephin Influenza A, Tamiflu Dehydration -IV fluids, completed Diarrhea -Stool studies pending History of MAC, continue home medications History of atrial fibrillation continue sotalol Generalized weakness, PT OT, will require alf placement versus home health care Plan for today, PT OT, Rocephin, Tamiflu possible discharge PDMP PDMP Reviewed: Not Reviewed Attestations 2 Medical Necessity Statement*: Patient requires hospitalization for deconditioning Diagnoses Urinary tract infection N30.01 Hematuria presence: with hematuria Urinary tract infection type: acute cystitis Generalized weakness R53.1 Primary hypertension I10 Hypertension type: primary hypertension AAA (abdominal aortic aneurysm) I71.4 Dyslipidemia E78.5 Macular degeneration H35.30 Influenza A J10.1
--- NOTE | 2024-07-10 12:53 | P.DS_ITS ---
Discharge Providers Date of Admission: 07/06/24 16:49 Date of Discharge: July 10, 2024 Attending Provider at Admission: Elieser Peace MD Attending Provider at Discharge: Elieser Peace MD Primary Care Provider: Vanesa Dennis MD Diagnoses at Discharge Discharge Diagnosis (1) Urinary tract infection: Status: Acute Qualifiers: Hematuria presence: with hematuria Urinary tract infection type: acute cystitis Qualified Code(s): N30.01 - Acute cystitis with hematuria (2) Generalized weakness: Status: Acute (3) Hypertension: Status: Chronic Qualifiers: Hypertension type: primary hypertension Qualified Code(s): I10 - Essential (primary) hypertension (4) AAA (abdominal aortic aneurysm): Status: Chronic Permanent problem details: infrarenal 3cm on CT 2021 (5) Dyslipidemia: Status: Chronic (6) Macular degeneration: Status: Chronic Permanent problem details: sees DR. Eid, gets injections (7) Influenza A: Status: Acute Reason for Visit Reason for Visit: weakness - kidney infection Hospital Course Hospital Course Andreas Rosario is a 89 year old male with a past medical history of MAC, atrial fibrillation, BPH, depression, carotid artery stenosis, who presents [facility] due to weakness, fatigue. Patient was here in the emergency room last night due to weakness, fatigue, fall, diarrhea. Patient tells me that her symptoms started in the last 48 hours with fatigue, malaise, no nausea, no vomit ing no abdominal pain did have diarrhea, he presented to the emergency room he was given ciprofloxacin, however when he got home he continued to have weakness fatigue decreased strength, had a fall and was unable to get off the ground. Denies any recent illness, no recent viral infection. Denies any ascending weakness, no flank pain, dysuria, hematuria no urinary continence no bowel incontinence no saddle perineal anesthesia, he tells me that his back is hurting him in the gurney but normally does not bother him, reports a chronic cough, because of his MAC, no hemoptysis reported. Denies any strokelike symptoms no facial droop, no slurring words, no focal weakness Patient was admitted to [facility] for deconditioning, weakness, secondary UTI, influenza A, dehydration. Patient received IV fluids, Tamiflu, Rocephin, clinically monitored, received PT OT. Overall patient's clinical condition improved, will be discharged on cefdinir, Tamiflu, with close follow- up with primary care provider as outpatient For his deconditioning, generalized weakness, attempts were made to place him to snf facility however were unsuccessful, will discharge patient to home with home health care For his abdominal aortic aneurysm, patient will need ultrasound the abdomen through primary care Physical Exam Const: COMMON NORMALS: no acute distress and patient oriented x3 Resp: COMMON NORMALS: normal respiratory effort, No retractions, No use of accessory muscles and clear to auscultation bilaterally AUSCULTATION: clear to auscultation bilaterally Cardio: COMMON NORMALS: regular rate, regular rhythm, S1 normal heart sound present and S2 normal heart sound present RATE: regular rate RHYTHM: regular rhythm HEART SOUNDS: S1 normal heart sound present and S2 normal heart sound present GI: COMMON NORMALS: Normal to inspection, nondistended, normoactive bowel sounds present and non-tender Extremity: COMMON NORMALS: no pedal edema Neuro: COMMON NORMALS: patient oriented x3 Psych: COMMON NORMALS: mental status grossly normal Discharge Data Studies Completed and Pending Completed Studies During Hospitalization Category Date Time Status XR chest 1V portable [id number] Routine Exams 07/07/24 18:41 Completed XR chest 1V portable [id number] Stat Exams 07/06/24 14:10 Completed XR lumbar spine 2-3V* [id number] Routine Exams 07/09/24 13:11 Completed XR ribs BI 3V* [id number] Routine Exams 07/09/24 13:11 Completed Pending at discharge Category Date Time Status C.Diff PCR (Lab) Routine Lab 07/06/24 16:57 Ordered Radiology Impressions Chest X-Ray 07/07/24 18:41 IMPRESSION: Chronic interstitial lung changes. No acute lung opacities. Lumbar Spine X-Ray 07/09/24 13:11 IMPRESSION: 1. No acute fracture. 2. 3.6 cm distal aortic abdominal aortic aneurysm. Ribs X-Ray 07/09/24 13:11 IMPRESSION: 1. No visible rib fracture. Nondisplaced acute rib fractures may be radiographically occult. 2. Stable nonspecific bilateral pulmonary opacity since 07/07/2024. Laboratory Results WBC 4.92 10^3/uL (3.29-11.43) 07/09/24 03:40 RBC 3.56 10^6/uL (3.85-5.65) L 07/09/24 03:40 Hgb 11.40 g/dL (11.27-16.99) 07/09/24 03:40 Hct 35.9 % (37-53) L 07/09/24 03:40 MCV 100.8 fl (82-101) 07/09/24 03:40 MCH 32.0 pg (27-33) 07/09/24 03:40 MCHC 31.8 g/dL (30-55) D 07/09/24 03:40 RDW 13.2 % (12.1-15.1) 07/09/24 03:40 Plt Count 154 10^3/cmm (157-399) L 07/09/24 03:40 MPV 10.5 fL (7.4-10.4) H 07/09/24 03:40 Neut % (Auto) 65.2 % 07/09/24 03:40 Lymph % (Auto) 18.3 % 07/09/24 03:40 [place] % (Auto) 15.7 % 07/09/24 03:40 Eos % (Auto) 0.4 % 07/09/24 03:40 Baso % (Auto) 0.2 % 07/09/24 03:40 Neut # (Auto) 3.21 10^3/uL (1.8-7.7) 07/09/24 03:40 Lymph # (Auto) 0.9 10^3/uL (0.8-4.8) 07/09/24 03:40 [place] # (Auto) 0.8 10^3/uL (0.2-0.9) 07/09/24 03:40 Eos # (Auto) 0.0 10^3/uL (0.0-0.8) 07/09/24 03:40 Baso # (Auto) 0.0 10^3/uL (0.0-0.1) 07/09/24 03:40 Nucleated RBC % (auto) 0 % 07/09/24 03:40 Nucleated RBCs # 0.0 /100WBC 07/09/24 03:40 Sodium 133 mmol/L (136-145) L 07/09/24 03:40 Potassium 4.3 mmol/L (3.5-5.1) 07/09/24 03:40 Chloride 102 mmol/L (98-107) 07/09/24 03:40 Carbon Dioxide 21 mmol/L (22-29) L 07/09/24 03:40 Anion Gap 14.3 (5-19) 07/09/24 03:40 BUN 19 mg/dL (8-23) 07/09/24 03:40 Creatinine 0.9 mg/dL (0.7-1.2) 07/09/24 03:40 GFR Calculation Not Reportable 07/09/24 03:40 Glucose 96 mg/dL (65-115) 07/09/24 03:40 Estimat Average Glucose 128 07/06/24 13:45 Hemoglobin A1c 6.1 % (4.0-6.0) H 07/06/24 13:45 Calculated Osmolality 278 mOsm/kg (285-295) L 07/09/24 03:40 Lactic Acid 1.2 mmol/L (0.5-2.2) 07/06/24 18:53 Calcium 7.7 mg/dL (8.5-10.5) L 07/09/24 03:40 Phosphorus 3.2 mg/dL (2.5-4.5) 07/09/24 03:40 Magnesium 1.7 mg/dL (1.7-2.3) 07/09/24 03:40 Total Bilirubin 0.2 mg/dL (0.15-1.2) 07/09/24 03:40 AST 61 U/L (0-40) H 07/09/24 03:40 ALT 35 U/L (0-41) 07/09/24 03:40 Alkaline Phosphatase 138 U/L (40-130) H 07/09/24 03:40 C-Reactive Protein 15.3 mg/L (0.0-4.9) H 07/06/24 13:45 Total Protein 6.2 g/dL (6.6-8.7) L 07/09/24 03:40 Albumin 2.5 g/dL (3.5-5.2) L 07/09/24 03:40 Globulin 3.7 g/dL (1.3-4.6) 07/09/24 03:40 Triglycerides 56 mg/dL (0-150) 07/06/24 18:53 Cholesterol 105 mg/dL (0-200) 07/06/24 18:53 LDL Cholesterol, Calc 61 mg/dL (50-129) 07/06/24 18:53 HDL Cholesterol 33 mg/dL (60-100) L 07/06/24 18:53 LDL/HDL Ratio 1.85 RATIO (0.00-3.22) 07/06/24 18:53 Cholesterol/HDL Ratio 3.18 mg/dL (1.0-5.00) 07/06/24 18:53 Procalcitonin 0.08 ng/mL (0-0.5) 07/06/24 13:45 TSH 1.07 uIU/mL (0.27-4.20) 07/06/24 18:53 Urine Color Yellow (Yellow) 07/06/24 14:22 Urine Appearance Clear (CLEAR) 07/06/24 14:22 Urine pH 5.5 (5-7) 07/06/24 14:22 Ur Specific [place] 1.025 (1.005-1.030) 07/06/24 14:22 Urine Protein 2+ (Negative) A 07/06/24 14:22 Urine Glucose (UA) Negative (Normal) 07/06/24 14:22 Urine Ketones Trace (Negative) 07/06/24 14:22 Urine Blood 2+ (Negative) A 07/06/24 14:22 Urine Nitrate Negative (Negative) 07/06/24 14:22 Urine Bilirubin Negative (Negative) 07/06/24 14:22 Urine Urobilinogen 0.2 mg/dL (Negative) 07/06/24 14:22 Ur Leukocyte Esterase Negative (Negative) 07/06/24 14:22 Urine RBC 5-10 /hpf (0-2) H 07/06/24 14:22 Urine WBC 0-4 /hpf (0-5) H 07/06/24 14:22 Ur Squamous Epith Cells 0-4 /hpf (0-5) H 07/06/24 14:22 Amorphous Sediment Not Reportable 07/06/24 14:22 Urine Bacteria 1+ /hpf (NONE) H 07/06/24 14:22 Hyaline Casts 10-15 /lpf H 07/06/24 14:22 Influenza A (PCR) Positive (Negative) 07/06/24 18:40 Influenza Type B (PCR) Negative (Negative) 07/06/24 18:40 RSV (PCR) Negative (Negative) 07/06/24 18:40 SARS-CoV-2 (PCR) Negative (Negative) 07/06/24 18:40 Vitals Last Vital Signs Temp 98 F 07/10/24 11:18 Pulse 61 07/10/24 11:18 Resp 17 07/10/24 11:18 BP 103/55 07/10/24 11:18 Pulse Ox 93 07/10/24 11:18 O2 Del Method Nasal Cannula 07/10/24 11:18 O2 Flow Rate 1 07/10/24 08:52 Discharge Plan Discharge Patient Disposition: Home Condition: Stable Prescriptions: New cefdinir 300 mg capsule 300 mg PO BID 1 Days Qty: 2 0RF benzonatate 100 mg Capsule 200 mg PO TID PRN (Reason: Cough) 5 Days Qty: 30 0RF oseltamivir [Tamiflu] 30 mg Capsule 30 mg PO BID 1 Days Qty: 2 0RF Continued ethambutol 400 mg tablet 800 mg PO DAILY 30 Days Qty: 60 5RF Rx Instructions: ALONG WITH 100MG TO =900MG ethambutol 100 mg tablet 100 mg PO DAILY 30 Days Qty: 30 5RF Rx Instructions: ALONG WITH 800MG ([id number]) TO = 900MG montelukast 10 mg tablet 10 mg PO QAM Qty: 90 3RF amlodipine 10 mg tablet 10 mg PO DAILY Qty: 90 3RF albuterol sulfate 90 mcg/actuation HFA aerosol inhaler 2 puff inhalation Q6H PRN (Reason: shortness of breath or wheezing) Qty: 3 3RF albuterol sulfate 2.5 mg /3 mL (0.083 %) solution for nebulization 2.5 mg inhalation Q6H PRN (Reason: shortness of breath or wheezing) Qty: 180 5RF rosuvastatin 20 mg tablet 20 mg PO BEDTIME Qty: 90 3RF aspirin 81 mg tablet,chewable 81 mg PO DAILY Qty: 90 0RF budesonide-formoterol [Symbicort] 160-4.5 mcg/actuation HFA aerosol inhaler 2 puff inhalation BID Qty: 10.2 6RF Rx Instructions: 340B pricing, ordering on behalf of Dr Masters sotalol 80 mg tablet 80 mg PO QPM Qty: 90 3RF sotalol 120 mg tablet 120 mg PO QAM Qty: 90 3RF tamsulosin [Flomax] 0.4 mg capsule 0.4 mg PO BEDTIME Qty: 90 3RF lisinopril 5 mg tablet 5 mg PO DAILY azithromycin 500 mg tablet 500 mg PO DAILY Discontinued ciprofloxacin HCl 500 mg tablet 500 mg PO Q12H Qty: 20 0RF Discharge Orders: Discharge Order (Routine); Ordered 07/10/24 Ordered By: Elieser Peace Referrals: Vanesa eDnnis MD [Primary Care Provider] - Discharge Diet: Cardiac Discharge Activity: Resume usual activity Patient Instructions: Opioid Safety Activity Restrictions/Additional Instructions: - For your abdominal aortic aneurysm please see your primary care provider in 1 week you will need ultrasound abdominal aorta, every 3 to 6 months -If you have sudden onset abdominal pain please immediately call 911 -Please take antibiotics as prescribed -Take Tamiflu as prescribed -Please ambulate with care -Follow-up with Dr. Smith Discharge Attestations Time Spent in Discharge Care*: greater than 30 min Status at Discharge: Cognitive status at discharge: cognitively intact , Behavioral status at discharge: cooperative , Quality Metrics Clinical Quality Measures [ No reported AMI, CVA or VTE this stay] Coding Level of Care Code 68993 Total time (in minutes) for Discharge: 45 Diagnoses Urinary tract infection N30.01 Hematuria presence: with hematuria Urinary tract infection type: acute cystitis Generalized weakness R53.1 Primary hypertension I10 Hypertension type: primary hypertension AAA (abdominal aortic aneurysm) I71.4 Dyslipidemia E78.5 Macular degeneration H35.30 Influenza A J10.1
--- NOTE | 2024-07-10 14:10 | PC.OT ---
patient is very upset with his insurance coverage. He stated that he is going home and he will do therapy by himself. home exercises shown to the patient and he was calm after doing them as demonstrated.
--- NOTE | 2024-07-10 16:13 | PC.NURSE ---
Spoke to patient regarding his home oxygen and after I explained to the patient that he required oxygen when he is up walking around because his oxygen dropped patient states, Ok I will take it then. Will they be bringing it out to my house? I explained that they will be bringing it to his house. Patient agrees to take it home with him.
== END 2024-07-10 16:45 | disposition home or self-care (01) ==
LOC: ER 14:45 → MEDSURG 16:51
PROVIDERS: Admitting Provider Family Medicine; Emergency Provider Emergency Medicine; PCP Family Medicine; Visit Provider Family Medicine
DX: N30.01 Acute cystitis with hematuria (principal); I10 Essential (primary) hypertension; I71.40 Abdominal aortic aneurysm, without rupture, unspecified; E78.5 Hyperlipidemia, unspecified; I49.5 Sick sinus syndrome; H35.30 Unspecified macular degeneration; I48.91 Unspecified atrial fibrillation; R53.1 Weakness; N40.1 Benign prostatic hyperplasia with lower urinary tract symptoms; Z79.899 Other long term (current) drug therapy; Z79.82 Long term (current) use of aspirin; Z88.2 Allergy status to sulfonamides; Z91.09 Other allergy status, other than to drugs and biological substances; Z95.0 Presence of cardiac pacemaker; F32.A Depression, unspecified; Z90.49 Acquired absence of other specified parts of digestive tract; Z87.891 Personal history of nicotine dependence; J10.1 Influenza due to other identified influenza virus with other respiratory manifestations; Z11.52 Encounter for screening for COVID-19; W19.XXXA Unspecified fall, initial encounter
CPT/HCPCS: 36415; 71045; 71110; 72100; 80053; 80061; 81001; 83036; 83605; 83735; 84100; 84145; 84443; 85025; 86140; 87637; 93005; 94640; 94664; 94760; 96361; 96372; 96374; 96375; 97110; 97116; 97161; 97165; 97530; 99285; G0378; J0696; J1650; J2470; J7030; J7613; Q0144

== ENCOUNTER → 2024-07-25 15:04 | Outpatient (BNVA) | payer MEDICARE, SELFPAY | PROVIDERS: PCP Family Medicine; Visit Provider Nurse Practitioner Family | DX: J41.0 Simple chronic bronchitis (principal); I77.9 Disorder of arteries and arterioles, unspecified; R29.898 Other symptoms and signs involving the musculoskeletal system; I25.118 Atherosclerotic heart disease of native coronary artery with other forms of angina pectoris; Z87.891 Personal history of nicotine dependence; I10 Essential (primary) hypertension; Z95.0 Presence of cardiac pacemaker; E78.5 Hyperlipidemia, unspecified | CPT/HCPCS: 99213 ==

== ENCOUNTER 2024-09-12 08:45 | Outpatient (CLI) | payer MEDICARE, SELFPAY ==
--- NOTE | 2024-09-12 09:00 | CT_ITS ---
WS: [id number] CT chest wo con [id number] HISTORY: follow up pulmonary MAC TECHNIQUE: Axial imaging performed through the thorax. Coronal and sagittal reformats are submitted. All CT scans at [facility] use at least one of these dose optimization techniques: automated exposure control; mA and/or kV adjustment per patient size (includes targeted exams where dose is matched to clinical indication); or iterative reconstruction. CONTRAST: None DLP: 333.43 mGy.cm COMPARISON: 03/08/2024, 07/05/2024 and 09/01/2021 Lungs and central airway: Pulmonary hyperinflation with chronic centrilobular emphysematous changes. Additional bilateral patchy opacifications with multi lobar interstitial reticulations. 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 Saccular bronchiectasis involving all of the lobes but most significantly in the RIGHT middle and lower lobes. Scattered opacifications are stable. Since the most recent exam no progression of disease. There has been a progression overall since 09/01/2021. Pleura: Very mild pleural thickening at the lung bases. Heart and pericardium: Normal size heart with no pericardial effusion. Mediastinum and john: No adenopathy. Vessels: Moderate atherosclerosis aorta. Normal size pulmonary artery. Chest wall and lower neck: No soft tissue masses. Upper abdomen: Prior cholecystectomy. No adrenal mass. Splenic granulomata. Osseous structures: Increase in thoracic kyphosis. CT/CT chest wo con [id number] IMPRESSION: 1. 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 2. 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 Progression since 09/01/2021. 3. No pneumonia. 4. No mediastinal or hilar adenopathy. 5. No pleural effusions. 6. Prior cholecystectomy.
== END 2024-09-12 08:46 | disposition home or self-care (01) ==
PROVIDERS: PCP Family Medicine; Visit Provider Student in an Organized Health Care Education/Training Program
DX: J44.9 Chronic obstructive pulmonary disease, unspecified (principal); A31.0 Pulmonary mycobacterial infection; J84.10 Pulmonary fibrosis, unspecified; J98.4 Other disorders of lung; J47.9 Bronchiectasis, uncomplicated; Z90.49 Acquired absence of other specified parts of digestive tract; J43.2 Centrilobular emphysema; R91.8 Other nonspecific abnormal finding of lung field; J92.9 Pleural plaque without asbestos; D73.89 Other diseases of spleen; M40.294 Other kyphosis, thoracic region
CPT/HCPCS: 71250

== ENCOUNTER → 2024-10-03 14:13 | Outpatient (BNVA) | payer MEDICARE, SELFPAY | PROVIDERS: PCP Family Medicine; Visit Provider Student in an Organized Health Care Education/Training Program | DX: A31.0 Pulmonary mycobacterial infection (principal); J18.9 Pneumonia, unspecified organism; R04.2 Hemoptysis; J98.4 Other disorders of lung | CPT/HCPCS: 99214 ==

== ENCOUNTER 2024-10-09 10:12 | Outpatient (RCR) | payer MEDICARE, SELFPAY | END 2024-10-30 23:59 | disposition home or self-care (01) | LOC: SPT 10:12 | PROVIDERS: PCP Family Medicine; Visit Provider Family Medicine | DX: R26.9 Unspecified abnormalities of gait and mobility (principal) | CPT/HCPCS: 97110; 97116; 97161; 97530 ==

== ENCOUNTER → 2024-11-10 09:10 | Outpatient (BNVA) | payer MEDICARE, SELFPAY | PROVIDERS: PCP Family Medicine; Visit Provider Family Medicine | DX: N40.1 Benign prostatic hyperplasia with lower urinary tract symptoms (principal) | CPT/HCPCS: 87086 ==

== ENCOUNTER 2024-11-14 06:49 | Outpatient (CLI) | payer MEDICARE, SELFPAY ==
--- NOTE | 2024-11-14 07:00 | USCV_ITS ---
Andreas Rosario Age: 89 Gender: M : 1935 Exam Date: 11/14/2024 07:23 Ordering Phys: Vanesa Dennis MD Technologist: Exam Location: [facility] [place] Indication: cp sob BP: 125 / 76 HR: 80 Rhythm: Sinus Technical Quality: Adequate MEASUREMENTS (Male / Female) Normal Values 2D ECHO LV Diastolic Diameter PLAX 3.9 cm 4.2 - 5.9 / 3.9 - 5.3 cm IVS Diastolic Thickness 1.2 cm 0.6 - 1.0 / 0.6 - 0.9 cm IVS Systolic Thickness 1.7 cm LVPW Diastolic Thickness 1.3 cm 0.6 - 1.0 / 0.6 - 0.9 cm LVPW Systolic Thickness 1.9 cm LVOT Diameter 2.1 cm LV Ejection Fraction 2D Teich 52.5 % LV Ejection Fraction MOD 4C 59.9 % LV Ejection Fraction MOD 2C 62.4 % LV Ejection Fraction 2C AL 61.7 % LA Diameter 3.8 cm RA Systolic Volume 4C AL 53.1 ml RA Systolic Volume 4C MOD 52.5 ml Aorta at Sinotubular Diameter 3.2 cm IVC Diameter 1.7 cm M-MODE LA Ao Ratio MM 1.2 AV Cusp Separation MM 1.6 cm DOPPLER AV Peak Velocity 161.0 cm/s LVOT Peak Velocity 96.0 cm/s AV Area Cont Eq vti 2.4 cm squared AV Area Cont Eq pk 2.0 cm squared MV Peak Velocity 114.0 cm/s MV Area PHT 3.6 cm squared Mitral E to A Ratio 0.8 TV Peak Velocity 312.0 cm/s TR Peak Velocity 317.0 cm/s TR Peak Gradient 40.2 mmHg TV Peak E Velocity 137.0 cm/s PV Peak Velocity 88.0 cm/s FINDINGS Left Ventricle Normal left ventricular size and systolic function, EF 60%.abnormal septal motion consistent with conduction abnormality. Mild left ventricular hypertrophy. Grade I/IV diastolic dysfunction (abnormal relaxation filling pattern), normal to mildly elevated filling pressures. Right Ventricle Catheter/pacemaker wire in the right ventricular cavity. Normal right ventricular size and systolic function. Right Atrium Catheter/pacemaker wire in the right atrial cavity. Mildly increased right atrial size. Left Atrium Mildly increased left atrial size. Mitral Valve Mild mitral valve regurgitation. Aortic Valve Thickened aortic valve. Trace to mild aortic valve regurgitation. Tricuspid Valve Moderate tricuspid valve regurgitation. Estimated pulmonary artery peak systolic pressure 41 mmHg Pulmonic Valve Pulmonic valve not well visualized. Pericardium No pericardial effusion. Aorta Normal aortic annulus size. IVC Normal inferior vena cava. CONCLUSIONS Normal left ventricular size and systolic function, EF 60%.abnormal septal motion consistent with conduction abnormality. Mild left ventricular hypertrophy. Grade I/IV diastolic dysfunction (abnormal relaxation filling pattern), normal to mildly elevated filling pressures. Mild biatrial enlargement Pacemaker wire in the right atrium and right ventricle Mild mitral valve regurgitation. Thickened aortic valve. Trace to mild aortic valve regurgitation. Moderate tricuspid valve regurgitation. Estimated pulmonary artery peak systolic pressure 41 mmHg. There is no pericardial effusion. Compared to the study from 01/13/2018, there may not be a significant change Dr Fatimah Goldsmith MD [facility] (Electronically Signed) Final Date: 16 November 2024 09:22 S
== END 2024-11-14 06:50 | disposition home or self-care (01) ==
PROVIDERS: PCP Family Medicine; Visit Provider Family Medicine
DX: I25.118 Atherosclerotic heart disease of native coronary artery with other forms of angina pectoris (principal); I49.5 Sick sinus syndrome; R05.3 Chronic cough; R60.0 Localized edema; R93.1 Abnormal findings on diagnostic imaging of heart and coronary circulation; Z95.818 Presence of other cardiac implants and grafts; I34.0 Nonrheumatic mitral (valve) insufficiency; I35.8 Other nonrheumatic aortic valve disorders; I35.1 Nonrheumatic aortic (valve) insufficiency; I07.1 Rheumatic tricuspid insufficiency
CPT/HCPCS: 93306

== ENCOUNTER → 2024-12-20 10:46 | Outpatient (BNVA) | payer MEDICARE, SELFPAY | PROVIDERS: PCP Family Medicine; Visit Provider Internal Medicine Cardiovascular Disease | DX: Z45.018 Encounter for adjustment and management of other part of cardiac pacemaker (principal) | CPT/HCPCS: 93296 ==

== ENCOUNTER 2024-12-21 09:14 | Outpatient (CLI) | payer MEDICARE, SELFPAY ==
--- NOTE | 2024-12-21 09:30 | CT_ITS ---
WS: [id number] CT chest w con* [id number] HISTORY: MAC/cavitary lesion TECHNIQUE: Axial imaging performed through the thorax. Coronal and sagittal reformats are submitted. All CT scans at [facility] use at least one of these dose optimization techniques: automated exposure control; mA and/or kV adjustment per patient size (includes targeted exams where dose is matched to clinical indication); or iterative reconstruction. CONTRAST: Omnipaque 350; 100 mL IV. DLP: 373.20 mGy.cm COMPARISON: 09/12/2024, 03/08/2024, 04/07/2023 Lungs and central airway: Lungs are hyperexpanded. Reidentified is the irregular nodule in the LEFT upper lobe measuring 12 x 10 mm which is stable over several prior studies. Additional peripheral reticulations. There are cystic areas bilaterally in a subpleural distribution which are most likely areas of honeycombing and associated bronchiectasis. No new mass. Pleura: Mild pleural thickening LEFT thorax. Heart and pericardium: Mild cardiomegaly. No pericardial effusion. Mediastinum and john: No mediastinum or hilar adenopathy. Vessels: Mild atherosclerosis aorta. Normal size pulmonary artery. Chest wall and lower neck: LEFT subclavian cardiac pacer. Tiny thyroid nodules. Upper abdomen: Small hiatal hernia. Prior cholecystectomy. Cortical thinning upper pole of each kidney. No adrenal mass. Osseous structures: Moderate increase in thoracic kyphosis. Osteopenia. CT/CT chest w con* [id number] IMPRESSION: 1. Stable spiculated nodule LEFT upper lobe measuring 12 x 10 mm. No cavitary lesion identified on today's CT. 2. Changes of bronchiectasis and honeycombing are bilateral and multi lobar. N o progression. 3. No pneumonia. 4. No adenopathy. 5. Hiatal hernia.
[2024-12-21 10:11] LABS: Blood Urea Nitrogen 13 mg/dL (8-23)
[2024-12-21] MEDS: iohexol 350 mg/mL 500 mL Btl (per mL) IV (10:21)
== END 2024-12-21 09:15 | disposition home or self-care (01) ==
LOC: RAD 09:16
PROVIDERS: PCP Family Medicine; Visit Provider Family Medicine
DX: A31.0 Pulmonary mycobacterial infection (principal); J98.4 Other disorders of lung; R91.1 Solitary pulmonary nodule; J92.9 Pleural plaque without asbestos; Z95.0 Presence of cardiac pacemaker; K44.9 Diaphragmatic hernia without obstruction or gangrene; Z90.49 Acquired absence of other specified parts of digestive tract; M40.204 Unspecified kyphosis, thoracic region; M85.80 Other specified disorders of bone density and structure, unspecified site
CPT/HCPCS: 71260; 82565; 84520

== ENCOUNTER → 2025-01-09 14:13 | Outpatient (BNVA) | payer MEDICARE, SELFPAY | PROVIDERS: PCP Family Medicine; Visit Provider Internal Medicine | DX: J47.9 Bronchiectasis, uncomplicated (principal); J98.4 Other disorders of lung; R91.1 Solitary pulmonary nodule; Z91.09 Other allergy status, other than to drugs and biological substances; Z87.891 Personal history of nicotine dependence | CPT/HCPCS: 99214 ==

== ENCOUNTER 2025-01-19 13:25 | Outpatient (CLI) | payer MEDICARE, SELFPAY ==
--- NOTE | 2025-01-19 13:30 | PETR_ITS ---
PROCEDURE INFORMATION: Exam: PET/CT Skull Base to Mid-thigh Exam date and time: 01/19/2025 2:52 PM Age: 89 years old Clinical indication: Condition or disease; Condition/disease: Lung nodule; Prior surgery; Surgery date: 6+ months; Surgery type: Pacemaker LABS AND CLINICAL REPORTS: Glucose: 163 mg/dl Treatment strategy for malignancy (PET staging): Initial Staging (PI) TECHNIQUE: Imaging protocol: Following at least four-hour fasting and following the injection of radiopharmaceutical, low dose CT images were obtained. Then, PET images were obtained. Attenuation corrected images were constructed using the CT scan. Fused images of PET and CT were reviewed. The standardized uptake values (SUV) reported below are maximum values within a region of interest, expressed in gm/ml. Exam includes orbital meatal line to mid-thigh. SUV normalization method: BodyWeight Radiopharmaceutical: 10.42 mCi F-18 FDG (Fluorodeoxyglucose), IV. Time of imaging post radiopharmaceutical administration: 51 minutes Injection site: right ac COMPARISON: CT chest 12/21/2024, CT chest 09/12/2024, CT chest, abdomen and pelvis 07/05/2024, PT PET Scan 12/20/2021 9:12 AM FINDINGS: Tubes, catheters and devices: Pacemaker leads are present. Brain: Visualized brain has normal physiologic uptake. Pharynx: No abnormal uptake. Larynx: No abnormal uptake. Lungs, pleura and trachea: Uptake in the region of minimal ill-defined pleural thickening in the posterior left upper lobe is noted, SUV max 4.7 ) on image 72), new since the prior PET-CT. A region of morphologically similar (compared with 12/21/2024) ovoid pleural-based soft tissue density in the anterior left upper lobe measuring 2.1 x 1.3 cm on image 77, SUV max 1.8 (previously 9.3). Patchy density with a somewhat nodular appearance measuring 1.6 x 1.4 cm adjacent to the pleural surface in the posterior right upper lobe on series 202, image 84 is noted, SUV max 5.2 with adjacent uptake in the adjacent slightly more inferior pleural surface, SUV max 6.1, where there is a secondary pleural-based soft tissue density nodule measuring 2.0 x 0.8 cm on image 92. Elevated uptake is noted in the medial right lower lobe where there is a new ovoid focus of patchy density compared to the prior PET-CT on series 202, image 86, SUV max 5.7. Uptake within patchy and streaky density adjacent to a small left pleural effusion demonstrates an SUV max 3.0 (previously 4.0) on image 87. A solid left lower lobe parenchymal nodule measuring 9 mm on series 202, image 122 is not radiotracer avid. It appears new compared with 12/21/2024. A spiculated nodule in the parenchyma of the posterior right lower lobe measuring 1.3 x 0.6 cm (previously 1.7 x 1.3 cm on the prior PET-CT) demonstrates an SUV max 6.9 (previously 4.7) Heart: Normal physiologic uptake. Mediastinal space: No abnormal uptake. Liver: No abnormal uptake. Gallbladder and biliary ducts: No abnormal uptake. There are postoperative changes of cholecystectomy. Pancreas: No abnormal uptake. Spleen: No abnormal uptake. Adrenal glands: No abnormal uptake. Kidneys and ureters: Normal physiologic uptake. A non radiotracer avid rounded low-density structure likely representing a benign cyst arises from the left kidney measuring 4.1 cm in diameter on series 202, image 165. Stomach and bowel: Foci of elevated uptake are new compared to the prior PET-CT in the mid to distal descending colon and proximal sigmoid colon. These regions of uptake are relatively rounded in configuration and may correspond to diverticula, for example on image 196, SUV max 16.1, image 203, SUV max 10.0, image 206, SUV max 12.0. There is apparent wall thickening of the mid sigmoid colon versus incomplete distension. Vasculature: No abnormal uptake. Multifocal regions of atherosclerotic calcification are identified. Lymph nodes: Numerous radiotracer avid cervical lymph nodes or nodules are identified bilaterally primarily in the region of the parotid glands and are increased in number (approximately 7 on the right and approximately 6 on the left currently compared with approximately 4 on the right and 3 on the left on the prior PET-CT). This uptake demonstrates an SUV max 31.3 on the right within a new soft tissue density nodule or lymph node in the right parotid gland measuring 6 mm in diameter on image 34 inferiorly. On the left the greatest SUV max is 25.2 in a nodule or lymph node measuring 7 mm in diameter on image 24 medial to the left parotid gland. The previously noted most radiotracer avid nodule or lymph node along the inferior margin of the left parotid gland currently demonstrates an SUV max 14.3 (previously 11.9) and is similar in size measuring 7 mm in short axis on image 34. Skeleton: No abnormal uptake in the visualized axial and appendicular skeleton. The bones appear demineralized. A healed fracture of the right femoral neck is noted. Degenerative changes in the spine are identified. There is moderate thoracic spine kyphosis. Mild curvature of the lumbar spine convex to the right is noted. Soft tissues: No abnormal uptake in the visualized head, neck, chest, abdomen, pelvis, and extremities. There are numerous surgical clips in the left neck surrounding the sternocleidomastoid muscle. There is a non radiotracer avid subcutaneous nodule in the superior right shoulder region on series 202, image 43 with a density of simple fluid, likely representing a benign cyst. METRICS: Mediastinal blood pool: SUV max 2.8, SUV mean 2.5 Liver uptake: SUV max 3.2, SUV mean 2.5 PET/PET skull to thigh SUBS [id number] IMPRESSION: 1. Elevated uptake within a pleural-based nodular density in the anterior left upper lobe demonstrates interval decrease in uptake and a right lower lobe parenchymal nodule is decreased in size with interval increase in uptake. There has also been interval development of a region of pleural-based thickening and nodularity in the right upper lobe present compared to the prior PET-CT. An atypical infectious or malignant etiology may account for this appearance. 2. Regions of uptake within ill-defined pleural-parenchymal density in both lungs separate from the regions of nodularity is noted, which can be inflammatory, infectious or malignant in etiology. 3. There has been an interval increase in size and number of soft tissue density nodules or lymph nodes in the region of both parotid glands compared to the prior PET-CT with marked elevated uptake concerning for malignancy. 4. New foci of elevated uptake in the distal descending colon/proximal sigmoid colon are noted, which can be related to inflammatory or infectious involvement. Uptake related to underlying diverticular disease/diverticulitis is possible. A malignant etiology is less likely but not entirely excluded. 5. Additional nonurgent findings as detailed above.
== END 2025-01-19 13:26 | disposition home or self-care (01) ==
LOC: RAD 13:25
PROVIDERS: PCP Family Medicine; Visit Provider Internal Medicine
DX: R91.1 Solitary pulmonary nodule (principal); R59.0 Localized enlarged lymph nodes; Z95.0 Presence of cardiac pacemaker; Z90.49 Acquired absence of other specified parts of digestive tract; R93.89 Abnormal findings on diagnostic imaging of other specified body structures; M85.89 Other specified disorders of bone density and structure, multiple sites; S72.001S Fracture of unspecified part of neck of right femur, sequela; X58.XXXS Exposure to other specified factors, sequela; M51.369 Other intervertebral disc degeneration, lumbar region without mention of lumbar back pain or lower extremity pain; M41.26 Other idiopathic scoliosis, lumbar region; M47.817 Spondylosis without myelopathy or radiculopathy, lumbosacral region; M79.9 Soft tissue disorder, unspecified; K57.50 Diverticulosis of both small and large intestine without perforation or abscess without bleeding
CPT/HCPCS: 78815; A9552

== ENCOUNTER → 2025-01-30 15:13 | Outpatient (BNVA) | payer MEDICARE, SELFPAY | PROVIDERS: PCP Family Medicine; Visit Provider Internal Medicine | DX: I47.10 Supraventricular tachycardia, unspecified (principal); I10 Essential (primary) hypertension; Z87.891 Personal history of nicotine dependence; Z95.0 Presence of cardiac pacemaker; E78.5 Hyperlipidemia, unspecified | CPT/HCPCS: 99214 ==

== ENCOUNTER 2025-02-11 08:53 | Emergency (ER) | payer MEDICARE, SELFPAY ==
--- OUTSIDE RECORDS SUMMARY | 2025-02-11 09:01 | XMS_ITS | Patient Health Record ---
Author Organization [facility] Address [address] [place] [id number] Care Team Providers Care Steward/Stewardess Smoke Room Name Role Phone Kellie Esqueda Primary Care Provider Allergies Allergen (clinical drug ingredient) Drug/Non Drug Allergy documented on EMR Reaction Allergy Type Onset Date Status Levaquin Unknown Drug Allergy Active Penicillin G Benzathine Unknown Drug Allergy Active Reason For Referral No Information Medications Medication SIG (Take, Route, Frequency, Duration) Notes Start Date End Date Status Tamsulosin HCl 0.4 MG Capsule TAKE 1 CAPSULE BY MOUTH TWICE DAILY; Duration: 90 Active Biotin 10 MG Tablet 1 tablet Orally Once a day Active Magnesium 500 MG Tablet 1 tablet with a meal Orally Once a day Active Albuterol Sulfate HFA 108 (90 Base) MCG/ACT Aerosol Solution 1 puff as needed Inhalation every 4 hrs Active Benadryl 25 MG Capsule 1 tablet Orally O nce a day prn; Duration: 30 day(s) Active Symbicort 160-4.5 MCG/ACT Aerosol 2 puffs Inhalation Twice a day Active Sotalol HCl 80 MG Tablet 1 tablet Orally once daily in PM; Duration: 30 day(s) Active Sertraline HCl 50 MG Tablet 1 tablet Ora lly Once a day; Duration: 30 day(s) Active Albuterol Sulfate (2.5 MG/3ML) 0.083% Nebulization Solution 3 ml as needed Inhalation every 6 hrs PRN Active Aspirin 81 81 MG Tablet Delayed Release 1 tablet Orally Once a day Active Fluticasone Propionate 50 MCG/ACT Suspension 1 spray in each nostril Nasally Once a day Active CoQ10 100 MG Capsule 1 capsule with a me al Orally Once a day Active Accu-Chek SmartView - Strip USE WITH MET ER TO TEST FASTING BLOOD SUGAR ONCE DAILY; Duration: 100 Active Montelukast Sodium 10 MG Tablet 1 tablet Orally Once a day Active Probiotic - Capsule as directed Orally Active Elderberry Active Sotalol HCl 120 MG Tablet 1 tablet Orall y once daily in AM; Duration: 30 day(s) Active amLODIPine Besylate 5 MG Tablet 1 tablet Orally once daily in evening for blood pressure; Duration: 90 days Active Metamucil 48.57 % Powder as directed Orally Active Rosuvastatin Calcium 20 MG Tablet TAKE 1 TABLET BY MOUTH DAILY; Duration: 90 Active Vitamin D 25 MCG (1000 UT) Tablet 1 tablet Orally Once a day Active Social History Tobacco Use: Social History Observation Description Date Details (start date - stop date) Former Smoker NA - NA Social History Drugs/Alcohol: Social Info Question Answer Notes Alcohol Screen (Audit-C) Did you have a drink containing alcohol in the past year? No Points 0 Interpretation Negative Drugs Have you used drugs other than those for medical reasons in the past 12 months? No Household: Social Info Question Answer Notes Household Marital status: Number of adults in household: 2 Tobacco Use: Social Info Question Answer Notes xTobacco Use/Smoking Are you a former smoker How long has it been since you last smoked? > 10 years Additional Details Category Social Info Options Details Drugs/Alcohol: Do you smoke marijuana? De nies Do you drink alcohol? No Problems Problem Type SNOMED Code ICD Code Onset Dates Problem Status W/U Status Risk Notes Problem Lower urinary tract symptoms due to benign prostatic hypertrophy (94381339782552) Benign prostatic hyperplasia with lower urinary tract symptoms (N40.1) Active confirmed Problem Permanent atrial fibrillation (319706462) Permanent atrial fibrillation (I48.21) Active confirmed Problem Essential hypertension (41757970) Essential hypertension (I10) Active confirmed Problem Type II diabetes mellitus without complication (522905432) Type 2 diabetes mellitus without complication, without long-term current use of insulin (E11.9) Active confirmed Problem Unsteady gait (54139597) Unsteady gait (R26.81) Active confirmed Problem Anxiety about health (156982866) Anxiety about health (F41.8) Active confirmed Problem Hyperproteinemia (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) Elevated blood protein (E88.09) Active confirmed Problem 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) (3988636366631502) Basal cell carcinoma (BCC) of skin of left ear (C44.219) Active confirmed Problem Atrial fibrillation (95800494) Atrial fibrillation (427.31) 2015 Active confirmed [id number]- Problem Diverticulosis of colon (791604385) Diverticulosis of colon (562.10) 2016 Active confirmed [id number]- Problem Hypercholesterolemia (50588177) Hypercholesterolemia (272.0) 2017 Active confirmed [id number]- Problem Benign prostatic hypertrophy (721370083) BPH (600.00) 2015 Active confirmed [id number]- Problem Essential hypertension (60203926) Essential hypertension (401.1) 2015 Active confirmed [id number]- Problem Diabetes mellitus type 2 (disorder) (02312201) Type 2 diabetes (250.00) 2015 Active confirmed [id number]- Problem Anemia (721552766) Unspecified a nemia (285.9) 2018 Problem resolved confirmed [id number]- Problem Blood in stool (556052607) Blood in stool (578.1) 2015 Problem resolved confirmed [id number]- Problem Cough (86873043) Cough (786.2) 2015 Problem resolved confirmed [id number]- Problem Diarrhea (36850007) Diarrhea (787.91) 2018 Problem resolved confirmed [id number]- Problem Rash (396483752) Rash (782.1) 2018 Problem resolved confirmed [id number]- Problem Hypotension (58797574) Hypotension, other (458.8) 2018 Problem resolved confirmed [id number]- Problem 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 Problem resolved confirmed [id number]- Problem Abrasion of skin of lower leg (disorder) (976448787) Superficial abrasion of leg (916.0) 2018 Problem resolved confirmed [id number]- Problem Disorder of hematopoietic system (08832060) Other abnormal findings on blood examination (790.99) 2016 Problem resolved confirmed [id number]- Problem Disorder of hematopoietic system (50224702) Other abnormal laboratory result on blood (790.99) 2018 Problem resolved confirmed [id number]- Problem Vitamin B>12< deficiency anaemia (51016813) Other vitamin B12 deficiency (281.1) 2018 Problem resolved confirmed [id number]- Problem Flank pain (655712380) Flank pain (724.8) 2018 Problem resolved confirmed [id number]- Problem Hypoalbuminemia (168855774) Hypoalbuminemia (273.8) 2017 Problem resolved confirmed [id number]- Problem Hypersomnia (72827390) Hypersomnia (780.54) 2015 Problem resolved confirmed [id number]- Problem Peripheral neuropath y (099569088) Peripheral neuropathy (356.9) 2017 Problem resolved confirmed [id number]- Problem Needs influenza immunization (655661391) Vaccination against other viral diseases, Influenza (V04.81) 2015 Problem resolved confirmed [id number]- Problem Diverticulitis of colon (970385040) Diverticulitis of colon (562.11) 2015 Problem resolved confirmed [id number]- Problem Impacted cerumen (88856589) External cerumen impaction (380.4) 2017 Problem resolved confirmed [id number]- Problem Pedal edema (597493022) Pedal edema (782.3) 2017 Problem resolved confirmed [id number]- Problem Seborrheic dermatiti s (95257248) Seborrheic dermatitis, other (690.18) 2018 Problem resolved confirmed [id number]- Problem General examination of patient (896535084) Wellness exam (V70.0) 2018 Problem resolved confirmed [id number]-[id number]- Plan Of Treatment No Information Insurance Providers Payer Name Payer Address Payer Phone Subscriber Number Group Number Insured Name Patient Relationship to Insured Coverage Start Date Coverage End Date [facility] [address] [address] [place] [phone] [id number] Abraham Andreas Self - patient is the insured Medical (General) History Medical History History ICD Code Atrial fibrillation BPH Hypertension Clinic cuff 180/80 and home cuff 175/82 on 02/21/2020 Hypercholesterolemia Peripheral neuropathy Type 2 diabetes Pacemaker placement- 05/2012 Emphysema Diverticulosis Renal stones Legally blind in left eye Surgical History Surgery Date(Month/Year) skin cancer to left ear Bronchoscopy 04/22/2021 Fracture repair; left ankle Carotid endarterectomy Pacemaker Cholecystectomy Hospitalization History Reason Date(Month/Year) Pneumonia Diverticulitis Fracture repair; left ankle Carotid endarterectomy Pacemaker Cholecystectomy
[2025-02-11 09:09] VITALS: BP 165/72; PULSE 61; RESP 18; TEMP 36.7; O2SAT 95
--- NOTE | 2025-02-11 09:14 | W.ED.EPISTAX ---
HPI - Epistaxis General: Chief complaint: Epistaxis Stated complaint: Nose bleed Time Seen by Provider: 02/11/25 09:05 History of Present Illness: 89-year-old male presents emergency room with episode of epistaxis. Patient takes aspirin and is not on any other antiplatelet or anticoagulant medications. He did have an episode of epistaxis couple of years ago ultimately had cauterization with ENT. This episode began this morning after he blew his nose he has bleeding only from the right nare he has a cottonball stuffed in the nare when he arises does not appear to be actively bleeding. He has not been coughing up any blood. No recent facial trauma. Associated symptoms: Deny fever(s) Related Data Home Medications ?Medication ?Instructions ?Recorded ?Confirmed azithromycin 500 mg tablet 500 mg PO DAILY 02/11/25 02/11/25 Previous Rx's ?Medication ?Instructions ?Recorded rosuvastatin 20 mg tablet 20 mg PO BEDTIME cholesterol #90 12/15/23 tabs ethambutol 100 mg tablet 100 mg PO DAILY 30 days #30 tabs 03/21/24 ethambutol 400 mg tablet 800 mg (2 x 400 mg) PO DAILY 30 03/21/24 days #60 tabs tamsulosin 0.4 mg capsule (Flomax) 0.4 mg PO BEDTIME #90 caps 05/16/24 oxygen portable Inogen; 2L/min #1 ea 08/01/24 albuterol sulfate 2.5 mg/3 mL 2.5 mg (3 mL) inhalation Q6H PRN 09/19/24 (0.083 %) solution for nebulization shortness of breath or wheezing #180 mL nebulizers #1 ea 09/19/24 budesonide-formoterol HFA 160 See Rx Instructions .Route 11/22/24 mcg-4.5 mcg/actuation aerosol .COMPLEX #10.2 grams inhaler (Symbicort) montelukast 10 mg tablet 10 mg PO QAM copd #90 tabs 12/08/24 mucus clearing device #1 ea 01/09/25 sotalol 120 mg tablet 120 mg PO BID blood pressure & 01/09/25 heart #180 tabs mupirocin 2 % topical ointment 1 applic topical BID #15 grams 02/11/25 Allergies Allergy/AdvReac Type Severity Reaction Status Date / Time Penicillins Allergy Unknown Unknown Verified 01/15/25 09:33 adhesive tape Allergy ALGY-Bliste Verified 01/15/25 09:33 r sertraline AdvReac Intermediate ADR-Dizzine Verified 01/15/25 09:33 ss Review of Systems Const: Denies: fever(s) or chills Card: Denies: chest pain Resp: Denies: dyspnea GI: Denies: abdominal pain : Denies: dysuria, urinary frequency or urinary urgency Musc: Denies: neck pain or back pain Skin/Breast: Denies: rash PFSH ED PFSH: Medical History (Updated 02/11/25 @ 11:17 by Jayden Mtz, DO) Bronchiectasis, non-tuberculous Lung nodule Other fatigue Generalized anxiety disorder Scalp psoriasis Edema of both lower legs Balance disorder COPD (chronic obstructive pulmonary disease) 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 Eid, gets injections Prediabetes Low serum albumin BPH loc w urin obs/LUTS Chronic cough Depression Chronic bronchitis with acute exacerbation Carotid artery disease Pulmonary Mycobacterium avium complex (MAC) infection Diverticulosis AAA (abdominal aortic aneurysm) infrarenal 3cm on CT 2021; 3cm on CT 3.5.25 A-fib History of cardiac pacemaker Dyslipidemia Hypertension Surgical History Hx of nonmelanoma skin cancer L ear, Mtn. 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 On visual exam reexamined several times was unable to visualize any actively bleeding areas. Resp: COMMON NORMALS: normal respiratory effort, No retractions, No use of accessory muscles and clear to auscultation bilaterally AUSCULTATION: clear to auscultation bilaterally Cardio: COMMON NORMALS: regular rate, regular rhythm and No murmurs present (Cardio) RATE: regular rate RHYTHM: regular rhythm GI: COMMON NORMALS: Soft to palpation and No hepatosplenomegaly present AUSCULTATION: Yes normoactive bowel sounds PALPATION: Yes Soft to palpation, No Tenderness to palpation present (GI), No Guarding due to palpation present (GI) and Yes No hepatosplenomegaly present Extremity: COMMON NORMALS: normal to inspection, capillary refill normal, no clubbing, cyanosis or edema, no calf tenderness and no pedal edema Neuro: SENSORIUM/ORIENTATION: Yes oriented to person, Yes oriented to place and Yes oriented to time Skin: COMMON NORMALS: no rashes or lesions noted GENERAL SKIN EXAM: no rashes or lesions noted Course Vital Signs: Vital signs: Vital Signs Temperature 98.1 F 02/11/25 09:09 Pulse Rate 61 02/11/25 11:47 Respiratory Rate 18 02/11/25 09:09 Blood Pressure 170/70 02/11/25 11:47 Pulse Oximetry 95 02/11/25 11:47 Oxygen Delivery Me thod Room Air 02/11/25 11:00 MDM - Epistaxis Medical Decision Making We were able to get the bleeding to stop with direct pressure then rinsed his nose with nasal saline and applied oxymetazoline and gave TXA. Bleeding stopped and has not recurred will discharge patient home can use oxymetazoline 2 sprays in each nostril 3-4 times a day if needed apply topical antibiotic prescribed in the nares twice a day. Follow-up with Dr. Cleary this coming week case management will make arrangements. Hold aspirin until they see Dr. Cleary. Medical Records I reviewed the patient's medical records. Lab Data I reviewed the patient's lab results. 02/11/25 09:13 Laboratory Results WBC 9.15 10^3/uL (3.29-11.43) 02/11/25 09:13 RBC 3.51 10^6/uL (3.85-5.65) L 02/11/25 09:13 Hgb 11.30 g/dL (11.27-16.99) 02/11/25 09:13 Hct 34.5 % (37-53) L 02/11/25 09:13 MCV 98.3 fl (82-101) 02/11/25 09:13 MCH 32.2 pg (27-33) 02/11/25 09:13 MCHC 32.8 g/dL (30-55) 02/11/25 09:13 RDW 15.7 % (12.1-15.1) H 02/11/25 09:13 Plt Count 254 10^3/cmm (157-399) 02/11/25 09:13 MPV 10.0 fL (7.4-10.4) 02/11/25 09:13 Neut % (Auto) 68.5 % 02/11/25 09:13 Lymph % (Auto) 15.5 % 02/11/25 09:13 [place] % (Auto) 9.8 % 02/11/25 09:13 Eos % (Auto) 5.5 % 02/11/25 09:13 Baso % (Auto) 0.5 % 02/11/25 09:13 Neut # (Auto) 6.26 10^3/uL (1.8-7.7) 02/11/25 09:13 Lymph # (Auto) 1.4 10^3/uL (0.8-4.8) 02/11/25 09:13 [place] # (Auto) 0.9 10^3/uL (0.2-0.9) 02/11/25 09:13 Eos # (Auto) 0.5 10^3/uL (0.0-0.8) 02/11/25 09:13 Baso # (Auto) 0.1 10^3/uL (0.0-0.1) 02/11/25 09:13 Nucleated RBC % (auto) 0 % 02/11/25 09:13 Nucleated RBCs # 0.0 /100WBC 02/11/25 09:13 No radiology studies performed this visit Discharge Plan Discharge Patient Disposition: Home Clinical Impression: Epistaxis Condition: Stable Prescriptions: New mupirocin 2 % ointment 1 applic topical BID Qty: 15 0RF Rx Instructions: Apply gently twice daily inside of nares with a cotton swab twice a day Discontinued aspirin 81 mg tablet,chewable 81 mg PO DAILY Qty: 90 0RF No Action ethambutol 400 mg tablet 800 mg PO DAILY 30 Days Qty: 60 5RF Rx Instructions: ALONG WITH 100MG TO =900MG ethambutol 100 mg tablet 100 mg PO DAILY 30 Days Qty: 30 5RF Rx Instructions: ALONG WITH 800MG ([id number]) TO = 900MG sotalol 120 mg tablet 120 mg PO BID Qty: 180 3RF rosuvastatin 20 mg tablet 20 mg PO BEDTIME Qty: 90 3RF (DME) oxygen portable Inogen; 2L/min See Rx Instructions .Route .MEDSUPPLY Qty: 1 0RF Rx Instructions: O2 on RA 95%; O2 on RA with exertion O2 dropped to 86%; pulse ox on 2L O2 NC 99%; montelukast 10 mg tablet 10 mg PO QAM Qty: 90 3RF (DME) mucus clearing device Device See Rx Instructions .Route Qty: 1 0RF Rx Instructions: As directed tamsulosin [Flomax] 0.4 mg capsule 0.4 mg PO BEDTIME Qty: 90 3RF albuterol sulfate 2.5 mg /3 mL (0.083 %) solution for nebulization 2.5 mg inhalation Q6H PRN (Reason: shortness of breath or wheezing) Qty: 180 5RF (DME) nebulizers Misc See Rx Instructions .Route Qty: 1 0RF Rx Instructions: 1 nebulizer with tubing kit budesonide-formoterol [Symbicort] 160-4.5 mcg/actuation HFA aerosol inhaler See Rx Instructions .ROUTE .COMPLEX Qty: 10.2 6RF Dose Instruction: INHALE TWO PUFFS TWICE DAILY Rx Instructions: INHALE TWO PUFFS TWICE DAILY azithromycin 500 mg tablet 500 mg PO DAILY Discharge Orders: Discharge ED (Routine); Ordered 02/11/25 Ordered By: Jayden Mtz Referrals: Vanesa Dennis MD [Primary Care Provider, Family Practice] Discharge Diet: Usual diet Discharge Activity: Increase activity as tolerated Patient Instructions: Nosebleed (ED), Epistaxis - Adult, Opioid Safety, Pain Management, Patient Portal & Judith Instructions Activity Restrictions/Additional Instructions: Thank you for [facility] your healthcare needs today. It is very important that you follow up as instructed or that you return to the Emergency Department should you have concerns or if your condition changes or worsens in any way. Emergency department visits are focused on emergent conditions, in some cases you may require further evaluation on an outpatient basis. You were seen emergency room with bloody nose (epistaxis). It was stopped with medications used we used topical and IV medication. Do not blow your nose aggressively as this may trigger more bleeding. Stop taking aspirin until you see the ear nose throat doctor. Case management will make arrangements for her to follow-up with Dr. Gill. You can use the Afrin (nasal spray with a red) 2 sprays in each nostril up to 4 times a day if you have any bleeding. The white Bottle is nasal saline you can gently sprayed this into irrigate the nose to keep it from becoming dry and congested. (Please note that included in your discharge packet is information concerning opioid safety and pain management. This information is given to all patients were discharged from the ER regardless of their discharge diagnosis or the medicines they usually take or are prescribed.) Print Language: Italian Coding Level of Care Code ED Telecommunications Network Engineer for Salena Silva
[2025-02-11 09:33] VITALS: BP 151/78; PULSE 61; O2SAT 96
[2025-02-11 09:39] LABS: Hematocrit 34.5 % (37-53); Hemoglobin 11.30 g/dL (11.27-16.99); Mean Corpuscular HGB Conc 32.8 g/dL (30-55); Mean Corpuscular Hemoglobin 32.2 pg (27-33); Mean Corpuscular Volume 98.3 fl (82-101); Nucleated Red Blood Cells % 0 %; Platelet Count 254 10^3/cmm (157-399); Red Blood Count 3.51 10^6/uL (3.85-5.65); White Blood Count 9.15 10^3/uL (3.29-11.43)
[2025-02-11] MEDS: saline nasal spray 44mL Btl 1 SPRAY NASAL (10:18)
[2025-02-11] MEDS: tranexamic acid 1,000 MG/100 ML PREMIX 600 MG IV (10:42)
[2025-02-11 10:45] VITALS: BP 163/88; PULSE 60; O2SAT 94
[2025-02-11 11:00] VITALS: BP 177/70; PULSE 62; O2SAT 96
[2025-02-11 11:47] VITALS: BP 170/70; PULSE 61; O2SAT 95
--- NOTE | 2025-02-14 11:14 | DCPLANNER ---
Referral sent to Dr Cleary's Office
== END 2025-02-11 11:49 | disposition home or self-care (01) ==
PROVIDERS: Emergency Provider Family Medicine; PCP Family Medicine
DX: R04.0 Epistaxis (principal); Z87.891 Personal history of nicotine dependence; J44.9 Chronic obstructive pulmonary disease, unspecified; Z95.0 Presence of cardiac pacemaker; I25.10 Atherosclerotic heart disease of native coronary artery without angina pectoris; E78.5 Hyperlipidemia, unspecified; I10 Essential (primary) hypertension; Z85.828 Personal history of other malignant neoplasm of skin
CPT/HCPCS: 85025; 96365; 99284; J9999

== ENCOUNTER → 2025-03-05 08:50 | Outpatient (BNVA) | payer MEDICARE, SELFPAY | PROVIDERS: PCP Family Medicine; Visit Provider Internal Medicine | DX: R91.1 Solitary pulmonary nodule (principal); R91.8 Other nonspecific abnormal finding of lung field; J47.9 Bronchiectasis, uncomplicated; N28.1 Cyst of kidney, acquired; D75.1 Secondary polycythemia; Z87.891 Personal history of nicotine dependence | CPT/HCPCS: 99214; Q3014 ==

== ENCOUNTER 2025-03-06 14:42 | Oncology outpatient (recurring) (ONCR) | payer MEDICARE, SELFPAY | END 2025-04-01 23:59 | disposition home or self-care (01) | PROVIDERS: PCP Family Medicine; Visit Provider Internal Medicine Medical Oncology | DX: R91.8 Other nonspecific abnormal finding of lung field (principal); K63.9 Disease of intestine, unspecified; K11.8 Other diseases of salivary glands; Z87.891 Personal history of nicotine dependence | CPT/HCPCS: 99214 ==

== ENCOUNTER 2025-03-21 07:05 | Emergency (ER) | payer MEDICARE, SELFPAY ==
--- OUTSIDE RECORDS SUMMARY | 2015-06-23 18:00 | XMS_ITS | Continuity of Care Document ---
Author Organization [facility] Address [address] [place] [address] Phone Care Team Providers Care Furniture Removalist Name Role Phone Unavailable Unavailable Unavailable Procedures Procedure Date SUBSEQUENT HOSPITAL CARE SUBSEQUENT HOSPITAL CARE Advance Directives Directive Yes / No Effective Date File Name No Information Encounters Encounter Description Practice Location Reason(s) For Visit Diagnoses Date Provider Providers Copied on Encounter SUBSEQUENT HOSPITAL CARE [facility], [address], [place], [place], [id number], [place] tel:[phone] [facility] No Information No Information Family History Family Member Type Diagnosis Age At Onset No Information Payers Payer name Insurance type Covered democrat ID Karli knowles(s) [employer] CI [id number] Social History Type Description Quantity Date Captured Comments Sex Male Smoking Status No Information Chief Complaint And Reason For Visit No Information Reason For Referral Reason For Referral No Information History Of Present Illness Encounter Date Complaint History Of Prese nt Illness No Information Functional Status Date Functional Assessmen t No Information Instructions Date Instruction Additional Infor mation No Information Assessments Type Assessment Date No Information Patient Care Teams Name Effective Dates (start - stop) Status Members No Information
[2025-03-21 07:06] VITALS: BP 170/78; PULSE 78; RESP 16; TEMP 36.5; O2SAT 98
[2025-03-21 07:13] VITALS: BP 172/80; PULSE 60; O2SAT 98
--- NOTE | 2025-03-21 07:15 | ED_ITS ---
HPI - Epistaxis General: Chief complaint: Epistaxis Stated complaint: nose bleed Time Seen by Provider: 03/21/25 07:06 History of Present Illness: 78-year-old man with a history of anxiet y, edema, COPD, sick sinus syndrome with pacemaker, macular degeneration, BPH, depression, atrial fibrillation, hypertension and hyperlipidemia who presents to the emergency room with nosebleed. He has packing in place in his right nostril from ENT yesterday. Recently he has been having more frequent nosebleeds. Related Data Home Medications ?Medication ?Instructions ?Recorded ?Confirmed azithromycin 500 mg tablet 500 mg PO DAILY 02/11/25 aspirin 81 mg tablet,delayed 81 mg PO DAILY 03/05/25 1 05/21/24 release (Adult Aspirin Regimen) Previous Rx's ?Medication ?Instructions ?Recorded ethambutol 100 mg tablet 100 mg PO DAILY 30 days #30 tabs 03/21/24 ethambutol 400 mg tablet 800 mg (2 x 400 mg) PO DAILY 30 03/21/24 days #60 tabs tamsulosin 0.4 mg capsule (Flomax) 0.4 mg PO BEDTIME # 90 caps 05/16/24 oxygen portable Inogen; 2L/min #1 ea 08/01/24 albuterol sulfate 2.5 mg/3 mL 2.5 mg (3 mL) inhalation Q6H PRN 09/19/24 (0.083 %) solution for nebulization shortness of breat h or wheezing #180 mL nebulizers #1 ea 09/19/24 budesonide-formoterol HFA 160 See Rx Instructions .Rou te 11/22/24 mcg-4.5 mcg/actuation aerosol .COMPLEX #10.2 grams inhaler (Symbicort) montelukast 10 mg tablet 10 mg PO QAM copd #90 tabs 0 12/08/24 mucus clearing device #1 ea 01/09/25 sotalol 120 mg tablet 120 mg PO BID blood pressure & 01/09/25 heart #180 tabs mupirocin 2 % topical ointment 1 applic topical BID #1 5 grams 02/11/25 rosuvastatin 20 mg tablet 20 mg PO BEDTIME cholesterol #90 03/05/25 tabs cephalexin 500 mg tablet 500 mg PO TID 7 days #21 tab s 03/21/25 hydrocodone 5 mg-acetaminophen 325 1 tab PO Q8H PRN pa in #14 tabs 03/21/25 mg tablet polyethylene glycol 3350 17 17 g PO DAILY #510 grams 1 05/21/24 gram/dose oral powder (Miralax) Allergies Allergy/AdvReac Type Severity Reaction Status Date / Time Penicillins Allergy Unknown Unknown Verified 03/06/25 14:48 adhesive tape Allergy ALGY-Bliste Verified 03/06/25 14:48 r sertraline AdvReac Intermediate ADR-Dizzine Verified 03/06/25 14:48 ss Review of Systems Narrative: Constitutional symptoms: Negative except as documented in HPI. Skin symptoms: Negative except as documented in HPI. Eye symptoms: Negative except as documented in HPI. ENMT symptoms: Negative except as documented in HPI. Respiratory symptoms: Negative except as documented in HPI. Cardiovascular symptoms: Negative except as documented in HPI. Gastrointestinal symptoms: Negative except as documented in HPI. Genitourinary symptoms: Negative except as documented in HPI. Musculoskeletal symptoms: Negative except as documented in HPI. Neurologic symptoms: Negative except as documented in HPI. Psychiatric symptoms: Negative except as documented in HPI. Endocrine symptoms: Negative except as documented in HPI. 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 Eid, gets injections Prediabetes Low serum albumin BPH loc w urin obs/LUTS Chronic cough Depression Chronic bronchitis with acute exacerbation Carotid artery disease Pulmonary Mycobacterium avium complex (MAC) infection Diverticulosis AAA (abdominal aortic aneurysm) infrarenal 3cm on CT 2021; 3cm on CT 3.5.25 A-fib History of cardiac pacemaker Dyslipidemia Hypertension Surgical History Hx of nonmelanoma skin cancer L ear, Mtn. 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 Skin: warm and dry Head: Normocephalic Neck: Trachea midline Eye: Extraocular movements are intact. Ears, nose, mouth and throat: Oral mucosa moist. Packing in place in the right nostril. Bleeding seems to be stopped at this time. Respiratory: Respirations are non-labored Musculoskeletal: Normal ROM Gastrointestinal: Abdomen does not appear distended Neurological: Alert and oriented, No focal neurological deficit observed. Psychiatric: Cooperative, appropriate mood & affect. Course Vital Signs: Vital signs: Vital Signs Temperature 97.7 F 03/21/25 07:06 Pulse Rate 60 03/21/25 07:13 Respiratory Rate 16 03/21/25 07:06 Blood Pressure 155/70 03/21/25 07:38 Pulse Oximetry 98 03/21/25 07:13 Oxygen Delivery Me thod Room Air 03/21/25 07:06 MDM - Epistaxis Medical Decision Making Medical decision making Patient's reason for coming to the emergency room: Nosebleed Social determinants: Retired I reviewed the patient's medical record. 78-year-old man with a history of anxiety, edema, COPD, sick sinus syndrome with pacemaker, macular degeneration, BPH, depression, atrial fibrillation, hypertension and hyperlipidemia I reviewed the patient's current home meds Patient not currently on any anticoagulation Alternate historians: None Differential diagnosis including but not limited to and based on the above HPI, review of systems and physical exam: In this patient with nosebleed would have concern for accelerated hypertension causing the nosebleed, coagulopathy or thrombocytopenia. Also would have concern for anemia secondary to bleeding. Orders placed to evaluate differential diagnosis based on the above differential, HPI and physical exam Consultation: I spoke with Dr. Cleary who follows with the patient and his AUTOMATIC LOG CUT OFF SAWYER had done a procedure on his nose yesterday. Reexamination: Rhino Rocket placed. Patient did not tolerate this very well but has stopped the bleeding. Assessment and plan: Epistaxis ?Rhino Rocket placed in the emergency room - Discharged home - Discussed plan with patient. Answered any questions. - Evaluation and treatment of this problem were appropriate in the emergency setting. No radiology studies performed this visit Discharge Plan Discharge Patient Disposition: Home Clinical Impression: Epistaxis Condition: Stable Prescriptions: New cephalexin 500 mg tablet 500 mg PO TID 7 Days Qty: 21 0RF hydrocodone-acetaminophen 5-325 mg tablet 1 tab PO Q8H PRN (Reason: pain) Qty: 14 0RF Rx Instructions: Take 1/2 to 1 tab every 8 hours as needed for pain polyethylene glycol 3350 [Miralax] 17 gram/dose powder 17 g PO DAILY Qty: 510 0RF Rx Instructions: Take 1 scoop daily while taking pain medications. No Action ethambutol 400 mg tablet 800 mg PO DAILY 30 Days Qty: 60 5RF Patient Comments: Patient states he takes every other day Rx Instructions: ALONG WITH 100MG TO =900MG ethambutol 100 mg tablet 100 mg PO DAILY 30 Days Qty: 30 5RF Patient Comments: Patient states he takes every other day with two 400mg tabs Rx Instructions: ALONG WITH 800MG ([id number]) TO = 900MG sotalol 120 mg tablet 120 mg PO BID Qty: 180 3RF (DME) oxygen portable Inogen; 2L/min See Rx Instructions .Route .MEDSUPPLY Qty: 1 0RF Rx Instructions: O2 on RA 95%; O2 on RA with exertion O2 dropped to 86%; pulse ox on 2L O2 NC 99%; montelukast 10 mg tablet 10 mg PO QAM Qty: 90 3RF (DME) mucus clearing device Device See Rx Instructions .Route Qty: 1 0RF Rx Instructions: As directed aspirin [Adult Aspirin Regimen] 81 mg tablet,delayed release (DR/EC) 81 mg PO DAILY tamsulosin [Flomax] 0.4 mg capsule 0.4 mg PO BEDTIME Qty: 90 3RF albuterol sulfate 2.5 mg /3 mL (0.083 %) solution for nebulization 2.5 mg inhalation Q6H PRN (Reason: shortness of breath or wheezing) Qty: 180 5RF (DME) nebulizers Misc See Rx Instructions .Route Qty: 1 0RF Rx Instructions: 1 nebulizer with tubing kit budesonide-formoterol [Symbicort] 160-4.5 mcg/actuation HFA aerosol inhaler See Rx Instructions .ROUTE .COMPLEX Qty: 10.2 6RF Dose Instruction: INHALE TWO PUFFS TWICE DAILY Rx Instructions: INHALE TWO PUFFS TWICE DAILY rosuvastatin 20 mg tablet 20 mg PO BEDTIME Qty: 90 3RF mupirocin 2 % ointment 1 applic topical BID Qty: 15 0RF Rx Instructions: Apply gently twice daily inside of nares with a cotton swab twice a day azithromycin 500 mg tablet 500 mg PO DAILY Discharge Orders: Discharge ED (Routine); Ordered 03/21/25 Ordered By: Savanna Schmitt Referrals: Juan Cleary MD [Physician, Ear, Nose, Throat] - 4-7 days Referral Note: Please call for an appointment to have Rhino Abeba removed Vanesa Dennis MD [Primary Care Provider, Family Practice] Discharge Diet: Usual diet Discharge Activity: Increase activity as tolerated Patient Instructions: Nosebleed (ED), Opioid Safety, Pain Management, Patient Portal & Judith Instructions Activity Restrictions/Additional Instructions: Thank you for choosing [facility] for your healthcare needs today. You have been screened and evaluated and felt safe for discharge. Health conditions do change or evolve sometimes and as such it is important that you follow up with your Primary Doctor to be re checked, 3-5 days is a general good time frame for follow up. You are always welcome to return to the ED for re assessment if your symptoms are worsening or you have new concerns Print Language: German Coding Level of Care Code ED Hat Block Bench Hand for Salena Silva
--- OUTSIDE RECORDS SUMMARY | 2025-03-21 07:16 | XMS_ITS | Patient Health Record ---
Author Organization [facility] Address [address] [place] [id number] Care Team Providers Care Social Director Name Role Phone Kellie Esqueda Primary Care Provider [phone] Allergies Allergen (clinical drug ingredient) Drug/Non Drug [...] tract symptoms due to benign prostatic hypertrophy (91120762249192) Benign prostatic hyperplasia with lower urinary tract symptoms (N40.1) Active confirmed Problem Permanent atrial fibrillation (474476284) Permanent atrial fibrillation (I48.21) Active confirmed Problem Essential hypertension (07308132) Essential hypertension (I10) Active confirmed Problem Type II diabetes mellitus without complication (968691719) Type 2 diabetes mellitus without complication, without long-term current use of insulin (E11.9) Active confirmed Problem Unsteady gait (17244428) Unsteady gait (R26.81) Active confirmed Problem Anxiety about health (766041277) Anxiety about health (F41.8) Active confirmed Problem Hyperproteinemia (62972960) Elevated blood protein (E88.09) Active confirmed Problem 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) (5947274755204926) Basal cell carcinoma (BCC) of skin of left ear (C44.219) Active confirmed Problem Atrial fibrillation (10593969) Atrial fibrillation (427.31) 2015 Active confirmed [id number]- Problem Diverticulosis of colon (801263336) Diverticulosis of colon (562.10) 2016 Active confirmed [id number]- Problem Hypercholesterolemia (03778911) Hypercholesterolemia (272.0) 2017 Active confirmed [id number]- Problem Benign prostatic hypertrophy (877603429) BPH (600.00) 2015 Active confirmed [id number]- Problem Essential hypertension (43547496) Essential hypertension (401.1) 2015 Active confirmed [id number]- Problem Diabetes mellitus type 2 (disorder) (03411858) Type 2 diabetes (250.00) 2015 Active confirmed [id number]- Problem Anemia (880633937) Unspecified a nemia (285.9) 2018 Problem resolved confirmed [id number]- Problem Blood in stool (254472097) Blood in stool (578.1) 2015 Problem resolved confirmed [id number]- Problem Cough (73756491) Cough (786.2) 2015 Problem resolved confirmed [id number]- Problem Diarrhea (81279066) Diarrhea (787.91) 2018 Problem resolved confirmed [id number]- Problem Rash (171530029) Rash (782.1) 2018 Problem resolved confirmed [id number]- Problem Hypotension (60319962) Hypotension, other (458.8) 2018 Problem resolved confirmed [id number]- Problem Martins's neuroma (17042842883919259) 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) 2016 Problem resolved confirmed [id number]- Problem Abrasion of skin of lower leg (disorder) (010014652) Superficial abrasion of leg (916.0) 2018 Problem resolved confirmed [id number]- Problem Disorder of hematopoietic system (76158534) Other abnormal findings on blood examination (790.99) 2016 Problem resolved confirmed [id number]- Problem Disorder of hematopoietic system (81348002) Other abnormal laboratory result on blood (790.99) 2018 Problem resolved confirmed [id number]- Problem Vitamin B>12< deficiency anaemia (21646751) Other vitamin B12 deficiency (281.1) 2018 Problem resolved confirmed [id number]- Problem Flank pain (797334279) Flank pain (724.8) 2018 Problem resolved confirmed [id number]- Problem Hypoalbuminemia (894065172) Hypoalbuminemia (273.8) 2017 Problem resolved confirmed [id number]- Problem Hypersomnia (02718211) Hypersomnia (780.54) 2015 Problem resolved confirmed [id number]- Problem Peripheral neuropath y (032203292) Peripheral neuropathy (356.9) 2017 Problem resolved confirmed [id number]- Problem Needs influenza immunization (068852883) Vaccination against other viral diseases, Influenza (V04.81) 2015 Problem resolved confirmed [id number]- Problem Diverticulitis of colon (785828463) Diverticulitis of colon (562.11) 2015 Problem resolved confirmed [id number]- Problem Impacted cerumen (63647224) External cerumen impaction (380.4) 2017 Problem resolved confirmed [id number]- Problem Pedal edema (753592567) Pedal edema (782.3) 2017 Problem resolved confirmed [id number]- Problem Seborrheic dermatiti s (64598460) Seborrheic dermatitis, other (690.18) 2018 Problem resolved confirmed [id number]- Problem General examination of patient (691828843) Wellness exam (V70.0) 2018 Problem resolved confirmed [id number]-[id number]- Plan Of Treatment No Information Insurance Providers Payer Name Payer Address Payer Phone Subscriber Number Group Number Insured Name Patient Relationship to Insured Coverage Start Date Coverage End Date [facility] [address] [address] [place] [address] [id number] Abraham Andreas Self - patient is the [...]
[2025-03-21 07:31] VITALS: BP 172/88
[2025-03-21] MEDS: tranexamic acid 1,000 MG/100 ML PREMIX 600 MG IV (07:32)
[2025-03-21 07:38] VITALS: BP 155/70
--- NOTE | 2025-03-21 08:59 | PC.NURSE ---
Bleeding has resolved at this time. PT resting comfortably in bed
--- NOTE | 2025-03-21 09:57 | PC.NURSE ---
bleeding from right nostril reoccurred, Dr. Schmitt notified
[2025-03-21] MEDS: HYDROcodone-acetaminophen 10-325 mg Tablet 1 TAB PO (10:04)
--- NOTE | 2025-03-21 10:20 | PC.NURSE ---
Rhinorocket placed into right nostril by Dr. Schmitt. Bleeding appears to be controlled at this time.
[2025-03-21 10:36] VITALS: BP 158/57; PULSE 61; O2SAT 98
== END 2025-03-21 11:18 | disposition home or self-care (01) ==
PROVIDERS: Emergency Provider Emergency Medicine; PCP Family Medicine
DX: R04.0 Epistaxis (principal); Z79.82 Long term (current) use of aspirin; Z87.891 Personal history of nicotine dependence; E78.5 Hyperlipidemia, unspecified; J44.9 Chronic obstructive pulmonary disease, unspecified; I25.10 Atherosclerotic heart disease of native coronary artery without angina pectoris; I10 Essential (primary) hypertension; Z95.0 Presence of cardiac pacemaker; Z85.828 Personal history of other malignant neoplasm of skin
CPT/HCPCS: 96365; 96366; 99284; J9999

== ENCOUNTER 2025-03-21 16:15 | Emergency (ER) | payer MEDICARE, SELFPAY ==
--- OUTSIDE RECORDS SUMMARY | 2015-06-23 18:00 | XMS_ITS | Continuity of Care Document ---
Author Organization [facility] Address [address] [place] [address] Phone Care Team Providers Care Manager Outreach Name Role Phone Unavailable Unavailable Unavailable Procedures Procedure Date SUBSEQUENT HOSPITAL CARE SUBSEQUENT HOSPITAL CARE Advance Directives Directive Yes / No Effective Date File Name No Information Encounters Encounter Description Practice Location Reason(s) For Visit Diagnoses Date Provider Providers Copied on Encounter SUBSEQUENT HOSPITAL CARE [facility], [address], [place], [place], [id number], [place] tel:[phone] [facility] No Information No Information Family History Family Member Type Diagnosis Age At Onset No Information Payers Payer name Insurance type Covered constitution party ID Karli knowles(s) [employer] CI [id number] Social History Type Description Quantity Date Captured [...]
[2025-03-21 16:17] VITALS: BP 186/86; PULSE 85; RESP 17; TEMP 36.6; O2SAT 96; BMI 25.0
[2025-03-21 18:04] VITALS: BP 168/69; PULSE 65; RESP 18; O2SAT 95
--- NOTE | 2025-03-21 21:39 | ED_ITS ---
HPI - Epistaxis General: Chief complaint: Epistaxis Stated complaint: Here this morning nose bleed Time Seen by Provider: 03/21/25 16:28 Source: patient Mode of arrival: ambulatory Limitations: no limitations History of Present Illness: Patient is an 89-year-old male who presented to the emergency department for reevaluation of a Rhino Rocket was placed earlier this morning. States he thought that the Rhino Rocket had moved slightly and that he is having mild amount of bleeding still from the nare. Does not feel that the blood is running down his throat, overall states that his symptoms have been controlled following placement of the Rhino Rocket. He has already been referred to ENT and has an appointment on Wednesday for reevaluation. Already was previously prescribed antibiotics and pain medications as well. MD complaint: epistaxis Location: right nostril Associated symptoms: Deny fever(s), headache(s) or vomiting Related Data Home Medications ?Medication ?Instructions ?Recorded ?Confirmed azithromycin 500 mg tablet 500 mg PO DAILY 02/11/25 aspirin 81 mg tablet,delayed 81 mg PO DAILY 03/05/25 1 05/21/24 release (Adult Aspirin Regimen) Previous Rx's ?Medication ?Instructions ?Recorded ethambutol 100 mg tablet 100 mg PO DAILY 30 days #30 tabs 03/21/24 ethambutol 400 mg tablet 800 mg (2 x 400 mg) PO DAILY 30 03/21/24 days #60 tabs tamsulosin 0.4 mg capsule (Flomax) 0.4 mg PO BEDTIME # 90 caps 05/16/24 oxygen portable Inogen; 2L/min #1 ea 08/01/24 albuterol sulfate 2.5 mg/3 mL 2.5 mg (3 mL) inhalation Q6H PRN 09/19/24 (0.083 %) solution for nebulization shortness of breat h or wheezing #180 mL nebulizers #1 ea 09/19/24 budesonide-formoterol HFA 160 See Rx Instructions .Rou te 11/22/24 mcg-4.5 mcg/actuation aerosol .COMPLEX #10.2 grams inhaler (Symbicort) montelukast 10 mg tablet 10 mg PO QAM copd #90 tabs 0 12/08/24 mucus clearing device #1 ea 01/09/25 sotalol 120 mg tablet 120 mg PO BID blood pressure & 01/09/25 heart #180 tabs mupirocin 2 % topical ointment 1 applic topical BID #1 5 grams 02/11/25 rosuvastatin 20 mg tablet 20 mg PO BEDTIME cholesterol #90 03/05/25 tabs cephalexin 500 mg tablet 500 mg PO TID 7 days #21 tab s 03/21/25 hydrocodone 5 mg-acetaminophen 325 1 tab PO Q8H PRN pa in #14 tabs 03/21/25 mg tablet polyethylene glycol 3350 17 17 g PO DAILY #510 grams 1 05/21/24 gram/dose oral powder (Miralax) Allergies Allergy/AdvReac Type Severity Reaction Status Date / Time Penicillins Allergy Unknown Unknown Verified 03/06/25 14:48 adhesive tape Allergy ALGY-Bliste Verified 03/06/25 14:48 r sertraline AdvReac Intermediate ADR-Dizzine Verified 03/06/25 14:48 ss Review of Systems General: Reports: 10 or more systems reviewed and unremarkable except in HPI and below Const: Denies: fever(s), chills or fatigue Eyes: Denies: change in vision ENMT: Reports: epistaxis; Denies: throat pain or ear or mastoid pain Card: Denies: chest pain, palpitations, swelling of feet/ankles or lightheadedness Resp: Denies: dyspnea, productive cough or wheezing GI: Denies: abdominal pain, nausea, vomiting, diarrhea or constipation : Denies: flank pain, difficulty urinating, dysuria or urinary frequency Musc: Denies: neck pain, back pain or joint pain Skin/Breast: Denies: rash Neuro: Denies: headache(s), numbness in extremities or weakness in extremities PFSH ED PFSH: Medical History Bronchiectasis, non-tuberculous Lung nodule Other fatigue Generalized anxiety disorder Scalp psoriasis Edema of both lower legs Balance disorder COPD (chronic obstructive pulmonary disease) 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 Eid, gets injections Prediabetes Low serum albumin BPH loc w urin obs/LUTS Chronic cough Depression Chronic bronchitis with acute exacerbation Carotid artery disease Pulmonary Mycobacterium avium complex (MAC) infection Diverticulosis AAA (abdominal aortic aneurysm) infrarenal 3cm on CT 2021; 3cm on CT 3.5.25 A-fib History of cardiac pacemaker Dyslipidemia Hypertension Surgical History Hx of nonmelanoma skin cancer L ear, Mtn. HOme derm History of permanent cardiac pacemaker placement has had 2 History of colonoscopy (~06/2019) History of laparoscopic cholecystectomy History of arthroplasty of left ankle History of CEA (carotid endarterectomy) left Family History Father CAD (coronary artery disease) MD age 66 Other Nolberto disease Family history of premature coronary artery disease Denies family history of Rheumatoid arthritis Diabetes Lupus Anesthesia complication Bleeding disorder Lung disease Cancer Hypertension Stroke Social History Smoking and tobacco/nicotine status: former use of tobacco/nicotine (4 ppd X 26years. 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 There is no active oozing, mild amount of dried red blood around nares. Evaluation of posterior oropharynx does not reveal any active posterior oropharyngeal bleeding. Eye: COMMON NORMALS: Equal, round and reactive pupils present, EOMs intact bilaterally and conjunctivae normal CONJUNCTIVA: Yes conjunctivae normal PUPIL: Yes Equal, round and reactive pupils present Neck/C-Spine: COMMON NORMALS: full ROM, supple and no JVD Resp: COMMON NORMALS: normal respiratory effort, No retractions, No use of accessory muscles and clear to auscultation bilaterally AUSCULTATION: clear to auscultation bilaterally Cardio: COMMON NORMALS: no JVD, regular rate, regular rhythm, No clicks present (Cardio), No murmurs present (Cardio) and No rub (Cardio) RATE: regular rate RHYTHM: regular rhythm Extremity: COMMON NORMALS: normal to inspection, full ROM and capillary refill normal Skin: COMMON NORMALS: no rashes or lesions noted GENERAL SKIN EXAM: no rashes or lesions noted Course Vital Signs: Vital signs: Vital Signs Temperature 97.8 F 03/21/25 16:17 Pulse Rate 65 03/21/25 18:04 Respiratory Rate 18 03/21/25 18:04 Blood Pressure 168/69 03/21/25 18:04 Pulse Oximetry 95 03/21/25 18:04 Oxygen Delivery Me thod Room Air 03/21/25 16:17 MDM - Epistaxis Medical Decision Making Patient presented for relation of what he felt was continued bleeding following package of right naris with Rhino Rocket. By my examination he did not appear to have any active bleeding, potentially mild oozing but overall the packing did appear to be in place. He had previously been started on prophylactic antibiotics as well as pain medications, and has ENT follow-up. I did inflate with about 1 mL more of normal saline, and this seems to have stopped what ever oozing was occurring. Told him to continue his follow-up, there is no further workup necessary in the ED at this time. No radiology studies performed this visit Discharge Plan Discharge Patient Disposition: Home Clinical Impression: Epistaxis Condition: Stable Prescriptions: No Action ethambutol 400 mg tablet 800 mg PO DAILY 30 Days Qty: 60 5RF Patient Comments: Patient states he takes every other day Rx Instructions: ALONG WITH 100MG TO =900MG ethambutol 100 mg tablet 100 mg PO DAILY 30 Days Qty: 30 5RF Patient Comments: Patient states he takes every other day with two 400mg tabs Rx Instructions: ALONG WITH 800MG ([id number]) TO = 900MG sotalol 120 mg tablet 120 mg PO BID Qty: 180 3RF (DME) oxygen portable Inogen; 2L/min See Rx Instructions .Route .MEDSUPPLY Qty: 1 0RF Rx Instructions: O2 on RA 95%; O2 on RA with exertion O2 dropped to 86%; pulse ox on 2L O2 NC 99%; montelukast 10 mg tablet 10 mg PO QAM Qty: 90 3RF (DME) mucus clearing device Device See Rx Instructions .Route Qty: 1 0RF Rx Instructions: As directed aspirin [Adult Aspirin Regimen] 81 mg tablet,delayed release (DR/EC) 81 mg PO DAILY tamsulosin [Flomax] 0.4 mg capsule 0.4 mg PO BEDTIME Qty: 90 3RF albuterol sulfate 2.5 mg /3 mL (0.083 %) solution for nebulization 2.5 mg inhalation Q6H PRN (Reason: shortness of breath or wheezing) Qty: 180 5RF (DME) nebulizers Mis See Rx Instructions .Route Qty: 1 0RF Rx Instructions: 1 nebulizer with tubing kit budesonide-formoterol [Symbicort] 160-4.5 mcg/actuation HFA aerosol inhaler See Rx Instructions .ROUTE .COMPLEX Qty: 10.2 6RF Dose Instruction: INHALE TWO PUFFS TWICE DAILY Rx Instructions: INHALE TWO PUFFS TWICE DAILY rosuvastatin 20 mg tablet 20 mg PO BEDTIME Qty: 90 3RF mupirocin 2 % ointment 1 applic topical BID Qty: 15 0RF Rx Instructions: Apply gently twice daily inside of nares with a cotton swab twice a day azithromycin 500 mg tablet 500 mg PO DAILY cephalexin 500 mg tablet 500 mg PO TID 7 Days Qty: 21 0RF hydrocodone-acetaminophen 5-325 mg tablet 1 tab PO Q8H PRN (Reason: pain) Qty: 14 0RF Rx Instructions: Take 1/2 to 1 tab every 8 hours as needed for pain polyethylene glycol 3350 [Miralax] 17 gram/dose powder 17 g PO DAILY Qty: 510 0RF Rx Instructions: Take 1 scoop daily while taking pain medications. Discharge Orders: Discharge ED (Routine); Ordered 03/21/25 Ordered By: Get Westfall Referrals: Vanesa Dennis MD [Primary Care Provider, Family Practice] Patient Instructions: Patient Portal & Judith Instructions Activity Restrictions/Additional Instructions: Continue medication that were prescribed to you earlier today. Continue follow- up appointment on Wednesday for evaluation and possible removal of Rhino Rocket. Please return with any profuse bleeding out the nostril, bleeding out of your left nostril, bleeding on the back your throat, or any other major concerns. You may notice there is slight oozing for the first few hours, this will improve nicely. Your Rhino Rocket was inflated with another milliliter of normal saline today. Print Language: Burmese Coding Level of Care Code ED [employer] Machine Set Up Mechanic for Salena Silva
== END 2025-03-21 17:15 | disposition home or self-care (01) ==
PROVIDERS: Emergency Provider Physician Assistant; PCP Family Medicine
DX: R04.0 Epistaxis (principal)
CPT/HCPCS: 99282

== ENCOUNTER → 2025-04-09 10:04 | Outpatient (BNVA) | payer MEDICARE, SELFPAY | PROVIDERS: PCP Family Medicine; Visit Provider Family Medicine | DX: R73.03 Prediabetes (principal); I10 Essential (primary) hypertension; E78.5 Hyperlipidemia, unspecified | CPT/HCPCS: 80053; 83036; 85025 ==